=== PATIENT | female | born 1945 | race Two or more races ===

== ENCOUNTER 2018-12-01 10:40 | Inpatient (IN) | payer MEDICARE, OTHER ==
[~2018-12-01] VITALS: Ht 165.1 cm; Wt 47.2 kg
[2018-12-01] MEDS ORDERED: PIPER-TAZO 3.375 GM IV (PMX) 100 ML IVPB STA (14:43)
[2018-12-01] MEDS ORDERED: VANCOMYCIN 1 GM (PMX) 250 ML IVPB STA (14:43)
--- NOTE | 2018-12-01 14:54 | ERD ---
ER Documentation Chief Complaint Chief Complaint pt is sent by PMD for admission and bilat amputation of 2nd digit HPI This is a 73-year-old female with a past medical history of hypertension, rheumatoid arthritis, failure to thrive with cachexia, GERD, dysphagia status post G-tube placement, foot ulcers who is presenting from the podiatry clinic to be admitted for likely amputation. She was seen by Dr. Vázquez. There are concerns of bilateral toe ulcers and possible gangrene. Her ulcers began in August and have been progressively worsening. She does not endorse any alleviating or exacerbating factors. The patient denies feeling sick recently. The patient denies fever or chills. The patient has had no headache or vision changes. The patient does not endorse neck or back pain. The patient denies lightheadedness or dizziness. The patient has had no chest pain or trouble breathing. The patient denies nausea or vomiting. The patient denies abdominal pain. The patient denies changes to bowel movements or urination. The patient has had no focal deficits. The patient has had no weakness or numbness or tingling to the face or extremities. ROS All systems reviewed and are negative except as per history of present illness. Medications Home Meds Reported Medications Zinc Sulfate* (Zinc Sulfate*) 220 Mg Tablet, 220 MG GTB DAILY, TAB STOP TAKING 12/09/18 12/01/18 Ascorbic Acid (Vitamin C) 500 Mg Tab, 500 MG PO DAILY, TAB 12/01/18 Cyanocobalamin (Vitamin B12) 100 Mcg Tab, 100 MCG GTB DAILY, TAB 12/01/18 valAcyclovir Hcl* (valACYclovir Hcl*) 500 Mg Tablet, 500 MG GTB DAILY, TAB 12/01/18 Tramadol HCl (Tramadol HCl) 50 Mg Tablet, 50 MG GTB Q8H PRN for PAIN, #120 TAB 12/01/18 Propylene Glycol (SYSTANE BALANCE) 10 Ml Drops, 1 DRP BOTH EYES TID, #1 BOTTLE 12/01/18 Sennosides* (Senna Lax*) 8.6 Mg Tablet, 2 TAB GTB BID, TAB 12/01/18 Mirtazapine* (Remeron*) 15 Mg Tablet, 15 MG GTB HS, TAB 12/01/18 Amino Acids/Protein Hydrolys (PRO-STAT LIQUID) 30 Ml Liquid.pkt, 30 ML GTB BID SUGAR FREE 12/01/18 Hydroxychloroquine Sulfate* (Plaquenil*) 200 Mg Tab, 400 MG GTB DAILY, TAB 12/01/18 Oxybutynin Chloride* (Ditropan*) 5 Mg Tablet, 5 MG GTB TID, TAB 12/01/18 Multivitamin with Minerals (Multivitamins with Minerals) 1 Each Tablet, 1 EACH GTB DAILY, TAB 12/01/18 Polyethylene Glycol* (Miralax*) 17 Gm Powd.pack, 17 GM GTB DAILY, #30 PACKET 12/01/18 Prednisolone* (Prednisolone*) 5 Mg Tablet, 5 MG GTB DAILY, TAB 12/01/18 Megestrol Acetate* (Megace ES*) 625 Mg/5 Ml Oral.susp, 1000 MG GTB DAILY, ML STOP DATE 12/19/18 12/01/18 Atorvastatin* (Atorvastatin*) 40 Mg Tablet, 40 MG GTB QHS, #30 TAB 12/01/18 Fluticasone Propionate* (Fluticasone Propionate* Nasal) 50 Mcg/[place]raymer - 16 Gm Braymer.susp, 2 SPRAYS NASAL DAILY, #1 BOTTLE TO EACH NOSTRIL 12/01/18 Roundup-3 Fatty Acids/Fish Oil (Fish Oil 1,000 mg Capsule) 1 Each Capsule, 1 EACH GTB DAILY, CAP 12/01/18 Ferrous Sulfate* (Ferrous Sulfate*) 220 Mg/5 Ml Solution, 7.5 ML GTB TID, ML 12/01/18 Bisacodyl* (Bisacodyl*) 10 Mg Supp, [address] Q24H for CONSTIPATION, SUPP 12/01/18 Docusate Sodium* (Colace*) 100 Mg Capsule, 100 MG GTB BID, #60 CAP 12/01/18 Cholecalciferol* (Vitamin D*) 400 Unit Tablet, 400 UNIT GTB DAILY, TAB 12/01/18 Mycophenolate Mofetil* (Cellcept*) 500 Mg Tablet, 1000 MG GTB DAILY, #120 TAB 12/01/18 Calcium Acetate* (Calcium Acetate*) 667 Mg Capsule, 667 MG GTB WITH MEALS BID, #30 CAP 12/01/18 Atenolol* (Atenolol*) 25 Mg Tablet, 25 MG GTB DAILY, #30 TAB HOLD FOR SBP<[address]<60 12/01/18 Allopurinol* (Allopurinol*) 100 Mg Tablet, 200 MG GTB DAILY, TAB 12/01/18 Acetaminophen* (Acetaminophen*) 500 MG Extra Strength Tablet, 1000 MG GTB Q6H PRN for MILD PAIN LEVEL 1-3, TAB AND TEMP>100F 12/01/18 Allergies Allergies: Coded Allergies: No Known Allergy (Unverified , 12/01/18) PMhx/Soc History of Surgery: Yes (G-tube placement) Anesthesia Reaction: No Hx Neurological Disorder: No Hx Respiratory Disorders: No Hx Cardiac Disorders: Yes (Hypertension) Hx Psychiatric Problems: No Hx Miscellaneous Medical Probl: Yes (Rheumatoid arthritis, dysphagia status post G-tube, failure to thrive, foot ulcers) Hx Alcohol Use: No Hx Substance Use: No Hx Tobacco Use: No FmHx Family History: No diabetes Physical Exam Vitals Vital Signs Date Temp Pulse Resp B/P (MAP) Pulse Ox O2 O2 Flow FiO2 Time Delivery Rate 12/01/18 80 20 146/95 99 Room Air 14:50 (112) 12/01/18 98.3 86 18 130/76 100 10:56 (94) Physical Exam Const: No apparent distress, well-developed. Cachexia. Head: Normocephalic, Atraumatic Eyes: Normal Conjunctiva. Extraocular movements intact. Pupils equal, round and reactive to light ENT: Normal External Ears, Nose. Dry mucous membranes. Neck: Full range of motion. No meningismus. Resp: Clear to auscultation bilaterally, No wheezes, rales or rhonchi Cardio: Regular rate and rhythm. No murmurs, rubs or gallops Abd: Soft, non tender, non distended. Normal bowel sounds. G-tube in place. Skin: No petechiae or rashes Back: No midline tenderness. No CVA tenderness Ext: No cyanosis. Extremity atrophy with contracturing. Bilateral pedal edema with ulcerations and gangrenous color changes. Neur: Awake and alert, oriented 4. Cranial nerves intact. No facial droop. Normal strength, sensation and coordination. Psych: Normal Mood and Affect Result Diagram: 12/01/18 1503 12/01/18 1503 Results 24 hrs Laboratory Tests Test 12/01/18 15:03 White Blood Count 9.5 10^3/ul Red Blood Count 3.65 10^6/ul Hemoglobin 11.2 g/dl Hematocrit 36.5 % Mean Corpuscular Volume 100.0 fl Mean Corpuscular Hemoglobin 30.7 pg Mean Corpuscular Hemoglobin Concent 30.7 g/dl Red Cell Distribution Width 15.7 % Platelet Count 165 10^3/UL Mean Platelet Volume 12.1 fl Immature Granulocytes % 3.200 % Neutrophils % 71.5 % Lymphocytes % 15.8 % Monocytes % 8.6 % Eosinophils % 0.6 % Basophils % 0.3 % Nucleated Red Blood Cells % 0.0 /100WBC Immature Granulocytes # 0.300 10^3/ul Neutrophils # 6.8 10^3/ul Lymphocytes # 1.5 10^3/ul Monocytes # 0.8 10^3/ul Eosinophils # 0.1 10^3/ul Basophils # 0.0 10^3/ul Nucleated Red Blood Cells # 0.0 10^3/ul Erythrocyte Sedimentation Rate 55 mm/Hr Prothrombin Time 12.0 Sec Prothrombin Time Ratio 0.9 INR International Normalized Ratio 0.88 Sodium Level 143 mmol/L Potassium Level 4.3 mmol/L Chloride Level 112 mmol/L Carbon Dioxide Level 23 mmol/L Anion Gap 8 Blood Urea Nitrogen 33 mg/dl Creatinine 1.04 mg/dl Est Glomerular Filtrat Rate mL/min mL/min Glucose Level 84 mg/dl Calcium Level 10.3 mg/dl C-Reactive Protein < 0.5 mg/dl Current Medications Medications Dose Sig/Lyla Start Time Status Last (Trade) Ordered Route PRN Stop Time Admin Dose Reason Admin Vancomycin 250 ml @ ONCE STAT 12/01/18 DC HCl 125 mls/hr IVPB 14:43 12/01/18 16:42 Piperacillin 100 ml @ ONCE STAT 12/01/18 DC 12/01/18 Sod/ 200 mls/hr IVPB 14:43 16:26 Tazobactam 12/01/18 15:12 Sod Ondansetron 4 mg BRIDGE ORDER 12/01/18 HCl (Zofran PRN IV 15:30 Inj) NAUSEA/VOMITI 12/02/18 15:29 NG 650 mg ER BRIDGE 12/01/18 Acetaminophen PRN PO 15:30 (Tylenol .MILD PAIN 12/02/18 15:29 Tab) 1-3 OR TEMP IV Flush 3 ml PER 12/01/18 (NS 3 ml) PROTOCOL IV 15:30 Ondansetron 4 mg Q6H PRN 12/01/18 HCl (Zofran IV 15:30 Inj) NAUSEA/VOMITI NG 650 mg Q6H PRN 12/01/18 Acetaminophen PO .PAIN 1-3 15:30 (Tylenol OR TEMP Tab) 1 tab Q6H PRN 12/01/18 Acetaminophen PO .PAIN 4-6 15:30 / Hydrocodone Bitart (Galien (5/325)) Morphine 2 mg Q4H PRN 12/01/18 Sulfate IV .PAIN 15:30 (morphine) 7-10 Vancomycin VANCOMYCIN PER 12/01/18 UNV HCl (Vanco PER PHARMACY PROTOCOL XX 15:30 Iv Per Pharmacy) Piperacillin 100 ml @ Q6 IVPB 12/01/18 UNV Sod/ 200 mls/hr 15:30 Tazobactam Sod Discontinue ONCE ONCE 12/01/18 DC Miscellaneous current oral XX 15:30 sulfonylur... 12/01/18 15:51 Information (* Miscellaneous Pharmacy Order) Diagnostic 1 ea 02 XX 12/02/18 DC Test (Pha) 02:00 (Accu-Chek) 12/02/18 02:00 ONCE ONCE 12/01/18 DC Miscellaneous HYPOGLYCEMIA XX 15:30 PROTOCOL 12/01/18 15:51 Information w... (* Miscellaneous Pharmacy Order) Insulin NOVOLOG WITH MEALS 12/01/18 DC Aspart *MILD* BEDTIME SC 18:00 (Novolog ALGORITHM 12/01/18 18:00 Insulin Pen) Discontinue ONCE ONCE 12/01/18 DC Miscellaneous all previ... XX 15:30 12/01/18 15:51 Information (* Miscellaneous Pharmacy Order) Allopurinol 200 mg DAILY PEG 12/01/18 UNV (Zyloprim) 15:30 Atenolol 25 mg DAILY PEG 12/01/18 UNV (Tenormin) 15:30 Calcium 667 mg BID PEG 12/01/18 UNV Acetate 21:00 (Phoslo) Docusate 100 mg BID PEG 12/01/18 UNV Sodium 21:00 (Colace Liquid Cup) Ferrous 300 mg DAILY PEG 12/02/18 UNV Sulfate 09:00 (Feosol Liquid Cup) Fish Oil 1,000 mg DAILY PO 12/01/18 UNV (Fish Oil) 15:30 40 mg HS PEG 12/01/18 UNV Atorvastatin 21:00 Calcium (Lipitor) Prednisone 5 mg DAILY PEG 12/01/18 UNV (Prednisone) 15:30 Oxybutynin 5 mg TID PEG 12/01/18 UNV Chloride 21:00 (Ditropan) 1,000 mg DAILY ONCE 12/01/18 UNV Mycophenolate PO 15:30 Mofetil 12/01/18 15:31 (Cellcept) 400 mg DAILY PO 12/01/18 UNV Hydroxychloro 15:30 quine Sulfate (Plaquenil) Mirtazapine 15 mg HS PO 12/01/18 UNV (Remeron) 21:00 Valacyclovir 500 mg DAILY ONCE 12/01/18 UNV HCl PO 15:30 (Valtrex) 12/01/18 15:31 100 mcg DAILY NGT 12/02/18 UNV Cyanocobalami 09:00 n (Vitamin B12) Ascorbic 500 mg DAILY GTB 12/02/18 UNV Acid 09:00 (Vitamin C) Zinc 220 mg DAILY PO 12/02/18 UNV Sulfate 09:00 (Zinc Sulfate) 40 mg DAILY@06 12/02/18 UNV Pantoprazole IV 06:00 (Protonix Iv) Valacyclovir 500 mg DAILY PO 12/02/18 UNV HCl 09:00 (Valtrex) 1,000 mg DAILY PO 12/02/18 UNV Mycophenolate 09:00 Mofetil (Cellcept) 12.5 mg DAILY PRN 12/01/18 UNV Diphenhydrami PEG itching 16:30 ne HCl (Benadryl Liquid Cup) Procedures/MDM MDM The patient's presentation warrants further investigation. Previous medical records, if available, were reviewed. LABS The patient's laboratory testing was obtained and reviewed. No emergent treatment was required unless described below. CBC: No E/o systemic infection or thrombocytopenia. Macrocytic anemia, nonemergent. Chemistry: No E/o severe acidosis or alkalosis or renal failure or diabetic ketoacidosis. Elevated BUN, concerning for dehydration. PT/INR: No E/o significant coagulopathy ESR: Elevated CRP: Negative EKG EKG read by me: Rate/Rhythm: Regular rate and rhythm at a rate of 73 bpm Intervals: Normal Cecil: Normal Impression: No evidence of acute ischemia or arrhythmia IMAGING Imaging and Radiology interpretation reviewed. CXR FINDINGS: Heart size is at the upper limits of normal. Aorta is tortuous. There is no pneumothorax or pleural effusion. There is no focal pulmonic consolidation. Degenerative changes of bilateral shoulder joints are partially seen. IMPRESSION: No acute pulmonary abnormality. Electronically viewed and signed by Physician Rosalinda on 12/01/2018 15:59 XR R Foot FINDINGS: There is no acute fracture or dislocation. There is suggestion of healing nondisplaced fracture of the second proximal phalanx with overlying soft tissue swelling. A minimally displaced, oblique fracture of fourth proximal phalanx is likely non-acute. There is hallux valgus deformity. There is flexion deformity of the second - fifth toes. There are mild osteoarthritic changes of the first metatarsophalangeal and intertarsal joints. There are moderate osteoarthritic changes of the tarsometatarsal joints. There is a small plantar calcaneal spur. There are diffuse vascular calcifications. There is moderate dorsal forefoot soft tissue swelling. No soft tissue gas is noted. IMPRESSION: 1. Suspect a nondisplaced second proximal phalangeal fracture with overlying soft tissue swelling. 2. Minimally displaced, oblique, fourth proximal phalangeal fracture, probably subacute or chronic. Recommend correlation with point tenderness and history of recent trauma. 3. Hallux valgus deformity. 4. Osteoarthritis, most notable at the tarsometatarsal joints. 5. Plantar calcaneal spur. 6. Atherosclerosis. 7. Moderate dorsal forefoot soft tissue swelling. Electronically viewed and signed by Physician Rosalinda on 12/01/2018 16:04 XR L Foot FINDINGS: There is no acute fracture or dislocation. Osseous structures are intact. There are moderate osteoarthritic changes of the second metatarsophalangeal and second proximal interphalangeal joints. There are mild degenerative changes of intertarsal and tarsometatarsal joints. There is an old nonunited second metatarsal base fracture. There is chronic deformity of distal third metatarsal and fourth proximal phalanx. There is flexion deformity of second - fifth toes. Vascular calcifications are seen in the foot. There is moderate dorsal forefoot soft tissue swelling. No soft tissue gas is seen. IMPRESSION: 1. No acute osseous abnormality. 2. Osteoarthritis. 3. Old nonunited second metatarsal base fracture. 4. Flexion deformity of the second - fifth toes. 5. Atherosclerosis. 6. Moderate dorsal forefoot soft tissue swelling. Electronically viewed and signed by Gaby Villa, Physician on 12/01/2018 16:07 TREATMENT/DISPOSITION The patient presents with concerns of bilateral pedal gangrene. The patient was evaluated in the podiatry office and referred to the emergency department for admission and preoperative testing. I spoke with the on-call bird trapper, Dr. Sunshine, who requested initiation of vancomycin and Zosyn in the emergency depar tment. The patient is not septic and does not require a full septic workup. Preoperative testing was completed. ADMISSION At this time, I feel that the patient requires admission for further evaluation and management. The patient will be admitted to panel in accordance with the patient's insurance. The patient was accepted by Dr. Jacobsen at 2:58 PM on December 01, [address] [facility]. Vázquez evaluated the patient in the ER. Disclaimer: Inadvertent spelling and grammatical errors are likely due to EHR/dictation software use and do not reflect on the overall quality of patient care. Note that the electronic time recorded on this note does not necessarily reflect the actual time of the patient encounter. Departure Diagnosis: Primary Impression: Gangrene of both feet Additional Impressions: Diabetic ulcer of both feet Macrocytic anemia Elevated BUN Condition: Serious SALVADOR BOYLE MD Dec 01, 2018 14:54
--- NOTE | 2018-12-01 15:19 | CONS ---
Assessment/Plan Assessment/Plan Assessment/Plan (Daily) Chronic osteomyelitis b/l feet 2nd digits Bilateral minimally displaced foot fracture - chronic in nature PAD - s/p angioplasty Arterial ulcers bilateral foot Hammertoe deformity Lupus Osteoarthritis Chronic HSV Patient Patient had discussion with daughter previously for bilateral 2nd digit amputation. Patient will need medical and cardiac clearance. Patient will be p lanned for OR procedure this week. Recommend betadine and dry sterile dressings to bilateral 2nd digits. Offload bilateral heels with pillows. Patient had previous vascular intervention for lower extremity. Consultation Date/Type/Reason Admit Date/Time Date/Time of Note DATE: 12/01/18 TIME: 15:19 Hx of Present Illness 73 y/o F patient presented to the wound care clinic with bilateral 2nd digit ulcerations with bone exposed. Patient states the wounds have been present for long period of time. She was seen previously and was recommended to be admitted for further management of digit ulceration sites and to be scheduled for bilateral 2nd digit amputation. ROS negative except for HPI Past Medical History lupus, rheumatoid arthritis, gout, iron deficiency anemia, constipation, chronic HSV, hypertension Home Meds Reported Medications Zinc Sulfate* (Zinc Sulfate*) 220 Mg Tablet, 220 MG GTB DAILY, TAB STOP TAKING 12/09/18 12/01/18 Ascorbic Acid (Vitamin C) 500 Mg Tab, 500 MG PO DAILY, TAB 12/01/18 Cyanocobalamin (Vitamin B12) 100 Mcg Tab, 100 MCG GTB DAILY, TAB 12/01/18 valAcyclovir Hcl* (valACYclovir Hcl*) 500 Mg Tablet, 500 MG GTB DAILY, TAB 12/01/18 Tramadol HCl (Tramadol HCl) 50 Mg Tablet, 50 MG GTB Q8H PRN for PAIN, #120 TAB 12/01/18 Propylene Glycol (SYSTANE BALANCE) 10 Ml Drops, 1 DRP BOTH EYES TID, #1 BOTTLE 12/01/18 Sennosides* (Senna Lax*) 8.6 Mg Tablet, 2 TAB GTB BID, TAB 12/01/18 Mirtazapine* (Remeron*) 15 Mg Tablet, 15 MG GTB HS, TAB 12/01/18 Amino Acids/Protein Hydrolys (PRO-STAT LIQUID) 30 Ml Liquid.pkt, 30 ML GTB BID SUGAR FREE 12/01/18 Hydroxychloroquine Sulfate* (Plaquenil*) 200 Mg Tab, 400 MG GTB DAILY, TAB 12/01/18 Oxybutynin Chloride* (Ditropan*) 5 Mg Tablet, 5 MG GTB TID, TAB 12/01/18 Multivitamin with Minerals (Multivitamins with Minerals) 1 Each Tablet, 1 EACH GTB DAILY, TAB 12/01/18 Polyethylene Glycol* (Miralax*) 17 Gm Powd.pack, 17 GM GTB DAILY, #30 PACKET 12/01/18 Prednisolone* (Prednisolone*) 5 Mg Tablet, 5 MG GTB DAILY, TAB 12/01/18 Megestrol Acetate* (Megace ES*) 625 Mg/5 Ml Oral.susp, 1000 MG GTB DAILY, ML STOP DATE 12/19/18 12/01/18 Atorvastatin* (Atorvastatin*) 40 Mg Tablet, 40 MG GTB QHS, #30 TAB 12/01/18 Fluticasone Propionate* (Fluticasone Propionate* Nasal) 50 Mcg/[place] - 16 Gm [place].susp, 2 SPRAYS NASAL DAILY, #1 BOTTLE TO EACH NOSTRIL 12/01/18 Wilson-3 Fatty Acids/Fish Oil (Fish Oil 1,000 mg Capsule) 1 Each Capsule, 1 EACH GTB DAILY, CAP 12/01/18 Ferrous Sulfate* (Ferrous Sulfate*) 220 Mg/5 Ml Solution, 7.5 ML GTB TID, ML 12/01/18 Bisacodyl* (Bisacodyl*) 10 Mg Supp, 10 MG RI Q24H for CONSTIPATION, SUPP 12/01/18 Docusate Sodium* (Colace*) 100 Mg Capsule, 100 MG GTB BID, #60 CAP 12/01/18 Cholecalciferol* (Vitamin D*) 400 Unit Tablet, 400 UNIT GTB DAILY, TAB 12/01/18 Mycophenolate Mofetil* (Cellcept*) 500 Mg Tablet, 1000 MG GTB DAILY, #120 TAB 12/01/18 Calcium Acetate* (Calcium Acetate*) 667 Mg Capsule, 667 MG GTB WITH MEALS BID, #30 CAP 12/01/18 Atenolol* (Atenolol*) 25 Mg Tablet, 25 MG GTB DAILY, #30 TAB HOLD FOR SBP<110 OR RI<60 12/01/18 Allopurinol* (Allopurinol*) 100 Mg Tablet, 200 MG GTB DAILY, TAB 12/01/18 Acetaminophen* (Acetaminophen*) 500 MG Extra Strength Tablet, 1000 MG GTB Q6H PRN for MILD PAIN LEVEL 1-3, TAB AND TEMP>100F 12/01/18 Medications Current Medications Vancomycin HCl 250 ml @ 125 mls/hr ONCE STAT IVPB ; Start 12/01/18 at 14:43; Stop 12/01/18 at 16:42 Ondansetron HCl (Zofran Inj) 4 mg BRIDGE ORDER PRN IV NAUSEA/VOMITING; Start 12/01/18 at 15:30; Stop 12/02/18 at 15:29 Acetaminophen (Tylenol Tab) 650 mg ER BRIDGE PRN PO .MILD PAIN 1-3 OR TEMP; Start 12/01/18 at 15:30; Stop 12/02/18 at 15:29 Allergies: Coded Allergies: No Known Allergy (Unverified , 12/01/18) Past Surgical History g-tube placement Social History Smoking Status: Never smoker Exam/Review of Systems Exam Vitals Vital Signs Date Temp Pulse Resp B/P (MAP) Pulse Ox O2 O2 Flow FiO2 Time Delivery Rate 12/01/18 80 20 146/95 99 Room Air 14:50 (112) 12/01/18 98.3 10:56 Exam weakly palpable pedal pulses CFT less than 3 seconds to the digits Bilateral 2nd digit ulcerations at the dorsal PIPJ with bone exposed. No purulence, edema noted to bilateral 2nd digits. No proximal streaking. Pain on with palpation to bilateral 2nd digits. Left foot X-ray IMPRESSION: 1. No acute osseous abnormality. 2. Osteoarthritis. 3. Old nonunited second metatarsal base fracture. 4. Flexion deformity of the second - fifth toes. 5. Atherosclerosis. 6. Moderate dorsal forefoot soft tissue swelling. Right foot X-ray IMPRESSION: 1. Suspect a nondisplaced second proximal phalangeal fracture with overlying soft tissue swelling. 2. Minimally displaced, oblique, fourth proximal phalangeal fracture, probably subacute or chronic. Recommend correlation with point tenderness and history of recent trauma. 3. Hallux valgus deformity. 4. Osteoarthritis, most notable at the tarsometatarsal joints. 5. Plantar calcaneal spur. 6. Atherosclerosis. 7. Moderate dorsal forefoot soft tissue swelling. Results Result Diagram: 12/01/18 1503 Results 24hrs Laboratory Tests Test 12/01/18 15:03 White Blood Count 9.5 Red Blood Count 3.65 L Hemoglobin 11.2 L Hematocrit 36.5 L Mean Corpuscular Volume 100.0 Mean Corpuscular Hemoglobin 30.7 Mean Corpuscular Hemoglobin Concent 30.7 L Red Cell Distribution Width 15.7 H Platelet Count 165 Mean Platelet Volume 12.1 H Immature Granulocytes % 3.200 H Neutrophils % 71.5 Lymphocytes % 15.8 Monocytes % 8.6 Eosinophils % 0.6 Basophils % 0.3 Nucleated Red Blood Cells % 0.0 Immature Granulocytes # 0.300 H Neutrophils # 6.8 Lymphocytes # 1.5 Monocytes # 0.8 Eosinophils # 0.1 Basophils # 0.0 Nucleated Red Blood Cells # 0.0 Medications Medication Current Medications Vancomycin HCl 250 ml @ 125 mls/hr ONCE STAT IVPB ; Start 12/01/18 at 14:43; Stop 12/01/18 at 16:42 Ondansetron HCl (Zofran Inj) 4 mg BRIDGE ORDER PRN IV NAUSEA/VOMITING; Start 12/01/18 at 15:30; Stop 12/02/18 at 15:29 Acetaminophen (Tylenol Tab) 650 mg ER BRIDGE PRN PO .MILD PAIN 1-3 OR TEMP; Start 12/01/18 at 15:30; Stop 12/02/18 at 15:29 WENDI BELL DPM Dec 01, 2018 15:19
[2018-12-01] MEDS ORDERED: VANCOMYCIN IV PER PHARMACY XX SCH (15:30)
[2018-12-01] MEDS ORDERED: ONDANSETRON 4 MG INJ IV PRN (15:30)
[2018-12-01] MEDS ORDERED: ACETAMINOPHEN 325 MG TAB PO PRN (15:30)
[2018-12-01] MEDS ORDERED: NACL 0.9% 3 ML SYG IV SCH (15:30)
--- NOTE | 2018-12-01 16:01 | HP ---
Date/Time of Note Date/Time of Note DATE: 12/01/18 TIME: 16:01 Assessment/Plan VTE Prophylaxis Pharmacological prophylaxis: other Assessment/Plan Hospital Course Patient is a -Marshallese female the past medical history significant for lupus, rheumatoid arthritis, gout, iron deficiency anemia, constipation, chronic HSV, hypertension who presents to [facility] for her chronic foot ulcers. Patient is wheelchair-bound due to weakness and also has a PEG tube due to poor p.o. intake. Patient states that she cannot swallow it is just difficult and she has very severe acid reflux. Patient was sent after she went to her public interviewer appointment for her chronic foot ulcers. Patient feels well otherwise and does have some pain in her feet and her body but nothing out of the ordinary. Patient denies chest pain, shortness of breath, abdominal pain, nausea, vomiting, headache. Objective Physical exam General: Patient is laying in bed and answers questions appropriately Mentation: Patient is alert and oriented 4, Head: Normocephalic atraumatic Eyes: EOMI, pupils reactive to light Neck: Supple, nontender, midline Respiratory: Clear to auscultation bilaterally Cardiovascular: regular rate, no obvious murmurs Gastrointestinal: non-tender to palpation, bowel sounds heard. Neurological: Moves all extremities spontaneously Skin: Foot ulcers bilaterally Assessment and plan Bilateral foot ulcers -Broad-spectrum IV antibiotic -Podiatry on board -Cardiology on board to risk assess for surgery planned sometime next week Hypertension -Continue home meds Lupus and rheumatoid arthritis -Continue home meds Chronic HSV -On Valtrex suppression therapy Gout -Allopurinol Dyslipidemia -Atorvastatin Nutritional deficiency -On tube feeds -See speech therapy -Dietary consult Inability to tolerate significant p.o. -Patient able to swallow however however her [facility] does feed her she just does not like the food.she states that due to excessive reflux she does not like to eat food -Continue tube feeds but also let patient drink water diet clears Iron deficiency anemia -Continue iron Disposition -IV antibiotics, cardiology consulted for cardiac clearance, surgery sometime next week Result Diagram: 12/01/18 1503 Results 24hrs Laboratory Tests Test 12/01/18 15:03 White Blood Count 9.5 Red Blood Count 3.65 L Hemoglobin 11.2 L Hematocrit 36.5 L Mean Corpuscular Volume 100.0 Mean Corpuscular Hemoglobin 30.7 Mean Corpuscular Hemoglobin Concent 30.7 L Red Cell Distribution Width 15.7 H Platelet Count 165 Mean Platelet Volume 12.1 H Immature Granulocytes % 3.200 H Neutrophils % 71.5 Lymphocytes % 15.8 Monocytes % 8.6 Eosinophils % 0.6 Basophils % 0.3 Nucleated Red Blood Cells % 0.0 Immature Granulocytes # 0.300 H Neutrophils # 6.8 Lymphocytes # 1.5 Monocytes # 0.8 Eosinophils # 0.1 Basophils # 0.0 Nucleated Red Blood Cells # 0.0 Prothrombin Time 12.0 Prothrombin Time Ratio 0.9 INR International Normalized Ratio 0.88 Sodium Level 143 Potassium Level 4.3 Chloride Level 112 H Carbon Dioxide Level 23 Anion Gap 8 Blood Urea Nitrogen 33 H Creatinine 1.04 H Est Glomerular Filtrat Rate mL/min Glucose Level 84 Calcium Level 10.3 H C-Reactive Protein < 0.5 HPI/ROS Admit Date/Time Admit Date/Time PMH/Family/Social Past Medical History Medications Current Medications Vancomycin HCl 250 ml @ 125 mls/hr ONCE STAT IVPB ; Start 12/01/18 at 14:43; Stop 12/01/18 at 16:42 Ondansetron HCl (Zofran Inj) 4 mg BRIDGE ORDER PRN IV NAUSEA/VOMITING; Start 12/01/18 at 15:30; Stop 12/02/18 at 15:29 Acetaminophen (Tylenol Tab) 650 mg ER BRIDGE PRN PO .MILD PAIN 1-3 OR TEMP; Start 12/01/18 at 15:30; Stop 12/02/18 at 15:29 Coded Allergies: No Known Allergy (Unverified , 12/01/18) Social History Smoking Status: Never smoker Exam/Review of Systems Vital Signs Vitals Vital Signs Date Temp Pulse Resp B/P (MAP) Pulse Ox O2 O2 Flow FiO2 Time Delivery Rate 12/01/18 80 20 146/95 99 Room Air 14:50 (112) 12/01/18 98.3 10:56 ITZ BAY Dec 01, 2018 16:01
[2018-12-01] MEDS ORDERED: ACET-141 GTB (16:04)
[2018-12-01] MEDS ORDERED: ALLO100T GTB (16:05)
[2018-12-01] MEDS ORDERED: ATEN-51 GTB (16:06)
[2018-12-01] MEDS ORDERED: CALC667C GTB (16:07)
[2018-12-01] MEDS ORDERED: MYCO500T GTB (16:08)
[2018-12-01] MEDS ORDERED: CHOL400T10 GTB (16:09)
[2018-12-01] MEDS ORDERED: DOCU-144 GTB (16:09)
[2018-12-01] MEDS ORDERED: BISA10SU75 PR (16:10)
[2018-12-01] MEDS ORDERED: FERR220S13 GTB (16:11)
[2018-12-01] MEDS ORDERED: FLUT16SP17 NASAL (16:12)
[2018-12-01] MEDS ORDERED: OMEG-135 GTB (16:12)
[2018-12-01] MEDS ORDERED: ATOR40TA68 GTB (16:12)
[2018-12-01] MEDS ORDERED: MEGE625O GTB (16:14)
[2018-12-01] MEDS ORDERED: PRED5TAB50 GTB (16:18)
[2018-12-01] MEDS ORDERED: POLY17PO6 GTB (16:19)
[2018-12-01] MEDS ORDERED: MULT-105 GTB (16:21)
[2018-12-01] MEDS ORDERED: OXYB5TAB7 GTB (16:22)
[2018-12-01] MEDS ORDERED: HYDR200T5 GTB (16:23)
[2018-12-01] MEDS ORDERED: AMIN30LI GTB (16:24)
[2018-12-01] MEDS ORDERED: MIRT15TA GTB (16:24)
[2018-12-01] MEDS ORDERED: SENN-120 GTB (16:26)
[2018-12-01] MEDS ORDERED: PROP10DR4 BOTH EYES (16:28)
[2018-12-01] MEDS ORDERED: TRAM50TA2 GTB (16:29)
[2018-12-01] MEDS ORDERED: VALA500T GTB (16:30)
[2018-12-01] MEDS ORDERED: CYAN100T GTB (16:35)
[2018-12-01] MEDS ORDERED: ASC500 PO (16:36)
[2018-12-01] MEDS ORDERED: ZINC220T GTB (16:37)
[2018-12-01] MEDS: ONDANSETRON 4 MG INJ IV PRN (17:57)
[2018-12-01] MEDS: morphine 2 MG INJ IV PRN (17:57)
[2018-12-01] MEDS ORDERED: INSULIN ASPART [NOVOLOG] 3 ML PEN SC SCH (18:00)
[2018-12-01] MEDS ORDERED: valACYclovir 500 MG TAB PO ONE (18:30)
[2018-12-01] MEDS ORDERED: MYCOPHENOLATE 250 MG CAP PO ONE (18:30)
[2018-12-01 19:27] VITALS: BP 151/72; PULSE 75; RESP 18
[2018-12-01] MEDS: PIPER-TAZO 3.375 GM IV (PMX) 100 ML IVPB SCH ×2 (20:00→21:35)
[2018-12-01 20:25] VITALS: BP 140/73; PULSE 66; RESP 18
[2018-12-01 21:00] VITALS: Ht 165.1 cm; Wt 47.2 kg
[2018-12-01] MEDS: ATENOLOL 25 MG TAB PEG SCH (21:00)
[2018-12-01] MEDS: HYDROXYCHLOROQUINE 200 MG TAB PO SCH (21:06)
[2018-12-01] MEDS: ALLOPURINOL 100 MG TAB PEG SCH (21:06)
[2018-12-01] MEDS: OXYBUTYNIN 5 MG TAB PEG SCH (21:07)
[2018-12-01] MEDS: FISH OIL 1,000 MG CAP PO SCH (21:07)
[2018-12-01] MEDS: predniSONE 5 MG TAB PEG SCH (21:07)
[2018-12-01] MEDS: DOCUSATE SODIUM 10 MG/ML (10ML CUP) PEG SCH (21:08)
[2018-12-01] MEDS: MIRTAZAPINE 15 MG TAB PO SCH (21:08)
[2018-12-01] MEDS: ATORVASTATIN 40 MG TAB PEG SCH (21:08)
[2018-12-01] MEDS: CALCIUM ACETATE 667 MG CAP PEG SCH (21:08)
[2018-12-02] MEDS: morphine 2 MG INJ IV PRN ×6 (00:47→23:14)
[2018-12-02] MEDS ORDERED: ACCU-CHEK XX SCH (02:00)
[2018-12-02 02:21] VITALS: BP 114/66; PULSE 79; RESP 18
--- NOTE | 2018-12-02 03:56 | CONS ---
DATE OF ADMISSION: 12/01/2018 DATE OF CONSULTATION: 12/01/2018 REASON FOR CONSULTATION: Preoperative evaluation. REQUESTING PHYSICIAN: Dr. Bay from the hospitalist service. HISTORY OF PRESENT ILLNESS: Ms. Bañuelos is a very pleasant 73-year-old female with a history of lupus, rheumatoid arthritis, gout, anemia, hypertension, peripheral arterial disease who presents with worsening foot ulcers bilaterally. The patient is at baseline, does not ambulate due to generalized weakness, is wheelchair bound, has a PEG tube for poor p.o. intake. Upon arrival, temperature 98.3, blood pressure 130/76, pulse 86, respiratory rate 18, satting 100%. The patient's labs, white count 9.5, hemoglobin 0.2, platelet count of 165. ESR 55. Sodium 142, potassium 4.3, creatinine 1.0, BUN 33. Calcium 10.3. CRP of less than 5. INR 0.88. The patient underwent a chest x-ray revealing no acute cardiopulmonary abnormalities and foot x-ray that revealed a nondisplaced 2nd proximal phalangeal fracture, nondisplaced oblique 4th proximal phalangeal fracture, hallux valgus deformity, osteoarthritis, plantar calcaneal spur, atherosclerosis, moderate dorsal forefoot soft tissue swelling. The patient's electrocardiogram is not in chart for my review at this time. The patient's electrocardiogram revealed normal sinus rhythm, rate of 73, normal axis, normal intervals with biphasic T-wave abnormalities in anterior precordial leads. The patient subsequently was admitted to the floor, and since admit to floor, denies chest pain, shortness of breath, palpitations, prior myocardial infarction. PAST MEDICAL HISTORY: As above in HPI. MEDICATIONS CURRENTLY IN HOSPITAL: 1. Vancomycin. 2. Ferrous sulfate. 3. Vitamin B12. 4. Vitamin C. 5. Zinc sulfate. 6. Valtrex 500 mg daily. 7. CellCept 1000 mg. 8. Protonix 40 mg IV daily. 9. Calcium acetate. 10. Colace. 11. Lipitor 40 mg at bedtime. 12. Ditropan. 13. Remeron. 14. Zosyn. ALLERGIES: NO KNOWN DRUG ALLERGIES. SOCIAL HISTORY: No current tobacco, EtOH or illicit drug use. FAMILY HISTORY: No history of sudden cardiac or early CAD. REVIEW OF SYSTEMS: As above in HPI. CONSTITUTIONAL: No fevers, chills. PULMONARY: No current shortness of breath. CARDIOVASCULAR: No current chest pain. GASTROINTESTINAL: No vomiting but dysphagia status post G-tube. GENITOURINARY: No hematuria. MUSCULOSKELETAL: Degenerative joint disease. PSYCHIATRIC: No documented psych history. NEUROLOGIC: No documented history of CVA. ENDOCRINE: No documented history of diabetes mellitus. PHYSICAL EXAMINATION: VITAL SIGNS: Temperature 98.1, blood pressure 125/75, pulse 74, respiratory rate 17, satting 100%. GENERAL: The patient is alert, awake, complaining of mild foot pain. NECK: JVP approximately 8 to 9 cm of water. CHEST: Fair air movement throughout. HEART: Regular rate and rhythm. Normal S1 and S2, I/ systolic murmur, nondisplaced PMI. ABDOMEN: Positive bowel sounds, soft. EXTREMITIES: Somewhat wasted-appearing ulcerations on the toes bilaterally. Somewhat difficult to palpate distal pulses bilaterally, posterior tibial and dorsalis pedis. LABORATORY DATA: As above in HPI. No further labs for my review at this time. IMAGING STUDIES: As above in HPI. No further imaging studies for my review at this time. ECG: As above in HPI. No further electrocardiograms for my review at this time. IMPRESSION: 1. Preoperative evaluation prior to possible lower extremity foot surgery, debridement. 2. Abnormal electrocardiogram with biphasic anterior T-wave abnormalities, assess for acute coronary syndrome. 3. Hypertension, under reasonable control. 4. Dyslipidemia by medications. 5. Lupus. 6. Peripheral arterial disease. 7. Lower extremity ulcerations, nonhealing. RECOMMENDATIONS: 1. At this time, we would maintain patient on baseline atenolol for heart rate and blood pressure control. 2. Continue the patient's current fish oil and check a fasting lipid panel and adjust fish oil and statin as necessary. 3. Continue the patient's broad-spectrum antibiotics, follow up all culture data. 4. Check a lower extremity arterial ultrasound to assess the patient's vasculature and ability to heal lower extremity ulcerations and possible contribution to ulcerations. 5. We would additionally check a 2D echo for this patient's ejection fraction, wall motion, rule out any major abnormalities. 6. Will check serial EKGs with a repeat EKG in the morning, EKG for any complaints of chest pain or change in rhythm, and given patient's cardiac risk factors, this patient may benefit from further stratification prior to surgery with a cardiac stress test. Thank you for allowing me to take part in the care of this patient. I will continue to follow her very closely with you. Further recommendations will be made as the patient progresses through her inpatient hospital clinical course. Dictated By: CRISTA EUCEDA/NIECY Conf#: [id number] DID#: [id number] CC: ITZ BAY MD;*EndCC* MTDD
[2018-12-02] MEDS: PANTOPRAZOLE 40 MG INJ IV SCH (05:56)
[2018-12-02] MEDS: PIPER-TAZO 3.375 GM IV (PMX) 100 ML IVPB SCH ×4 (05:56→18:07)
[2018-12-02 07:35] VITALS: BP 126/63; PULSE 68; RESP 18
--- NOTE | 2018-12-02 08:51 | RADRPT ---
ROGERIO WAHL :1945 Sex:F Status: RECONFIRMED ACC:[id number] Exam DATE:2018-12-02 08:28:05 Vent Rate: 72 bpm RR Interval: 0 msec [place] Interval: 144 msec QRS Duration: 70 msec QT Interval: 354 msec QTC Interval: 387 msec P-R-T [place]: 59 - 38 - 77 degrees Normal sinus rhythm Nonspecific ST and T wave abnormality Abnormal ECG Electronically Signed By: Jin Broderick
[2018-12-02] MEDS: ZINC SULFATE 220 MG CAP PO SCH (09:20)
[2018-12-02] MEDS: MYCOPHENOLATE 250 MG CAP PO SCH (09:21)
[2018-12-02] MEDS: predniSONE 5 MG TAB PEG SCH (09:22)
[2018-12-02] MEDS: HYDROXYCHLOROQUINE 200 MG TAB PO SCH (09:22)
[2018-12-02] MEDS: ASCORBIC ACID 500 MG TAB GTB SCH (09:22)
[2018-12-02] MEDS: CYANOCOBALAMIN 100 MCG TAB NGT SCH (09:22)
[2018-12-02] MEDS: ALLOPURINOL 100 MG TAB PEG SCH (09:22)
[2018-12-02] MEDS: OXYBUTYNIN 5 MG TAB PEG SCH ×3 (09:22→22:12)
[2018-12-02] MEDS: FISH OIL 1,000 MG CAP PO SCH (09:23)
[2018-12-02] MEDS: DOCUSATE SODIUM 10 MG/ML (10ML CUP) PEG SCH ×2 (09:23→22:13)
[2018-12-02] MEDS: FERROUS SULFATE 60 MG/ML 5ML CUP PEG SCH (09:23)
[2018-12-02] MEDS: CALCIUM ACETATE 667 MG CAP PEG SCH ×2 (09:23→22:12)
[2018-12-02] MEDS: ATENOLOL 25 MG TAB PEG SCH (11:10)
[2018-12-02] MEDS: valACYclovir 500 MG TAB PO SCH (11:10)
[2018-12-02] MEDS ORDERED: REGADENOSON 0.4 MG/5 ML SYG ONE (12:22)
--- NOTE | 2018-12-02 13:51 | PN ---
Date/Time of Note Date/Time of Note DATE: 12/02/18 TIME: 13:49 Objective Vitals Vital Signs Date Temp Pulse Resp B/P (MAP) Pulse Ox O2 O2 Flow FiO2 Time Delivery Rate 12/02/18 98.1 68 18 126/63 97 Room Air 07:35 (84) Intake and Output 12/01/18 12/01/18 12/02/18 1414:59 22:59 06:59 IntakeIntake Total 100 ml 100 ml BalanceBalance 100 ml 100 ml Results Result Diagram: 12/02/18 0505 12/02/18 0505 Medications Medications Current Medications IV Flush (NS 3 ml) 3 ml PER PROTOCOL IV ; Start 12/01/18 at 15:30 Ondansetron HCl (Zofran Inj) 4 mg Q6H PRN IV NAUSEA/VOMITING Last administered on 12/01/18at 17:57; Admin Dose 4 MG; Start 12/01/18 at 15:30 Acetaminophen (Tylenol Tab) 650 mg Q6H PRN PO .PAIN 1-3 OR TEMP; Start 12/01/18 at 15:30 Acetaminophen/ Hydrocodone Bitart ([place] (5/325)) 1 tab Q6H PRN PO .PAIN 4-6; Start 12/01/18 at 15:30 Morphine Sulfate (morphine) 2 mg Q4H PRN IV .PAIN 7-10 Last administered on 12/02/18at 09:18; Admin Dose 2 MG; Start 12/01/18 at 15:30 Vancomycin HCl (Vanco Iv Per Pharmacy) VANCOMYCIN PER PHARMACY PER PROTOCOL XX ; Start 12/01/18 at 15:30 Piperacillin Sod/ Tazobactam Sod 100 ml @ 200 mls/hr Q6 IVPB Last administered on 12/02/18at 11:10; Admin Dose 200 MLS/HR; Start 12/01/18 at 15:30 Allopurinol (Zyloprim) 200 mg DAILY PEG Last administered on 12/02/18at 09:22; Admin Dose 200 MG; Start 12/01/18 at 15:30 Atenolol (Tenormin) 25 mg DAILY PEG Last administered on 12/02/18at 11:10; Admin Dose 25 MG; Start 12/01/18 at 15:30 Calcium Acetate (Phoslo) 667 mg BID PEG Last administered on 12/02/18 09:23; Admin Dose 667 MG; Start 12/01/18 at 21:00 Docusate Sodium (Colace Liquid Cup) 100 mg BID PEG Last administered on 12/02/18 09:23; Admin Dose 100 MG; Start 12/01/18 at 21:00 Ferrous Sulfate (Feosol Liquid Cup) 300 mg DAILY PEG Last administered on 12/02/18 09:23; Admin Dose 300 MG; Start 12/02/18 at 09:00 Fish Oil (Fish Oil) 1,000 mg DAILY PO Last administered on 12/02/18 09:23; Admin Dose 1,000 MG; Start 12/01/18 at 15:30 Atorvastatin Calcium (Lipitor) 40 mg HS PEG Last administered on 12/01/18 21:08; Admin Dose 40 MG; Start 12/01/18 at 21:00 Oxybutynin Chloride (Ditropan) 5 mg TID PEG Last administered on 12/02/18 09:22; Admin Dose 5 MG; Start 12/01/18 at 21:00 Hydroxychloroquine Sulfate (Plaquenil) 400 mg DAILY PO Last administered on 12/02/18 09:22; Admin Dose 400 MG; Start 12/01/18 at 15:30 Mirtazapine (Remeron) 15 mg HS PO Last administered on 12/01/18 21:08; Admin Dose 15 MG; Start 12/01/18 at 21:00 Cyanocobalamin (Vitamin B12) 100 mcg DAILY NGT Last administered on 12/02/18 09:22; Admin Dose 100 MCG; Start 12/02/18 at 09:00 Ascorbic Acid (Vitamin C) 500 mg DAILY GTB Last administered on 12/02/18 09:22; Admin Dose 500 MG; Start 12/02/18 at 09:00 Zinc Sulfate (Zinc Sulfate) 220 mg DAILY PO Last administered on 12/02/18 09:20; Admin Dose 220 MG; Start 12/02/18 at 09:00 Pantoprazole (Protonix Iv) 40 mg DAILY@06 IV Last administered on 12/02/18 05:56; Admin Dose 40 MG; Start 12/02/18 at 06:00 Valacyclovir HCl (Valtrex) 500 mg DAILY PO Last administered on 12/02/18 11:10; Admin Dose 500 MG; Start 12/02/18 at 09:00 Mycophenolate Mofetil (Cellcept) 1,000 mg DAILY PO Last administered on 12/02/18at 09:21; Admin Dose 1,000 MG; Start 12/02/18 at 09:00 Diphenhydramine HCl (Benadryl Liquid Cup) 12.5 mg DAILY PRN PEG itching; Start 12/01/18 at 16:30 Vancomycin HCl 100 ml @ 100 mls/hr Q24H IVPB ; Start 12/02/18 at 18:00 Methylprednisolone (Medrol) 5 mg DAILY PEG ; Start 12/03/18 at 09:00 VTE Prophylaxis Risk score (from [facility])>0 risk: 6 SCD applied (from [facility]): Yes Lines/Catheters IV Catheter Type: Louie in Place: No Assessment/Plan Hospital Course Subjective No acute events overnight, stress test today Objective Physical exam General: Patient is laying in bed and answers questions appropriately Mentation: Patient is alert and oriented 4, Head: Normocephalic atraumatic Eyes: EOMI, pupils reactive to light Neck: Supple, nontender, midline Respiratory: Clear to auscultation bilaterally Cardiovascular: regular rate, no obvious murmurs Gastrointestinal: non-tender to palpation, bowel sounds heard. Neurological: Moves all extremities spontaneously Skin: Foot ulcers bilaterally Assessment and plan Bilateral foot ulcers -Broad-spectrum IV antibiotic -Podiatry on board -Cardiology on board to risk assess for surgery planned sometime next week Hypertension -Continue home meds Lupus and rheumatoid arthritis -Continue home meds Chronic HSV -On Valtrex suppression therapy Gout -Allopurinol Dyslipidemia -Atorvastatin Nutritional deficiency -On tube feeds -See speech therapy -Dietary consult Inability to tolerate significant p.o. -Patient able to swallow however however her long term does feed her she just does not like the food.she states that due to excessive reflux she does not like to eat food -Continue tube feeds but also let patient drink water diet clears Iron deficiency anemia -Continue iron Disposition -IV antibiotics, cardiology consulted for cardiac clearance, surgery sometime next week -stress test today ITZ BAY Dec 02, 2018 13:51
[2018-12-02] MEDS: VANCOMYCIN 500 MG (PMX) 100 ML IVPB SCH (20:07)
[2018-12-02] MEDS: ONDANSETRON 4 MG INJ IV PRN (20:22)
[2018-12-02] MEDS: ACETAMINOPHEN 325 MG TAB PO PRN (20:22)
[2018-12-02 20:25] VITALS: BP 105/61; PULSE 88; RESP 18
[2018-12-02] MEDS: ATORVASTATIN 40 MG TAB PEG SCH (22:12)
[2018-12-02] MEDS: MIRTAZAPINE 15 MG TAB PO SCH (22:13)
[2018-12-02] MEDS: NYSTATIN 30 GM POWDER BTL TOP SCH (23:13)
[2018-12-03] MEDS: DIPHENHYDRAMINE 2.5 MG/ML 5ML CUP PEG PRN ×2 (00:26→22:09)
[2018-12-03] MEDS: PIPER-TAZO 3.375 GM IV (PMX) 100 ML IVPB SCH ×4 (00:26→18:39)
[2018-12-03 02:20] VITALS: BP 91/52; PULSE 72; RESP 18
[2018-12-03] MEDS: morphine 2 MG INJ IV PRN ×3 (03:39→20:13)
[2018-12-03] MEDS: PANTOPRAZOLE 40 MG INJ IV SCH (05:44)
[2018-12-03 08:09] VITALS: BP 125/61; PULSE 62; RESP 17
[2018-12-03] MEDS: ATENOLOL 25 MG TAB PEG SCH (09:00)
--- NOTE | 2018-12-03 10:02 | CONS ---
DATE OF ADMISSION: 12/01/2018 DATE OF CONSULTATION: 12/03/2018 TYPE OF CONSULTATION: Nephrology. REASON FOR CONSULTATION: Chronic kidney disease, acute kidney injury. REQUESTING PHYSICIAN: Dr. Bay HISTORY OF PRESENT ILLNESS: This is a 73-year-old -[place] female with a past medical histor y of chronic kidney disease stage III, unknown baseline creatinine, history of lupus, rheumatoid art hritis, gout, anemia, constipation, history of chronic HSV, hypertension who presents to [facility] for chronic foot ulcers. The patient is wheel-bound due to weakness and has a percu taneous endoscopic gastrostomy tube due to poor oral intake. The patient states that she has difficu lty swallowing and has severe gastroesophageal reflux disease. The patient went to a exchange engineer for evaluation and was subsequently brought to the emergency room for admission to the hospital for furth er evaluation of her wounds. In terms of patient's renal history, the patient states she has underlying chronic kidney disease due to lupus. The patient states that she has been on management for underlying lupus. She states that she is on CellCept and has previously been on prednisone. She denies any hemoptysis, hematemesis or hematochezia. 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 PAST MEDICAL HISTORY: Status post percutaneous endoscopic gastrostomy. FAMILY HISTORY: No family history of kidney disease. SOCIAL HISTORY: She does not drink, smoke or do drugs. MEDICATIONS: The patient's medications have been reviewed. REVIEW OF SYSTEMS: A 14-point review of systems was conducted. Pertinent positives stated in HPI, o therwise negative. PHYSICAL EXAMINATION: VITAL SIGNS: Blood pressure is 125/61, respirations 17, pulse 62, temperature 98.3. HEENT: Head is normocephalic. NECK: Supple. HEART: Regular rate. LUNGS: Show diminished breath sounds at the base. ABDOMEN: Soft, nontender to palpation without rebound or guarding. EXTREMITIES: Negative for clubbing, cyanosis, no edema. DERMATOLOGIC: No rashes. MUSCULOSKELETAL: No joint effusion. NEUROLOGIC: No change in exam. LABORATORY DATA: From 12/03/2018 was reviewed. IMAGING STUDIES: Reviewed. MICROBIOLOGY: Reviewed. ASSESSMENT AND PLAN: This is a 73-year-old female who presents with: 1. Nonoliguric acute kidney injury on top of chronic kidney disease stage III with unknown baseline creatinine. Etiology of current acute kidney injury may be secondary to hemodynamics, volume depleti on. The possibility of progression of chronic kidney disease is a consideration. Plan is for full e valuation. We will check a UA with microanalysis, check urine electrolytes. We will check a renal u ltrasound to evaluate renal parenchyma. We would otherwise continue current treatment plan, supporti ve care, renally dose all medicines. 2. Chronic kidney disease with questionable history of lupus nephritis. The patient is currently in acute kidney injury as stated above. The patient is also on CellCept, which is appropriate manageme nt for lupus nephritis. At this point, we would continue to treat acute kidney injury as stated abov e. Continue disease factor modification, and monitor closely. 3. Hypernatremia. The patient has a free water deficit of approximately 2 liters. We will increase free water flushes to 200 mL q.4h. 4. Anemia. Continue to monitor hemoglobin and hematocrit levels. 5. Mineral bone disorder, monitor calcium and phosphate levels. 6. Metabolic acidosis secondary to acute kidney injury, possible chronic kidney disease. Continue t o monitor bicarbonate levels. 7. Bilateral foot ulcers, peripheral vascular disease. Continue to monitor. Followup with podiatry . Continue antibiotic therapy. 8. Hypertension. Continue current blood pressure regimen. 9. History of HSV. Continue Valtrex. 10. Gout. Continue allopurinol. 11. Dyslipidemia. Continue statin therapy. 12. Dysphagia. Continue tube feeding. Thank you, Dr. Bay, for this interesting consult. It will be a pleasure to follow the patient with y judit throughout the hospital course. Dictated By: JANINE LOPEZ DO NR/NTS Conf#: [id number] DID#: [id number] CC: ITZ BAY MD;*EndCC*
[2018-12-03] MEDS: ASCORBIC ACID 500 MG TAB GTB SCH (10:30)
[2018-12-03] MEDS: CYANOCOBALAMIN 100 MCG TAB NGT SCH (10:30)
[2018-12-03] MEDS: DOCUSATE SODIUM 10 MG/ML (10ML CUP) PEG SCH ×2 (10:31→20:12)
[2018-12-03] MEDS: FERROUS SULFATE 60 MG/ML 5ML CUP PEG SCH (10:31)
[2018-12-03] MEDS: OXYBUTYNIN 5 MG TAB PEG SCH ×3 (10:31→20:12)
[2018-12-03] MEDS: CALCIUM ACETATE 667 MG CAP PEG SCH ×2 (10:32→20:13)
[2018-12-03] MEDS: METHYLPREDNISOLONE 4 MG TAB PEG SCH (10:32)
[2018-12-03] MEDS: ALLOPURINOL 100 MG TAB PEG SCH (10:34)
[2018-12-03] MEDS: MYCOPHENOLATE 250 MG CAP PO SCH (10:34)
[2018-12-03] MEDS: FISH OIL 1,000 MG CAP PO SCH (10:34)
[2018-12-03] MEDS: NYSTATIN 30 GM POWDER BTL TOP SCH ×2 (10:35→20:14)
[2018-12-03] MEDS: valACYclovir 500 MG TAB PO SCH (10:35)
[2018-12-03] MEDS: HYDROXYCHLOROQUINE 200 MG TAB PO SCH (10:35)
[2018-12-03] MEDS: ZINC SULFATE 220 MG CAP PO SCH (10:35)
[2018-12-03] MEDS ORDERED: traMADol 50 MG TAB PO PRN (11:00)
[2018-12-03 13:54] VITALS: BP 113/60; PULSE 79; RESP 18
--- NOTE | 2018-12-03 14:41 | CONS ---
Assessment/Plan Assessment/Plan Assessment/Plan (Daily) Gangrenous feet awaiting debridement. Abnormal electrocardiogram with biphasic anterior T-wave abnormalities Hypertension Dyslipidemia Lupus. Peripheral arterial disease. Lower extremity ulcerations, nonhealing. Cleared for surgery with low risk Continue atenolol Continue Lipitor Continue anti lupus medications Consultation Date/Type/Reason Admit Date/Time Dec 01, 2018 at 15:06 Initial Consult Date Type of Consult Cardiology Date/Time of Note DATE: 12/03/18 TIME: 14:37 Exam/Review of Systems Vital Signs Vitals Vital Signs Date Temp Pulse Resp B/P (MAP) Pulse Ox O2 O2 Flow FiO2 Time Delivery Rate 12/03/18 98.8 79 18 113/60 99 13:54 (77) 12/02/18 Room Air 07:35 Intake and Output 12/02/18 12/02/18 12/03/18 1515:00 23:00 07:00 IntakeIntake Total 100 ml 440 ml 400 ml BalanceBalance 100 ml 440 ml 400 ml Exam Constitutional: alert Head: normocephalic Respiratory: clear to auscultation Cardiovascular: regular rate and rhythm (no m/r/g) Gastrointestinal: soft, nl liver, spleen Musculoskeletal: other (b/l ganrenous toes) Labs Result Diagram: 12/03/18 0709 12/03/18 0709 Results 24hrs Laboratory Tests Test 12/02/18 15:08 12/03/18 07:09 Troponin I 0.036 White Blood Count 6.6 # Red Blood Count 3.22 L Hemoglobin 10.0 L Hematocrit 32.3 L Mean Corpuscular Volume 100.3 Mean Corpuscular Hemoglobin 31.1 Mean Corpuscular Hemoglobin Concent 31.0 L Red Cell Distribution Width 15.6 H Platelet Count 148 Mean Platelet Volume 11.8 H Immature Granulocytes % 2.400 H Neutrophils % 68.7 Lymphocytes % 17.7 Monocytes % 9.7 Eosinophils % 1.2 Basophils % 0.3 Nucleated Red Blood Cells % 0.0 Immature Granulocytes # 0.160 H Neutrophils # 4.5 Lymphocytes # 1.2 Monocytes # 0.6 Eosinophils # 0.1 Basophils # 0.0 Nucleated Red Blood Cells # 0.0 Sodium Level 145 H Potassium Level 3.9 Chloride Level 116 H Carbon Dioxide Level 20 L Anion Gap 9 Blood Urea Nitrogen 25 H Creatinine 1.27 H Est Glomerular Filtrat Rate mL/min Glucose Level 92 Calcium Level 9.2 Phosphorus Level 3.5 Magnesium Level 2.3 Medications Medications Current Medications IV Flush (NS 3 ml) 3 ml PER PROTOCOL IV ; Start 12/01/18 at 15:30 Ondansetron HCl (Zofran Inj) 4 mg Q6H PRN IV NAUSEA/VOMITING Last administered on 12/02/18 20:22; Admin Dose 4 MG; Start 12/01/18 at 15:30 Acetaminophen (Tylenol Tab) 650 mg Q6H PRN PO .PAIN 1-3 OR TEMP Last administered on 12/02/18 20:22; Admin Dose 650 MG; Start 12/01/18 at 15:30 Acetaminophen/ Hydrocodone Bitart ([place] (5/325)) 1 tab Q6H PRN PO .PAIN 4-6; Start 12/01/18 at 15:30 Morphine Sulfate (morphine) 2 mg Q4H PRN IV .PAIN 7-10 Last administered on 12/03/18 13:55; Admin Dose 2 MG; Start 12/01/18 at 15:30 Vancomycin HCl (Vanco Iv Per Pharmacy) VANCOMYCIN PER PHARMACY PER PROTOCOL XX ; Start 12/01/18 at 15:30 Piperacillin Sod/ Tazobactam Sod 100 ml @ 200 mls/hr Q6 IVPB Last administered on 12/03/18 13:45; Admin Dose 200 MLS/HR; Start 12/01/18 at 15:30 Allopurinol (Zyloprim) 200 mg DAILY PEG Last administered on 12/03/18 10:34; Admin Dose 200 MG; Start 12/01/18 at 15:30 Atenolol (Tenormin) 25 mg DAILY PEG Last administered on 12/02/18 11:10; Admin Dose 25 MG; Start 12/01/18 at 15:30 Calcium Acetate (Phoslo) 667 mg BID PEG Last administered on 12/03/18 10:32; Admin Dose 667 MG; Start 12/01/18 at 21:00 Docusate Sodium (Colace Liquid Cup) 100 mg BID PEG Last administered on 12/03/18 10:31; Admin Dose 100 MG; Start 12/01/18 at 21:00 Ferrous Sulfate (Feosol Liquid Cup) 300 mg DAILY PEG Last administered on 12/03/18 10:31; Admin Dose 300 MG; Start 12/02/18 at 09:00 Fish Oil (Fish Oil) 1,000 mg DAILY PO Last administered on 12/03/18 10:34; Admin Dose 1,000 MG; Start 12/01/18 at 15:30 Atorvastatin Calcium (Lipitor) 40 mg HS PEG Last administered on 12/02/18 22:12; Admin Dose 40 MG; Start 12/01/18 at 21:00 Oxybutynin Chloride (Ditropan) 5 mg TID PEG Last administered on 12/03/18 13:45; Admin Dose 5 MG; Start 12/01/18 at 21:00 Hydroxychloroquine Sulfate (Plaquenil) 400 mg DAILY PO Last administered on 10:35; Admin Dose 400 MG; Start 12/01/18 at 15:30 Mirtazapine (Remeron) 15 mg HS PO Last administered on 12/02/18 22:13; Admin Dose 15 MG; Start 12/01/18 at 21:00 Cyanocobalamin (Vitamin B12) 100 mcg DAILY NGT Last administered on 12/03/18 10:30; Admin Dose 100 MCG; Start 12/02/18 at 09:00 Ascorbic Acid (Vitamin C) 500 mg DAILY GTB Last administered on 12/03/18 10:30; Admin Dose 500 MG; Start 12/02/18 at 09:00 Zinc Sulfate (Zinc Sulfate) 220 mg DAILY PO Last administered on 12/03/18 10:35; Admin Dose 220 MG; Start 12/02/18 at 09:00 Pantoprazole (Protonix Iv) 40 mg DAILY@06 IV Last administered on 12/03/18 05:44; Admin Dose 40 MG; Start 12/02/18 at 06:00 Valacyclovir HCl (Valtrex) 500 mg DAILY PO Last administered on 12/03/18 10:35; Admin Dose 500 MG; Start 12/02/18 at 09:00 Mycophenolate Mofetil (Cellcept) 1,000 mg DAILY PO Last administered on 12/03/18 10:34; Admin Dose 1,000 MG; Start 12/02/18 at 09:00 Diphenhydramine HCl (Benadryl Liquid Cup) 12.5 mg DAILY PRN PEG itching Last administered on 4/14/19at 00:26; Admin Dose 12.5 MG; Start 12/01/18 at 16:30 Vancomycin HCl 100 ml @ 100 mls/hr Q24H IVPB Last administered on 12/02/18at 20:07; Admin Dose 100 MLS/HR; Start 12/02/18 at 18:00 Methylprednisolone (Medrol) 5 mg DAILY PEG Last administered on 12/03/18at 10:32; Admin Dose 5 MG; Start 12/03/18 at 09:00 Nystatin (Nystatin Powder) 1 applic BID TOP Last administered on 12/03/18at 10:35; Admin Dose 1 APPLIC; Start 12/02/18 at 21:00 Tramadol HCl (Ultram) 50 mg Q6H PRN PO MODERATE PAIN LEVEL 4-6; Start 12/03/18 at 11:00 Miscellaneous Information (*Rx Drug Level Order Reminder*) VANCO TROUGH ON @ 700 1700 ONCE XX ; Start 12/04/18 at 17:00; Stop 12/04/18 at 17:01 SHALINI CAMACHO M.D. Dec 03, 2018 14:41
--- NOTE | 2018-12-03 14:48 | PN ---
Date/Time of Note Date/Time of Note DATE: 12/03/18 TIME: 14:47 Objective Vitals Vital Signs Date Temp Pulse Resp B/P (MAP) Pulse Ox O2 O2 Flow FiO2 Time Delivery Rate 12/03/18 98.8 79 18 113/60 99 13:54 (77) 12/02/18 Room Air 07:35 Intake and Output 12/02/18 12/02/18 12/03/18 1515:00 23:00 07:00 IntakeIntake Total 100 ml 440 ml 400 ml BalanceBalance 100 ml 440 ml 400 ml Results Result Diagram: 12/03/18 0709 12/03/18 0709 Medications Medications Current Medications IV Flush (NS 3 ml) 3 ml PER PROTOCOL IV ; Start 12/01/18 at 15:30 Ondansetron HCl (Zofran Inj) 4 mg Q6H PRN IV NAUSEA/VOMITING Last administered on 12/02/18at 20:22; Admin Dose 4 MG; Start 12/01/18 at 15:30 Acetaminophen (Tylenol Tab) 650 mg Q6H PRN PO .PAIN 1-3 OR TEMP Last administered on 12/02/18at 20:22; Admin Dose 650 MG; Start 12/01/18 at 15:30 Acetaminophen/ Hydrocodone Bitart ([place] (5/325)) 1 tab Q6H PRN PO .PAIN 4-6; Start 12/01/18 at 15:30 Morphine Sulfate (morphine) 2 mg Q4H PRN IV .PAIN 7-10 Last administered on 12/03/18at 13:55; Admin Dose 2 MG; Start 12/01/18 at 15:30 Vancomycin HCl (Vanco Iv Per Pharmacy) VANCOMYCIN PER PHARMACY PER PROTOCOL XX ; Start 12/01/18 at 15:30 Piperacillin Sod/ Tazobactam Sod 100 ml @ 200 mls/hr Q6 IVPB Last administered on 12/03/18 13:45; Admin Dose 200 MLS/HR; Start 12/01/18 at 15:30 Allopurinol (Zyloprim) 200 mg DAILY PEG Last administered on 12/03/18at 10:34; Admin Dose 200 MG; Start 12/01/18 at 15:30 Atenolol (Tenormin) 25 mg DAILY PEG Last administered on 12/02/18at 11:10; Admin Dose 25 MG; Start 12/01/18 at 15:30 Calcium Acetate (Phoslo) 667 mg BID PEG Last administered on 12/03/18 10:32; Admin Dose 667 MG; Start 12/01/18 at 21:00 Docusate Sodium (Colace Liquid Cup) 100 mg BID PEG Last administered on 12/03/18 10:31; Admin Dose 100 MG; Start 12/01/18 at 21:00 Ferrous Sulfate (Feosol Liquid Cup) 300 mg DAILY PEG Last administered on 12/03/18 10:31; Admin Dose 300 MG; Start 12/02/18 at 09:00 Fish Oil (Fish Oil) 1,000 mg DAILY PO Last administered on 12/03/18 10:34; Admin Dose 1,000 MG; Start 12/01/18 at 15:30 Atorvastatin Calcium (Lipitor) 40 mg HS PEG Last administered on 12/02/18 22:12; Admin Dose 40 MG; Start 12/01/18 at 21:00 Oxybutynin Chloride (Ditropan) 5 mg TID PEG Last administered on 12/03/18 13:45; Admin Dose 5 MG; Start 12/01/18 at 21:00 Hydroxychloroquine Sulfate (Plaquenil) 400 mg DAILY PO Last administered on 12/03/18 10:35; Admin Dose 400 MG; Start 12/01/18 at 15:30 Mirtazapine (Remeron) 15 mg HS PO Last administered on 12/02/18 22:13; Admin Dose 15 MG; Start 12/01/18 at 21:00 Cyanocobalamin (Vitamin B12) 100 mcg DAILY NGT Last administered on 12/03/18 10:30; Admin Dose 100 MCG; Start 12/02/18 at 09:00 Ascorbic Acid (Vitamin C) 500 mg DAILY GTB Last administered on 12/03/18 10:30; Admin Dose 500 MG; Start 12/02/18 at 09:00 Zinc Sulfate (Zinc Sulfate) 220 mg DAILY PO Last administered on 12/03/18 10:35; Admin Dose 220 MG; Start 12/02/18 at 09:00 Pantoprazole (Protonix Iv) 40 mg DAILY@06 IV Last administered on 12/03/18 05:44; Admin Dose 40 MG; Start 12/02/18 at 06:00 Valacyclovir HCl (Valtrex) 500 mg DAILY PO Last administered on 12/03/18 10:35; Admin Dose 500 MG; Start 12/02/18 at 09:00 Mycophenolate Mofetil (Cellcept) 1,000 mg DAILY PO Last administered on 12/03/18 10:34; Admin Dose 1,000 MG; Start 12/02/18 at 09:00 Diphenhydramine HCl (Benadryl Liquid Cup) 12.5 mg DAILY PRN PEG itching Last administered on 12/03/18 00:26; Admin Dose 12.5 MG; Start 12/01/18 at 16:30 Vancomycin HCl 100 ml @ 100 mls/hr Q24H IVPB Last administered on 12/02/18 20:07; Admin Dose 100 MLS/HR; Start 12/02/18 at 18:00 Methylprednisolone (Medrol) 5 mg DAILY PEG Last administered on 12/03/18 10 :32; Admin Dose 5 MG; Start 12/03/18 at 09:00 Nystatin (Nystatin Powder) 1 applic BID TOP Last administered on 12/03/18 10:35; Admin Dose 1 APPLIC; Start 12/02/18 at 21:00 Tramadol HCl (Ultram) 50 mg Q6H PRN PO MODERATE PAIN LEVEL 4-6; Start 12/03/18 at 11:00 Miscellaneous Information (*Rx Drug Level Order Reminder*) VANCO TROUGH ON @ 700 1700 ONCE XX ; Start 12/04/18 at 17:00; Stop 12/04/18 at 17:01 VTE Prophylaxis Risk score (from Nsg)>0 risk: 4 SCD applied (from Ns): Yes Lines/Catheters IV Catheter Type: Louie in Place: No Assessment/Plan Hospital Course Subjective No acute events overnight Objective Physical exam General: Patient is laying in bed and answers questions appropriately Mentation: Patient is alert and oriented 4, Head: Normocephalic atraumatic Eyes: EOMI, pupils reactive to light Neck: Supple, nontender, midline Respiratory: Clear to auscultation bilaterally Cardiovascular: regular rate, no obvious murmurs Gastrointestinal: non-tender to palpation, bowel sounds heard. Neurological: Moves all extremities spontaneously Skin: Foot ulcers bilaterally Assessment and plan Bilateral foot ulcers -Broad-spectrum IV antibiotic -Podiatry on board -Cardiology on board to risk assess for surgery planned sometime next week Hypertension -Continue home meds Lupus and rheumatoid arthritis -Continue home meds Chronic HSV -On Valtrex suppression therapy Gout -Allopurinol Dyslipidemia -Atorvastatin Nutritional deficiency -On tube feeds, but patient also able to tolerate mech soft PO according to the patient -See speech therapy -Dietary consult Inability to tolerate significant p.o. -Patient able to swallow, her assisted does feed her, she just does not like the food or she states that due to excessive reflux, she doesn't get hungry -Continue tube feeds but also let patient eat soft diet. Iron deficiency anemia -Continue iron Disposition -IV antibiotics, cardiology consulted for cardiac clearance, surgery sometime n ext week -stress test negative ITZ BAY Dec 03, 2018 14:48
--- NOTE | 2018-12-03 15:45 | RADRPT ---
Echocardiogram Report Patient Name: ROGERIO WAHLPatient ID: [id number] : 1945 (73y )Study Date: 12/03/2018 7:47:38 AM Gender: FAccession #: [id number] Tech: [facility] [place] Location: Ref.Physician: CRISTA PANIAGUA Height(Cm): 165 BSA: 1.41Weight(Kg): 43.5 Quality: Technically Difficult StudyAccount #: Procedures: Echocardiographic Report: Transthoracic echocardiogram with complete 2D, M-Mode, and doppler examination. Indications: Pre-op. Measurements: 2D/M Mode Doppler Measurement Value Normal Range Measurement Value Normal Range LVIDd 2D 3.5 [ 3.8 - 5.2 ] cm AV Peak Valentin 1.4 [ 100.0 - 170.0 ] cm/se c LVIDs 2D 2.2 [ 2.2 - 3.5 ] cm AV Peak PG 8.0 [ 2.0 - 9.0 ] mmHg LVPWd 2D 1.1 [ 0.6 - 0.9 ] cm LVOT Peak Valentin 0.9 [ 70.0 - 110.0 ] cm/sec IVSd 2D 1.2 [ 0.6 - 0.9 ] cm LVOT Peak PG 3.0 [ 2.0 - 6.0 ] mmHg AoR Diam 2D 3.4 [ 2.3 - 3.1 ] cm MV E Peak Valentin 0.6 [ 60.0 - 130.0 ] cm/sec EDV 2D 51.2 [ 46.0 - 106.0 ] ml MV A Peak Valentin 0.7 [ 100.0 - 120.0 ] cm/se c ESV 2D 15.8 [ 14.0 - 42.0 ] ml MV E/A 0.8 [ 0.8 - 1.5 ] ratio EF 2D 69.1 [ 54.0 - 74.0 ] percent MV PHT 83.0 [ 20.0 - 100.0 ] msec LA Dimen 2D 3.0 [ 2.7 - 3.8 ] cm MV Decel Time 282 [ 104 - 258 ] msec MV Decel Karnes 2 Lat E` Valentin 0.1 [ 10.0 - 15.0 ] cm/sec Lateral E/E` 5.9 [ 1.0 - 2.0 ] ratio Med E` Valentin 0.1 cm/sec MV E/A 0.8 [ 0.8 - 1.5 ] ratio MVA PHT 2.7 [ 2.0 - 4.0 ] cm2 PV Peak Valentin 1.0 [ 40.0 - 80.0 ] cm/sec PV Peak PG 4.0 mmHg Findings: Left Ventricle: Normal left ventricular systolic function. Normal left ventricular cavity size. Mild concentric left ventricular hypertrophy. Ejection fraction is visually estimated at 50-55 %. E/E'= 11. Right Ventricle: Normal right ventricular size. Normal right ventricular systolic function. Left Atrium: The left atrium is normal in size. Right Atrium: The right atrium is normal in size. Atrial Septum: Normal atrial septum. Mitral Valve: Normal appearance and function of the mitral valve with trace physiologic regurgitation. Aortic Valve: No significant aortic stenosis or insufficiency. Aortic cusps appear mildly calcified. Trileaflet aortic valve. Tricuspid Valve: Normal appearance and function of the tricuspid valve with trace physiologic regurgitation. Unable to obtain RVSP due to minimal presence of tricuspid regurgitation. Pulmonic Valve: Normal pulmonic valve appearance. There is trace pulmonic regurgitation. Pericardium: Normal pericardium with no significant pericardial effusion. Aorta: Normal aortic root. There is mild aortic root calcification. IVC: Normal size and normal respiratory collapse consistent with normal right atrial pressure. Pulmonary Artery: Normal pulmonary artery size. Conclusions: Normal left ventricular systolic function. Normal left ventricular cavity size. Mild concentric left ventricular hypertrophy. Ejection fraction is visually estimated at 50-55 %. Normal right ventricular size. Normal right ventricular systolic function. Normal appearance and function of the mitral valve with trace physiologic regurgitation. No significant aortic stenosis or insufficiency. Aortic cusps appear mildly calcified. Trileaflet aortic valve. Normal appearance and function of the tricuspid valve with trace physiologic regurgitation. Unable to obtain RVSP due to minimal presence of tricuspid regurgitation. Normal pericardium with no significant pericardial effusion. Electronically Signed By: Derrick Naranjo 2018-12-03 15:44:58 PDT
--- NOTE | 2018-12-03 17:11 | CONS ---
DATE OF ADMISSION: 12/01/2018 DATE OF CONSULTATION: 12/03/2018 SUBJECTIVE FINDINGS: The patient is being followed for bilateral foot ulcerations with gangrenous changes. The patient had been admitted for surgical intervention and recommended medical cardiac clearance. The patient has been cleared for surgery with low risk. The patient is being followed by Nephrology for chronic kidney disease stage III, elevated creatinine and metabolic acidosis. OBJECTIVE FINDINGS: VITAL SIGNS: Temperature is 98.8, pulse is 79, respiratory is 18, blood pressure is 113/60, pulse ox is 99 on room air. GENERAL: The patient alert, oriented, fragile-appearing and f obvious deformity of the fingers. She has normal neck range of motion. Regular respirations. EXTREMITIES: The patient with hammertoe deformities and ulceration dorsal PIPJ with exposed bone and joint surfaces, cyanotic changes at periphery of the wound, gangrenous changes, dry skin, subcutaneous atrophy. LABORATORIES: WBC 6.6, hemoglobin 10, hematocrit is 32.3, platelets 148. Sed rate is 55. Sodium 145, potassium 3.9, chloride 116, CO2 20, BUN 25, creatinine 1.27. X-rays reveal osteoarthritis, nonunited second metatarsal base fracture, flexion deformity of toes, atherosclerosis, moderate forefoot swelling, left foot. On the right foot, suspected nondisplaced second proximal phalangeal fracture with soft tissue swelling, valgus, moderate dorsal forefoot swelling. Cultures negative for MRSA. ASSESSMENT: 1. Bilateral feet gangrene, recent angioplasty. 2. Chronic ulcerations with joint exposure. 3. Hammertoe deformities. 4. Abnormal EKG with biphasic anterior T-wave form abnormalities. I have cleared for surgery with low risk from cardiac standpoint. Plan: Discussed recommended procedures to include debridement with possible amputation of bilateral second toes and we will schedule for surgery Tuesday and keep the patient n.p.o. and all questions answered to her satisfaction. The patient with chronic nonhealing wound, have further risk for sepsis. Dictated By: ZACH BEST/NIECY Conf#: [id number] DID#: [id number] MTDD
[2018-12-03] MEDS: NEOMYC/POLYMYX/BACIT 30 GM OINT TOP SCH (18:39)
[2018-12-03] MEDS: VANCOMYCIN 500 MG (PMX) 100 ML IVPB SCH (20:12)
[2018-12-03] MEDS: ATORVASTATIN 40 MG TAB PEG SCH (20:13)
[2018-12-03] MEDS: MIRTAZAPINE 15 MG TAB PO SCH (20:13)
[2018-12-03] MEDS: DAKINS 0.0125%(1/40) 473 ML SOLUTION TP SCH (20:14)
[2018-12-03 20:15] VITALS: BP 109/62; PULSE 81; RESP 18
[2018-12-04] VITALS (12 sets, daily range): BP systolic 100–132; BP diastolic 63–74; PULSE 62–80; RESP 11–24
[2018-12-04] MEDS: PIPER-TAZO 3.375 GM IV (PMX) 100 ML IVPB SCH ×4 (00:56→23:03)
[2018-12-04] MEDS: morphine 2 MG INJ IV PRN ×4 (01:20→21:18)
[2018-12-04] MEDS: PANTOPRAZOLE 40 MG INJ IV SCH (05:54)
[2018-12-04] MEDS ORDERED: DEXTROSE 5%-0.45% NACL 1,000 ML IV SCH (08:30)
[2018-12-04] MEDS: FISH OIL 1,000 MG CAP PO SCH (09:00)
[2018-12-04] MEDS: CALCIUM ACETATE 667 MG CAP PEG SCH ×2 (09:00→21:14)
--- NOTE | 2018-12-04 09:50 | PN ---
DATE: 12/04/2018 SUBJECTIVE: The patient is stable, no events overnight. No fevers, chills, nausea, vomiting. OBJECTIVE: VITAL SIGNS: Blood pressure is 112/70, respirations 17, pulse 71, temperature 98.4. HEENT: Head is normocephalic. NECK: Supple. HEART: Regular rate. LUNGS: Show diminished breath sounds at the base. ABDOMEN: Soft, nontender to palpation without rebound or guarding. EXTREMITIES: Negative for clubbing, cyanosis, no edema. DERMATOLOGIC: No rashes. MUSCULOSKELETAL: Positive bilateral heel wounds. NEUROLOGIC: No change in exam. MEDICATIONS: The patient's medications have been reviewed. LABORATORY DATA: Reviewed. ASSESSMENT AND PLAN: 1. Nonoliguric acute kidney injury on top of chronic kidney disease stage III with unknown baseline creatinine. Etiology of current acute kidney injury is secondary to hemodynamics. The patient's uri nalysis was reviewed with bland sediment. Patient's renal ultrasound was reviewed, shows no evidence of obstruction, but small echogenic kidneys consistent with medical renal disease. At this point, w juditld continue current treatment plan. Continue supportive care, renally dose all meds. Please note there is low suspicion for active lupus nephritis as patient's urinalysis was bland. Showed no activ e sediment. 2. Chronic kidney disease, possible history of lupus nephritis. The patient is currently in acute k idney injury as stated above, likely due to hemodynamics. No evidence of active sediment on urinalys is. We will continue current treatment plan as stated above. We will continue CellCept. Continue d isease factor modification. 3. Hypernatremia, improved. Continue free water flushes. 4. Anemia. Monitor hemoglobin and hematocrit. 5. Mineral bone disorder. Monitor calcium and phosphorus levels. 6. History of lupus. Continue current medical management. 7. Metabolic acidosis secondary to acute kidney injury and chronic kidney disease. Continue to darrion tor. 8. Bilateral foot ulcers. Continue current antibiotic regimen. 9. Hypertension. Continue current blood pressure regimen. 10. History of HSV. Continue Valtrex. 11. History of gout. Continue allopurinol. 12. Dyslipidemia. Continue statin therapy. 13. Dysphagia. Continue tube feeding. Dictated By: JANINE JIMENEZ/NTS Conf#: [id number] DID#: [id number] CC: ITZ BAY MD;*End*
[2018-12-04] MEDS: MYCOPHENOLATE 250 MG CAP PO SCH (09:55)
[2018-12-04] MEDS: DOCUSATE SODIUM 10 MG/ML (10ML CUP) PEG SCH ×2 (09:55→21:17)
[2018-12-04] MEDS: FERROUS SULFATE 60 MG/ML 5ML CUP PEG SCH (09:55)
[2018-12-04] MEDS: valACYclovir 500 MG TAB PO SCH (09:57)
[2018-12-04] MEDS: CYANOCOBALAMIN 100 MCG TAB NGT SCH (09:57)
[2018-12-04] MEDS: ASCORBIC ACID 500 MG TAB GTB SCH (09:57)
[2018-12-04] MEDS: OXYBUTYNIN 5 MG TAB PEG SCH ×2 (09:57→12:32)
[2018-12-04] MEDS: ALLOPURINOL 100 MG TAB PEG SCH (09:57)
[2018-12-04] MEDS: ZINC SULFATE 220 MG CAP PO SCH (09:57)
[2018-12-04] MEDS: METHYLPREDNISOLONE 4 MG TAB PEG SCH (09:57)
[2018-12-04] MEDS: HYDROXYCHLOROQUINE 200 MG TAB PO SCH (09:58)
[2018-12-04] MEDS: ATENOLOL 25 MG TAB PEG SCH (09:59)
[2018-12-04] MEDS: DAKINS 0.0125%(1/40) 473 ML SOLUTION TP SCH (10:00)
[2018-12-04] MEDS: NYSTATIN 30 GM POWDER BTL TOP SCH ×2 (10:01→23:08)
[2018-12-04] MEDS: NEOMYC/POLYMYX/BACIT 30 GM OINT TOP SCH (10:01)
[2018-12-04] MEDS: ONDANSETRON 4 MG INJ IV PRN (10:45)
--- NOTE | 2018-12-04 11:51 | PN ---
Date/Time of Note Date/Time of Note DATE: 12/04/18 TIME: 11:49 Objective Vitals Vital Signs Date Temp Pulse Resp B/P (MAP) Pulse Ox O2 O2 Flow FiO2 Time Delivery Rate 12/04/18 98.4 71 17 112/70 99 08:02 (84) 12/02/18 Room Air 07:35 Intake and Output 12/03/18 12/03/18 12/04/18 1414:59 22:59 06:59 IntakeIntake Total 200 ml 1430 ml 500 ml OutputOutput Total 125 ml BalanceBalance 75 ml 1430 ml 500 ml Results Result Diagram: 12/04/18 0543 12/04/18 0543 Medications Medications Current Medications IV Flush (NS 3 ml) 3 ml PER PROTOCOL IV ; Start 12/01/18 at 15:30 Ondansetron HCl (Zofran Inj) 4 mg Q6H PRN IV NAUSEA/VOMITING Last administered on 12/04/18at 10:45; Admin Dose 4 MG; Start 12/01/18 at 15:30 Acetaminophen (Tylenol Tab) 650 mg Q6H PRN PO .PAIN 1-3 OR TEMP Last administered on 12/02/18at 20:22; Admin Dose 650 MG; Start 12/01/18 at 15:30 Acetaminophen/ Hydrocodone Bitart ([place] (5/325)) 1 tab Q6H PRN PO .PAIN 4-6; Start 12/01/18 at 15:30 Morphine Sulfate (morphine) 2 mg Q4H PRN IV .PAIN 7-10 Last administered on 12/04/18at 10:00; Admin Dose 2 MG; Start 12/01/18 at 15:30 Vancomycin HCl (Vanco Iv Per Pharmacy) VANCOMYCIN PER PHARMACY PER PROTOCOL XX ; Start 12/01/18 at 15:30 Allopurinol (Zyloprim) 200 mg DAILY PEG Last administered on 12/04/18 09:57; Admin Dose 200 MG; Start 12/01/18 at 15:30 Atenolol (Tenormin) 25 mg DAILY PEG Last administered on 12/04/18 09:59; Admin Dose 25 MG; Start 12/01/18 at 15:30 Calcium Acetate (Phoslo) 667 mg BID PEG Last administered on 12/03/18at 20:13; Admin Dose 667 MG; Start 12/01/18 at 21:00 Docusate Sodium (Colace Liquid Cup) 100 mg BID PEG Last administered on 12/04/18 09:55; Admin Dose 100 MG; Start 12/01/18 at 21:00 Ferrous Sulfate (Feosol Liquid Cup) 300 mg DAILY PEG Last administered on 12/04/18 09:55; Admin Dose 300 MG; Start 12/02/18 at 09:00 Fish Oil (Fish Oil) 1,000 mg DAILY PO Last administered on 12/03/18 10:34; Admin Dose 1,000 MG; Start 12/01/18 at 15:30 Atorvastatin Calcium (Lipitor) 40 mg HS PEG Last administered on 12/03/18 20:13; Admin Dose 40 MG; Start 12/01/18 at 21:00 Oxybutynin Chloride (Ditropan) 5 mg TID PEG Last administered on 12/04/18 09:57; Admin Dose 5 MG; Start 12/01/18 at 21:00 Hydroxychloroquine Sulfate (Plaquenil) 400 mg DAILY PO Last administered on 12/04/18 09:58; Admin Dose 400 MG; Start 12/01/18 at 15:30 Mirtazapine (Remeron) 15 mg HS PO Last administered on 12/03/18 20:13; Admin Dose 15 MG; Start 12/01/18 at 21:00 Cyanocobalamin (Vitamin B12) 100 mcg DAILY NGT Last administered on 12/04/18 09:57; Admin Dose 100 MCG; Start 12/02/18 at 09:00 Ascorbic Acid (Vitamin C) 500 mg DAILY GTB Last administered on 12/04/18 09:57; Admin Dose 500 MG; Start 12/02/18 at 09:00 Zinc Sulfate (Zinc Sulfate) 220 mg DAILY PO Last administered on 12/04/18 09:57; Admin Dose 220 MG; Start 12/02/18 at 09:00 Pantoprazole (Protonix Iv) 40 mg DAILY@06 IV Last administered on 12/04/18 05:54; Admin Dose 40 MG; Start 12/02/18 at 06:00 Valacyclovir HCl (Valtrex) 500 mg DAILY PO Last administered on 12/04/18 09:57; Admin Dose 500 MG; Start 12/02/18 at 09:00 Mycophenolate Mofetil (Cellcept) 1,000 mg DAILY PO Last administered on 12/04/18 09:55; Admin Dose 1,000 MG; Start 12/02/18 at 09:00 Diphenhydramine HCl (Benadryl Liquid Cup) 12.5 mg DAILY PRN PEG itching Last administered on 12/03/18 22:09; Admin Dose 12.5 MG; Start 12/01/18 at 16:30 Methylprednisolone (Medrol) 5 mg DAILY PEG Last administered on 12/04/18 09:57; Admin Dose 5 MG; Start 12/03/18 at 09:00 Nystatin (Nystatin Powder) 1 applic BID TOP Last administered on 12/04/18 10:01; Admin Dose 1 APPLIC; Start 12/02/18 at 21:00 Tramadol HCl (Ultram) 50 mg Q6H PRN PO MODERATE PAIN LEVEL 4-6 Last administered on 12/03/18 22:10; Admin Dose 50 MG; Start 12/03/18 at 11:00 Miscellaneous Information (*Rx Drug Level Order Reminder*) VANCO TROUGH ON @ 700 1930 ONCE XX ; Start 12/04/18 at 19:30; Stop 12/04/18 at 19:31 Neomycin/ Polymyxin/ Bacitracin (Neosporin Topical Oint) 1 applic DAILY TOP Last administered on 12/04/18 10:01; Admin Dose 1 APPLIC; Start 12/03/18 at 18:30 Sodium Hypochlorite (Dakins Diluted (1/40)) 1 applic DAILY TP Last administered on 12/04/18 10:00; Admin Dose 1 APPLIC; Start 12/03/18 at 21:00 Dextrose/Sodium Chloride 1,000 ml @ 75 mls/hr [id number] IV Last administered on 12/04/18 09:54; Admin Dose 75 MLS/HR; Start 12/04/18 at 08:30 Vancomycin HCl 100 ml @ 100 mls/hr Q24H IVPB ; Start 12/04/18 at 20:30 Piperacillin Sod/ Tazobactam Sod 100 ml @ 200 mls/hr Q8 IVPB ; Start 12/04/18 at 14:00 Gabapentin (Neurontin) 300 mg TID GTB ; Start 12/04/18 at 13:00 Eye Lubricant (Refresh Plus) 1 drop QID PRN BOTH EYES dry eyes; Start 12/04/18 at 12:30 VTE Prophylaxis Risk score (from Nsg)>0 risk: 3 SCD applied (from Nsg): Yes Lines/Catheters IV Catheter Type: Louie in Place: No Assessment/Plan Hospital Course Subjective No acute events overnight Objective Physical exam General: Patient is laying in bed and answers questions appropriately Mentation: Patient is alert and oriented 4, Head: Normocephalic atraumatic Eyes: EOMI, pupils reactive to light Neck: Supple, nontender, midline Respiratory: Clear to auscultation bilaterally Cardiovascular: regular rate, no obvious murmurs Gastrointestinal: non-tender to palpation, bowel sounds heard. Neurological: Moves all extremities spontaneously Skin: Foot ulcers bilaterally Assessment and plan Bilateral foot ulcers -Broad-spectrum IV antibiotic -Podiatry on board -Cardiology on board to risk assess for surgery planned sometime next week Hypertension -Continue home meds Lupus and rheumatoid arthritis -Continue home meds Chronic HSV -On Valtrex suppression therapy Gout -Allopurinol Dyslipidemia -Atorvastatin Nutritional deficiency -On tube feeds, but patient also able to tolerate mech soft PO according to the patient -See speech therapy -Dietary consult Inability to tolerate significant p.o. -Patient able to swallow, her [place] [facility] does feed her, she just does not like the food or she states that due to excessive reflux, she doesn't get hungry -Continue tube feeds but also let patient eat soft diet. Iron deficiency anemia -Continue iron Disposition -IV antibiotics, surgery today per podiatry - ITZ BAY Dec 04, 2018 11:51
[2018-12-04] MEDS: DIPHENHYDRAMINE 2.5 MG/ML 5ML CUP PEG PRN (12:32)
[2018-12-04] MEDS: GABAPENTIN 300 MG CAP GTB SCH ×2 (12:32→21:14)
[2018-12-04] MEDS ORDERED: PIPER-TAZO 3.375 GM IV (PMX) 100 ML ONE (12:48)
--- NOTE | 2018-12-04 13:30 | HPN ---
Date/Time of Note Date/Time of Note DATE: 12/04/18 TIME: 13:29 Interval H&P Admission Note Pt. seen H&P reviewed: No system changes WENDI BELL DPM Dec 04, 2018 13:29
[2018-12-04] MEDS: CARBOXYMETHYLCELLULOSE 0.5% 0.4 ML OPH BOTH EYES PRN (13:38)
--- NOTE | 2018-12-04 14:05 | PREAC ---
Date/Time of Note Date/Time of Note DATE: 12/04/18 TIME: 14:01 Anesthesia Eval and Record Evaluation Time Pre-Procedure Interview DATE: 12/04/18 TIME: 14:01 Age 73 Sex female NPO: 8 hrs Preoperative diagnosis Bilateral feet gangrene with chronic ulceration Planned procedure Debridement, amputation of bilateral 2nd toes Past Medical History Past Medical History: Includes (Lupus) Cardio: HTN, Dyslipidemia Endo: Other (Gout) GI: Other (Percutaneous gastrostomy tube) Heme: Anemia Infection(s): Other (Chronic HSV infection) Surgery & Anesthesia Issues No known issue Meds Anticoagulation: No Beta Rosana within 24 hr: Yes Reported Medications Zinc Sulfate* (Zinc Sulfate*) 220 Mg Tablet, 220 MG GTB DAILY, TAB STOP TAKING 12/09/18 12/01/18 Ascorbic Acid (Vitamin C) 500 Mg Tab, 500 MG PO DAILY, TAB 12/01/18 Cyanocobalamin (Vitamin B12) 100 Mcg Tab, 100 MCG GTB DAILY, TAB 12/01/18 valAcyclovir Hcl* (valACYclovir Hcl*) 500 Mg Tablet, 500 MG GTB DAILY, TAB 12/01/18 Tramadol HCl (Tramadol HCl) 50 Mg Tablet, 50 MG GTB Q8H PRN for PAIN, #120 TAB 12/01/18 Propylene Glycol (SYSTANE BALANCE) 10 Ml Drops, 1 DRP BOTH EYES TID, #1 BOTTLE 12/01/18 Sennosides* (Senna Lax*) 8.6 Mg Tablet, 2 TAB GTB BID, TAB 12/01/18 Mirtazapine* (Remeron*) 15 Mg Tablet, 15 MG GTB HS, TAB 12/01/18 Amino Acids/Protein Hydrolys (PRO-STAT LIQUID) 30 Ml Liquid.pkt, 30 ML GTB BID SUGAR FREE 12/01/18 Hydroxychloroquine Sulfate* (Plaquenil*) 200 Mg Tab, 400 MG GTB DAILY, TAB 12/01/18 Oxybutynin Chloride* (Ditropan*) 5 Mg Tablet, 5 MG GTB TID, TAB 12/01/18 Multivitamin with Minerals (Multivitamins with Minerals) 1 Each Tablet, 1 EACH GTB DAILY, TAB 12/01/18 Polyethylene Glycol* (Miralax*) 17 Gm Powd.pack, 17 GM GTB DAILY, #30 PACKET 12/01/18 Prednisolone* (Prednisolone*) 5 Mg Tablet, 5 MG GTB DAILY, TAB 12/01/18 Megestrol Acetate* (Megace ES*) 625 Mg/5 Ml Oral.susp, 1000 MG GTB DAILY, ML STOP DATE 12/19/18 12/01/18 Atorvastatin* (Atorvastatin*) 40 Mg Tablet, 40 MG GTB QHS, #30 TAB 12/01/18 Fluticasone Propionate* (Fluticasone Propionate* Nasal) 50 Mcg/[place] - 16 Gm [place].susp, 2 SPRAYS NASAL DAILY, #1 BOTTLE TO EACH NOSTRIL 12/01/18 [place]-3 Fatty Acids/Fish Oil (Fish Oil 1,000 mg Capsule) 1 Each Capsule, 1 EACH GTB DAILY, CAP 12/01/18 Ferrous Sulfate* (Ferrous Sulfate*) 220 Mg/5 Ml Solution, 7.5 ML GTB TID, ML 12/01/18 Bisacodyl* (Bisacodyl*) 10 Mg Supp, 10 MG [place] Q24H for CONSTIPATION, SUPP 12/01/18 Docusate Sodium* (Colace*) 100 Mg Capsule, 100 MG GTB BID, #60 CAP 12/01/18 Cholecalciferol* (Vitamin D*) 400 Unit Tablet, 400 UNIT GTB DAILY, TAB 12/01/18 Mycophenolate Mofetil* (Cellcept*) 500 Mg Tablet, 1000 MG GTB DAILY, #120 TAB 12/01/18 Calcium Acetate* (Calcium Acetate*) 667 Mg Capsule, 667 MG GTB WITH MEALS BID, #30 CAP 12/01/18 Atenolol* (Atenolol*) 25 Mg Tablet, 25 MG GTB DAILY, #30 TAB HOLD FOR SBP<110 OR [place]<60 12/01/18 Allopurinol* (Allopurinol*) 100 Mg Tablet, 200 MG GTB DAILY, TAB 12/01/18 Acetaminophen* (Acetaminophen*) 500 MG Extra Strength Tablet, 1000 MG GTB Q6H PRN for MILD PAIN LEVEL 1-3, TAB AND TEMP>100F 12/01/18 Current Medications IV Flush (NS 3 ml) 3 ml PER PROTOCOL IV ; Start 12/01/18 at 15:30 Ondansetron HCl (Zofran Inj) 4 mg Q6H PRN IV NAUSEA/VOMITING Last administered on 12/04/18 10:45; Admin Dose 4 MG; Start 12/01/18 at 15:30 Acetaminophen (Tylenol Tab) 650 mg Q6H PRN PO .PAIN 1-3 OR TEMP Last administered on 12/02/18 20:22; Admin Dose 650 MG; Start 12/01/18 at 15:30 Acetaminophen/ Hydrocodone Bitart ([place] (5/325)) 1 tab Q6H PRN PO .PAIN 4-6; Start 12/01/18 at 15:30 Morphine Sulfate (morphine) 2 mg Q4H PRN IV .PAIN 7-10 Last administered on 11/20 10:00; Admin Dose 2 MG; Start 12/01/18 at 15:30 Vancomycin HCl (Vanco Iv Per Pharmacy) VANCOMYCIN PER PHARMACY PER PROTOCOL XX ; Start 12/01/18 at 15:30 Allopurinol (Zyloprim) 200 mg DAILY PEG Last administered on 12/04/18 09:57; Admin Dose 200 MG; Start 12/01/18 at 15:30 Atenolol (Tenormin) 25 mg DAILY PEG Last administered on 12/04/18 09:59; Admin Dose 25 MG; Start 12/01/18 at 15:30 Calcium Acetate (Phoslo) 667 mg BID PEG Last administered on 12/03/18 20:13; Admin Dose 667 MG; Start 12/01/18 at 21:00 Docusate Sodium (Colace Liquid Cup) 100 mg BID PEG Last administered on 9at 09:55; Admin Dose 100 MG; Start 12/01/18 at 21:00 Ferrous Sulfate (Feosol Liquid Cup) 300 mg DAILY PEG Last administered on 12/04/18 09:55; Admin Dose 300 MG; Start 12/02/18 at 09:00 Fish Oil (Fish Oil) 1,000 mg DAILY PO Last administered on 12/03/18 10:34; Admin Dose 1,000 MG; Start 12/01/18 at 15:30 Atorvastatin Calcium (Lipitor) 40 mg HS PEG Last administered on 12/03/18 20:13; Admin Dose 40 MG; Start 12/01/18 at 21:00 Oxybutynin Chloride (Ditropan) 5 mg TID PEG Last administered on 12/04/18 12:32; Admin Dose 5 MG; Start 12/01/18 at 21:00 Hydroxychloroquine Sulfate (Plaquenil) 400 mg DAILY PO Last administered on 12/04/18 09:58; Admin Dose 400 MG; Start 12/01/18 at 15:30 Mirtazapine (Remeron) 15 mg HS PO Last administered on 12/03/18 20:13; Admin Dose 15 MG; Start 12/01/18 at 21:00 Cyanocobalamin (Vitamin B12) 100 mcg DAILY NGT Last administered on 12/04/18 09:57; Admin Dose 100 MCG; Start 12/02/18 at 09:00 Ascorbic Acid (Vitamin C) 500 mg DAILY GTB Last administered on 12/04/18 09:57; Admin Dose 500 MG; Start 12/02/18 at 09:00 Zinc Sulfate (Zinc Sulfate) 220 mg DAILY PO Last administered on 12/04/18 09:57; Admin Dose 220 MG; Start 12/02/18 at 09:00 Pantoprazole (Protonix Iv) 40 mg DAILY@06 IV Last administered on 12/04/18 05:54; Admin Dose 40 MG; Start 12/02/18 at 06:00 Valacyclovir HCl (Valtrex) 500 mg DAILY PO Last administered on 12/04/18 09:57; Admin Dose 500 MG; Start 12/02/18 at 09:00 Mycophenolate Mofetil (Cellcept) 1,000 mg DAILY PO Last administered on 12/04/18 09:55; Admin Dose 1,000 MG; Start 12/02/18 at 09:00 Diphenhydramine HCl (Benadryl Liquid Cup) 12.5 mg DAILY PRN PEG itching Last administered on 12/04/18 12:32; Admin Dose 12.5 MG; Start 12/01/18 at 16:30 Methylprednisolone (Medrol) 5 mg DAILY PEG Last administered on 12/04/18 09:57; Admin Dose 5 MG; Start 12/03/18 at 09:00 Nystatin (Nystatin Powder) 1 applic BID TOP Last administered on 12/04/18 10:01; Admin Dose 1 APPLIC; Start 12/02/18 at 21:00 Tramadol HCl (Ultram) 50 mg Q6H PRN PO MODERATE PAIN LEVEL 4-6 Last administered on 4/14/19at 22:10; Admin Dose 50 MG; Start 12/03/18 at 11:00 Miscellaneous Information (*Rx Drug Level Order Reminder*) VANCO TROUGH ON @ 700 1930 ONCE XX ; Start 12/04/18 at 19:30; Stop 12/04/18 at 19:31 Neomycin/ Polymyxin/ Bacitracin (Neosporin Topical Oint) 1 applic DAILY TOP Last administered on 12/04/18at 10:01; Admin Dose 1 APPLIC; Start 12/03/18 at 18:30 Sodium Hypochlorite (Dakins Diluted ()) 1 applic DAILY TP Last administered on 12/04/18at 10:00; Admin Dose 1 APPLIC; Start 12/03/18 at 21:00 Dextrose/Sodium Chloride 1,000 ml @ 75 mls/hr [id number] IV Last administered on 12/04/18at 09:54; Admin Dose 75 MLS/HR; Start 12/04/18 at 08:30 Vancomycin HCl 100 ml @ 100 mls/hr Q24H IVPB ; Start 12/04/18 at 20:30 Piperacillin Sod/ Tazobactam Sod 100 ml @ 200 mls/hr Q8 IVPB Last administered on 12/04/18at 13:38; Admin Dose 200 MLS/HR; Start 12/04/18 at 14:00 Gabapentin (Neurontin) 300 mg TID GTB Last administered on 12/04/18at 12:32; Admin Dose 300 MG; Start 12/04/18 at 13:00 Eye Lubricant (Refresh Plus) 1 drop QID PRN BOTH EYES dry eyes Last administered on 12/04/18 13:38; Admin Dose 1 DROP; Start 12/04/18 at 12:30 Meds reviewed: Yes Allergies Coded Allergies: No Known Allergy (Unverified , 12/01/18) Allergies Reviewed: Yes Labs/Studies Labs Reviewed: Reviewed by anesthesiologist Result Diagram: 12/04/1843 12/04/18 0543 Laboratory Tests 12/04/18 05:43 test: N/A Pre-procedure Exam Last vitals Vital Signs Date Temp Pulse Resp B/P (MAP) Pulse Ox O2 O2 Flow FiO2 Time Delivery Rate 12/04/18 98.4 71 17 112/70 99 08:02 (84) 12/02/18 Room Air 07:35 Airway: Adequate mouth opening Mallampati: Mallampati I Teeth: Normal Lung: Normal Heart: Normal ASA Physical Status ASA physical status: 3 Emergency: None Planned Anesthetic General/MAC: LMA Planned Pain Management Parenteral pain med Pre-operative Attestations Prior to commencing anesthesia and surgery, the patient was re-evaluated, there was verification of: *The patient's identity *The results of appropriate recent lab work and preoperative vital signs *The above evaluation not changing prior to induction *Anesthetic plan, risk benefits, alternative and complications discussed with patient/family; questions answered; patient/family understands, accepts and wishes to proceed. ADALGISA BAY MD Dec 04, 2018 14:05
[2018-12-04] MEDS ORDERED: BUPIVACAINE 0.25% (MPF) 30 ML INJ ONE (14:14)
[2018-12-04] MEDS ORDERED: LIDOCAINE 1% (MPF) 30 ML INJ ONE (14:14)
[2018-12-04] MEDS ORDERED: POLYMYXIN/BACITRACIN 1L IRRIG ONE (14:14)
[2018-12-04] MEDS ORDERED: PROPOFOL 0 ML ONE (14:47)
[2018-12-04] MEDS ORDERED: LIDOCAINE 2% (SDV) 5 ML INJ ONE (14:47)
[2018-12-04] MEDS ORDERED: HYDROCORTISONE 100 MG INJ ONE (14:48)
[2018-12-04] MEDS ORDERED: FENTAnyl 50 MCG/ML VIAL ONE (14:59)
[2018-12-04] MEDS ORDERED: MIDAZOLAM 1 MG/ML 2 ML INJ ONE (14:59)
--- NOTE | 2018-12-04 16:04 | SIPON ---
Date/Time of Note Date/Time of Note DATE: 12/04/18 TIME: 16:04 Operative Report Preoperative Diagnosis Chronic osteomyelitis b/l feet 2nd digits PAD Arterial ulcers bilateral foot Hammertoe deformity Postoperative Diagnosis Chronic osteomyelitis b/l feet 2nd digits PAD Arterial ulcers bilateral foot Hammertoe deformity Operation/Procedure Performed Bilateral 2nd digit amputation Callus paring bilateral heel Surgeon see signature line digital sales assistant none Anesthesia: MAC Estimated blood loss: 0 - 10 ml's Transfusion Required none Specimen bilateral 2nd digit pathology Wound cultures bilateral foot Grafts/Implants none Complications none WENDI BELL DPM Dec 04, 2018 16:04
--- NOTE | 2018-12-04 16:19 | OPR ---
Date/Time of Note Date/Time of Note DATE: 12/04/18 TIME: 16:19 Operative Report Preoperative Diagnosis Chronic osteomyelitis b/l feet 2nd digits PAD Arterial ulcers bilateral foot Hammertoe deformity Postoperative Diagnosis Chronic osteomyelitis b/l feet 2nd digits PAD Arterial ulcers bilateral foot Hammertoe deformity Operation/Procedure Performed Bilateral 2nd digit amputation Callus paring bilateral heel Surgeon see signature line Card Player none Anesthesia Type: MAC Estimated Blood Loss: 0 - 10 ml's Transfusion none Specimen bilateral 2nd digit pathology Wound cultures bilateral foot Grafts/Implants none Complications none Indications 73 y/o F patient with chronic arterial ulcerations to bilateral 2nd digit with joint exposure and chronic osteomyelitis. Patient had recent revascularization and has failed conservative care and is amenable to surgical amputation of bilateral 2nd digits. All of the patient's and patient's family's questions and concerns were addressed no promises or guarantees were given. Procedure Description Patient was brought into the OR and placed on the OR table in the supine position. Bilateral lower extremities were scrubbed, prepped, and draped in the usual aseptic manner. A formal time out was conducted. Local anesthesia was administered to the surgical site to bilateral feet. Attention was directed to the left foot where a linear incision was made. Clinically the PIPJ of the left 2nd digit was exposed with erosions to the bone and non-viable osseous structures appreciated. Adequate bleeding was appreciated to the surgical site and using a scalpel and scissors/pickup the 2nd digit was disarticulated from the MPJ and the digit was sent for pathology specimen. Copious antibiotic infused saline was irrigated to the surgical site and wound cultures were obtained. No purulence or foul odor was appreciated. The skin edges of the amputation site were reapproximated with 4-0 prolene under minimal tension. Left plantar heel callus was pared with scalpel and revealed no open lesion. Next, attention was directed to the right foot where a linear incision was made. The right 2nd digit also had exposed bone and it also had erosions to the bone and non-viable osseous structures appreciated with cortical disruption to the base of the right proximal 2nd digit phalanx. Adequate bleeding was appreciated to the surgical site and using a scalpel and scissors/pickup the 2nd digit was disarticulated from the MPJ and the digit was sent for pathology specimen. Copious antibiotic infused saline was irrigated to the surgical site and wound cultures were obtained. No purulence or foul odor was appreciated. The skin edges of the amputation site were reapproximated with 4-0 prolene under minimal tension. Right plantar heel callus was pared with scalpel and revealed no open lesion. Xeroform and dry sterile dressings were applied to bilateral surgical sites. Patient was transferred to the PACU with vital signs stable and neurovascular status intact. WENDI BELL DPM Dec 04, 2018 16:19
--- NOTE | 2018-12-04 17:10 | PAC ---
Date/Time of Note Date/Time of Note DATE: 12/04/18 TIME: 17:10 Post-Anesthesia Notes Post-Anesthesia Note Last documented vital signs Vital Signs Date Temp Pulse Resp B/P (MAP) Pulse Ox O2 O2 Flow FiO2 Time Delivery Rate 12/04/18 66 20 118/73 100 Room Air 16:28 (88) 12/04/18 98.4 16:14 Activity: WNL Respiratory function: WNL Cardiovascular function: WNL Mental status: Baseline Pain reasonably controlled: Yes Hydration appropriate: Yes Nausea/Vomiting absent: Yes Comments BT: 98.4 ADALGISA BAY MD Dec 04, 2018 17:10
[2018-12-04] MEDS ORDERED: VANCOMYCIN 500 MG (PMX) 100 ML IVPB SCH (20:30)
[2018-12-04] MEDS ORDERED: traMADol 50 MG TAB GTB PRN (20:30)
[2018-12-04] MEDS: DOCUSATE SODIUM 100 MG CAP PO SCH (21:00)
[2018-12-04] MEDS ORDERED: FERROUS SULFATE 220 MG/5 ML ML GTB SCH (21:00)
[2018-12-04] MEDS: ATORVASTATIN 40 MG TAB PEG SCH (21:14)
[2018-12-04] MEDS: MIRTAZAPINE 15 MG TAB GTB SCH (21:15)
[2018-12-04] MEDS: OXYBUTYNIN 5 MG TAB GTB SCH (21:15)
[2018-12-04] MEDS: FERROUS SULFATE 60 MG/ML 5ML CUP GTB SCH (21:17)
[2018-12-04] MEDS: SENNA TAB GTB SCH (21:17)
[2018-12-05] MEDS: morphine 2 MG INJ IV PRN ×3 (01:48→16:18)
[2018-12-05 03:35] VITALS: BP 130/75; PULSE 77; RESP 20
[2018-12-05] MEDS: HYDROCODONE/APAP (5/325) TAB PO PRN ×3 (05:14→21:17)
[2018-12-05] MEDS: PIPER-TAZO 3.375 GM IV (PMX) 100 ML IVPB SCH ×3 (05:14→22:08)
[2018-12-05] MEDS: LANSOPRAZOLE 30 MG CAP GTB SCH (05:15)
[2018-12-05] MEDS ORDERED: PANTOPRAZOLE (EC) 40 MG TAB PO SCH (06:00)
[2018-12-05 08:00] VITALS: BP 124/73; PULSE 96; RESP 20
[2018-12-05] MEDS: FISH OIL 1,000 MG CAP PO SCH (08:56)
[2018-12-05] MEDS: POLYETHYLENE GLYCOL 17 GM PACKET GTB SCH (08:57)
[2018-12-05] MEDS: FERROUS SULFATE 60 MG/ML 5ML CUP GTB SCH ×3 (08:57→21:16)
[2018-12-05] MEDS: ALLOPURINOL 100 MG TAB PEG SCH (08:58)
[2018-12-05] MEDS: DOCUSATE SODIUM 10 MG/ML (10ML CUP) PEG SCH ×2 (08:58→21:16)
[2018-12-05] MEDS: MYCOPHENOLATE 250 MG CAP PO SCH (08:58)
[2018-12-05] MEDS: CALCIUM ACETATE 667 MG CAP PEG SCH ×2 (08:58→21:15)
[2018-12-05] MEDS: DOCUSATE SODIUM 100 MG CAP PO SCH ×2 (08:58→21:00)
[2018-12-05] MEDS: OXYBUTYNIN 5 MG TAB GTB SCH ×3 (08:58→21:15)
[2018-12-05] MEDS: FLUTICASONE 0.05% 16 GM NAS SPRAY NASAL SCH (08:58)
[2018-12-05] MEDS: SENNA TAB GTB SCH ×2 (08:59→21:16)
[2018-12-05] MEDS: HYDROXYCHLOROQUINE 200 MG TAB GTB SCH (08:59)
[2018-12-05] MEDS: ASCORBIC ACID 500 MG TAB GTB SCH (08:59)
[2018-12-05] MEDS: GABAPENTIN 300 MG CAP GTB SCH ×3 (08:59→21:15)
[2018-12-05] MEDS: METHYLPREDNISOLONE 4 MG TAB PEG SCH (08:59)
[2018-12-05] MEDS: ZINC SULFATE 220 MG CAP GTB SCH (08:59)
[2018-12-05] MEDS: valACYclovir 500 MG TAB GTB SCH (08:59)
[2018-12-05] MEDS: CYANOCOBALAMIN 100 MCG TAB NGT SCH (08:59)
[2018-12-05] MEDS: NEOMYC/POLYMYX/BACIT 30 GM OINT TOP SCH (09:00)
[2018-12-05] MEDS: ATENOLOL 25 MG TAB PEG SCH (09:00)
[2018-12-05] MEDS: DAKINS 0.0125%(1/40) 473 ML SOLUTION TP SCH (09:00)
[2018-12-05] MEDS: ONDANSETRON 4 MG INJ IV PRN (09:25)
[2018-12-05] MEDS: NYSTATIN 30 GM POWDER BTL TOP SCH ×2 (09:26→21:00)
--- NOTE | 2018-12-05 11:25 | PN ---
Date/Time of Note Date/Time of Note DATE: 12/05/18 TIME: 11:25 Assessment/Plan VTE Prophylaxis Risk score (from Ns)>0 risk: 4 SCD applied (from Ns): No SCD contraindicated: other Pharmacological prophylaxis: NA/contraindicated Pharm contraindication: surgical contra Lines/Catheters [facility]from [facility] Saline Lock Urinary Cath still in place: No Assessment/Plan Assessment/Plan 1. Bilateral foot ulcers - Podiatry on board and appreciate consultations. Patient is s/p debridement and amputation of 2nd toe bilaterally. postop shoes in the room. Continue IV antibiotics - Broad-spectrum IV antibiotic 2. Hypertension - Continue home meds 3. Lupus and rheumatoid arthritis - Continue home meds 4. 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 Gout - continue on Allopurinol 6. Dyslipidemia - continue Lipitor 7. Nutritional deficiency - Soft diet during the day and Tube feeds from 8pm to 8am - dietary consult appreciated 8. Iron deficiency anemia - Continue iron 9. CORINNE on CKD - Nephrology on board and appreciate recommendations 10. Disposition - Continue adjusting medications for proper pain control. Once stable and cleared by Podiatry, will d/c back to [facility] Result Diagram: 12/04/18 0543 12/05/18 0551 Results 24hrs Laboratory Tests Test 12/04/18 19:34 12/05/18 05:51 Vancomycin Level Trough 7.5 L Sodium Level 143 Potassium Level 3.5 Chloride Level 115 H Carbon Dioxide Level 17 L Anion Gap 11 Blood Urea Nitrogen 25 H Creatinine 1.20 H Est Glomerular Filtrat Rate mL/min Glucose Level 107 Calcium Level 9.1 Phosphorus Level 2.9 Magnesium Level 2.1 Subjective 24 Hr Interval Summary Free Text/Dictation Patient states shes in pain and taking time to get under control. She lives at a 7/10 usually with her chronic issues but at 9 this am. Exam/Review of Systems Exam Vitals Vital Signs Date Temp Pulse Resp B/P (MAP) Pulse Ox O2 O2 Flow FiO2 Time Delivery Rate 12/05/18 98.4 96 20 124/73 98 08:00 (90) 12/04/18 Room Air 16:43 Intake and Output 12/04/18 12/04/18 12/05/18 1515:00 23:00 07:00 IntakeIntake Total 400 ml 860 ml 200 ml OutputOutput Total 5 ml BalanceBalance 400 ml 855 ml 200 ml Exam General: Patient is laying in bed and answers questions appropriately Neck: Supple Respiratory: Clear to auscultation bilaterally. no wheezing or rhonchi Cardiovascular: regular rate and rhythm, no obvious murmurs Gastrointestinal: soft, non-tender to palpation, nondistended, PEG in place, bowel sounds heard. Neurological: Moves all extremities spontaneously Skin: bandages on feet bilaterally. Results Results 24hrs Laboratory Tests Test 12/04/18 19:34 12/05/18 05:51 Vancomycin Level Trough 7.5 L Sodium Level 143 Potassium Level 3.5 Chloride Level 115 H Carbon Dioxide Level 17 L Anion Gap 11 Blood Urea Nitrogen 25 H Creatinine 1.20 H Est Glomerular Filtrat Rate mL/min Glucose Level 107 Calcium Level 9.1 Phosphorus Level 2.9 Magnesium Level 2.1 Medications Medication Current Medications Ondansetron HCl (Zofran Inj) 4 mg Q6H PRN IV NAUSEA/VOMITING Last administered on 12/05/18 09:25; Admin Dose 4 MG; Start 12/01/18 at 15:30 Acetaminophen (Tylenol Tab) 650 mg Q6H PRN PO .PAIN 1-3 OR TEMP Last admin istered on 12/02/18at 20:22; Admin Dose 650 MG; Start 12/01/18 at 15:30 Acetaminophen/ Hydrocodone Bitart ([place] (5/325)) 1 tab Q6H PRN PO .PAIN 4-6 Last administered on 12/05/18 05:14; Admin Dose 1 TAB; Start 12/01/18 at 15:30 Morphine Sulfate (morphine) 2 mg Q4H PRN IV .PAIN 7-10 Last administered on 12/05/18 09:26; Admin Dose 2 MG; Start 12/01/18 at 15:30 Vancomycin HCl (Vanco Iv Per Pharmacy) VANCOMYCIN PER PHARMACY PER PROTOCOL XX ; Start 12/01/18 at 15:30 Allopurinol (Zyloprim) 200 mg DAILY PEG Last administered on 12/05/18at 08:58; Admin Dose 200 MG; Start 12/01/18 at 15:30 Atenolol (Tenormin) 25 mg DAILY PEG Last administered on 12/05/18 09:00; Admin Dose 25 MG; Start 12/01/18 at 15:30 Calcium Acetate (Phoslo) 667 mg BID PEG Last administered on 12/05/18 08:58; Admin Dose 667 MG; Start 12/01/18 at 21:00 Docusate Sodium (Colace Liquid Cup) 100 mg BID PEG Last administered on 12/05/18 08:58; Admin Dose 100 MG; Start 12/01/18 at 21:00 Fish Oil (Fish Oil) 1,000 mg DAILY PO Last administered on 12/05/18 08:56; Admin Dose 1,000 MG; Start 12/01/18 at 15:30 Atorvastatin Calcium (Lipitor) 40 mg HS PEG Last administered on 12/04/18 21:14; Admin Dose 40 MG; Start 12/01/18 at 21:00 Cyanocobalamin (Vitamin B12) 100 mcg DAILY NGT Last administered on 12/05/18 08:59; Admin Dose 100 MCG; Start 12/02/18 at 09:00 Ascorbic Acid (Vitamin C) 500 mg DAILY GTB Last administered on 12/05/18 08:59; Admin Dose 500 MG; Start 12/02/18 at 09:00 Diphenhydramine HCl (Benadryl Liquid Cup) 12.5 mg DAILY PRN PEG itching Last administered on 12/04/18 12:32; Admin Dose 12.5 MG; Start 12/01/18 at 16:30 Methylprednisolone (Medrol) 5 mg DAILY PEG Last administered on 12/05/18 08:59 ; Admin Dose 5 MG; Start 12/03/18 at 09:00 Nystatin (Nystatin Powder) 1 applic BID TOP Last administered on 12/05/18 09:26; Admin Dose 1 APPLIC; Start 12/02/18 at 21:00 Neomycin/ Polymyxin/ Bacitracin (Neosporin Topical Oint) 1 applic DAILY TOP Last administered on 12/04/18 10:01; Admin Dose 1 APPLIC; Start 12/03/18 at 18:30 Sodium Hypochlorite (Dakins Diluted ()) 1 applic DAILY TP Last administered on 12/04/18 10:00; Admin Dose 1 APPLIC; Start 12/03/18 at 21:00 Piperacillin Sod/ Tazobactam Sod 100 ml @ 200 mls/hr Q8 IVPB Last administered on 12/05/18 05:14; Admin Dose 200 MLS/HR; Start 12/04/18 at 14:00 Gabapentin (Neurontin) 300 mg TID GTB Last administered on 12/05/18 08:59; Admin Dose 300 MG; Start 12/04/18 at 13:00 Eye Lubricant (Refresh Plus) 1 drop QID PRN BOTH EYES dry eyes Last administered on 12/04/18 13:38; Admin Dose 1 DROP; Start 12/04/18 at 12:30 Lansoprazole (Prevacid) 30 mg DAILY@06 GTB Last administered on 12/05/18 05:15; Admin Dose 30 MG; Start 12/05/18 at 06:00 Docusate Sodium (Colace) 100 mg BID PO Last administered on 12/05/18 08:58; Admin Dose 100 MG; Start 12/04/18 at 21:00 Fluticasone Propionate (Flonase 0.05% Nasal) 1 spray DAILY NASAL Last administered on 12/05/18 08:58; Admin Dose 1 SPRAY; Start 12/05/18 at 09:00 Hydroxychloroquine Sulfate (Plaquenil) 400 mg DAILY GTB Last administered on 12/05/18 08:59; Admin Dose 400 MG; Start 12/05/18 at 09:00 Mirtazapine (Remeron) 15 mg HS GTB Last administered on 12/04/18 21:15; Admin Dose 15 MG; Start 12/04/18 at 21:00 Mycophenolate Mofetil (Cellcept) 1,000 mg DAILY PO Last administered on 12/05/18 08:58; Admin Dose 1,000 MG; Start 12/05/18 at 09:00 Oxybutynin Chloride (Ditropan) 5 mg TID GTB Last administered on 12/05/18 08:58; Admin Dose 5 MG; Start 12/04/18 at 21:00 Polyethylene Glycol (Miralax) 17 gm DAILY GTB Last administered on 12/05/18 08:57; Admin Dose 17 GM; Start 12/05/18 at 09:00 Senna (Senokot) 2 tab BID GTB Last administered on 12/05/18 08:59; Admin Dose 2 TAB; Start 12/04/18 at 21:00 Tramadol HCl (Ultram) 50 mg Q8H PRN GTB PAIN Last administered on 12/04/18at 23:04; Admin Dose 50 MG; Start 12/04/18 at 20:30 Valacyclovir HCl (Valtrex) 500 mg DAILY GTB Last administered on 12/05/18 08:59; Admin Dose 500 MG; Start 12/05/18 at 09:00 Zinc Sulfate (Zinc Sulfate) 220 mg DAILY GTB Last administered on 12/05/18at 08:59; Admin Dose 220 MG; Start 12/05/18 at 09:00 Vancomycin/Sodium Chloride 250 ml @ 125 mls/hr Q24H IVPB ; Start 12/05/18 at 16:00 Ferrous Sulfate (Feosol Liquid Cup) 300 mg TID GTB Last administered on 12/05/18at 08:57; Admin Dose 300 MG; Start 12/04/18 at 21:10 Citric Acid/ Sodium Citrate (Bicitra) 30 ml BID PO ; Start 12/05/18 at 10:00 SOURAV ALVARADO MD Dec 05, 2018 11:25
[2018-12-05] MEDS: CITRIC ACID/NA CITRATE 30 ML CUP PO SCH ×2 (13:38→21:16)
[2018-12-05 14:00] VITALS: BP 132/62; PULSE 64; RESP 18
--- NOTE | 2018-12-05 14:45 | PN ---
DATE: 12/05/2018 SUBJECTIVE: The patient is stable, no events overnight. OBJECTIVE: VITAL SIGNS: Blood pressure is 124/73, pulse 96, respiration 20, temperature 98.4. HEENT: Head is normocephalic. NECK: Supple. HEART: Regular rate. LUNGS: Show diminished breath sounds at the base. ABDOMEN: Soft, nontender to palpation without rebound or guarding. EXTREMITIES: Negative for clubbing, cyanosis, no edema. DERMATOLOGIC: No rashes. MUSCULOSKELETAL: No joint effusions. The patient does have lower extremity wounds. NEUROLOGIC: No change in exam. ASSESSMENT AND PLAN: 1. Nonoliguric acute kidney injury on top of chronic kidney disease stage III with unknown baseline creatinine. Etiology of acute kidney injury is secondary to hemodynamics. Renal function is stable, slowly improving. Continue current treatment plans, supportive care, renally dose all meds. 2. 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 The patient is currently in acute condit ion stated above. Continue current treatment plan. Continue disease factor medications. Continue C ellCept. 3. Hypernatremia, improved. 4. Anemia. Monitor hemoglobin and hematocrit levels. 5. Mineral bone disorder, monitor calcium and phosphorus levels. 6. History of lupus. Continue current medical management. 7. Metabolic acidosis. Continue to monitor. Consider starting patient on Bicitra. 8. Bilateral foot ulcers. The patient is status post second digit amputation. Continue to monitor. Follow up with surgery. Follow up with podiatry. Continue wound care. 9. Hypertension. Continue current blood pressure regimen. 10. History of gout. Continue allopurinol. 11. Dyslipidemia. Continue statin therapy. 12. Dysphagia. Continue tube feeding. 13. History of HSV patient remains on Valtrex. Dictated By: JANINE LOPEZ DO NR/NTS Conf#: [id number] DID#: [id number] CC: ITZ BAY MD;*EndCC*
[2018-12-05] MEDS: VANCOMYCIN 750 MG (PMX) 250 ML IVPB SCH (16:21)
[2018-12-05 19:50] VITALS: BP 123/67; PULSE 80; RESP 17
[2018-12-05] MEDS: ATORVASTATIN 40 MG TAB PEG SCH (21:15)
[2018-12-05] MEDS: MIRTAZAPINE 15 MG TAB GTB SCH (21:16)
[2018-12-05] MEDS: DIPHENHYDRAMINE 2.5 MG/ML 5ML CUP PEG PRN (21:35)
[2018-12-06 02:08] VITALS: BP 133/70; PULSE 72; RESP 18
[2018-12-06] MEDS: PIPER-TAZO 3.375 GM IV (PMX) 100 ML IVPB SCH ×3 (05:31→22:30)
[2018-12-06] MEDS: LANSOPRAZOLE 30 MG CAP GTB SCH (05:31)
[2018-12-06 08:00] VITALS: BP 134/79; PULSE 84; RESP 20
[2018-12-06] MEDS: POLYETHYLENE GLYCOL 17 GM PACKET GTB SCH (09:00)
[2018-12-06] MEDS: SENNA TAB GTB SCH ×2 (09:00→20:52)
[2018-12-06] MEDS: DOCUSATE SODIUM 10 MG/ML (10ML CUP) PEG SCH ×2 (09:00→20:52)
[2018-12-06] MEDS: DOCUSATE SODIUM 100 MG CAP PO SCH ×2 (09:00→20:52)
[2018-12-06] MEDS: DAKINS 0.0125%(1/40) 473 ML SOLUTION TP SCH (09:00)
[2018-12-06] MEDS: NEOMYC/POLYMYX/BACIT 30 GM OINT TOP SCH (09:00)
[2018-12-06] MEDS: CALCIUM ACETATE 667 MG CAP PEG SCH ×2 (09:00→10:06)
--- NOTE | 2018-12-06 09:58 | PN ---
DATE: 12/06/2018 SUBJECTIVE: The patient is stable, no events overnight. No fevers, chills, nausea, or vomiting. OBJECTIVE: VITAL SIGNS: Blood pressure is 134/79, respirations 20, pulse 84, temperature 98.6. HEENT: Head is normocephalic. NECK: Supple. HEART: Regular rate. LUNGS: Show diminished breath sounds at the base. ABDOMEN: Soft, nontender to palpation. No rebound or guarding. EXTREMITIES: Negative for clubbing, cyanosis, no edema. DERMATOLOGIC: No rashes. MUSCULOSKELETAL: No joint effusion. NEUROLOGIC: No change in exam. MEDICATIONS: Reviewed. LABORATORY DATA: Reviewed. ASSESSMENT AND PLAN: 1. Nonoliguric acute kidney injury on top of chronic kidney disease stage III with unknown baseline creatinine. Etiology of acute kidney injury is secondary to hemodynamics. Renal function has been s table, continue to monitor. 2. Chronic kidney disease with history of lupus. The patient is currently in acute kidney injury as stated above. Continue current treatment plan. Continue disease factor modification. Continue Davina lCept. 3. Hypernatremia, improved. 4. Anemia. Monitor hemoglobin and hematocrit levels. 5. Mineral bone disorder, monitor calcium and phosphorus levels. 6. History of lupus. Continue medical management. 7. Metabolic acidosis. Continue Bicitra. 8. Bilateral foot ulcers. Continue to monitor. Follow up with surgery. 9. Hypertension. Continue current blood pressure regimen. 10. History of gout. Continue allopurinol. 11. Dyslipidemia. Continue statin therapy. 12. Dysphagia. Continue tube feeding. 13. History of HSV. Continue Valtrex. Dictated By: JANINE LOPEZ DO NR/NTS Conf#: [id number] DID#: [id number] CC: ITZ BAY MD; SOURAV ALVARADO MD;*EndCC*
[2018-12-06] MEDS: FERROUS SULFATE 60 MG/ML 5ML CUP GTB SCH ×3 (10:02→20:51)
[2018-12-06] MEDS: OXYBUTYNIN 5 MG TAB GTB SCH ×3 (10:02→20:52)
[2018-12-06] MEDS: GABAPENTIN 300 MG CAP GTB SCH ×3 (10:03→20:52)
[2018-12-06] MEDS: valACYclovir 500 MG TAB GTB SCH (10:03)
[2018-12-06] MEDS: HYDROXYCHLOROQUINE 200 MG TAB GTB SCH (10:03)
[2018-12-06] MEDS: FLUTICASONE 0.05% 16 GM NAS SPRAY NASAL SCH (10:04)
[2018-12-06] MEDS: ASCORBIC ACID 500 MG TAB GTB SCH (10:04)
[2018-12-06] MEDS: ZINC SULFATE 220 MG CAP GTB SCH (10:04)
[2018-12-06] MEDS: METHYLPREDNISOLONE 4 MG TAB PEG SCH (10:04)
[2018-12-06] MEDS: CYANOCOBALAMIN 100 MCG TAB NGT SCH (10:04)
[2018-12-06] MEDS: ATENOLOL 25 MG TAB PEG SCH (10:06)
[2018-12-06] MEDS: CITRIC ACID/NA CITRATE 30 ML CUP PO SCH ×2 (10:07→20:52)
[2018-12-06] MEDS: MYCOPHENOLATE 250 MG CAP PO SCH (10:07)
[2018-12-06] MEDS: ALLOPURINOL 100 MG TAB PEG SCH (10:07)
[2018-12-06] MEDS: FISH OIL 1,000 MG CAP PO SCH (10:08)
[2018-12-06] MEDS: NYSTATIN 30 GM POWDER BTL TOP SCH ×2 (10:10→20:53)
[2018-12-06] MEDS: CARBOXYMETHYLCELLULOSE 0.5% 0.4 ML OPH BOTH EYES PRN (10:39)
[2018-12-06] MEDS: ONDANSETRON 4 MG INJ IV PRN (10:39)
[2018-12-06 14:00] VITALS: BP 110/76; PULSE 76; RESP 18
[2018-12-06] MEDS: ACETAMINOPHEN 325 MG TAB PO PRN ×2 (14:19→20:52)
--- NOTE | 2018-12-06 15:29 | PN ---
Date/Time of Note Date/Time of Note DATE: 12/06/18 TIME: 15:25 Assessment/Plan VTE Prophylaxis Risk score (from Ns)>0 risk: 7 SCD applied (from Ns): Yes Pharmacological prophylaxis: NA/contraindicated Pharm contraindication: surgical contra Lines/Catheters IV Catheter Type (from Nrsg): Saline Lock Urinary Cath still in place: No Assessment/Plan Assessment/Plan 1. Bilateral foot ulcers s/p debridement and amputation 2nd toes bilaterally - Podiatry on board and appreciate consultations. Postop shoes in the room and will consult PT when okay per Podiatry. Continue IV antibiotics and final wound cultures still pending - Pain control 2. Hypertension- stable - Continue home meds 3. Lupus and rheumatoid arthritis - Continue home meds 4. 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 Gout - continue on Allopurinol 6. Dyslipidemia - continue Lipitor 7. Nutritional deficiency - Soft diet during the day and Tube feeds from 8pm to 8am - dietary consult appreciated 8. Iron deficiency anemia - Continue iron 9. CORINNE on CKD- resolved - Nephrology on board and appreciate recommendations 10. Disposition - Awaiting final wound cultures. Once stable and cleared by Podiatry, will d/c back to [facility] Result Diagram: 12/06/18 0815 12/06/18 0815 Results 24hrs Laboratory Tests Test 12/06/18 08:15 White Blood Count 7.2 Red Blood Count 3.10 L Hemoglobin 9.6 L Hematocrit 30.7 L Mean Corpuscular Volume 99.0 Mean Corpuscular Hemoglobin 31.0 Mean Corpuscular Hemoglobin Concent 31.3 L Red Cell Distribution Width 15.3 H Platelet Count 131 L Mean Platelet Volume 12.4 H Immature Granulocytes % 5.700 H Neutrophils % Segmented Neutrophils % (Manual) 53 Band Neutrophils % (Manual) 4 Lymphocytes % Lymphocytes % (Manual) 39 Reactive Lymphocytes % (Manual) 1 H Monocytes % Monocytes % (Manual) 2 Eosinophils % Basophils % Basophils % (Manual) 1 Nucleated Red Blood Cells % 0.0 Immature Granulocytes # 0.410 H Neutrophils # Neutrophils # (Manual) 3.8 Band Neutrophils # 0.2 Lymphocytes (Manual) 2.8 Lymphocytes # Reactive Lymphocytes # 0.0 Monocytes # Monocytes # (Manual) 0.1 L Eosinophils # Basophils # Basophils # (Manual) 0.0 Nucleated Red Blood Cells # Platelet Estimate DECREASED Polychromasia 2+ Anisocytosis 1+ Macrocytosis 1+ Sodium Level 146 H Potassium Level 3.7 Chloride Level 116 H Carbon Dioxide Level 23 Anion Gap 7 Blood Urea Nitrogen 22 H Creatinine 0.97 Est Glomerular Filtrat Rate mL/min Glucose Level 107 Calcium Level 9.3 Phosphorus Level 1.6 #L Magnesium Level 2.1 Subjective 24 Hr Interval Summary Free Text/Dictation Patient still complaining of pain and states usually Tylenol 1000mg helps. She admits to 4 episodes of diarrhea yesterday but has since resolved. No acute overnight events. Exam/Review of Systems Exam Vitals Vital Signs Date Temp Pulse Resp B/P (MAP) Pulse Ox O2 O2 Flow FiO2 Time Delivery Rate 12/06/18 98.6 84 20 134/79 98 08:00 (97) 12/04/18 Room Air 16:43 Intake and Output 12/05/18 12/05/18 12/06/18 1515:00 23:00 07:00 IntakeIntake Total 250 ml 720 ml 1210 ml BalanceBalance 250 ml 720 ml 1210 ml Exam General: Patient is laying in bed and answers questions appropriately Neck: Supple Respiratory: Clear to auscultation bilaterally. no wheezing or rhonchi Cardiovascular: regular rate and rhythm, no obvious murmurs Gastrointestinal: soft, non-tender to palpation, nondistended, PEG in place, bowel sounds heard. Neurological: Moves all extremities spontaneously Skin: bandages on feet bilaterally. CDI. no discharge or drainage Results Results 24hrs Laboratory Tests Test 12/06/18 08:15 White Blood Count 7.2 Red Blood Count 3.10 L Hemoglobin 9.6 L Hematocrit 30.7 L Mean Corpuscular Volume 99.0 Mean Corpuscular Hemoglobin 31.0 Mean Corpuscular Hemoglobin Concent 31.3 L Red Cell Distribution Width 15.3 H Platelet Count 131 L Mean Platelet Volume 12.4 H Immature Granulocytes % 5.700 H Neutrophils % Segmented Neutrophils % (Manual) 53 Band Neutrophils % (Manual) 4 Lymphocytes % Lymphocytes % (Manual) 39 Reactive Lymphocytes % (Manual) 1 H Monocytes % Monocytes % (Manual) 2 Eosinophils % Basophils % Basophils % (Manual) 1 Nucleated Red Blood Cells % 0.0 Immature Granulocytes # 0.410 H Neutrophils # Neutrophils # (Manual) 3.8 Band Neutrophils # 0.2 Lymphocytes (Manual) 2.8 Lymphocytes # Reactive Lymphocytes # 0.0 Monocytes # Monocytes # (Manual) 0.1 L Eosinophils # Basophils # Basophils # (Manual) 0.0 Nucleated Red Blood Cells # Platelet Estimate DECREASED Polychromasia 2+ Anisocytosis 1+ Macrocytosis 1+ Sodium Level 146 H Potassium Level 3.7 Chloride Level 116 H Carbon Dioxide Level 23 Anion Gap 7 Blood Urea Nitrogen 22 H Creatinine 0.97 Est Glomerular Filtrat Rate mL/min Glucose Level 107 Calcium Level 9.3 Phosphorus Level 1.6 #L Magnesium Level 2.1 Medications Medication Current Medications Ondansetron HCl (Zofran Inj) 4 mg Q6H PRN IV NAUSEA/VOMITING Last administered on 12/06/18 10:39; Admin Dose 4 MG; Start 12/01/18 at 15:30 Acetaminophen (Tylenol Tab) 650 mg Q6H PRN PO fever Last administered on 12/06/18 14:19; Admin Dose 650 MG; Start 12/01/18 at 15:30 Acetaminophen/ Hydrocodone Bitart ([place] (5/325)) 1 tab Q6H PRN PO .PAIN 4-6 Last administered on 12/05/18 21:17; Admin Dose 1 TAB; Start 12/01/18 at 15:30 Morphine Sulfate (morphine) 2 mg Q4H PRN IV .PAIN 7-10 Last administered on 12/05/18 16:18; Admin Dose 2 MG; Start 12/01/18 at 15:30 Vancomycin HCl (Vanco Iv Per Pharmacy) VANCOMYCIN PER PHARMACY PER PROTOCOL XX ; Start 12/01/18 at 15:30 Allopurinol (Zyloprim) 200 mg DAILY PEG Last administered on 12/06/18 10:07; Admin Dose 200 MG; Start 12/01/18 at 15:30 Atenolol (Tenormin) 25 mg DAILY PEG Last administered on 12/06/18 10:06; Admin Dose 25 MG; Start 12/01/18 at 15:30 Calcium Acetate (Phoslo) 667 mg BID PEG Last administered on 12/05/18 21:15; Admin Dose 667 MG; Start 12/01/18 at 21:00 Docusate Sodium (Colace Liquid Cup) 100 mg BID PEG Last administered on 12/05/18 21:16; Admin Dose 100 MG; Start 12/01/18 at 21:00 Fish Oil (Fish Oil) 1,000 mg DAILY PO Last administered on 12/06/18 10:08; Admin Dose 1,000 MG; Start 12/01/18 at 15:30 Atorvastatin Calcium (Lipitor) 40 mg HS PEG Last administered on 12/05/18 21:15; Admin Dose 40 MG; Start 12/01/18 at 21:00 Cyanocobalamin (Vitamin B12) 100 mcg DAILY NGT Last administered on 12/06/18 10:04; Admin Dose 100 MCG; Start 12/02/18 at 09:00 Ascorbic Acid (Vitamin C) 500 mg DAILY GTB Last administered on 12/06/18 10:04; Admin Dose 500 MG; Start 12/02/18 at 09:00 Diphenhydramine HCl (Benadryl Liquid Cup) 12.5 mg DAILY PRN PEG itching Last administered on 12/05/18 21:35; Admin Dose 12.5 MG; Start 12/01/18 at 16:30 Methylprednisolone (Medrol) 5 mg DAILY PEG Last administered on 12/06/18 10:04; Admin Dose 5 MG; Start 12/03/18 at 09:00 Nystatin (Nystatin Powder) 1 applic BID TOP Last administered on 12/06/18 10:10; Admin Dose 1 APPLIC; Start 12/02/18 at 21:00 Neomycin/ Polymyxin/ Bacitracin (Neosporin Topical Oint) 1 applic DAILY TOP Last administered on 12/04/18 10:01; Admin Dose 1 APPLIC; Start 12/03/18 at 18:30 Sodium Hypochlorite (Dakins Diluted (1/40)) 1 applic DAILY TP Last administered on 12/04/18 10:00; Admin Dose 1 APPLIC; Start 12/03/18 at 21:00 Piperacillin Sod/ Tazobactam Sod 100 ml @ 200 mls/hr Q8 IVPB Last administered on 12/06/18 14:18; Admin Dose 200 MLS/HR; Start 12/04/18 at 14:00 Gabapentin (Neurontin) 300 mg TID GTB Last administered on 12/06/18 14:18; A dmin Dose 300 MG; Start 12/04/18 at 13:00 Eye Lubricant (Refresh Plus) 1 drop QID PRN BOTH EYES dry eyes Last administered on 12/06/18 10:39; Admin Dose 1 DROP; Start 12/04/18 at 12:30 Lansoprazole (Prevacid) 30 mg DAILY@06 GTB Last administered on 12/06/18 05:31; Admin Dose 30 MG; Start 12/05/18 at 06:00 Docusate Sodium (Colace) 100 mg BID PO Last administered on 12/05/18 08:58; Admin Dose 100 MG; Start 12/04/18 at 21:00 Fluticasone Propionate (Flonase 0.05% Nasal) 1 spray DAILY NASAL Last administered on 12/06/18 10:04; Admin Dose 1 SPRAY; Start 12/05/18 at 09:00 Hydroxychloroquine Sulfate (Plaquenil) 400 mg DAILY GTB Last administered on 12/06/18 10:03; Admin Dose 400 MG; Start 12/05/18 at 09:00 Mirtazapine (Remeron) 15 mg HS GTB Last administered on 12/05/18 21:16; Admin Dose 15 MG; Start 12/04/18 at 21:00 Mycophenolate Mofetil (Cellcept) 1,000 mg DAILY PO Last administered on 12/06/18 10:07; Admin Dose 1,000 MG; Start 12/05/18 at 09:00 Oxybutynin Chloride (Ditropan) 5 mg TID GTB Last administered on 12/06/18 14:17; Admin Dose 5 MG; Start 12/04/18 at 21:00 Polyethylene Glycol (Miralax) 17 gm DAILY GTB Last administered on 12/05/18 08:57; Admin Dose 17 GM; Start 12/05/18 at 09:00 Senna (Senokot) 2 tab BID GTB Last administered on 12/05/18 21:16; Admin Dose 2 TAB; Start 12/04/18 at 21:00 Valacyclovir HCl (Valtrex) 500 mg DAILY GTB Last administered on 12/06/18 10:03; Admin Dose 500 MG; Start 12/05/18 at 09:00 Zinc Sulfate (Zinc Sulfate) 220 mg DAILY GTB Last administered on 12/06/18 10:04; Admin Dose 220 MG; Start 12/05/18 at 09:00 Vancomycin/Sodium Chloride 250 ml @ 125 mls/hr Q24H IVPB Last administered on 12/05/18at 16:21; Admin Dose 125 MLS/HR; Start 12/05/18 at 16:00 Ferrous Sulfate (Feosol Liquid Cup) 300 mg TID GTB Last administered on 12/06/18at 14:17; Admin Dose 300 MG; Start 12/04/18 at 21:10 Citric Acid/ Sodium Citrate (Bicitra) 30 ml BID PO Last administered on 12/06/18at 10:07; Admin Dose 30 ML; Start 12/05/18 at 10:00 Tramadol HCl (Ultram) 100 mg Q8H PRN GTB PAIN; Start 12/05/18 at 20:30 Acetaminophen (Tylenol Tab) 1,000 mg Q6H PRN PO MILD PAIN(1-3)OR ELEVATED TEMP; Start 12/06/18 at 15:30; Status UNV Lactobacillus Acidophilus/ Rhamnosus (Culturelle) 1 cap WITH MEALS PO ; Start 12/06/18 at 17:35; Status UNV SOURAV ALVARADO MD Dec 06, 2018 15:29
--- NOTE | 2018-12-06 16:23 | CONS ---
Assessment/Plan Assessment/Plan Assessment/Plan (Daily) Chronic osteomyelitis b/l feet 2nd digits - s/p b/l 2nd digit amputations. PAD Arterial ulcers bilateral foot Hammertoe deformity Plan: Dressings were changed and recommend to keep clean dry and intact. Patient was dispensed post op shoes. Discussed with patient to remain non weight bearing and to keep feet offloaded and elevated. Intra op wound cx showing staph aur eus, intra op pathology pending. No further procedures at this time. Consultation Date/Type/Reason Admit Date/Time Dec 01, 2018 at 15:06 Initial Consult Date Date/Time of Note DATE: 12/06/18 TIME: 16:23 24 HR Interval Summary Free Text/Dictation No acute events overnight. Exam/Review of Systems Exam Vitals Vital Signs Date Temp Pulse Resp B/P (MAP) Pulse Ox O2 O2 Flow FiO2 Time Delivery Rate 12/06/18 99.0 76 18 110/76 96 14:00 (87) 12/04/18 Room Air 16:43 Intake and Output 12/05/18 12/05/18 12/06/18 1515:00 23:00 07:00 IntakeIntake Total 250 ml 720 ml 1210 ml BalanceBalance 250 ml 720 ml 1210 ml Exam weakly palpable pedal pulses CFT less than 3 seconds to the digits Bilateral 2nd digit amputation sites with well approximated sutures, no sign of wound dehiscence, no purulent drainage, no proximal streaking. Pain on with palpation to bilateral 2nd digits. Left foot X-ray IMPRESSION: 1. No acute osseous abnormality. 2. Osteoarthritis. 3. Old nonunited second metatarsal base fracture. 4. Flexion deformity of the second - fifth toes. 5. Atherosclerosis. 6. Moderate dorsal forefoot soft tissue swelling. Right foot X-ray IMPRESSION: 1. Suspect a nondisplaced second proximal phalangeal fracture with overlying soft tissue swelling. 2. Minimally displaced, oblique, fourth proximal phalangeal fracture, probably subacute or chronic. Recommend correlation with point tenderness and history of recent trauma. 3. Hallux valgus deformity. 4. Osteoarthritis, most notable at the tarsometatarsal joints. 5. Plantar calcaneal spur. 6. Atherosclerosis. 7. Moderate dorsal forefoot soft tissue swelling. Results Result Diagram: 12/06/18 0815 12/06/18 0815 Results 24hrs Laboratory Tests Test 12/06/18 08:15 White Blood Count 7.2 Red Blood Count 3.10 L Hemoglobin 9.6 L Hematocrit 30.7 L Mean Corpuscular Volume 99.0 Mean Corpuscular Hemoglobin 31.0 Mean Corpuscular Hemoglobin Concent 31.3 L Red Cell Distribution Width 15.3 H Platelet Count 131 L Mean Platelet Volume 12.4 H Immature Granulocytes % 5.700 H Neutrophils % Segmented Neutrophils % (Manual) 53 Band Neutrophils % (Manual) 4 Lymphocytes % Lymphocytes % (Manual) 39 Reactive Lymphocytes % (Manual) 1 H Monocytes % Monocytes % (Manual) 2 Eosinophils % Basophils % Basophils % (Manual) 1 Nucleated Red Blood Cells % 0.0 Immature Granulocytes # 0.410 H Neutrophils # Neutrophils # (Manual) 3.8 Band Neutrophils # 0.2 Lymphocytes (Manual) 2.8 Lymphocytes # Reactive Lymphocytes # 0.0 Monocytes # Monocytes # (Manual) 0.1 L Eosinophils # Basophils # Basophils # (Manual) 0.0 Nucleated Red Blood Cells # Platelet Estimate DECREASED Polychromasia 2+ Anisocytosis 1+ Macrocytosis 1+ Sodium Level 146 H Potassium Level 3.7 Chloride Level 116 H Carbon Dioxide Level 23 Anion Gap 7 Blood Urea Nitrogen 22 H Creatinine 0.97 Est Glomerular Filtrat Rate mL/min Glucose Level 107 Calcium Level 9.3 Phosphorus Level 1.6 #L Magnesium Level 2.1 Medications Medication Current Medications Ondansetron HCl (Zofran Inj) 4 mg Q6H PRN IV NAUSEA/VOMITING Last administered on 12/06/18at 10:39; Admin Dose 4 MG; Start 12/01/18 at 15:30 Acetaminophen (Tylenol Tab) 650 mg Q6H PRN PO fever Last administered on 12/06/18at 14:19; Admin Dose 650 MG; Start 12/01/18 at 15:30 Acetaminophen/ Hydrocodone Bitart ([place] (5/325)) 1 tab Q6H PRN PO .PAIN 4-6 Last administered on 12/05/18at 21:17; Admin Dose 1 TAB; Start 12/01/18 at 15:30 Morphine Sulfate (morphine) 2 mg Q4H PRN IV .PAIN 7-10 Last administered on 12/05/18at 16:18; Admin Dose 2 MG; Start 12/01/18 at 15:30 Vancomycin HCl (Vanco Iv Per Pharmacy) VANCOMYCIN PER PHARMACY PER PROTOCOL XX ; Start 12/01/18 at 15:30 Allopurinol (Zyloprim) 200 mg DAILY PEG Last administered on 12/06/18 10:07; Admin Dose 200 MG; Start 12/01/18 at 15:30 Atenolol (Tenormin) 25 mg DAILY PEG Last administered on 12/06/18 10:06; Admin Dose 25 MG; Start 12/01/18 at 15:30 Calcium Acetate (Phoslo) 667 mg BID PEG Last administered on 12/05/18 21:15; Admin Dose 667 MG; Start 12/01/18 at 21:00 Docusate Sodium (Colace Liquid Cup) 100 mg BID PEG Last administered on 12/05/18 21:16; Admin Dose 100 MG; Start 12/01/18 at 21:00 Fish Oil (Fish Oil) 1,000 mg DAILY PO Last administered on 12/06/18 10:08; Admin Dose 1,000 MG; Start 12/01/18 at 15:30 Atorvastatin Calcium (Lipitor) 40 mg HS PEG Last administered on 12/05/18 21:15; Admin Dose 40 MG; Start 12/01/18 at 21:00 Cyanocobalamin (Vitamin B12) 100 mcg DAILY NGT Last administered on 12/06/18 10:04; Admin Dose 100 MCG; Start 12/02/18 at 09:00 Ascorbic Acid (Vitamin C) 500 mg DAILY GTB Last administered on 12/06/18 10:04; Admin Dose 500 MG; Start 12/02/18 at 09:00 Diphenhydramine HCl (Benadryl Liquid Cup) 12.5 mg DAILY PRN PEG itching Last administered on 12/05/18 21:35; Admin Dose 12.5 MG; Start 12/01/18 at 16:30 Methylprednisolone (Medrol) 5 mg DAILY PEG Last administered on 12/06/18 10:04; Admin Dose 5 MG; Start 12/03/18 at 09:00 Nystatin (Nystatin Powder) 1 applic BID TOP Last administered on 12/06/18 10:1 0; Admin Dose 1 APPLIC; Start 12/02/18 at 21:00 Neomycin/ Polymyxin/ Bacitracin (Neosporin Topical Oint) 1 applic DAILY TOP Last administered on 12/04/18 10:01; Admin Dose 1 APPLIC; Start 12/03/18 at 18:30 Sodium Hypochlorite (Dakins Diluted (40)) 1 applic DAILY TP Last administered on 12/04/18 10:00; Admin Dose 1 APPLIC; Start 12/03/18 at 21:00 Piperacillin Sod/ Tazobactam Sod 100 ml @ 200 mls/hr Q8 IVPB Last administered on 12/06/18 14:18; Admin Dose 200 MLS/HR; Start 12/04/18 at 14:00 Gabapentin (Neurontin) 300 mg TID GTB Last administered on 12/06/18 14:18; Admin Dose 300 MG; Start 12/04/18 at 13:00 Eye Lubricant (Refresh Plus) 1 drop QID PRN BOTH EYES dry eyes Last administe red on 12/06/18 10:39; Admin Dose 1 DROP; Start 12/04/18 at 12:30 Lansoprazole (Prevacid) 30 mg DAILY@06 GTB Last administered on 12/06/18 05:31; Admin Dose 30 MG; Start 12/05/18 at 06:00 Docusate Sodium (Colace) 100 mg BID PO Last administered on 12/05/18 08:58; Admin Dose 100 MG; Start 12/04/18 at 21:00 Fluticasone Propionate (Flonase 0.05% Nasal) 1 spray DAILY NASAL Last administered on 12/06/18 10:04; Admin Dose 1 SPRAY; Start 12/05/18 at 09:00 Hydroxychloroquine Sulfate (Plaquenil) 400 mg DAILY GTB Last administered on 12/06/18 10:03; Admin Dose 400 MG; Start 12/05/18 at 09:00 Mirtazapine (Remeron) 15 mg HS GTB Last administered on 12/05/18 21:16; Admin Dose 15 MG; Start 12/04/18 at 21:00 Mycophenolate Mofetil (Cellcept) 1,000 mg DAILY PO Last administered on 12/06/18 10:07; Admin Dose 1,000 MG; Start 12/05/18 at 09:00 Oxybutynin Chloride (Ditropan) 5 mg TID GTB Last administered on 12/06/18 14:17; Admin Dose 5 MG; Start 12/04/18 at 21:00 Polyethylene Glycol (Miralax) 17 gm DAILY GTB Last administered on 12/05/18at 08:57; Admin Dose 17 GM; Start 12/05/18 at 09:00 Senna (Senokot) 2 tab BID GTB Last administered on 12/05/18at 21:16; Admin Dose 2 TAB; Start 12/04/18 at 21:00 Valacyclovir HCl (Valtrex) 500 mg DAILY GTB Last administered on 12/06/18at 10:03; Admin Dose 500 MG; Start 12/05/18 at 09:00 Zinc Sulfate (Zinc Sulfate) 220 mg DAILY GTB Last administered on 12/06/18at 10:04; Admin Dose 220 MG; Start 12/05/18 at 09:00 Vancomycin/Sodium Chloride 250 ml @ 125 mls/hr Q24H IVPB Last administered on 12/05/18at 16:21; Admin Dose 125 MLS/HR; Start 12/05/18 at 16:00 Ferrous Sulfate (Feosol Liquid Cup) 300 mg TID GTB Last administered on 12/06/18at 14:17; Admin Dose 300 MG; Start 12/04/18 at 21:10 Citric Acid/ Sodium Citrate (Bicitra) 30 ml BID PO Last administered on 12/06/18at 10:07; Admin Dose 30 ML; Start 12/05/18 at 10:00 Tramadol HCl (Ultram) 100 mg Q8H PRN GTB PAIN; Start 12/05/18 at 20:30 Acetaminophen (Tylenol Tab) 1,000 mg Q6H PRN PO MILD PAIN(1-3)OR ELEVATED TEMP; Start 12/06/18 at 15:30; Status UNV Lactobacillus Acidophilus/ Rhamnosus (Culturelle) 1 cap WITH MEALS PO ; Start 12/06/18 at 17:35; Status UNV WENDI BELL DPM Dec 06, 2018 16:23
[2018-12-06] MEDS: VANCOMYCIN 750 MG (PMX) 250 ML IVPB SCH (16:46)
[2018-12-06] MEDS ORDERED: VITAMIN A & D 5 GM OINT PACKET TOP SCH (17:00)
[2018-12-06] MEDS: LACTOBACILLUS RHAMNOSUS CAP PO SCH (17:54)
[2018-12-06] MEDS: HYDROCODONE/APAP (5/325) TAB PO PRN (17:54)
[2018-12-06] MEDS ORDERED: PETROLATUM 28.35 GM JELLY TOP SCH (19:00)
[2018-12-06 19:42] VITALS: BP 112/56; PULSE 88; RESP 18
[2018-12-06] MEDS: ATORVASTATIN 40 MG TAB PEG SCH (20:52)
[2018-12-06] MEDS: MIRTAZAPINE 15 MG TAB GTB SCH (20:52)
[2018-12-06] MEDS: DIPHENHYDRAMINE 2.5 MG/ML 5ML CUP PEG PRN (20:52)
[2018-12-06] MEDS: PETROLATUM 28.35 GM JELLY TOP SCH (22:30)
[2018-12-06] MEDS: traMADol 50 MG TAB GTB PRN (22:36)
[2018-12-07] MEDS: PETROLATUM 28.35 GM JELLY TOP SCH ×12 (01:00→23:00)
[2018-12-07 02:10] VITALS: BP 116/62; PULSE 85; RESP 20
[2018-12-07] MEDS: HYDROCODONE/APAP (5/325) TAB PO PRN ×3 (04:21→19:01)
[2018-12-07] MEDS: LANSOPRAZOLE 30 MG CAP GTB SCH (05:40)
[2018-12-07] MEDS: PIPER-TAZO 3.375 GM IV (PMX) 100 ML IVPB SCH ×3 (05:40→22:25)
[2018-12-07 08:00] VITALS: BP 119/62; PULSE 64; RESP 20
[2018-12-07] MEDS: POLYETHYLENE GLYCOL 17 GM PACKET GTB SCH (09:00)
[2018-12-07] MEDS: DOCUSATE SODIUM 10 MG/ML (10ML CUP) PEG SCH ×2 (09:00→20:20)
[2018-12-07] MEDS: SENNA TAB GTB SCH ×2 (09:00→20:20)
[2018-12-07] MEDS: DAKINS 0.0125%(1/40) 473 ML SOLUTION TP SCH (09:00)
[2018-12-07] MEDS: DOCUSATE SODIUM 100 MG CAP PO SCH ×2 (09:00→20:20)
[2018-12-07] MEDS: ACETAMINOPHEN 500 MG TAB PO PRN ×2 (09:12→15:14)
[2018-12-07] MEDS: ZINC SULFATE 220 MG CAP GTB SCH (09:13)
[2018-12-07] MEDS: MYCOPHENOLATE 250 MG CAP PO SCH (09:13)
[2018-12-07] MEDS: NEUTRA-PHOS 250 MG PACKET GTB SCH ×2 (09:13→20:19)
[2018-12-07] MEDS: valACYclovir 500 MG TAB GTB SCH (09:13)
[2018-12-07] MEDS: LACTOBACILLUS RHAMNOSUS CAP PO SCH ×3 (09:14→17:51)
[2018-12-07] MEDS: CYANOCOBALAMIN 100 MCG TAB NGT SCH (09:14)
[2018-12-07] MEDS: FLUTICASONE 0.05% 16 GM NAS SPRAY NASAL SCH (09:14)
[2018-12-07] MEDS: FERROUS SULFATE 60 MG/ML 5ML CUP GTB SCH ×3 (09:14→20:19)
[2018-12-07] MEDS: ALLOPURINOL 100 MG TAB PEG SCH (09:15)
[2018-12-07] MEDS: HYDROXYCHLOROQUINE 200 MG TAB GTB SCH (09:15)
[2018-12-07] MEDS: OXYBUTYNIN 5 MG TAB GTB SCH ×3 (09:16→20:19)
[2018-12-07] MEDS: GABAPENTIN 300 MG CAP GTB SCH ×3 (09:16→20:19)
[2018-12-07] MEDS: METHYLPREDNISOLONE 4 MG TAB PEG SCH (09:16)
[2018-12-07] MEDS: FISH OIL 1,000 MG CAP PO SCH (09:16)
[2018-12-07] MEDS: ATENOLOL 25 MG TAB PEG SCH (09:16)
[2018-12-07] MEDS: ASCORBIC ACID 500 MG TAB GTB SCH (09:17)
[2018-12-07] MEDS: NEOMYC/POLYMYX/BACIT 30 GM OINT TOP SCH (09:20)
[2018-12-07] MEDS: NYSTATIN 30 GM POWDER BTL TOP SCH ×2 (09:20→20:20)
--- NOTE | 2018-12-07 09:36 | PN ---
DATE: 12/07/2018 SUBJECTIVE: The patient is stable, no events overnight. OBJECTIVE: VITAL SIGNS: Blood pressure is 116/62, respirations 20, pulse 85, temperature 98.7. HEENT: Head is normocephalic. NECK: Supple. HEART: Regular rate. LUNGS: Show diminished breath sounds at the base. ABDOMEN: Soft, nontender to palpation. No rebound or guarding. EXTREMITIES: Negative for clubbing, cyanosis, no edema. DERMATOLOGIC: No rashes. MUSCULOSKELETAL: No joint effusion. NEUROLOGIC: No change in exam. MEDICATIONS: Have been reviewed. LABORATORY DATA: Has been reviewed. ASSESSMENT AND PLAN: 1. Nonoliguric acute kidney injury on top of chronic kidney disease stage III with unknown baseline creatinine. Etiology of acute kidney injury is secondary to hemodynamics. Renal function is improvi ng. Continue to monitor. Continue current treatment plan, supportive care, renally does all meds. 2. Chronic kidney disease with history of lupus. The patient is currently in acute injury as stated above. Continue current treatment plan. Continue disease factor modification. Continue . 3. Hypernatremia, improved. 4. Anemia. Monitor hemoglobin and hematocrit levels. 5. Mineral bone disorder. Monitor calcium and phosphorus levels. Patient is hypophosphatemic. Jimy l repeat with sodium phosphate. 6. History of lupus. Continue medical management. 7. Metabolic acidosis. Continue Bicitra. 8. Bilateral foot ulcers. Continue current treatment plan. Follow up with surgery. 9. Hypertension. Continue to monitor. 10. History of gout. Continue allopurinol. 11. Dyslipidemia. Continue statin therapy. 12. Dysphagia. Continue tube feeding or edema. Dictated By: JANINE JIMENEZ/NTS Conf#: [id number] DID#: [id number] CC: ITZ BAY MD;*EndCC*
[2018-12-07] MEDS ORDERED: POTASSIUM PHOSPHATE 15 MM in SOD CHLORIDE 0.9% 250 ML IVPB ONE (10:00)
--- NOTE | 2018-12-07 11:48 | PN ---
Date/Time of Note Date/Time of Note DATE: 12/07/18 TIME: 11:45 Assessment/Plan VTE Prophylaxis Risk score (from Ns)>0 risk: 7 SCD applied (from Ns): Yes Pharmacological prophylaxis: NA/contraindicated Pharm contraindication: surgical contra Lines/Catheters IV Catheter Type (from Nrsg): Peripheral IV Urinary Cath still in place: No Assessment/Plan Assessment/Plan 1. Bilateral foot ulcers s/p debridement and amputation 2nd toes bilaterally - Podiatry on board and appreciate consultations. Patient to maintain NWB status. Continue IV antibiotics and final wound cultures growing MRSA. No further procedures at this time. - ID consulted for antibiotics duration recommendations - Pain control 2. Hypertension- stable - Continue home meds 3. Lupus and rheumatoid arthritis - Continue home meds 4. 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 Gout - continue on Allopurinol 6. Dyslipidemia - continue Lipitor 7. Nutritional deficiency - Soft diet during the day and Tube feeds from 8pm to 8am - dietary consult appreciated 8. Iron deficiency anemia - Continue iron 9. CORINNE on CKD- resolved - Nephrology on board and appreciate recommendations 10. Disposition - ID consulted for antibiotic duration recommendations. Will continue monito ring and d/c to SNF once cleared by Podiatry Result Diagram: 12/07/18 0606 12/07/18 0606 Results 24hrs Laboratory Tests Test 12/07/18 06:06 White Blood Count 7.4 Red Blood Count 2.93 L Hemoglobin 9.0 L Hematocrit 29.5 L Mean Corpuscular Volume 100.7 Mean Corpuscular Hemoglobin 30.7 Mean Corpuscular Hemoglobin Concent 30.5 L Red Cell Distribution Width 15.4 H Platelet Count 117 L Mean Platelet Volume 12.6 H Immature Granulocytes % 4.200 H Neutrophils % 65.9 Lymphocytes % 16.3 Monocytes % 11.8 H Eosinophils % 1.7 Basophils % 0.1 Nucleated Red Blood Cells % 0.0 Immature Granulocytes # 0.310 H Neutrophils # 4.9 Lymphocytes # 1.2 Monocytes # 0.9 Eosinophils # 0.1 Basophils # 0.0 Nucleated Red Blood Cells # 0.0 Sodium Level 144 Potassium Level 3.7 Chloride Level 113 H Carbon Dioxide Level 27 Anion Gap 4 L Blood Urea Nitrogen 20 Creatinine 0.95 Glucose Level 103 Calcium Level 9.3 Phosphorus Level 1.9 L Magnesium Level 2.1 Albumin 2.8 L Subjective 24 Hr Interval Summary Free Text/Dictation Patient states her pain is better controlled. Discussed MRSA in her wound. No acute overnight events. Exam/Review of Systems Exam Vitals Vital Signs Date Temp Pulse Resp B/P (MAP) Pulse Ox O2 O2 Flow FiO2 Time Delivery Rate 12/07/18 98.8 64 20 119/62 96 08:00 (81) 12/04/18 Room Air 16:43 Intake and Output 12/06/18 12/06/18 12/07/18 1515:00 23:00 07:00 IntakeIntake Total 870 ml 820 ml 100 ml BalanceBalance 870 ml 820 ml 100 ml Exam General: Patient is laying in bed and answers questions appropriately Neck: Supple Respiratory: Clear to auscultation bilaterally. no wheezing or rhonchi Cardiovascular: regular rate and rhythm, no obvious murmurs Gastrointestinal: soft, non-tender to palpation, nondistended, PEG in place, benton wel sounds heard. Neurological: Moves all extremities spontaneously Skin: bandages on feet bilaterally. CDI. no discharge or drainage Results Results 24hrs Laboratory Tests Test 12/07/18 06:06 White Blood Count 7.4 Red Blood Count 2.93 L Hemoglobin 9.0 L Hematocrit 29.5 L Mean Corpuscular Volume 100.7 Mean Corpuscular Hemoglobin 30.7 Mean Corpuscular Hemoglobin Concent 30.5 L Red Cell Distribution Width 15.4 H Platelet Count 117 L Mean Platelet Volume 12.6 H Immature Granulocytes % 4.200 H Neutrophils % 65.9 Lymphocytes % 16.3 Monocytes % 11.8 H Eosinophils % 1.7 Basophils % 0.1 Nucleated Red Blood Cells % 0.0 Immature Granulocytes # 0.310 H Neutrophils # 4.9 Lymphocytes # 1.2 Monocytes # 0.9 Eosinophils # 0.1 Basophils # 0.0 Nucleated Red Blood Cells # 0.0 Sodium Level 144 Potassium Level 3.7 Chloride Level 113 H Carbon Dioxide Level 27 Anion Gap 4 L Blood Urea Nitrogen 20 Creatinine 0.95 Glucose Level 103 Calcium Level 9.3 Phosphorus Level 1.9 L Magnesium Level 2.1 Albumin 2.8 L Medications Medication Current Medications Ondansetron HCl (Zofran Inj) 4 mg Q6H PRN IV NAUSEA/VOMITING Last administered on 12/06/18at 10:39; Admin Dose 4 MG; Start 12/01/18 at 15:30 Acetaminophen (Tylenol Tab) 650 mg Q6H PRN PO fever Last administered on 20:52; Admin Dose 650 MG; Start 12/01/18 at 15:30 Acetaminophen/ Hydrocodone Bitart ([place] (5/325)) 1 tab Q6H PRN PO .PAIN 4-6 Last administered on 12/07/18 04:21; Admin Dose 1 TAB; Start 12/01/18 at 15:30 Morphine Sulfate (morphine) 2 mg Q4H PRN IV .PAIN 7-10 Last administered on 12/05/18 16:18; Admin Dose 2 MG; Start 12/01/18 at 15:30 Vancomycin HCl (Vanco Iv Per Pharmacy) VANCOMYCIN PER PHARMACY PER PROTOCOL XX ; Start 12/01/18 at 15:30 Allopurinol (Zyloprim) 200 mg DAILY PEG Last administered on 12/07/18 09:15; Admin Dose 200 MG; Start 12/01/18 at 15:30 Atenolol (Tenormin) 25 mg DAILY PEG Last administered on 12/07/18 09:16; Admin Dose 25 MG; Start 12/01/18 at 15:30 Calcium Acetate (Phoslo) 667 mg BID PEG Last administered on 12/05/18 21:15; Admin Dose 667 MG; Start 12/01/18 at 21:00; Status Hold Docusate Sodium (Colace Liquid Cup) 100 mg BID PEG Last administered on 12/05/18 21:16; Admin Dose 100 MG; Start 12/01/18 at 21:00 Fish Oil (Fish Oil) 1,000 mg DAILY PO Last administered on 12/07/18 09:16; Admin Dose 1,000 MG; Start 12/01/18 at 15:30 Atorvastatin Calcium (Lipitor) 40 mg HS PEG Last administered on 12/06/18 20:52; Admin Dose 40 MG; Start 12/01/18 at 21:00 Cyanocobalamin (Vitamin B12) 100 mcg DAILY NGT Last administered on 12/07/18 09:14; Admin Dose 100 MCG; Start 12/02/18 at 09:00 Ascorbic Acid (Vitamin C) 500 mg DAILY GTB Last administered on 12/07/18 09:17; Admin Dose 500 MG; Start 12/02/18 at 09:00 Diphenhydramine HCl (Benadryl Liquid Cup) 12.5 mg DAILY PRN PEG itching Last administered on 12/06/18 20:52; Admin Dose 12.5 MG; Start 12/01/18 at 16:30 Methylprednisolone (Medrol) 5 mg DAILY PEG Last administered on 12/07/18 09: 16; Admin Dose 5 MG; Start 12/03/18 at 09:00 Nystatin (Nystatin Powder) 1 applic BID TOP Last administered on 12/07/18 09:20; Admin Dose 1 APPLIC; Start 12/02/18 at 21:00 Neomycin/ Polymyxin/ Bacitracin (Neosporin Topical Oint) 1 applic DAILY TOP Last administered on 12/07/18 09:20; Admin Dose 1 APPLIC; Start 12/03/18 at 18:30 Sodium Hypochlorite (Dakins Diluted ()) 1 applic DAILY TP Last administered on 12/04/18 10:00; Admin Dose 1 APPLIC; Start 12/03/18 at 21:00 Piperacillin Sod/ Tazobactam Sod 100 ml @ 200 mls/hr Q8 IVPB Last administered on 12/07/18 05:40; Admin Dose 200 MLS/HR; Start 12/04/18 at 14:00 Gabapentin (Neurontin) 300 mg TID GTB Last administered on 12/07/18 09:16; Admin Dose 300 MG; Start 12/04/18 at 13:00 Eye Lubricant (Refresh Plus) 1 drop QID PRN BOTH EYES dry eyes Last administered on 12/06/18 10:39; Admin Dose 1 DROP; Start 12/04/18 at 12:30 Lansoprazole (Prevacid) 30 mg DAILY@06 GTB Last administered on 12/07/18 05:40; Admin Dose 30 MG; Start 12/05/18 at 06:00 Docusate Sodium (Colace) 100 mg BID PO Last administered on 12/05/18 08:58; Admin Dose 100 MG; Start 12/04/18 at 21:00 Fluticasone Propionate (Flonase 0.05% Nasal) 1 spray DAILY NASAL Last administered on 12/07/18 09:14; Admin Dose 1 SPRAY; Start 12/05/18 at 09:00 Hydroxychloroquine Sulfate (Plaquenil) 400 mg DAILY GTB Last administered on 12/07/18 09:15; Admin Dose 400 MG; Start 12/05/18 at 09:00 Mirtazapine (Remeron) 15 mg HS GTB Last administered on 12/06/18 20:52; Admin Dose 15 MG; Start 12/04/18 at 21:00 Mycophenolate Mofetil (Cellcept) 1,000 mg DAILY PO Last administered on 12/07/18 09:13; Admin Dose 1,000 MG; Start 12/05/18 at 09:00 Oxybutynin Chloride (Ditropan) 5 mg TID GTB Last administered on 12/07/18 09:16; Admin Dose 5 MG; Start 12/04/18 at 21:00 Polyethylene Glycol (Miralax) 17 gm DAILY GTB Last administered on 12/05/18 08:57; Admin Dose 17 GM; Start 12/05/18 at 09:00 Senna (Senokot) 2 tab BID GTB Last administered on 12/05/18 21:16; Admin Dose 2 TAB; Start 12/04/18 at 21:00 Valacyclovir HCl (Valtrex) 500 mg DAILY GTB Last administered on 12/07/18 09:13; Admin Dose 500 MG; Start 12/05/18 at 09:00 Zinc Sulfate (Zinc Sulfate) 220 mg DAILY GTB Last administered on 12/07/18 09:13; Admin Dose 220 MG; Start 12/05/18 at 09:00 Vancomycin/Sodium Chloride 250 ml @ 125 mls/hr Q24H IVPB Last administered on 12/06/18 16:46; Admin Dose 125 MLS/HR; Start 12/05/18 at 16:00 Ferrous Sulfate (Feosol Liquid Cup) 300 mg TID GTB Last administered on 12/07/18 09:14; Admin Dose 300 MG; Start 12/04/18 at 21:10 Tramadol HCl (Ultram) 100 mg Q8H PRN GTB PAIN Last administered on 12/06/18 22:36; Admin Dose 100 MG; Start 12/05/18 at 20:30 Acetaminophen (Tylenol Tab) 1,000 mg Q6H PRN PO MILD PAIN(1-3)OR ELEVATED TEMP Last administered on 12/07/18 09:12; Admin Dose 1,000 MG; Start 12/06/18 at 15:30 Lactobacillus Acidophilus/ Rhamnosus (Culturelle) 1 cap WITH MEALS PO Last administered on 12/07/18 09:14; Admin Dose 1 CAP; Start 12/06/18 at 17:35 Petrolatum (Vaseline) 1 applic Q2 TOP Last administered on 12/07/18 09:12; Admin Dose 1 APPLIC; Start 12/06/18 at 22:00 Sodium Phosphate (Neutra-Phos) 250 mg BID GTB Last administered on 12/07/18 09:13; Admin Dose 250 MG; Start 12/07/18 at 09:00 Potassium Phosphate 15 mm/ Sodium Chloride 255 ml @ 63.75 mls/ hr ONCE ONCE IVPB Last administered on 12/07/18at 10:33; Admin Dose 63.75 MLS/HR; Start 12/07/18 at 10:00; Stop 12/07/18 at 13:59 SOURAV ALVARADO MD Dec 07, 2018 11:48
[2018-12-07] MEDS: CARBOXYMETHYLCELLULOSE 0.5% 0.4 ML OPH BOTH EYES PRN (12:59)
[2018-12-07 14:00] VITALS: BP 101/78; PULSE 84; RESP 20
--- NOTE | 2018-12-07 15:16 | CONS ---
DATE OF ADMISSION: 12/01/2018 DATE OF CONSULTATION: 12/07/2018 TYPE OF CONSULTATION: Infectious disease. REASON FOR CONSULTATION: Antibiotic management. HISTORY OF PRESENT ILLNESS: Carmina Bañuelos is a 73-year-old female who was admitted on 12/01/2018 with a history of bilateral amputation of 2nd digit. She is a 73-year-old female with history of: 1. Hypertension. 2. Rheumatoid arthritis. 3. Cachexia with failure to thrive. 4. GERD. 5. Dysphagia. 6. Status post G-tube placement. 7. History of foot ulcers. She presents from the podiatric clinic admitted for likely amputation. She was seen by Dr. Vázquez for concerns for bilateral toe ulcers and possible gangrene. Her ulcers began in 08/2018 and has be en progressively worsening. Her past problems include status post G-tube placement, hypertension, rh eumatoid arthritis, dysphagia and foot ulcers. FAMILY HISTORY: Noncontributory. SOCIAL HISTORY: She does not smoke, drink or abuse drugs. ALLERGIES: NONE TO PENICILLIN, SULFA OR FOODS. MEDICATIONS: Per chart. REVIEW OF SYSTEMS: As per HPI. HOSPITAL COURSE: On admission, her white count was 9.5, H and H of 11.2 and 36.5, platelet count 165 ,000. BUN and creatinine is 33/1.04. She had 72% neutrophils on admission. She was started on vanc omycin and Zosyn. Chest x-ray shows no acute pulmonary abnormality, no acute fracture or dislocation , suspect nondisplaced 2nd proximal phalangeal fracture with overlying soft tissue swelling, minimall y displaced oblique 4th proximal phalangeal fracture, probably subacute or chronic. I recommend jodi elation with point tenderness, , hallux valgus deformity, osteoarthritis, plantar calcaneal spur , moderate dorsal forefoot soft tissue swelling. X-ray of the left foot showed no acute osseous abno rmalities, moderate dorsal forefoot soft tissue swelling. The patient presented with bilateral feet gangrene. Dr. Sunshine requested her to be on vancomycin and Zosyn. The patient was seen by Dr. Bill whitfield who mentioned chronic osteomyelitis of bilateral 2nd digits of the feet, bilateral minimally di splaced fractures, chronic in nature, peripheral artery disease and status post angioplasty, arterial ulcers of bilateral foot, hammertoe deformity, lupus, osteoarthritis, chronic HSV. I recommend Beta dine and dry sterile dressings to bilateral 2nd digit, offload bilateral heel with pillows. The lupe ent presented to the wound clinic with bilateral 2nd digital ulcerations with bone exposed. The armani juan has been present for a long period of time. She was noted to have bilateral foot gangrene, recent angioplasty, chronic ulcerations. She had surgery with amputation of toe and debridement, bilateral foot debridement and amputation of bilateral 2nd toes on 12/05/2018. She was seen in consultation by Dr. Whitlock. PHYSICAL EXAMINATION: GENERAL: She is a well-developed, well-nourished female. VITAL SIGNS: Stable. SKIN: Without generalized rash. HEENT: Within normal limits. NECK: Supple. LYMPH NODES: None palpable. CHEST: Decreased breath sounds at the bases. HEART: Without murmur or gallop. ABDOMEN: Soft, nontender, without organosplenomegaly or masses. EXTREMITIES: She has wrappings on both lower extremities, status post debridement and amputation of the 2nd toes bilaterally. Her left foot and right foot grew out methicillin-resistant Staphylococcus aureus. She is currently on vancomycin and Zosyn. I believe we can discontinue the Zosyn and depending on the extent of the a mputation if there is still evidence of osteomyelitis, she will need 6 weeks of therapy. If the wall of the bone has been taken, then we can stop the antibiotics within 24 hours. Her BUN and creatinin e are 20/0.95. I will dictate my findings to the hospitalist and to Dr. Sunshine, Dr. Vázquez and Renea Whitlock. As noted if all of the osteomyelitis has been removed, we can stop the antibiotics withi n 24 hours. Dictated By: HANNAH PAYTON MD, JD/NTS Conf#: [id number] DID#: [id number] CC: ITZ BAY MD; SOURAV ALVARADO MD;*End*
[2018-12-07] MEDS: VANCOMYCIN 750 MG (PMX) 250 ML IVPB SCH (16:25)
[2018-12-07] MEDS: ATORVASTATIN 40 MG TAB PEG SCH (20:19)
[2018-12-07] MEDS: MIRTAZAPINE 15 MG TAB GTB SCH (20:19)
[2018-12-07 20:47] VITALS: BP 104/55; PULSE 84; RESP 18
[2018-12-07] MEDS: ACETAMINOPHEN 325 MG TAB PO PRN (22:25)
[2018-12-07] MEDS: DIPHENHYDRAMINE 2.5 MG/ML 5ML CUP PEG PRN (22:25)
[2018-12-08] MEDS: HYDROCODONE/APAP (5/325) TAB PO PRN (01:20)
[2018-12-08] MEDS: PETROLATUM 28.35 GM JELLY TOP SCH ×12 (01:21→23:00)
[2018-12-08 02:35] VITALS: BP 102/56; PULSE 84; RESP 18
[2018-12-08] MEDS: traMADol 50 MG TAB GTB PRN (04:29)
[2018-12-08] MEDS: LANSOPRAZOLE 30 MG CAP GTB SCH (05:00)
[2018-12-08] MEDS: PIPER-TAZO 3.375 GM IV (PMX) 100 ML IVPB SCH (05:01)
[2018-12-08 08:34] VITALS: BP 111/65; PULSE 91; RESP 18
[2018-12-08] MEDS: SENNA TAB GTB SCH (09:00)
[2018-12-08] MEDS: DAKINS 0.0125%(1/40) 473 ML SOLUTION TP SCH (09:00)
[2018-12-08] MEDS: DOCUSATE SODIUM 100 MG CAP PO SCH (09:00)
[2018-12-08] MEDS: DOCUSATE SODIUM 10 MG/ML (10ML CUP) PEG SCH (09:00)
[2018-12-08] MEDS: NEOMYC/POLYMYX/BACIT 30 GM OINT TOP SCH (09:00)
[2018-12-08] MEDS: POLYETHYLENE GLYCOL 17 GM PACKET GTB SCH (09:00)
[2018-12-08] MEDS: FLUTICASONE 0.05% 16 GM NAS SPRAY NASAL SCH (09:08)
[2018-12-08] MEDS: valACYclovir 500 MG TAB GTB SCH (09:09)
[2018-12-08] MEDS: CYANOCOBALAMIN 100 MCG TAB NGT SCH (09:09)
[2018-12-08] MEDS: MYCOPHENOLATE 250 MG CAP PO SCH (09:09)
[2018-12-08] MEDS: FISH OIL 1,000 MG CAP PO SCH (09:09)
[2018-12-08] MEDS: HYDROXYCHLOROQUINE 200 MG TAB GTB SCH (09:09)
[2018-12-08] MEDS: GABAPENTIN 300 MG CAP GTB SCH ×3 (09:09→20:22)
[2018-12-08] MEDS: ALLOPURINOL 100 MG TAB PEG SCH (09:09)
[2018-12-08] MEDS: FERROUS SULFATE 60 MG/ML 5ML CUP GTB SCH ×3 (09:10→20:22)
[2018-12-08] MEDS: METHYLPREDNISOLONE 4 MG TAB PEG SCH (09:10)
[2018-12-08] MEDS: ATENOLOL 25 MG TAB PEG SCH (09:10)
[2018-12-08] MEDS: NEUTRA-PHOS 250 MG PACKET GTB SCH ×2 (09:10→20:22)
[2018-12-08] MEDS: CARBOXYMETHYLCELLULOSE 0.5% 0.4 ML OPH BOTH EYES PRN (09:10)
[2018-12-08] MEDS: ZINC SULFATE 220 MG CAP GTB SCH (09:10)
[2018-12-08] MEDS: LACTOBACILLUS RHAMNOSUS CAP PO SCH ×3 (09:10→17:40)
[2018-12-08] MEDS: ASCORBIC ACID 500 MG TAB GTB SCH (09:10)
[2018-12-08] MEDS: NYSTATIN 30 GM POWDER BTL TOP SCH ×2 (09:11→20:23)
[2018-12-08] MEDS: OXYBUTYNIN 5 MG TAB GTB SCH ×3 (09:13→20:22)
--- NOTE | 2018-12-08 09:31 | PN ---
DATE: 12/08/2018 SUBJECTIVE: The patient is stable. No events overnight. OBJECTIVE: VITAL SIGNS: Blood pressure is 111/65, pulse 91, respirations 18, temperature 98.9. HEENT: Head is normocephalic. NECK: Supple. HEART: Regular rate. LUNGS: Show diminished breath sounds at the base. ABDOMEN: Soft, nontender to palpation without rebound or guarding. EXTREMITIES: Negative for clubbing, cyanosis, no edema, positive wounds. NEUROLOGIC: No change in exam. MEDICATIONS: Reviewed. LABORATORY DATA: Reviewed. ASSESSMENT AND PLAN: 1. Nonoliguric acute kidney injury on top of chronic kidney disease stage III with unknown baseline creatinine. Etiology of acute kidney injury is secondary to hemodynamics. Renal function is improve d. Continue to monitor. Continue current treatment plan, supportive care, renally dose all medicati ons. 2. Chronic kidney disease with history of lupus. The patient is in acute kidney injury as stated ab ove. Continue current treatment plan. Continue disease factor modification. Continue CellCept. 3. Hypernatremia, improved. 4. Anemia. Monitor hemoglobin and hematocrit levels. 5. Mineral bone disorder. Monitor calcium and phosphorus levels. Continue sodium phosphate. 6. History of lupus. Continue medical management. 7. Metabolic acidosis, resolved. The patient is status post Bicitra. 8. Bilateral foot wounds. Continue treatment plan. 9. Hypertension. Continue current medical management. 10. History of gout. Continue allopurinol. 11. Dyslipidemia. Continue statin therapy. 12. Dysphagia. Continue tube feeding. Dictated By: JANINE LOPEZ DO NR/NTS Conf#: [id number] DID#: [id number] CC: ITZ BAY MD; SOURAV ALVARADO MD;*EndCC*
--- NOTE | 2018-12-08 10:51 | PN ---
Date/Time of Note Date/Time of Note DATE: 12/08/18 TIME: 10:42 Assessment/Plan VTE Prophylaxis Risk score (from Nsg)>0 risk: 5 SCD applied (from Nsg): Yes Pharmacological prophylaxis: LMWH Lines/Catheters IV Catheter Type (from Nrsg): Peripheral IV Urinary Cath still in place: No Assessment/Plan Assessment/Plan 1. Bilateral foot ulcers s/p debridement and amputation 2nd toes bilaterally - Podiatry on board and appreciate consultations. Patient to maintain NWB status. No further procedures at this time - ID consultation appreciated and will continue current antibiotics pending d iscussion with podiatry - Pain control 2. Hypertension- stable - Continue home meds 3. Lupus and rheumatoid arthritis - Continue home meds 4. 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 Gout - continue on Allopurinol 6. Dyslipidemia - continue Lipitor 7. Nutritional deficiency - Soft diet during the day and Tube feeds from 8pm to 8am - dietary consult appreciated 8. Iron deficiency anemia - Continue iron 9. CORINNE on CKD- resolved - Nephrology on board and appreciate recommendations 10. GERD - PPI in the am and patient requesting Zofran before meals 11. Disposition - Will touch base with ID on antibiotic recommendations. SNF aware patient may need isolation room once discharged back to facility Result Diagram: 12/08/18 0457 12/08/18 0457 Results 24hrs Laboratory Tests Test 12/08/18 04:57 White Blood Count 7.5 Red Blood Count 2.80 L Hemoglobin 8.5 L Hematocrit 28.2 L Mean Corpuscular Volume 100.7 Mean Corpuscular Hemoglobin 30.4 Mean Corpuscular Hemoglobin Concent 30.1 L Red Cell Distribution Width 15.5 H Platelet Count 126 L Mean Platelet Volume 13.0 H Immature Granulocytes % 1.600 H Neutrophils % 67.1 Lymphocytes % 16.4 Monocytes % 12.5 H Eosinophils % 2.3 Basophils % 0.1 Nucleated Red Blood Cells % 0.0 Immature Granulocytes # 0.120 H Neutrophils # 5.1 Lymphocytes # 1.2 Monocytes # 0.9 Eosinophils # 0.2 Basophils # 0.0 Nucleated Red Blood Cells # 0.0 Sodium Level 144 Potassium Level 3.9 Chloride Level 112 H Carbon Dioxide Level 26 Anion Gap 6 Blood Urea Nitrogen 22 H Creatinine 0.94 Glucose Level 84 Calcium Level 8.9 Phosphorus Level 2.3 L Magnesium Level 2.0 Albumin 3.0 L Subjective 24 Hr Interval Summary Free Text/Dictation Patient states shes feeling better but complaining of reflux symptoms and sour taste in her mouth. Still gaseous but states medications do help. Exam/Review of Systems Exam Vitals Vital Signs Date Temp Pulse Resp B/P (MAP) Pulse Ox O2 O2 Flow FiO2 Time Delivery Rate 12/08/18 98.9 91 18 111/65 98 Room Air 08:34 (80) Intake and Output 12/07/18 12/07/18 12/08/18 1515:00 23:00 07:00 IntakeIntake Total 605 ml 1900 ml 620 ml BalanceBalance 605 ml 1900 ml 620 ml Exam General: Patient is laying in bed and answers questions appropriately Neck: Supple Respiratory: Clear to auscultation bilaterally. no wheezing or rhonchi Cardiovascular: regular rate and rhythm, no obvious murmurs Gastrointestinal: soft, non-tender to palpation, nondistended, PEG in place, bowel sounds heard. Neurological: Moves all extremities spontaneously Skin: bandages on feet bilaterally. CDI Results Results 24hrs Laboratory Tests Test 12/08/18 04:57 White Blood Count 7.5 Red Blood Count 2.80 L Hemoglobin 8.5 L Hematocrit 28.2 L Mean Corpuscular Volume 100.7 Mean Corpuscular Hemoglobin 30.4 Mean Corpuscular Hemoglobin Concent 30.1 L Red Cell Distribution Width 15.5 H Platelet Count 126 L Mean Platelet Volume 13.0 H Immature Granulocytes % 1.600 H Neutrophils % 67.1 Lymphocytes % 16.4 Monocytes % 12.5 H Eosinophils % 2.3 Basophils % 0.1 Nucleated Red Blood Cells % 0.0 Immature Granulocytes # 0.120 H Neutrophils # 5.1 Lymphocytes # 1.2 Monocytes # 0.9 Eosinophils # 0.2 Basophils # 0.0 Nucleated Red Blood Cells # 0.0 Sodium Level 144 Potassium Level 3.9 Chloride Level 112 H Carbon Dioxide Level 26 Anion Gap 6 Blood Urea Nitrogen 22 H Creatinine 0.94 Glucose Level 84 Calcium Level 8.9 Phosphorus Level 2.3 L Magnesium Level 2.0 Albumin 3.0 L Medications Medication Current Medications Ondansetron HCl (Zofran Inj) 4 mg Q6H PRN IV NAUSEA/VOMITING Last administered on 12/06/18at 10:39; Admin Dose 4 MG; Start 12/01/18 at 15:30 Acetaminophen (Tylenol Tab) 650 mg Q6H PRN PO fever Last administered on 12/07/18 22:25; Admin Dose 650 MG; Start 12/01/18 at 15:30 Acetaminophen/ Hydrocodone Bitart ([place] (5/325)) 1 tab Q6H PRN PO .PAIN 4-6 Last administered on 12/08/18 01:20; Admin Dose 1 TAB; Start 12/01/18 at 15:30 Morphine Sulfate (morphine) 2 mg Q4H PRN IV .PAIN 7-10 Last administered on 12/05/18 16:18; Admin Dose 2 MG; Start 12/01/18 at 15:30 Vancomycin HCl (Vanco Iv Per Pharmacy) VANCOMYCIN PER PHARMACY PER PROTOCOL XX ; Start 12/01/18 at 15:30 Allopurinol (Zyloprim) 200 mg DAILY PEG Last administered on 12/08/18 09:09; Admin Dose 200 MG; Start 12/01/18 at 15:30 Atenolol (Tenormin) 25 mg DAILY PEG Last administered on 12/08/18 09:10; Admin Dose 25 MG; Start 12/01/18 at 15:30 Calcium Acetate (Phoslo) 667 mg BID PEG Last administered on 12/05/18 21:15; Admin Dose 667 MG; Start 12/01/18 at 21:00; Status Hold Docusate Sodium (Colace Liquid Cup) 100 mg BID PEG Last administered on 12/05/18 21:16; Admin Dose 100 MG; Start 12/01/18 at 21:00 Fish Oil (Fish Oil) 1,000 mg DAILY PO Last administered on 12/08/18 09:09; Admin Dose 1,000 MG; Start 12/01/18 at 15:30 Atorvastatin Calcium (Lipitor) 40 mg HS PEG Last administered on 12/07/18 20:19; Admin Dose 40 MG; Start 12/01/18 at 21:00 Cyanocobalamin (Vitamin B12) 100 mcg DAILY NGT Last administered on 12/08/18 09:09; Admin Dose 100 MCG; Start 12/02/18 at 09:00 Ascorbic Acid (Vitamin C) 500 mg DAILY GTB Last administered on 12/08/18 09:10 ; Admin Dose 500 MG; Start 12/02/18 at 09:00 Diphenhydramine HCl (Benadryl Liquid Cup) 12.5 mg DAILY PRN PEG itching Last administered on 12/07/18 22:25; Admin Dose 12.5 MG; Start 12/01/18 at 16:30 Methylprednisolone (Medrol) 5 mg DAILY PEG Last administered on 12/08/18 09:10; Admin Dose 5 MG; Start 12/03/18 at 09:00 Nystatin (Nystatin Powder) 1 applic BID TOP Last administered on 12/08/18 0 9:11; Admin Dose 1 APPLIC; Start 12/02/18 at 21:00 Neomycin/ Polymyxin/ Bacitracin (Neosporin Topical Oint) 1 applic DAILY TOP Last administered on 12/07/18 09:20; Admin Dose 1 APPLIC; Start 12/03/18 at 18:30 Sodium Hypochlorite (Dakins Diluted (40)) 1 applic DAILY TP Last administered on 12/04/18 10:00; Admin Dose 1 APPLIC; Start 12/03/18 at 21:00 Piperacillin Sod/ Tazobactam Sod 100 ml @ 200 mls/hr Q8 IVPB Last administered on 12/08/18 05:01; Admin Dose 200 MLS/HR; Start 12/04/18 at 14:00 Gabapentin (Neurontin) 300 mg TID GTB Last administered on 12/08/18 09:09; Admin Dose 300 MG; Start 12/04/18 at 13:00 Eye Lubricant (Refresh Plus) 1 drop QID PRN BOTH EYES dry eyes Last admini stered on 12/08/18 09:10; Admin Dose 1 DROP; Start 12/04/18 at 12:30 Lansoprazole (Prevacid) 30 mg DAILY@06 GTB Last administered on 12/08/18 05:00; Admin Dose 30 MG; Start 12/05/18 at 06:00 Docusate Sodium (Colace) 100 mg BID PO Last administered on 12/05/18 08:58; Admin Dose 100 MG; Start 12/04/18 at 21:00 Fluticasone Propionate (Flonase 0.05% Nasal) 1 spray DAILY NASAL Last administered on 12/08/18 09:08; Admin Dose 1 SPRAY; Start 12/05/18 at 09:00 Hydroxychloroquine Sulfate (Plaquenil) 400 mg DAILY GTB Last administered on 12/08/18 09:09; Admin Dose 400 MG; Start 12/05/18 at 09:00 Mirtazapine (Remeron) 15 mg HS GTB Last administered on 12/07/18 20:19; Admin Dose 15 MG; Start 12/04/18 at 21:00 Mycophenolate Mofetil (Cellcept) 1,000 mg DAILY PO Last administered on 12/08/18 09:09; Admin Dose 1,000 MG; Start 12/05/18 at 09:00 Oxybutynin Chloride (Ditropan) 5 mg TID GTB Last administered on 12/08/18 09:13; Admin Dose 5 MG; Start 12/04/18 at 21:00 Polyethylene Glycol (Miralax) 17 gm DAILY GTB Last administered on 12/05/18 08:57; Admin Dose 17 GM; Start 12/05/18 at 09:00 Senna (Senokot) 2 tab BID GTB Last administered on 12/05/18 21:16; Admin Dose 2 TAB; Start 12/04/18 at 21:00 Valacyclovir HCl (Valtrex) 500 mg DAILY GTB Last administered on 12/08/18 09:09; Admin Dose 500 MG; Start 12/05/18 at 09:00 Zinc Sulfate (Zinc Sulfate) 220 mg DAILY GTB Last administered on 12/08/18 09:10; Admin Dose 220 MG; Start 12/05/18 at 09:00 Vancomycin/Sodium Chloride 250 ml @ 125 mls/hr Q24H IVPB Last administered on 12/07/18 16:25; Admin Dose 125 MLS/HR; Start 12/05/18 at 16:00 Ferrous Sulfate (Feosol Liquid Cup) 300 mg TID GTB Last administered on 12/08/18 09:10; Admin Dose 300 MG; Start 12/04/18 at 21:10 Tramadol HCl (Ultram) 100 mg Q8H PRN GTB PAIN Last administered on 12/08/18 04:29; Admin Dose 100 MG; Start 12/05/18 at 20:30 Acetaminophen (Tylenol Tab) 1,000 mg Q6H PRN PO MILD PAIN(1-3)OR ELEVATED TEMP Last administered on 4/18/19at 15:14; Admin Dose 1,000 MG; Start 12/06/18 at 15:30 Lactobacillus Acidophilus/ Rhamnosus (Culturelle) 1 cap WITH MEALS PO Last administered on 12/08/18 09:10; Admin Dose 1 CAP; Start 12/06/18 at 17:35 Petrolatum (Vaseline) 1 applic Q2 TOP Last administered on 12/08/18 09:11; Admin Dose 1 APPLIC; Start 12/06/18 at 22:00 Sodium Phosphate (Neutra-Phos) 250 mg BID GTB Last administered on 12/08/18 09:10; Admin Dose 250 MG; Start 12/07/18 at 09:00 Simethicone (Mylicon) 80 mg Q6H PRN PO DISTENSION/GAS/BLOATING Last administered on 12/07/18at 14:47; Admin Dose 80 MG; Start 12/07/18 at 12:00 SOURAV ALVARADO MD Dec 08, 2018 10:51
[2018-12-08] MEDS ORDERED: DOCUSATE SODIUM 10 MG/ML (10ML CUP) PEG PRN (11:00)
[2018-12-08] MEDS ORDERED: SENNA TAB GTB PRN (11:00)
[2018-12-08] MEDS ORDERED: CALCIUM CARBONATE 500 MG CHEW TAB PO PRN (11:30)
[2018-12-08] MEDS: CHOLECALCIFEROL 400 UNITS TAB GTB SCH (11:36)
[2018-12-08] MEDS: ONDANSETRON 4 MG INJ IV SCH ×2 (11:36→17:40)
[2018-12-08] MEDS: ACETAMINOPHEN 500 MG TAB PO PRN ×2 (12:28→20:24)
--- NOTE | 2018-12-08 13:09 | CONS ---
Assessment/Plan Assessment/Plan Hospital Course (Demo Recall) Patient is alert eating lunch denies pain no fevers overnight WBC today 7.5 no shift no bands BUN 22 creatinine 0.94 Wound cultures growing MRSA Antimicrobials: Vancomycin Zosyn Physical examination: Well-developed fragile elderly -[place] woman who is awake in no distress head atraumatic normocephalic neck is supple chest rise symmetrical breath sounds clear heart S1-S2 abdomen soft bowel sounds present extremities with bilateral feet dressing clean dry and intact Assessment: 1. 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 Diabetes 3. Peripheral arterial disease 4. Acute renal failure, improved 5. Anemia Plan: Patient remains stable were going to discontinue antibiotics and monitor her. Discussed with Dr. Vázquez Consultation Date/Type/Reason Admit Date/Time Dec 01, 2018 at 15:06 Initial Consult Date Type of Consult id Date/Time of Note DATE: 12/08/18 TIME: 13:08 Exam/Review of Systems Exam Vitals Vital Signs Date Temp Pulse Resp B/P (MAP) Pulse Ox O2 O2 Flow FiO2 Time Delivery Rate 12/08/18 98.9 91 18 111/65 98 Room Air 08:34 (80) Intake and Output 12/07/18 12/07/18 12/08/18 1515:00 23:00 07:00 IntakeIntake Total 605 ml 1900 ml 620 ml BalanceBalance 605 ml 1900 ml 620 ml Results Result Diagram: 12/08/18 0457 12/08/18 0457 Results 24hrs Laboratory Tests Test 12/08/18 04:57 White Blood Count 7.5 Red Blood Count 2.80 L Hemoglobin 8.5 L Hematocrit 28.2 L Mean Corpuscular Volume 100.7 Mean Corpuscular Hemoglobin 30.4 Mean Corpuscular Hemoglobin Concent 30.1 L Red Cell Distribution Width 15.5 H Platelet Count 126 L Mean Platelet Volume 13.0 H Immature Granulocytes % 1.600 H Neutrophils % 67.1 Lymphocytes % 16.4 Monocytes % 12.5 H Eosinophils % 2.3 Basophils % 0.1 Nucleated Red Blood Cells % 0.0 Immature Granulocytes # 0.120 H Neutrophils # 5.1 Lymphocytes # 1.2 Monocytes # 0.9 Eosinophils # 0.2 Basophils # 0.0 Nucleated Red Blood Cells # 0.0 Sodium Level 144 Potassium Level 3.9 Chloride Level 112 H Carbon Dioxide Level 26 Anion Gap 6 Blood Urea Nitrogen 22 H Creatinine 0.94 Glucose Level 84 Calcium Level 8.9 Phosphorus Level 2.3 L Magnesium Level 2.0 Albumin 3.0 L Medications Medication Current Medications Ondansetron HCl (Zofran Inj) 4 mg Q6H PRN IV NAUSEA/VOMITING Last administered on 12/06/18 10:39; Admin Dose 4 MG; Start 12/01/18 at 15:30 Acetaminophen (Tylenol Tab) 650 mg Q6H PRN PO fever Last administered on 12/07/18 22:25; Admin Dose 650 MG; Start 12/01/18 at 15:30 Acetaminophen/ Hydrocodone Bitart ([place] (5/325)) 1 tab Q6H PRN PO .PAIN 4-6 Last administered on 12/08/18 01:20; Admin Dose 1 TAB; Start 12/01/18 at 15:30 Morphine Sulfate (morphine) 2 mg Q4H PRN IV .PAIN 7-10 Last administered on 12/05/18 16:18; Admin Dose 2 MG; Start 12/01/18 at 15:30 Vancomycin HCl (Vanco Iv Per Pharmacy) VANCOMYCIN PER PHARMACY PER PROTOCOL XX ; Start 12/01/18 at 15:30 Allopurinol (Zyloprim) 200 mg DAILY PEG Last administered on 12/08/18 09:09; Admin Dose 200 MG; Start 12/01/18 at 15:30 Atenolol (Tenormin) 25 mg DAILY PEG Last administered on 12/08/18 09:10; Admin Dose 25 MG; Start 12/01/18 at 15:30 Calcium Acetate (Phoslo) 667 mg BID PEG Last administered on 12/05/18 21:15; Admin Dose 667 MG; Start 12/01/18 at 21:00; Status Hold Fish Oil (Fish Oil) 1,000 mg DAILY PO Last administered on 12/08/18 09:09; Admin Dose 1,000 MG; Start 12/01/18 at 15:30 Atorvastatin Calcium (Lipitor) 40 mg HS PEG Last administered on 12/07/18 20:19; Admin Dose 40 MG; Start 12/01/18 at 21:00 Cyanocobalamin (Vitamin B12) 100 mcg DAILY NGT Last administered on 12/08/18 09:09; Admin Dose 100 MCG; Start 12/02/18 at 09:00 Ascorbic Acid (Vitamin C) 500 mg DAILY GTB Last administered on 12/08/18 09:10; Admin Dose 500 MG; Start 12/02/18 at 09:00 Diphenhydramine HCl (Benadryl Liquid Cup) 12.5 mg DAILY PRN PEG itching Last administered on 12/07/18 22:25; Admin Dose 12.5 MG; Start 12/01/18 at 16:30 Methylprednisolone (Medrol) 5 mg DAILY PEG Last administered on 12/08/18 09:10; Admin Dose 5 MG; Start 12/03/18 at 09:00 Nystatin (Nystatin Powder) 1 applic BID TOP Last administered on 12/08/18 09:11; Admin Dose 1 APPLIC; Start 12/02/18 at 21:00 Neomycin/ Polymyxin/ Bacitracin (Neosporin Topical Oint) 1 applic DAILY TOP Last administered on 12/07/18 09:20; Admin Dose 1 APPLIC; Start 12/03/18 at 18:30 Sodium Hypochlorite (Dakins Diluted (1/40)) 1 applic DAILY TP Last administered on 12/04/18 10:00; Admin Dose 1 APPLIC; Start 12/03/18 at 21:00 Piperacillin Sod/ Tazobactam Sod 100 ml @ 200 mls/hr Q8 IVPB Last administered on 12/08/18 05:01; Admin Dose 200 MLS/HR; Start 12/04/18 at 14:00 Gabapentin (Neurontin) 300 mg TID GTB Last administered on 12/08/18 12:28; Admin Dose 300 MG; Start 12/04/18 at 13:00 Eye Lubricant (Refresh Plus) 1 drop QID PRN BOTH EYES dry eyes Last administere d on 12/08/18 09:10; Admin Dose 1 DROP; Start 12/04/18 at 12:30 Lansoprazole (Prevacid) 30 mg DAILY@06 GTB Last administered on 12/08/18 05:00; Admin Dose 30 MG; Start 12/05/18 at 06:00 Fluticasone Propionate (Flonase 0.05% Nasal) 1 spray DAILY NASAL Last administered on 12/08/18 09:08; Admin Dose 1 SPRAY; Start 12/05/18 at 09:00 Hydroxychloroquine Sulfate (Plaquenil) 400 mg DAILY GTB Last administered on 12/08/18 09:09; Admin Dose 400 MG; Start 12/05/18 at 09:00 Mirtazapine (Remeron) 15 mg HS GTB Last administered on 12/07/18 20:19; Admin Dose 15 MG; Start 12/04/18 at 21:00 Mycophenolate Mofetil (Cellcept) 1,000 mg DAILY PO Last administered on 12/08/18 09:09; Admin Dose 1,000 MG; Start 12/05/18 at 09:00 Oxybutynin Chloride (Ditropan) 5 mg TID GTB Last administered on 12/08/18 12:28; Admin Dose 5 MG; Start 12/04/18 at 21:00 Polyethylene Glycol (Miralax) 17 gm DAILY GTB Last administered on 12/05/18 08:57; Admin Dose 17 GM; Start 12/05/18 at 09:00 Valacyclovir HCl (Valtrex) 500 mg DAILY GTB Last administered on 12/08/18 09:09; Admin Dose 500 MG; Start 12/05/18 at 09:00 Zinc Sulfate (Zinc Sulfate) 220 mg DAILY GTB Last administered on 12/08/18 09:10; Admin Dose 220 MG; Start 12/05/18 at 09:00 Vancomycin/Sodium Chloride 250 ml @ 125 mls/hr Q24H IVPB Last administered on 12/07/18 16:25; Admin Dose 125 MLS/HR; Start 12/05/18 at 16:00 Ferrous Sulfate (Feosol Liquid Cup) 300 mg TID GTB Last administered on 12/08/18 12:28; Admin Dose 300 MG; Start 12/04/18 at 21:10 Tramadol HCl (Ultram) 100 mg Q8H PRN GTB PAIN Last administered on 12/08/18 04:29; Admin Dose 100 MG; Start 12/05/18 at 20:30 Acetaminophen (Tylenol Tab) 1,000 mg Q6H PRN PO MILD PAIN(1-3)OR ELEVATED TEMP Last administered on 12/08/18 12:28; Admin Dose 1,000 MG; Start 12/06/18 at 15:30 Lactobacillus Acidophilus/ Rhamnosus (Culturelle) 1 cap WITH MEALS PO Last administered on 12/08/18 11:36; Admin Dose 1 CAP; Start 12/06/18 at 17:35 Petrolatum (Vaseline) 1 applic Q2 TOP Last administered on 12/08/18 11:37; Admin Dose 1 APPLIC; Start 12/06/18 at 22:00 Sodium Phosphate (Neutra-Phos) 250 mg BID GTB Last administered on 12/08/18 09:10; Admin Dose 250 MG; Start 12/07/18 at 09:00 Simethicone (Mylicon) 80 mg Q6H PRN PO DISTENSION/GAS/BLOATING Last administered on 12/07/18at 14:47; Admin Dose 80 MG; Start 12/07/18 at 12:00 Enoxaparin Sodium (Lovenox) 30 mg DAILY SC ; Start 12/09/18 at 09:00 Ondansetron HCl (Zofran Inj) 4 mg BEFORE MEALS IV Last administered on 12/08/18 11:36; Admin Dose 4 MG; Start 12/08/18 at 11:30 Docusate Sodium (Colace Liquid Cup) 100 mg BID PRN PEG constipation; Start 12/08/18 at 11:00 Senna (Senokot) 2 tab BID PRN GTB constipation; Start 12/08/18 at 11:00 Cholecalciferol (Vitamin D) 400 units DAILY GTB Last administered on 12/08/18 11:36; Admin Dose 400 UNITS; Start 12/08/18 at 11:00 Calcium Carbonate (Tums) 500 mg Q4H PRN PO reflux; Start 12/08/18 at 11:30 KAMI AMADOR NP Dec 08, 2018 13:09
[2018-12-08 14:00] VITALS: BP 105/57; PULSE 93; RESP 17
[2018-12-08] MEDS: ATORVASTATIN 40 MG TAB PEG SCH (20:22)
[2018-12-08] MEDS: MIRTAZAPINE 15 MG TAB GTB SCH (20:22)
[2018-12-08 21:50] VITALS: BP 107/58; PULSE 99; RESP 17
[2018-12-09] MEDS: PETROLATUM 28.35 GM JELLY TOP SCH ×13 (01:22→23:00)
[2018-12-09] MEDS: traMADol 50 MG TAB GTB PRN ×3 (01:29→21:14)
[2018-12-09 02:00] VITALS: BP 123/60; PULSE 79; RESP 18
[2018-12-09] MEDS: LANSOPRAZOLE 30 MG CAP GTB SCH (05:54)
[2018-12-09] MEDS: LACTOBACILLUS RHAMNOSUS CAP PO SCH ×3 (08:05→17:40)
[2018-12-09] MEDS: ONDANSETRON 4 MG INJ IV SCH ×3 (08:05→17:40)
[2018-12-09 08:14] VITALS: BP 110/60; PULSE 85; RESP 16
[2018-12-09] MEDS: NEOMYC/POLYMYX/BACIT 30 GM OINT TOP SCH (09:00)
[2018-12-09] MEDS: DAKINS 0.0125%(1/40) 473 ML SOLUTION TP SCH (09:00)
[2018-12-09] MEDS: POLYETHYLENE GLYCOL 17 GM PACKET GTB SCH (09:00)
[2018-12-09] MEDS: valACYclovir 500 MG TAB GTB SCH (09:09)
[2018-12-09] MEDS: ZINC SULFATE 220 MG CAP GTB SCH (09:10)
[2018-12-09] MEDS: CHOLECALCIFEROL 400 UNITS TAB GTB SCH (09:10)
[2018-12-09] MEDS: ASCORBIC ACID 500 MG TAB GTB SCH (09:10)
[2018-12-09] MEDS: ALLOPURINOL 100 MG TAB PEG SCH (09:10)
[2018-12-09] MEDS: FERROUS SULFATE 60 MG/ML 5ML CUP GTB SCH ×3 (09:11→20:28)
[2018-12-09] MEDS: ATENOLOL 25 MG TAB PEG SCH (09:11)
[2018-12-09] MEDS: GABAPENTIN 300 MG CAP GTB SCH ×3 (09:11→20:28)
[2018-12-09] MEDS: OXYBUTYNIN 5 MG TAB GTB SCH ×3 (09:11→20:28)
[2018-12-09] MEDS: HYDROXYCHLOROQUINE 200 MG TAB GTB SCH (09:11)
[2018-12-09] MEDS: FISH OIL 1,000 MG CAP PO SCH (09:12)
[2018-12-09] MEDS: NEUTRA-PHOS 250 MG PACKET GTB SCH ×2 (09:12→20:28)
[2018-12-09] MEDS: METHYLPREDNISOLONE 4 MG TAB PEG SCH (09:12)
[2018-12-09] MEDS: MYCOPHENOLATE 250 MG CAP PO SCH (09:12)
[2018-12-09] MEDS: CYANOCOBALAMIN 100 MCG TAB NGT SCH (09:13)
[2018-12-09] MEDS: FLUTICASONE 0.05% 16 GM NAS SPRAY NASAL SCH (09:13)
[2018-12-09] MEDS: ENOXAPARIN 30 MG/0.3 ML SYG SC SCH (09:15)
[2018-12-09] MEDS: NYSTATIN 30 GM POWDER BTL TOP SCH ×2 (09:38→20:29)
--- NOTE | 2018-12-09 12:53 | CONS ---
Assessment/Plan Assessment/Plan Assessment/Plan (Daily) 1. Nonoliguric acute kidney injury on top of chronic kidney disease stage III with unknown baseline creatinine. Etiology of acute kidney injury is secondary to hemodynamics. Renal function is improved. Continue to monitor. Continue current treatment plan, supportive care, renally dose all medications. 2. Chronic kidney disease with history of lupus. The patient is in acute kidney injury as stated above. Continue current treatment plan. Continue disease factor modification. Continue CellCept. 3. Hypernatremia, improved. 4. Anemia. Monitor hemoglobin and hematocrit levels. 5. Mineral bone disorder. Monitor calcium and phosphorus levels. Continue sodium phosphate. 6. History of lupus. Continue medical management. 7. Metabolic acidosis, resolved. The patient is status post Bicitra. 8. Bilateral foot wounds. Continue treatment plan. 9. Hypertension. Continue current medical management. 10. History of gout. Continue allopurinol. 11. Dyslipidemia. Continue statin therapy. 12. Dysphagia. Continue tube feeding. Consultation Date/Type/Reason Admit Date/Time Dec 01, 2018 at 15:06 Initial Consult Date Date/Time of Note DATE: 12/09/18 TIME: 12:52 24 HR Interval Summary Free Text/Dictation denies shortness of breath, n/v d/w rn gen nad cv rrr pulm ctab abd soft, nd ,nt +bs ext: no edema Exam/Review of Systems Exam Vitals Vital Signs Date Temp Pulse Resp B/P (MAP) Pulse Ox O2 O2 Flow FiO2 Time Delivery Rate 12/09/18 98.8 85 16 110/60 99 Room Air 08:14 (77) Intake and Output 12/08/18 12/08/18 12/09/18 1515:00 23:00 07:00 IntakeIntake Total 740 ml 300 ml 1800 ml OutputOutput Total 1100 ml 800 ml BalanceBalance -360 ml -500 ml 1800 ml Results Result Diagram: 12/09/18 0549 12/09/18 0549 Results 24hrs Laboratory Tests Test 12/09/18 05:49 White Blood Count 6.4 Red Blood Count 2.80 L Hemoglobin 8.7 L Hematocrit 28.3 L Mean Corpuscular Volume 101.1 H Mean Corpuscular Hemoglobin 31.1 Mean Corpuscular Hemoglobin Concent 30.7 L Red Cell Distribution Width 15.1 H Platelet Count 119 L Mean Platelet Volume 12.9 H Immature Granulocytes % 1.200 H Neutrophils % 63.1 Lymphocytes % 22.9 Monocytes % 9.7 Eosinophils % 2.8 Basophils % 0.3 Nucleated Red Blood Cells % 0.0 Immature Granulocytes # 0.080 H Neutrophils # 4.1 Lymphocytes # 1.5 Monocytes # 0.6 Eosinophils # 0.2 Basophils # 0.0 Nucleated Red Blood Cells # 0.0 Sodium Level 144 Potassium Level 4.1 Chloride Level 113 H Carbon Dioxide Level 25 Anion Gap 6 Blood Urea Nitrogen 23 H Creatinine 0.93 Glucose Level 103 Calcium Level 9.3 Phosphorus Level 2.7 Magnesium Level 2.2 Albumin 2.8 L Medications Medication Current Medications Ondansetron HCl (Zofran Inj) 4 mg Q6H PRN IV NAUSEA/VOMITING Last administered on 12/06/18 10:39; Admin Dose 4 MG; Start 12/01/18 at 15:30 Acetaminophen (Tylenol Tab) 650 mg Q6H PRN PO fever Last administered on 22:25; Admin Dose 650 MG; Start 12/01/18 at 15:30 Acetaminophen/ Hydrocodone Bitart ([place] (5/325)) 1 tab Q6H PRN PO .PAIN 4-6 Last administered on 12/08/18 01:20; Admin Dose 1 TAB; Start 12/01/18 at 15:30 Morphine Sulfate (morphine) 2 mg Q4H PRN IV .PAIN 7-10 Last administered on 12/05/18 16:18; Admin Dose 2 MG; Start 12/01/18 at 15:30 Allopurinol (Zyloprim) 200 mg DAILY PEG Last administered on 12/09/18 09:10; Admin Dose 200 MG; Start 12/01/18 at 15:30 Atenolol (Tenormin) 25 mg DAILY PEG Last administered on 12/09/18 09:11; Admin Dose 25 MG; Start 12/01/18 at 15:30 Calcium Acetate (Phoslo) 667 mg BID PEG Last administered on 12/05/18 21:15; Admin Dose 667 MG; Start 12/01/18 at 21:00; Status Hold Fish Oil (Fish Oil) 1,000 mg DAILY PO Last administered on 12/09/18 09:12; Admin Dose 1,000 MG; Start 12/01/18 at 15:30 Atorvastatin Calcium (Lipitor) 40 mg HS PEG Last administered on 12/08/18 20:22; Admin Dose 40 MG; Start 12/01/18 at 21:00 Cyanocobalamin (Vitamin B12) 100 mcg DAILY NGT Last administered on 12/09/18 09:13; Admin Dose 100 MCG; Start 12/02/18 at 09:00 Ascorbic Acid (Vitamin C) 500 mg DAILY GTB Last administered on 12/09/18 09:10; Admin Dose 500 MG; Start 12/02/18 at 09:00 Diphenhydramine HCl (Benadryl Liquid Cup) 12.5 mg DAILY PRN PEG itching Last administered on 12/07/18 22:25; Admin Dose 12.5 MG; Start 12/01/18 at 16:30 Methylprednisolone (Medrol) 5 mg DAILY PEG Last administered on 12/09/18 09:12; Admin Dose 5 MG; Start 12/03/18 at 09:00 Nystatin (Nystatin Powder) 1 applic BID TOP Last administered on 12/09/18 09:38; Admin Dose 1 APPLIC; Start 12/02/18 at 21:00 Neomycin/ Polymyxin/ Bacitracin (Neosporin Topical Oint) 1 applic DAILY TOP Last administered on 12/07/18 09:20; Admin Dose 1 APPLIC; Start 12/03/18 at 18:30 Sodium Hypochlorite (Dakins Diluted (1/40)) 1 applic DAILY TP Last administered on 12/04/18 10:00; Admin Dose 1 APPLIC; Start 12/03/18 at 21:00 Gabapentin (Neurontin) 300 mg TID GTB Last administered on 12/09/18 09:11; Admin Dose 300 MG; Start 12/04/18 at 13:00 Eye Lubricant (Refresh Plus) 1 drop QID PRN BOTH EYES dry eyes Last administered on 12/08/18 09:10; Admin Dose 1 DROP; Start 12/04/18 at 12:30 Lansoprazole (Prevacid) 30 mg DAILY@06 GTB Last administered on 12/09/18 05:54; Admin Dose 30 MG; Start 12/05/18 at 06:00 Fluticasone Propionate (Flonase 0.05% Nasal) 1 spray DAILY NASAL Last administered on 12/09/18 09:13; Admin Dose 1 SPRAY; Start 12/05/18 at 09:00 Hydroxychloroquine Sulfate (Plaquenil) 400 mg DAILY GTB Last administered on 12/09/18 09:11; Admin Dose 400 MG; Start 12/05/18 at 09:00 Mirtazapine (Remeron) 15 mg HS GTB Last administered on 12/08/18 20:22; Admin Dose 15 MG; Start 12/04/18 at 21:00 Mycophenolate Mofetil (Cellcept) 1,000 mg DAILY PO Last administered on 12/09/18 09:12; Admin Dose 1,000 MG; Start 12/05/18 at 09:00 Oxybutynin Chloride (Ditropan) 5 mg TID GTB Last administered on 12/09/18 09:11; Admin Dose 5 MG; Start 12/04/18 at 21:00 Polyethylene Glycol (Miralax) 17 gm DAILY GTB Last administered on 12/05/18 08:57; Admin Dose 17 GM; Start 12/05/18 at 09:00 Valacyclovir HCl (Valtrex) 500 mg DAILY GTB Last administered on 12/09/18 09:09; Admin Dose 500 MG; Start 12/05/18 at 09:00 Zinc Sulfate (Zinc Sulfate) 220 mg DAILY GTB Last administered on 12/09/18 09:10; Admin Dose 220 MG; Start 12/05/18 at 09:00 Ferrous Sulfate (Feosol Liquid Cup) 300 mg TID GTB Last administered on 12/09/18 09:11; Admin Dose 300 MG; Start 12/04/18 at 21:10 Tramadol HCl (Ultram) 100 mg Q8H PRN GTB PAIN Last administered on 12/09/18 01:29; Admin Dose 100 MG; Start 12/05/18 at 20:30 Acetaminophen (Tylenol Tab) 1,000 mg Q6H PRN PO MILD PAIN(1-3)OR ELEVATED TEMP Last administered on 12/08/18 20:24; Admin Dose 1,000 MG; Start 12/06/18 at 15:30 Lactobacillus Acidophilus/ Rhamnosus (Culturelle) 1 cap WITH MEALS PO Last administered on 12/09/18 11:40; Admin Dose 1 CAP; Start 12/06/18 at 17:35 Petrolatum (Vaseline) 1 applic Q2 TOP Last administered on 12/09/18 11:40; Admin Dose 1 APPLIC; Start 12/06/18 at 22:00 Sodium Phosphate (Neutra-Phos) 250 mg BID GTB Last administered on 12/09/18 09:12; Admin Dose 250 MG; Start 12/07/18 at 09:00 Simethicone (Mylicon) 80 mg Q6H PRN PO DISTENSION/GAS/BLOATING Last administered on 12/07/18 14:47; Admin Dose 80 MG; Start 12/07/18 at 12:00 Enoxaparin Sodium (Lovenox) 30 mg DAILY SC Last administered on 12/09/18 09:15; Admin Dose 30 MG; Start 12/09/18 at 09:00 Ondansetron HCl (Zofran Inj) 4 mg BEFORE MEALS IV Last administered on 12/09/18 11:40; Admin Dose 4 MG; Start 12/08/18 at 11:30 Docusate Sodium (Colace Liquid Cup) 100 mg BID PRN PEG constipation; Start 12/08/18 at 11:00 Senna (Senokot) 2 tab BID PRN GTB constipation; Start 12/08/18 at 11:00 Cholecalciferol (Vitamin D) 400 units DAILY GTB Last administered on 12/09/18 09:10; Admin Dose 400 UNITS; Start 12/08/18 at 11:00 Calcium Carbonate (Tums) 500 mg Q4H PRN PO reflux; Start 12/08/18 at 11:30 MARIN BAY MD Dec 09, 2018 12:53
--- NOTE | 2018-12-09 13:28 | PN ---
Date/Time of Note Date/Time of Note DATE: 12/09/18 TIME: 13:26 Assessment/Plan VTE Prophylaxis Risk score (from Ns)>0 risk: 7 SCD applied (from Ns): Yes Pharmacological prophylaxis: LMWH Lines/Catheters IV Catheter Type (from Nrsg): Saline Lock Urinary Cath still in place: No Assessment/Plan Assessment/Plan 1. 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 Patient to maintain NWB status. No further procedures at this time - ID consultation appreciated and will monitor off antibiotics - Pain control 2. Hypertension- stable - Continue home meds 3. Lupus and rheumatoid arthritis - Continue home meds 4. 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 Gout - continue on Allopurinol 6. Dyslipidemia - continue Lipitor 7. Nutritional deficiency - Soft diet during the day and Tube feeds from 8pm to 8am - dietary consult appreciated 8. Iron deficiency anemia - Continue iron 9. CORINNE on CKD- resolved - Nephrology on board and appreciate recommendations 10. GERD - stable - continue PPI and Tums PRN 11. Disposition - Will monitor off antibiotics for another 24 hours and if no issues, d/c back to [facility] Result Diagram: 12/09/18 0549 12/09/18 0549 Results 24hrs Laboratory Tests Test 12/09/18 05:49 White Blood Count 6.4 Red Blood Count 2.80 L Hemoglobin 8.7 L Hematocrit 28.3 L Mean Corpuscular Volume 101.1 H Mean Corpuscular Hemoglobin 31.1 Mean Corpuscular Hemoglobin Concent 30.7 L Red Cell Distribution Width 15.1 H Platelet Count 119 L Mean Platelet Volume 12.9 H Immature Granulocytes % 1.200 H Neutrophils % 63.1 Lymphocytes % 22.9 Monocytes % 9.7 Eosinophils % 2.8 Basophils % 0.3 Nucleated Red Blood Cells % 0.0 Immature Granulocytes # 0.080 H Neutrophils # 4.1 Lymphocytes # 1.5 Monocytes # 0.6 Eosinophils # 0.2 Basophils # 0.0 Nucleated Red Blood Cells # 0.0 Sodium Level 144 Potassium Level 4.1 Chloride Level 113 H Carbon Dioxide Level 25 Anion Gap 6 Blood Urea Nitrogen 23 H Creatinine 0.93 Glucose Level 103 Calcium Level 9.3 Phosphorus Level 2.7 Magnesium Level 2.2 Albumin 2.8 L Subjective 24 Hr Interval Summary Free Text/Dictation Patients doing well and tolerating more PO intake. Discussed holding an tibiotics and monitoring off treatment. No acute overnight events. Exam/Review of Systems Exam Vitals Vital Signs Date Temp Pulse Resp B/P (MAP) Pulse Ox O2 O2 Flow FiO2 Time Delivery Rate 12/09/18 98.8 85 16 110/60 99 Room Air 08:14 (77) Intake and Output 12/08/18 12/08/18 12/09/18 1515:00 23:00 07:00 IntakeIntake Total 740 ml 300 ml 1800 ml OutputOutput Total 1100 ml 800 ml BalanceBalance -360 ml -500 ml 1800 ml Exam General: Patient is laying in bed and answers questions appropriately. no acute distress Neck: Supple Respiratory: Clear to auscultation bilaterally. no wheezing or rhonchi Cardiovascular: regular rate and rhythm, no obvious murmurs Gastrointestinal: soft, non-tender to palpation, nondistended, PEG in place, bowel sounds heard. Neurological: Moves all extremities spontaneously Skin: bandages on feet bilaterally. CDI Results Results 24hrs Laboratory Tests Test 12/09/18 05:49 White Blood Count 6.4 Red Blood Count 2.80 L Hemoglobin 8.7 L Hematocrit 28.3 L Mean Corpuscular Volume 101.1 H Mean Corpuscular Hemoglobin 31.1 Mean Corpuscular Hemoglobin Concent 30.7 L Red Cell Distribution Width 15.1 H Platelet Count 119 L Mean Platelet Volume 12.9 H Immature Granulocytes % 1.200 H Neutrophils % 63.1 Lymphocytes % 22.9 Monocytes % 9.7 Eosinophils % 2.8 Basophils % 0.3 Nucleated Red Blood Cells % 0.0 Immature Granulocytes # 0.080 H Neutrophils # 4.1 Lymphocytes # 1.5 Monocytes # 0.6 Eosinophils # 0.2 Basophils # 0.0 Nucleated Red Blood Cells # 0.0 Sodium Level 144 Potassium Level 4.1 Chloride Level 113 H Carbon Dioxide Level 25 Anion Gap 6 Blood Urea Nitrogen 23 H Creatinine 0.93 Glucose Level 103 Calcium Level 9.3 Phosphorus Level 2.7 Magnesium Level 2.2 Albumin 2.8 L Medications Medication Current Medications Ondansetron HCl (Zofran Inj) 4 mg Q6H PRN IV NAUSEA/VOMITING Last administered on 12/06/18at 10:39; Admin Dose 4 MG; Start 12/01/18 at 15:30 Acetaminophen (Tylenol Tab) 650 mg Q6H PRN PO fever Last administered on 12/07/18 22:25; Admin Dose 650 MG; Start 12/01/18 at 15:30 Acetaminophen/ Hydrocodone Bitart ([place] (5/325)) 1 tab Q6H PRN PO .PAIN 4-6 Last administered on 12/08/18 01:20; Admin Dose 1 TAB; Start 12/01/18 at 15:30 Morphine Sulfate (morphine) 2 mg Q4H PRN IV .PAIN 7-10 Last administered on 12/05/18 16:18; Admin Dose 2 MG; Start 12/01/18 at 15:30 Allopurinol (Zyloprim) 200 mg DAILY PEG Last administered on 12/09/18 09:10; Admin Dose 200 MG; Start 12/01/18 at 15:30 Atenolol (Tenormin) 25 mg DAILY PEG Last administered on 12/09/18 09:11; Admin Dose 25 MG; Start 12/01/18 at 15:30 Calcium Acetate (Phoslo) 667 mg BID PEG Last administered on 12/05/18 21:15; Admin Dose 667 MG; Start 12/01/18 at 21:00; Status Hold Fish Oil (Fish Oil) 1,000 mg DAILY PO Last administered on 12/09/18 09:12; Admin Dose 1,000 MG; Start 12/01/18 at 15:30 Atorvastatin Calcium (Lipitor) 40 mg HS PEG Last administered on 12/08/18 20:22; Admin Dose 40 MG; Start 12/01/18 at 21:00 Cyanocobalamin (Vitamin B12) 100 mcg DAILY NGT Last administered on 12/09/18 09:13; Admin Dose 100 MCG; Start 12/02/18 at 09:00 Ascorbic Acid (Vitamin C) 500 mg DAILY GTB Last administered on 12/09/18 09:10; Admin Dose 500 MG; Start 12/02/18 at 09:00 Diphenhydramine HCl (Benadryl Liquid Cup) 12.5 mg DAILY PRN PEG itching Last administered on 12/07/18 22:25; Admin Dose 12.5 MG; Start 12/01/18 at 16:30 Methylprednisolone (Medrol) 5 mg DAILY PEG Last administered on 12/09/18 09:12; Admin Dose 5 MG; Start 12/03/18 at 09:00 Nystatin (Nystatin Powder) 1 applic BID TOP Last administered on 12/09/18 09:38; Admin Dose 1 APPLIC; Start 12/02/18 at 21:00 Neomycin/ Polymyxin/ Bacitracin (Neosporin Topical Oint) 1 applic DAILY TOP Last administered on 12/07/18 09:20; Admin Dose 1 APPLIC; Start 12/03/18 at 18:30 Sodium Hypochlorite (Dakins Diluted (40)) 1 applic DAILY TP Last administered on 12/04/18 10:00; Admin Dose 1 APPLIC; Start 12/03/18 at 21:00 Gabapentin (Neurontin) 300 mg TID GTB Last administered on 12/09/18 12:55; Admin Dose 300 MG; Start 12/04/18 at 13:00 Eye Lubricant (Refresh Plus) 1 drop QID PRN BOTH EYES dry eyes Last administered on 12/08/18 09:10; Admin Dose 1 DROP; Start 12/04/18 at 12:30 Lansoprazole (Prevacid) 30 mg DAILY@06 GTB Last administered on 12/09/18 05:54; Admin Dose 30 MG; Start 12/05/18 at 06:00 Fluticasone Propionate (Flonase 0.05% Nasal) 1 spray DAILY NASAL Last administered on 12/09/18 09:13; Admin Dose 1 SPRAY; Start 12/05/18 at 09:00 Hydroxychloroquine Sulfate (Plaquenil) 400 mg DAILY GTB Last administered on 12/09/18 09:11; Admin Dose 400 MG; Start 12/05/18 at 09:00 Mirtazapine (Remeron) 15 mg HS GTB Last administered on 12/08/18 20:22; Admin Dose 15 MG; Start 12/04/18 at 21:00 Mycophenolate Mofetil (Cellcept) 1,000 mg DAILY PO Last administered on 12/09/18 09:12; Admin Dose 1,000 MG; Start 12/05/18 at 09:00 Oxybutynin Chloride (Ditropan) 5 mg TID GTB Last administered on 12/09/18 12:56; Admin Dose 5 MG; Start 12/04/18 at 21:00 Polyethylene Glycol (Miralax) 17 gm DAILY GTB Last administered on 12/05/18 0 8:57; Admin Dose 17 GM; Start 12/05/18 at 09:00 Valacyclovir HCl (Valtrex) 500 mg DAILY GTB Last administered on 12/09/18 09:09; Admin Dose 500 MG; Start 12/05/18 at 09:00 Zinc Sulfate (Zinc Sulfate) 220 mg DAILY GTB Last administered on 12/09/18 09:10; Admin Dose 220 MG; Start 12/05/18 at 09:00 Ferrous Sulfate (Feosol Liquid Cup) 300 mg TID GTB Last administered on 12/09/18 12:56; Admin Dose 300 MG; Start 12/04/18 at 21:10 Tramadol HCl (Ultram) 100 mg Q8H PRN GTB PAIN Last administered on 12/09/18 13:04; Admin Dose 100 MG; Start 12/05/18 at 20:30 Acetaminophen (Tylenol Tab) 1,000 mg Q6H PRN PO MILD PAIN(1-3)OR ELEVATED TEMP Last administered on 12/08/18 20:24; Admin Dose 1,000 MG; Start 12/06/18 at 15:30 Lactobacillus Acidophilus/ Rhamnosus (Culturelle) 1 cap WITH MEALS PO Last administered on 12/09/18 11:40; Admin Dose 1 CAP; Start 12/06/18 at 17:35 Petrolatum (Vaseline) 1 applic Q2 TOP Last administered on 12/09/18 11:40; Admin Dose 1 APPLIC; Start 12/06/18 at 22:00 Sodium Phosphate (Neutra-Phos) 250 mg BID GTB Last administered on 12/09/18 09:12; Admin Dose 250 MG; Start 12/07/18 at 09:00 Simethicone (Mylicon) 80 mg Q6H PRN PO DISTENSION/GAS/BLOATING Last admi nistered on 12/07/18 14:47; Admin Dose 80 MG; Start 12/07/18 at 12:00 Enoxaparin Sodium (Lovenox) 30 mg DAILY SC Last administered on 12/09/18 09:15; Admin Dose 30 MG; Start 12/09/18 at 09:00 Ondansetron HCl (Zofran Inj) 4 mg BEFORE MEALS IV Last administered on 12/09/18at 11:40; Admin Dose 4 MG; Start 12/08/18 at 11:30 Docusate Sodium (Colace Liquid Cup) 100 mg BID PRN PEG constipation; Start 12/08/18 at 11:00 Senna (Senokot) 2 tab BID PRN GTB constipation; Start 12/08/18 at 11:00 Cholecalciferol (Vitamin D) 400 units DAILY GTB Last administered on 12/09/18at 09:10; Admin Dose 400 UNITS; Start 12/08/18 at 11:00 Calcium Carbonate (Tums) 500 mg Q4H PRN PO reflux; Start 12/08/18 at 11:30 SOURAV ALVARADO MD Dec 09, 2018 13:28
[2018-12-09 14:00] VITALS: BP 106/62; PULSE 101; RESP 18
--- NOTE | 2018-12-09 17:49 | CONS ---
Consultation Date/Type/Reason Admit Date/Time Dec 01, 2018 at 15:06 Initial Consult Date SUBJECTIVE: Patient is awake,alert, afebrile. Pt had a low- grade fever last night 100.9 VS: stable T: 99.3 LABS: Reviewed. WBC- 6.4 Wound cultures growing MRSA Antimicrobials: S/P= Vancomycin and Zosyn. Now off of antbx. Physical examination: GEN: Well-developed fragile elderly -[place] woman, who is awake ,in no distress HENT: head atraumatic normocephalic, neck is supple PULM: chest rise symmetrical, breath sounds clear Heart: S1-S2 Abdomen: soft, bowel sounds present Extremities: bilateral feet dressing clean dry and intact Assessment: 1. 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 Diabetes 3. Peripheral arterial disease 4. Acute renal failure, improved 5. Anemia Plan: Patient remains stable. Continue to monitor pt off of antbx. Date/Time of Note DATE: 12/09/18 TIME: 17:46 Exam/Review of Systems Exam Vitals Vital Signs Date Temp Pulse Resp B/P (MAP) Pulse Ox O2 O2 Flow FiO2 Time Delivery Rate 12/09/18 99.3 101 18 106/62 100 Room Air 14:00 (77) Intake and Output 12/08/18 12/08/18 12/09/18 1515:00 23:00 07:00 IntakeIntake Total 740 ml 300 ml 1800 ml OutputOutput Total 1100 ml 800 ml BalanceBalance -360 ml -500 ml 1800 ml Results Result Diagram: 12/09/18 0549 12/09/18 0549 Results 24hrs Laboratory Tests Test 12/09/18 05:49 White Blood Count 6.4 Red Blood Count 2.80 L Hemoglobin 8.7 L Hematocrit 28.3 L Mean Corpuscular Volume 101.1 H Mean Corpuscular Hemoglobin 31.1 Mean Corpuscular Hemoglobin Concent 30.7 L Red Cell Distribution Width 15.1 H Platelet Count 119 L Mean Platelet Volume 12.9 H Immature Granulocytes % 1.200 H Neutrophils % 63.1 Lymphocytes % 22.9 Monocytes % 9.7 Eosinophils % 2.8 Basophils % 0.3 Nucleated Red Blood Cells % 0.0 Immature Granulocytes # 0.080 H Neutrophils # 4.1 Lymphocytes # 1.5 Monocytes # 0.6 Eosinophils # 0.2 Basophils # 0.0 Nucleated Red Blood Cells # 0.0 Sodium Level 144 Potassium Level 4.1 Chloride Level 113 H Carbon Dioxide Level 25 Anion Gap 6 Blood Urea Nitrogen 23 H Creatinine 0.93 Glucose Level 103 Calcium Level 9.3 Phosphorus Level 2.7 Magnesium Level 2.2 Albumin 2.8 L Medications Medication Current Medications Ondansetron HCl (Zofran Inj) 4 mg Q6H PRN IV NAUSEA/VOMITING Last administered on 12/06/18 10:39; Admin Dose 4 MG; Start 12/01/18 at 15:30 Acetaminophen (Tylenol Tab) 650 mg Q6H PRN PO fever Last administered on 12/07/18 22:25; Admin Dose 650 MG; Start 12/01/18 at 15:30 Acetaminophen/ Hydrocodone Bitart ([place] (5/325)) 1 tab Q6H PRN PO .PAIN 4-6 Last administered on 12/08/18 01:20; Admin Dose 1 TAB; Start 12/01/18 at 15:30 Morphine Sulfate (morphine) 2 mg Q4H PRN IV .PAIN 7-10 Last administered on 12/05/18 16:18; Admin Dose 2 MG; Start 12/01/18 at 15:30 Allopurinol (Zyloprim) 200 mg DAILY PEG Last administered on 12/09/18 09:10; Admin Dose 200 MG; Start 12/01/18 at 15:30 Atenolol (Tenormin) 25 mg DAILY PEG Last administered on 12/09/18 09:11; Admin Dose 25 MG; Start 12/01/18 at 15:30 Calcium Acetate (Phoslo) 667 mg BID PEG Last administered on 12/05/18 21:15; Admin Dose 667 MG; Start 12/01/18 at 21:00; Status Hold Fish Oil (Fish Oil) 1,000 mg DAILY PO Last administered on 12/09/18 09:12; Admin Dose 1,000 MG; Start 12/01/18 at 15:30 Atorvastatin Calcium (Lipitor) 40 mg HS PEG Last administered on 12/08/18 20:22; Admin Dose 40 MG; Start 12/01/18 at 21:00 Cyanocobalamin (Vitamin B12) 100 mcg DAILY NGT Last administered on 12/09/18 09:13; Admin Dose 100 MCG; Start 12/02/18 at 09:00 Ascorbic Acid (Vitamin C) 500 mg DAILY GTB Last administered on 12/09/18 09:1 0; Admin Dose 500 MG; Start 12/02/18 at 09:00 Diphenhydramine HCl (Benadryl Liquid Cup) 12.5 mg DAILY PRN PEG itching Last administered on 12/07/18 22:25; Admin Dose 12.5 MG; Start 12/01/18 at 16:30 Methylprednisolone (Medrol) 5 mg DAILY PEG Last administered on 12/09/18 09:12; Admin Dose 5 MG; Start 12/03/18 at 09:00 Nystatin (Nystatin Powder) 1 applic BID TOP Last administered on 12/09/18 09:38; Admin Dose 1 APPLIC; Start 12/02/18 at 21:00 Neomycin/ Polymyxin/ Bacitracin (Neosporin Topical Oint) 1 applic DAILY TOP Last administered on 12/07/18 09:20; Admin Dose 1 APPLIC; Start 12/03/18 at 18:30 Sodium Hypochlorite (Dakins Diluted (/40)) 1 applic DAILY TP Last administered on 12/04/18 10:00; Admin Dose 1 APPLIC; Start 12/03/18 at 21:00 Gabapentin (Neurontin) 300 mg TID GTB Last administered on 12/09/18 12:55; Admin Dose 300 MG; Start 12/04/18 at 13:00 Eye Lubricant (Refresh Plus) 1 drop QID PRN BOTH EYES dry eyes Last administered on 12/08/18 09:10; Admin Dose 1 DROP; Start 12/04/18 at 12:30 Lansoprazole (Prevacid) 30 mg DAILY@06 GTB Last administered on 12/09/18 05 :54; Admin Dose 30 MG; Start 12/05/18 at 06:00 Fluticasone Propionate (Flonase 0.05% Nasal) 1 spray DAILY NASAL Last administered on 12/09/18 09:13; Admin Dose 1 SPRAY; Start 12/05/18 at 09:00 Hydroxychloroquine Sulfate (Plaquenil) 400 mg DAILY GTB Last administered on 12/09/18 09:11; Admin Dose 400 MG; Start 12/05/18 at 09:00 Mirtazapine (Remeron) 15 mg HS GTB Last administered on 12/08/18 20:22; Admin Dose 15 MG; Start 12/04/18 at 21:00 Mycophenolate Mofetil (Cellcept) 1,000 mg DAILY PO Last administered on 12/09/18 09:12; Admin Dose 1,000 MG; Start 12/05/18 at 09:00 Oxybutynin Chloride (Ditropan) 5 mg TID GTB Last administered on 12/09/18 12:56; Admin Dose 5 MG; Start 12/04/18 at 21:00 Polyethylene Glycol (Miralax) 17 gm DAILY GTB Last administered on 12/05/18 08:57; Admin Dose 17 GM; Start 12/05/18 at 09:00 Valacyclovir HCl (Valtrex) 500 mg DAILY GTB Last administered on 12/09/18 09:09; Admin Dose 500 MG; Start 12/05/18 at 09:00 Zinc Sulfate (Zinc Sulfate) 220 mg DAILY GTB Last administered on 12/09/18 09:10; Admin Dose 220 MG; Start 12/05/18 at 09:00 Ferrous Sulfate (Feosol Liquid Cup) 300 mg TID GTB Last administered on 12/09/18 12:56; Admin Dose 300 MG; Start 12/04/18 at 21:10 Tramadol HCl (Ultram) 100 mg Q8H PRN GTB PAIN Last administered on 12/09/18 1 3:04; Admin Dose 100 MG; Start 12/05/18 at 20:30 Acetaminophen (Tylenol Tab) 1,000 mg Q6H PRN PO MILD PAIN(1-3)OR ELEVATED TEMP Last administered on 12/08/18 20:24; Admin Dose 1,000 MG; Start 12/06/18 at 15:30 Lactobacillus Acidophilus/ Rhamnosus (Culturelle) 1 cap WITH MEALS PO Last administered on 12/09/18 17:40; Admin Dose 1 CAP; Start 12/06/18 at 17:35 Petrolatum (Vaseline) 1 applic Q2 TOP Last administered on 12/09/18 17:41; Admin Dose 1 APPLIC; Start 12/06/18 at 22:00 Sodium Phosphate (Neutra-Phos) 250 mg BID GTB Last administered on 12/09/18 09:12; Admin Dose 250 MG; Start 12/07/18 at 09:00 Simethicone (Mylicon) 80 mg Q6H PRN PO DISTENSION/GAS/BLOATING Last administered on 12/07/18 14:47; Admin Dose 80 MG; Start 12/07/18 at 12:00 Enoxaparin Sodium (Lovenox) 30 mg DAILY SC Last administered on 12/09/18 09:15; Admin Dose 30 MG; Start 12/09/18 at 09:00 Ondansetron HCl (Zofran Inj) 4 mg BEFORE MEALS IV Last administered on 12/09/18 17:40; Admin Dose 4 MG; Start 12/08/18 at 11:30 Docusate Sodium (Colace Liquid Cup) 100 mg BID PRN PEG constipation; Start 12/08/18 at 11:00 Senna (Senokot) 2 tab BID PRN GTB constipation; Start 12/08/18 at 11:00 Cholecalciferol (Vitamin D) 400 units DAILY GTB Last administered on 12/09/18 09:10; Admin Dose 400 UNITS; Start 12/08/18 at 11:00 Calcium Carbonate (Tums) 500 mg Q4H PRN PO reflux; Start 12/08/18 at 11:30 REDD DANIELSON Dec 09, 2018 17:49
[2018-12-09 20:00] VITALS: BP 126/71; PULSE 90; RESP 18
[2018-12-09] MEDS: ATORVASTATIN 40 MG TAB PEG SCH (20:28)
[2018-12-09] MEDS: MIRTAZAPINE 15 MG TAB GTB SCH (20:28)
[2018-12-09] MEDS: DIPHENHYDRAMINE 2.5 MG/ML 5ML CUP PEG PRN (21:13)
[2018-12-10] MEDS: ACETAMINOPHEN 500 MG TAB PO PRN (00:43)
[2018-12-10] MEDS: PETROLATUM 28.35 GM JELLY TOP SCH ×12 (00:43→23:08)
[2018-12-10 02:00] VITALS: BP 109/60; PULSE 63; RESP 19
[2018-12-10] MEDS: HYDROCODONE/APAP (5/325) TAB PO PRN ×3 (03:47→16:42)
[2018-12-10] MEDS: LANSOPRAZOLE 30 MG CAP GTB SCH (06:33)
[2018-12-10] MEDS: ONDANSETRON 4 MG INJ IV SCH ×3 (08:32→16:42)
[2018-12-10] MEDS: POLYETHYLENE GLYCOL 17 GM PACKET GTB SCH (08:32)
[2018-12-10] MEDS: OXYBUTYNIN 5 MG TAB GTB SCH ×3 (08:32→20:48)
[2018-12-10] MEDS: FERROUS SULFATE 60 MG/ML 5ML CUP GTB SCH ×3 (08:32→20:48)
[2018-12-10] MEDS: NEUTRA-PHOS 250 MG PACKET GTB SCH ×2 (08:33→20:49)
[2018-12-10] MEDS: GABAPENTIN 300 MG CAP GTB SCH ×3 (08:33→20:48)
[2018-12-10] MEDS: HYDROXYCHLOROQUINE 200 MG TAB GTB SCH (08:34)
[2018-12-10] MEDS: CHOLECALCIFEROL 400 UNITS TAB GTB SCH (08:35)
[2018-12-10] MEDS: FLUTICASONE 0.05% 16 GM NAS SPRAY NASAL SCH (08:35)
[2018-12-10] MEDS: CYANOCOBALAMIN 100 MCG TAB NGT SCH (08:35)
[2018-12-10] MEDS: ASCORBIC ACID 500 MG TAB GTB SCH (08:35)
[2018-12-10] MEDS: ALLOPURINOL 100 MG TAB PEG SCH (08:36)
[2018-12-10] MEDS: MYCOPHENOLATE 250 MG CAP PO SCH (08:37)
[2018-12-10] MEDS: FISH OIL 1,000 MG CAP PO SCH (08:37)
[2018-12-10] MEDS: ENOXAPARIN 30 MG/0.3 ML SYG SC SCH (08:38)
[2018-12-10 08:39] VITALS: BP 116/69; PULSE 90; RESP 18
[2018-12-10] MEDS: METHYLPREDNISOLONE 4 MG TAB PEG SCH (08:42)
[2018-12-10] MEDS: ATENOLOL 25 MG TAB PEG SCH (08:43)
[2018-12-10] MEDS: ZINC SULFATE 220 MG CAP GTB SCH (08:44)
[2018-12-10] MEDS: valACYclovir 500 MG TAB GTB SCH (08:45)
[2018-12-10] MEDS: DAKINS 0.0125%(1/40) 473 ML SOLUTION TP SCH (09:00)
[2018-12-10] MEDS: NEOMYC/POLYMYX/BACIT 30 GM OINT TOP SCH (09:00)
[2018-12-10] MEDS: CARBOXYMETHYLCELLULOSE 0.5% 0.4 ML OPH BOTH EYES PRN (10:12)
[2018-12-10] MEDS: LACTOBACILLUS RHAMNOSUS CAP PO SCH ×3 (10:13→18:18)
[2018-12-10] MEDS: NYSTATIN 30 GM POWDER BTL TOP SCH ×2 (10:49→20:50)
--- NOTE | 2018-12-10 11:59 | PN ---
Date/Time of Note Date/Time of Note DATE: 12/10/18 TIME: 11:53 Assessment/Plan VTE Prophylaxis Risk score (from Nsg)>0 risk: 6 SCD applied (from Nsg): Yes Pharmacological prophylaxis: LMWH Lines/Catheters IV Catheter Type (from Nrsg): Saline Lock Urinary Cath still in place: No Assessment/Plan Assessment/Plan 1. Bilateral foot ulcers s/p debridement and amputation 2nd toes bilaterally - Podiatry on board and appreciate consultations. Patient to maintain NWB status. No further procedures at this time - ID consultation appreciated and will monitor off antibiotics - Pain control 2. Elevated temp - ID ordered CXR to assess for pneumonia in setting of elevated temp - no cough or shortness of breath noted 3. Hypertension- stable - Continue home meds 4. Lupus and rheumatoid arthritis - Continue home meds 5. 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 Gout - continue on Allopurinol 7. Dyslipidemia - continue Lipitor 8. Nutritional deficiency - Soft diet during the day and Tube feeds from 8pm to 8am - dietary consult appreciated 9. Iron deficiency anemia - Continue iron 10. CORINNE on CKD- resolved - Nephrology on board and appreciate recommendations 11. GERD - stable - continue PPI and Tums PRN 12. Disposition - Slightly elevated temp and awaiting CXR results. Currently off antibiotics and will need to remain afebrile for at least 24 hours prior to discharge back to Result Diagram: 12/09/18 0549 12/09/18 0549 Subjective 24 Hr Interval Summary Free Text/Dictation Patient states shes feeling slightly warm and requesting for her temperature to be taken. Denies any new cough, shortness of breath, abdominal pain, or worsening pain in feet. Exam/Review of Systems Exam Vitals Vital Signs Date Temp Pulse Resp B/P (MAP) Pulse Ox O2 O2 Flow FiO2 Time Delivery Rate 12/10/18 98.0 90 18 116/69 97 Room Air 08:39 (85) Intake and Output 12/09/18 12/09/18 12/10/18 1515:00 23:00 07:00 IntakeIntake Total 800 ml 960 ml 240 ml OutputOutput Total 700 ml 800 ml 1800 ml BalanceBalance 100 ml 160 ml -1560 ml Exam General: Patient is laying in bed and answers questions appropriately. no acute distress Neck: Supple Respiratory: Clear to auscultation bilaterally. no wheezing or rhonchi Cardiovascular: regular rate and rhythm, no obvious murmurs Gastrointestinal: soft, non-tender to palpation, nondistended, PEG in place, bowel sounds heard. Neurological: Moves all extremities spontaneously Skin: bandages on feet bilaterally. CDI Medications Medication Current Medications Ondansetron HCl (Zofran Inj) 4 mg Q6H PRN IV NAUSEA/VOMITING Last administered on 12/06/18 10:39; Admin Dose 4 MG; Start 12/01/18 at 15:30 Acetaminophen (Tylenol Tab) 650 mg Q6H PRN PO fever Last administered on 12/07/18 22:25; Admin Dose 650 MG; Start 12/01/18 at 15:30 Acetaminophen/ Hydrocodone Bitart ([place] (5/325)) 1 tab Q6H PRN PO .PAIN 4-6 Last administered on 12/10/18 10:12; Admin Dose 1 TAB; Start 12/01/18 at 15:30 Morphine Sulfate (morphine) 2 mg Q4H PRN IV .PAIN 7-10 Last administered on 12/05/18 16:18; Admin Dose 2 MG; Start 12/01/18 at 15:30 Allopurinol (Zyloprim) 200 mg DAILY PEG Last administered on 12/10/18 08:36; Admin Dose 200 MG; Start 12/01/18 at 15:30 Atenolol (Tenormin) 25 mg DAILY PEG Last administered on 12/10/18 08:43; Admin Dose 25 MG; Start 12/01/18 at 15:30 Calcium Acetate (Phoslo) 667 mg BID PEG Last administered on 12/05/18 21:15; Admin Dose 667 MG; Start 12/01/18 at 21:00; Status Hold Fish Oil (Fish Oil) 1,000 mg DAILY PO Last administered on 12/10/18 08:37; Admin Dose 1,000 MG; Start 12/01/18 at 15:30 Atorvastatin Calcium (Lipitor) 40 mg HS PEG Last administered on 12/09/18 20:28; Admin Dose 40 MG; Start 12/01/18 at 21:00 Cyanocobalamin (Vitamin B12) 100 mcg DAILY NGT Last administered on 12/10/18 08:35; Admin Dose 100 MCG; Start 12/02/18 at 09:00 Ascorbic Acid (Vitamin C) 500 mg DAILY GTB Last administered on 12/10/18 08:35; Admin Dose 500 MG; Start 12/02/18 at 09:00 Diphenhydramine HCl (Benadryl Liquid Cup) 12.5 mg DAILY PRN PEG itching Last administered on 12/09/18 21:13; Admin Dose 12.5 MG; Start 12/01/18 at 16:30 Methylprednisolone (Medrol) 5 mg DAILY PEG Last administered on 12/10/18 08:42; Admin Dose 5 MG; Start 12/03/18 at 09:00 Nystatin (Nystatin Powder) 1 applic BID TOP Last administered on 12/10/18 10:49; Admin Dose 1 APPLIC; Start 12/02/18 at 21:00 Neomycin/ Polymyxin/ Bacitracin (Neosporin Topical Oint) 1 applic DAILY TOP Last administered on 12/07/18 09:20; Admin Dose 1 APPLIC; Start 12/03/18 at 18:30 Sodium Hypochlorite (Dakins Diluted (/40)) 1 applic DAILY TP Last administered on 12/04/18 10:00; Admin Dose 1 APPLIC; Start 12/03/18 at 21:00 Gabapentin (Neurontin) 300 mg TID GTB Last administered on 12/10/18 08:33; Ad min Dose 300 MG; Start 12/04/18 at 13:00 Eye Lubricant (Refresh Plus) 1 drop QID PRN BOTH EYES dry eyes Last administered on 12/10/18 10:12; Admin Dose 1 DROP; Start 12/04/18 at 12:30 Lansoprazole (Prevacid) 30 mg DAILY@06 GTB Last administered on 12/10/18 06:33; Admin Dose 30 MG; Start 12/05/18 at 06:00 Fluticasone Propionate (Flonase 0.05% Nasal) 1 spray DAILY NASAL Last administered on 12/10/18 08:35; Admin Dose 1 SPRAY; Start 12/05/18 at 09:00 Hydroxychloroquine Sulfate (Plaquenil) 400 mg DAILY GTB Last administered on 12/10/18 08:34; Admin Dose 400 MG; Start 12/05/18 at 09:00 Mirtazapine (Remeron) 15 mg HS GTB Last administered on 12/09/18 20:28; Admin Dose 15 MG; Start 12/04/18 at 21:00 Mycophenolate Mofetil (Cellcept) 1,000 mg DAILY PO Last administered on 12/10/18 08:37; Admin Dose 1,000 MG; Start 12/05/18 at 09:00 Oxybutynin Chloride (Ditropan) 5 mg TID GTB Last administered on 12/10/18 08:32; Admin Dose 5 MG; Start 12/04/18 at 21:00 Polyethylene Glycol (Miralax) 17 gm DAILY GTB Last administered on 12/05/18 08:57; Admin Dose 17 GM; Start 12/05/18 at 09:00 Valacyclovir HCl (Valtrex) 500 mg DAILY GTB Last administered on 12/10/18 08:45; Admin Dose 500 MG; Start 12/05/18 at 09:00 Zinc Sulfate (Zinc Sulfate) 220 mg DAILY GTB Last administered on 12/10/18 08:44; Admin Dose 220 MG; Start 12/05/18 at 09:00 Ferrous Sulfate (Feosol Liquid Cup) 300 mg TID GTB Last administered on 12/10/18 08:32; Admin Dose 300 MG; Start 12/04/18 at 21:10 Tramadol HCl (Ultram) 100 mg Q8H PRN GTB PAIN Last administered on 12/09/18 21:14; Admin Dose 100 MG; Start 12/05/18 at 20:30 Acetaminophen (Tylenol Tab) 1,000 mg Q6H PRN PO MILD PAIN(1-3)OR ELEVATED TEMP Last administered on 12/10/18 00:43; Admin Dose 1,000 MG; Start 12/06/18 at 15:30 Lactobacillus Acidophilus/ Rhamnosus (Culturelle) 1 cap WITH MEALS PO Last administered on 12/10/18 10:13; Admin Dose 1 CAP; Start 12/06/18 at 17:35 Petrolatum (Vaseline) 1 applic Q2 TOP Last administered on 12/10/18 09:07; Admin Dose 1 APPLIC; Start 12/06/18 at 22:00 Sodium Phosphate (Neutra-Phos) 250 mg BID GTB Last administered on 12/10/18 08:33; Admin Dose 250 MG; Start 12/07/18 at 09:00 Simethicone (Mylicon) 80 mg Q6H PRN PO DISTENSION/GAS/BLOATING Last administered on 12/07/18at 14:47; Admin Dose 80 MG; Start 12/07/18 at 12:00 Enoxaparin Sodium (Lovenox) 30 mg DAILY SC Last administered on 12/10/18 08:3 8; Admin Dose 30 MG; Start 12/09/18 at 09:00 Ondansetron HCl (Zofran Inj) 4 mg BEFORE MEALS IV Last administered on 12/10/18 08:32; Admin Dose 4 MG; Start 12/08/18 at 11:30 Docusate Sodium (Colace Liquid Cup) 100 mg BID PRN PEG constipation; Start 12/08/18 at 11:00 Senna (Senokot) 2 tab BID PRN GTB constipation; Start 12/08/18 at 11:00 Cholecalciferol (Vitamin D) 400 units DAILY GTB Last administered on 12/10/18at 08:35; Admin Dose 400 UNITS; Start 12/08/18 at 11:00 Calcium Carbonate (Tums) 500 mg Q4H PRN PO reflux Last administered on 12/10/18at 10:48; Admin Dose 500 MG; Start 12/08/18 at 11:30 SOURAV ALVARADO MD Dec 10, 2018 11:58
--- NOTE | 2018-12-10 14:31 | CONS ---
Assessment/Plan Assessment/Plan Assessment/Plan (Daily) 1. Nonoliguric acute kidney injury on top of chronic kidney disease stage III with unknown baseline creatinine. Etiology of acute kidney injury is secondary to hemodynamics. Renal function is improved. Continue to monitor. Continue current treatment plan, supportive care, renally dose all medications. 2. Chronic kidney disease with history of lupus. The patient is in acute kidney injury as stated above. Continue current treatment plan. Continue disease factor modification. Continue CellCept. 3. Hypernatremia, improved. 4. Anemia. Monitor hemoglobin and hematocrit levels. 5. Mineral bone disorder. Monitor calcium and phosphorus levels. Continue sodium phosphate. 6. History of lupus. Continue medical management. 7. Metabolic acidosis, resolved. The patient is status post Bicitra. 8. Bilateral foot wounds. Continue treatment plan. 9. Hypertension. Continue current medical management. 10. History of gout. Continue allopurinol. 11. Dyslipidemia. Continue statin therapy. 12. Dysphagia. Continue tube feeding. Consultation Date/Type/Reason Admit Date/Time Dec 01, 2018 at 15:06 Initial Consult Date Date/Time of Note DATE: 12/10/18 TIME: 14:30 24 HR Interval Summary Free Text/Dictation denies shortness of breath or n/v no urinary issues d/w rn gen nad cv rrr pulm ctab abd soft, nd, nt +bs ext: no edema Exam/Review of Systems Exam Vitals Vital Signs Date Temp Pulse Resp B/P (MAP) Pulse Ox O2 O2 Flow FiO2 Time Delivery Rate 12/10/18 99.7 12:10 12/10/18 90 18 116/69 97 Room Air 08:39 (85) Intake and Output 12/09/18 12/09/18 12/10/18 1515:00 23:00 07:00 IntakeIntake Total 800 ml 960 ml 240 ml OutputOutput Total 700 ml 800 ml 1800 ml BalanceBalance 100 ml 160 ml -1560 ml Results Result Diagram: 12/09/18 0549 12/09/18 0549 Medications Medication Current Medications Ondansetron HCl (Zofran Inj) 4 mg Q6H PRN IV NAUSEA/VOMITING Last administered on 12/06/18at 10:39; Admin Dose 4 MG; Start 12/01/18 at 15:30 Acetaminophen (Tylenol Tab) 650 mg Q6H PRN PO fever Last administered on 12/07/18 22:25; Admin Dose 650 MG; Start 12/01/18 at 15:30 Acetaminophen/ Hydrocodone Bitart ([place] (5/325)) 1 tab Q6H PRN PO .PAIN 4-6 Last administered on 12/10/18 10:12; Admin Dose 1 TAB; Start 12/01/18 at 15:30 Morphine Sulfate (morphine) 2 mg Q4H PRN IV .PAIN 7-10 Last administered on 12/05/18 16:18; Admin Dose 2 MG; Start 12/01/18 at 15:30 Allopurinol (Zyloprim) 200 mg DAILY PEG Last administered on 12/10/18 08:36; Admin Dose 200 MG; Start 12/01/18 at 15:30 Atenolol (Tenormin) 25 mg DAILY PEG Last administered on 12/10/18 08:43; Admin Dose 25 MG; Start 12/01/18 at 15:30 Calcium Acetate (Phoslo) 667 mg BID PEG Last administered on 12/05/18 21:15; Admin Dose 667 MG; Start 12/01/18 at 21:00; Status Hold Fish Oil (Fish Oil) 1,000 mg DAILY PO Last administered on 12/10/18 08:37; Admin Dose 1,000 MG; Start 12/01/18 at 15:30 Atorvastatin Calcium (Lipitor) 40 mg HS PEG Last administered on 12/09/18 20:28; Admin Dose 40 MG; Start 12/01/18 at 21:00 Cyanocobalamin (Vitamin B12) 100 mcg DAILY NGT Last administered on 12/10/18 08:35; Admin Dose 100 MCG; Start 12/02/18 at 09:00 Ascorbic Acid (Vitamin C) 500 mg DAILY GTB Last administered on 12/10/18 08:3 5; Admin Dose 500 MG; Start 12/02/18 at 09:00 Diphenhydramine HCl (Benadryl Liquid Cup) 12.5 mg DAILY PRN PEG itching Last administered on 12/09/18 21:13; Admin Dose 12.5 MG; Start 12/01/18 at 16:30 Methylprednisolone (Medrol) 5 mg DAILY PEG Last administered on 12/10/18 08:42; Admin Dose 5 MG; Start 12/03/18 at 09:00 Nystatin (Nystatin Powder) 1 applic BID TOP Last administered on 12/10/18 10:49; Admin Dose 1 APPLIC; Start 12/02/18 at 21:00 Neomycin/ Polymyxin/ Bacitracin (Neosporin Topical Oint) 1 applic DAILY TOP Last administered on 12/07/18 09:20; Admin Dose 1 APPLIC; Start 12/03/18 at 18:30 Sodium Hypochlorite (Dakins Diluted (40)) 1 applic DAILY TP Last administered on 12/04/18 10:00; Admin Dose 1 APPLIC; Start 12/03/18 at 21:00 Gabapentin (Neurontin) 300 mg TID GTB Last administered on 12/10/18 14:00; Admin Dose 300 MG; Start 12/04/18 at 13:00 Eye Lubricant (Refresh Plus) 1 drop QID PRN BOTH EYES dry eyes Last administered on 12/10/18 10:12; Admin Dose 1 DROP; Start 12/04/18 at 12:30 Lansoprazole (Prevacid) 30 mg DAILY@06 GTB Last administered on 12/10/18 06 :33; Admin Dose 30 MG; Start 12/05/18 at 06:00 Fluticasone Propionate (Flonase 0.05% Nasal) 1 spray DAILY NASAL Last administered on 12/10/18 08:35; Admin Dose 1 SPRAY; Start 12/05/18 at 09:00 Hydroxychloroquine Sulfate (Plaquenil) 400 mg DAILY GTB Last administered on 12/10/18 08:34; Admin Dose 400 MG; Start 12/05/18 at 09:00 Mirtazapine (Remeron) 15 mg HS GTB Last administered on 12/09/18 20:28; Admin Dose 15 MG; Start 12/04/18 at 21:00 Mycophenolate Mofetil (Cellcept) 1,000 mg DAILY PO Last administered on 12/10/18 08:37; Admin Dose 1,000 MG; Start 12/05/18 at 09:00 Oxybutynin Chloride (Ditropan) 5 mg TID GTB Last administered on 12/10/18 14:00; Admin Dose 5 MG; Start 12/04/18 at 21:00 Polyethylene Glycol (Miralax) 17 gm DAILY GTB Last administered on 12/05/18 08:57; Admin Dose 17 GM; Start 12/05/18 at 09:00 Valacyclovir HCl (Valtrex) 500 mg DAILY GTB Last administered on 12/10/18 08:45; Admin Dose 500 MG; Start 12/05/18 at 09:00 Zinc Sulfate (Zinc Sulfate) 220 mg DAILY GTB Last administered on 12/10/18 08:44; Admin Dose 220 MG; Start 12/05/18 at 09:00 Ferrous Sulfate (Feosol Liquid Cup) 300 mg TID GTB Last administered on 12/10/18 13:59; Admin Dose 300 MG; Start 12/04/18 at 21:10 Tramadol HCl (Ultram) 100 mg Q8H PRN GTB PAIN Last administered on 12/09/18 2 1:14; Admin Dose 100 MG; Start 12/05/18 at 20:30 Acetaminophen (Tylenol Tab) 1,000 mg Q6H PRN PO MILD PAIN(1-3)OR ELEVATED TEMP Last administered on 12/10/18 00:43; Admin Dose 1,000 MG; Start 12/06/18 at 15:30 Lactobacillus Acidophilus/ Rhamnosus (Culturelle) 1 cap WITH MEALS PO Last administered on 12/10/18 14:00; Admin Dose 1 CAP; Start 12/06/18 at 17:35 Petrolatum (Vaseline) 1 applic Q2 TOP Last administered on 12/10/18 14:00; Admin Dose 1 APPLIC; Start 12/06/18 at 22:00 Sodium Phosphate (Neutra-Phos) 250 mg BID GTB Last administered on 12/10/18 08:33; Admin Dose 250 MG; Start 12/07/18 at 09:00 Simethicone (Mylicon) 80 mg Q6H PRN PO DISTENSION/GAS/BLOATING Last administered on 12/07/18 14:47; Admin Dose 80 MG; Start 12/07/18 at 12:00 Enoxaparin Sodium (Lovenox) 30 mg DAILY SC Last administered on 12/10/18 08:38; Admin Dose 30 MG; Start 12/09/18 at 09:00 Ondansetron HCl (Zofran Inj) 4 mg BEFORE MEALS IV Last administered on 4/21/19at 12:15; Admin Dose 4 MG; Start 12/08/18 at 11:30 Docusate Sodium (Colace Liquid Cup) 100 mg BID PRN PEG constipation; Start 12/08/18 at 11:00 Senna (Senokot) 2 tab BID PRN GTB constipation; Start 12/08/18 at 11:00 Cholecalciferol (Vitamin D) 400 units DAILY GTB Last administered on 12/10/18at 08:35; Admin Dose 400 UNITS; Start 12/08/18 at 11:00 Calcium Carbonate (Tums) 500 mg Q4H PRN PO reflux Last administered on 12/10/18at 10:48; Admin Dose 500 MG; Start 12/08/18 at 11:30 MARIN BAY MD Dec 10, 2018 14:31
[2018-12-10 15:05] VITALS: BP 123/68; PULSE 95; RESP 18
--- NOTE | 2018-12-10 17:09 | CONS ---
Consultation Date/Type/Reason Admit Date/Time Dec 01, 2018 at 15:06 Initial Consult Date SUBJECTIVE: Patient is awake,alert, looks comfortable. Pt had a low- grade fever last night VS: stable T: 99.6 LABS: Reviewed. CXR today: IMPRESSION: No significant change. Mild cardiomegaly with aortic calcifications. No evidence for acute cardiopulmonary disease. Further findings as detailed above. Wound cultures growing MRSA Antimicrobials: S/P= Vancomycin and Zosyn. Now off of antbx. Physical examination: GEN: Well-developed fragile elderly -[place] woman, who is awake ,in no distress HENT: head atraumatic normocephalic, neck is supple PULM: chest rise symmetrical, breath sounds clear Heart: S1-S2 Abdomen: soft, bowel sounds present Extremities: bilateral feet dressing clean dry and intact Assessment: 1. 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 Diabetes 3. Peripheral arterial disease 4. Acute renal failure, improved 5. Anemia Plan: Patient remains stable. CXR today noted and negative. Continue pt off of antbx. and will order UA cx. Date/Time of Note DATE: 12/10/18 TIME: 17:07 Exam/Review of Systems Exam Vitals Vital Signs Date Temp Pulse Resp B/P (MAP) Pulse Ox O2 O2 Flow FiO2 Time Delivery Rate 12/10/18 99.6 95 18 123/68 97 Room Air 15:05 (86) Intake and Output 12/09/18 12/09/18 12/10/18 1515:00 23:00 07:00 IntakeIntake Total 800 ml 960 ml 240 ml OutputOutput Total 700 ml 800 ml 1800 ml BalanceBalance 100 ml 160 ml -1560 ml Results Result Diagram: 12/09/18 0549 12/09/18 0549 Medications Medication Current Medications Ondansetron HCl (Zofran Inj) 4 mg Q6H PRN IV NAUSEA/VOMITING Last administered on 12/06/18at 10:39; Admin Dose 4 MG; Start 12/01/18 at 15:30 Acetaminophen (Tylenol Tab) 650 mg Q6H PRN PO fever Last administered on 12/07/18at 22:25; Admin Dose 650 MG; Start 12/01/18 at 15:30 Acetaminophen/ Hydrocodone Bitart ([place] (5/325)) 1 tab Q6H PRN PO .PAIN 4-6 Last administered on 12/10/18 16:42; Admin Dose 1 TAB; Start 12/01/18 at 15:30 Morphine Sulfate (morphine) 2 mg Q4H PRN IV .PAIN 7-10 Last administered on 12/05/18 16:18; Admin Dose 2 MG; Start 12/01/18 at 15:30 Allopurinol (Zyloprim) 200 mg DAILY PEG Last administered on 12/10/18 08:36; Admin Dose 200 MG; Start 12/01/18 at 15:30 Atenolol (Tenormin) 25 mg DAILY PEG Last administered on 12/10/18 08:43; Admin Dose 25 MG; Start 12/01/18 at 15:30 Calcium Acetate (Phoslo) 667 mg BID PEG Last administered on 12/05/18 21:15; Admin Dose 667 MG; Start 12/01/18 at 21:00; Status Hold Fish Oil (Fish Oil) 1,000 mg DAILY PO Last administered on 12/10/18 08:37; Admin Dose 1,000 MG; Start 12/01/18 at 15:30 Atorvastatin Calcium (Lipitor) 40 mg HS PEG Last administered on 12/09/18 20:28; Admin Dose 40 MG; Start 12/01/18 at 21:00 Cyanocobalamin (Vitamin B12) 100 mcg DAILY NGT Last administered on 12/10/18 08:35; Admin Dose 100 MCG; Start 12/02/18 at 09:00 Ascorbic Acid (Vitamin C) 500 mg DAILY GTB Last administered on 12/10/18 08:35; Admin Dose 500 MG; Start 12/02/18 at 09:00 Diphenhydramine HCl (Benadryl Liquid Cup) 12.5 mg DAILY PRN PEG itching Last administered on 12/09/18 21:13; Admin Dose 12.5 MG; Start 12/01/18 at 16:30 Methylprednisolone (Medrol) 5 mg DAILY PEG Last administered on 12/10/18 08:42 ; Admin Dose 5 MG; Start 12/03/18 at 09:00 Nystatin (Nystatin Powder) 1 applic BID TOP Last administered on 12/10/18 10:49; Admin Dose 1 APPLIC; Start 12/02/18 at 21:00 Neomycin/ Polymyxin/ Bacitracin (Neosporin Topical Oint) 1 applic DAILY TOP Last administered on 12/07/18 09:20; Admin Dose 1 APPLIC; Start 12/03/18 at 18:30 Sodium Hypochlorite (Dakins Diluted (1/40)) 1 applic DAILY TP Last administered on 12/04/18 10:00; Admin Dose 1 APPLIC; Start 12/03/18 at 21:00 Gabapentin (Neurontin) 300 mg TID GTB Last administered on 12/10/18 14:00; Admin Dose 300 MG; Start 12/04/18 at 13:00 Eye Lubricant (Refresh Plus) 1 drop QID PRN BOTH EYES dry eyes Last administered on 12/10/18 10:12; Admin Dose 1 DROP; Start 12/04/18 at 12:30 Lansoprazole (Prevacid) 30 mg DAILY@06 GTB Last administered on 12/10/18 06:33; Admin Dose 30 MG; Start 12/05/18 at 06:00 Fluticasone Propionate (Flonase 0.05% Nasal) 1 spray DAILY NASAL Last administered on 12/10/18 08:35; Admin Dose 1 SPRAY; Start 12/05/18 at 09:00 Hydroxychloroquine Sulfate (Plaquenil) 400 mg DAILY GTB Last administered on 12/10/18 08:34; Admin Dose 400 MG; Start 12/05/18 at 09:00 Mirtazapine (Remeron) 15 mg HS GTB Last administered on 12/09/18 20:28; Admin Dose 15 MG; Start 12/04/18 at 21:00 Mycophenolate Mofetil (Cellcept) 1,000 mg DAILY PO Last administered on 12/10/18 08:37; Admin Dose 1,000 MG; Start 12/05/18 at 09:00 Oxybutynin Chloride (Ditropan) 5 mg TID GTB Last administered on 12/10/18 14:00; Admin Dose 5 MG; Start 12/04/18 at 21:00 Polyethylene Glycol (Miralax) 17 gm DAILY GTB Last administered on 12/05/18 08:57; Admin Dose 17 GM; Start 12/05/18 at 09:00 Valacyclovir HCl (Valtrex) 500 mg DAILY GTB Last administered on 12/10/18 08:45; Admin Dose 500 MG; Start 12/05/18 at 09:00 Zinc Sulfate (Zinc Sulfate) 220 mg DAILY GTB Last administered on 12/10/18 08:44; Admin Dose 220 MG; Start 12/05/18 at 09:00 Ferrous Sulfate (Feosol Liquid Cup) 300 mg TID GTB Last administered on 12/10/18 13:59; Admin Dose 300 MG; Start 12/04/18 at 21:10 Tramadol HCl (Ultram) 100 mg Q8H PRN GTB PAIN Last administered on 12/09/18 21:14; Admin Dose 100 MG; Start 12/05/18 at 20:30 Acetaminophen (Tylenol Tab) 1,000 mg Q6H PRN PO MILD PAIN(1-3)OR ELEVATED TEMP Last administered on 12/10/18 00:43; Admin Dose 1,000 MG; Start 12/06/18 at 15:30 Lactobacillus Acidophilus/ Rhamnosus (Culturelle) 1 cap WITH MEALS PO Last administered on 12/10/18 14:00; Admin Dose 1 CAP; Start 12/06/18 at 17:35 Petrolatum (Vaseline) 1 applic Q2 TOP Last administered on 12/10/18 16:43; Admin Dose 1 APPLIC; Start 12/06/18 at 22:00 Sodium Phosphate (Neutra-Phos) 250 mg BID GTB Last administered on 12/10/18 08:33; Admin Dose 250 MG; Start 12/07/18 at 09:00 Simethicone (Mylicon) 80 mg Q6H PRN PO DISTENSION/GAS/BLOATING Last administered on 12/07/18 14:47; Admin Dose 80 MG; Start 12/07/18 at 12:00 Enoxaparin Sodium (Lovenox) 30 mg DAILY SC Last administered on 12/10/18 08:38; Admin Dose 30 MG; Start 12/09/18 at 09:00 Ondansetron HCl (Zofran Inj) 4 mg BEFORE MEALS IV Last administered on 12/10/18 16:42; Admin Dose 4 MG; Start 12/08/18 at 11:30 Docusate Sodium (Colace Liquid Cup) 100 mg BID PRN PEG constipation; Start 12/08/18 at 11:00 Senna (Senokot) 2 tab BID PRN GTB constipation; Start 12/08/18 at 11:00 Cholecalciferol (Vitamin D) 400 units DAILY GTB Last administered on 12/10/18at 08:35; Admin Dose 400 UNITS; Start 12/08/18 at 11:00 Calcium Carbonate (Tums) 500 mg Q4H PRN PO reflux Last administered on 12/10/18at 10:48; Admin Dose 500 MG; Start 12/08/18 at 11:30 REDD DANIELSON Dec 10, 2018 17:09
[2018-12-10 20:00] VITALS: BP 110/63; PULSE 99; RESP 18
[2018-12-10] MEDS: MIRTAZAPINE 15 MG TAB GTB SCH (20:48)
[2018-12-10] MEDS: ATORVASTATIN 40 MG TAB PEG SCH (20:48)
[2018-12-10] MEDS: traMADol 50 MG TAB GTB PRN (20:57)
[2018-12-11] MEDS: PETROLATUM 28.35 GM JELLY TOP SCH ×12 (01:00→23:00)
[2018-12-11 02:00] VITALS: BP 109/61; PULSE 88; RESP 18
[2018-12-11] MEDS: HYDROCODONE/APAP (5/325) TAB PO PRN ×3 (04:17→17:39)
[2018-12-11] MEDS: LANSOPRAZOLE 30 MG CAP GTB SCH (06:19)
[2018-12-11] MEDS: traMADol 50 MG TAB GTB PRN ×2 (06:20→14:53)
[2018-12-11] MEDS: ONDANSETRON 4 MG INJ IV SCH ×3 (07:30→17:38)
[2018-12-11 08:50] VITALS: BP 113/64; PULSE 92; RESP 17
[2018-12-11] MEDS: NEOMYC/POLYMYX/BACIT 30 GM OINT TOP SCH (09:00)
[2018-12-11] MEDS: DAKINS 0.0125%(1/40) 473 ML SOLUTION TP SCH (09:00)
[2018-12-11] MEDS: POLYETHYLENE GLYCOL 17 GM PACKET GTB SCH (09:00)
--- NOTE | 2018-12-11 09:25 | PN ---
DATE: 12/11/2018 SUBJECTIVE: The patient is stable, no events overnight. OBJECTIVE: VITAL SIGNS: Blood pressure is 109/61, respirations 18, pulse 88, temperature 98.6. HEENT: Head is normocephalic. NECK: Supple. HEART: Regular rate. LUNGS: Show diminished breath sounds at the base. ABDOMEN: Soft, nontender to palpation without rebound or guarding. EXTREMITIES: Negative for clubbing, cyanosis. Positive wounds. DERMATOLOGIC: No rashes. MUSCULOSKELETAL: No joint effusion. NEUROLOGIC: No change in exam. MEDICATIONS: Reviewed. LABORATORY DATA: Reviewed. ASSESSMENT AND PLAN: 1. Nonoliguric acute kidney injury on top of chronic kidney disease stage III with a previously unkn own baseline creatinine. Etiology of acute kidney injury is secondary to hemodynamics. Renal functi on has been fluctuating, but overall improving. Continue current treatment plans, supportive care, r enally dose all medicines. 2. Chronic kidney disease with history of lupus. The patient is currently in acute kidney injury as stated above. Continue current treatment plan. Continue disease factor modification. Continue Davina lCept. 3. Hypernatremia, improved. 4. Anemia. Monitor hemoglobin and hematocrit levels. 5. Mineral bone disorder. Monitor calcium and phosphorus levels. 6. History of lupus. Continue medical management. 7. Metabolic acidosis, resolved. 8. Bilateral foot wounds. Continue treatment plan. 9. Hypertension. Continue current blood pressure regimen. 10. History of gout. Continue allopurinol. 11. Dyslipidemia. Continue statin therapy. 12. Dysphagia. Continue tube feeding. Dictated By: JANINE LOPEZ DO NR/NTS Conf#: [id number] DID#: [id number] CC: ITZ BAY MD;*EndCC*
[2018-12-11] MEDS: ENOXAPARIN 30 MG/0.3 ML SYG SC SCH (09:32)
[2018-12-11] MEDS: FLUTICASONE 0.05% 16 GM NAS SPRAY NASAL SCH (09:33)
[2018-12-11] MEDS: CHOLECALCIFEROL 400 UNITS TAB GTB SCH (09:34)
[2018-12-11] MEDS: ALLOPURINOL 100 MG TAB PEG SCH (09:34)
[2018-12-11] MEDS: FISH OIL 1,000 MG CAP PO SCH (09:34)
[2018-12-11] MEDS: ATENOLOL 25 MG TAB PEG SCH (09:34)
[2018-12-11] MEDS: NEUTRA-PHOS 250 MG PACKET GTB SCH ×2 (09:34→20:15)
[2018-12-11] MEDS: METHYLPREDNISOLONE 4 MG TAB PEG SCH (09:35)
[2018-12-11] MEDS: MYCOPHENOLATE 250 MG CAP PO SCH (09:35)
[2018-12-11] MEDS: CYANOCOBALAMIN 100 MCG TAB NGT SCH (09:36)
[2018-12-11] MEDS: HYDROXYCHLOROQUINE 200 MG TAB GTB SCH (09:36)
[2018-12-11] MEDS: FERROUS SULFATE 60 MG/ML 5ML CUP GTB SCH ×3 (09:36→20:15)
[2018-12-11] MEDS: LACTOBACILLUS RHAMNOSUS CAP PO SCH ×3 (09:36→17:38)
[2018-12-11] MEDS: OXYBUTYNIN 5 MG TAB GTB SCH ×3 (09:36→20:15)
[2018-12-11] MEDS: GABAPENTIN 300 MG CAP GTB SCH ×3 (09:37→20:15)
[2018-12-11] MEDS: ASCORBIC ACID 500 MG TAB GTB SCH (09:37)
[2018-12-11] MEDS: valACYclovir 500 MG TAB GTB SCH (09:41)
[2018-12-11] MEDS: ZINC SULFATE 220 MG CAP GTB SCH (09:41)
[2018-12-11] MEDS: NYSTATIN 30 GM POWDER BTL TOP SCH ×2 (09:44→20:16)
[2018-12-11] MEDS: CARBOXYMETHYLCELLULOSE 0.5% 0.4 ML OPH BOTH EYES PRN (11:15)
--- NOTE | 2018-12-11 13:23 | PN ---
Date/Time of Note Date/Time of Note DATE: 12/11/18 TIME: 13:21 Objective Vitals Vital Signs Date Temp Pulse Resp B/P (MAP) Pulse Ox O2 O2 Flow FiO2 Time Delivery Rate 12/11/18 99.8 92 17 113/64 98 08:50 (80) 12/10/18 Room Air 15:05 Intake and Output 12/10/18 12/10/18 12/11/18 1515:00 23:00 07:00 IntakeIntake Total 900 ml 240 ml 1900 ml OutputOutput Total 900 ml 600 ml BalanceBalance 0 ml -360 ml 1900 ml Results Result Diagram: 12/11/18 0535 12/11/18 0535 Medications Medications Current Medications Ondansetron HCl (Zofran Inj) 4 mg Q6H PRN IV NAUSEA/VOMITING Last administered on 12/06/18 10:39; Admin Dose 4 MG; Start 12/01/18 at 15:30 Acetaminophen (Tylenol Tab) 650 mg Q6H PRN PO fever Last administered on 12/07/18 22:25; Admin Dose 650 MG; Start 12/01/18 at 15:30 Acetaminophen/ Hydrocodone Bitart ([place] (5/325)) 1 tab Q6H PRN PO .PAIN 4-6 Last administered on 12/11/18 11:15; Admin Dose 1 TAB; Start 12/01/18 at 15:30 Morphine Sulfate (morphine) 2 mg Q4H PRN IV .PAIN 7-10 Last administered on 12/05/18 16:18; Admin Dose 2 MG; Start 12/01/18 at 15:30 Allopurinol (Zyloprim) 200 mg DAILY PEG Last administered on 12/11/18 09:34; Admin Dose 200 MG; Start 12/01/18 at 15:30 Atenolol (Tenormin) 25 mg DAILY PEG Last administered on 12/11/18 09:34; Admin Dose 25 MG; Start 12/01/18 at 15:30 Calcium Acetate (Phoslo) 667 mg BID PEG Last administered on 12/05/18 21:15; Admin Dose 667 MG; Start 12/01/18 at 21:00; Status Hold Fish Oil (Fish Oil) 1,000 mg DAILY PO Last administered on 12/11/18 09:34; Admin Dose 1,000 MG; Start 12/01/18 at 15:30 Atorvastatin Calcium (Lipitor) 40 mg HS PEG Last administered on 12/10/18 20:48; Admin Dose 40 MG; Start 12/01/18 at 21:00 Cyanocobalamin (Vitamin B12) 100 mcg DAILY NGT Last administered on 12/11/18 09:36; Admin Dose 100 MCG; Start 12/02/18 at 09:00 Ascorbic Acid (Vitamin C) 500 mg DAILY GTB Last administered on 12/11/18 0 9:37; Admin Dose 500 MG; Start 12/02/18 at 09:00 Diphenhydramine HCl (Benadryl Liquid Cup) 12.5 mg DAILY PRN PEG itching Last administered on 12/09/18 21:13; Admin Dose 12.5 MG; Start 12/01/18 at 16:30 Methylprednisolone (Medrol) 5 mg DAILY PEG Last administered on 12/11/18 09:35; Admin Dose 5 MG; Start 12/03/18 at 09:00 Nystatin (Nystatin Powder) 1 applic BID TOP Last administered on 12/11/18 09:44; Admin Dose 1 APPLIC; Start 12/02/18 at 21:00 Neomycin/ Polymyxin/ Bacitracin (Neosporin Topical Oint) 1 applic DAILY TOP Last administered on 12/07/18 09:20; Admin Dose 1 APPLIC; Start 12/03/18 at 18:30 Sodium Hypochlorite (Dakins Diluted (1/40)) 1 applic DAILY TP Last administered on 12/04/18 10:00; Admin Dose 1 APPLIC; Start 12/03/18 at 21:00 Gabapentin (Neurontin) 300 mg TID GTB Last administered on 12/11/18 12:27; Admin Dose 300 MG; Start 12/04/18 at 13:00 Eye Lubricant (Refresh Plus) 1 drop QID PRN BOTH EYES dry eyes Last administered on 12/11/18 11:15; Admin Dose 1 DROP; Start 12/04/18 at 12:30 Lansoprazole (Prevacid) 30 mg DAILY@06 GTB Last administered on 12/11/18 06:19; Admin Dose 30 MG; Start 12/05/18 at 06:00 Fluticasone Propionate (Flonase 0.05% Nasal) 1 spray DAILY NASAL Last administered on 12/11/18 09:33; Admin Dose 1 SPRAY; Start 12/05/18 at 09:00 Hydroxychloroquine Sulfate (Plaquenil) 400 mg DAILY GTB Last administered on 12/11/18 09:36; Admin Dose 400 MG; Start 12/05/18 at 09:00 Mirtazapine (Remeron) 15 mg HS GTB Last administered on 12/10/18 20:48; Admin Dose 15 MG; Start 12/04/18 at 21:00 Mycophenolate Mofetil (Cellcept) 1,000 mg DAILY PO Last administered on 12/11/18 09:35; Admin Dose 1,000 MG; Start 12/05/18 at 09:00 Oxybutynin Chloride (Ditropan) 5 mg TID GTB Last administered on 12/11/18 12:27; Admin Dose 5 MG; Start 12/04/18 at 21:00 Polyethylene Glycol (Miralax) 17 gm DAILY GTB Last administered on 12/05/18 08:57; Admin Dose 17 GM; Start 12/05/18 at 09:00 Valacyclovir HCl (Valtrex) 500 mg DAILY GTB Last administered on 12/11/18 09:41; Admin Dose 500 MG; Start 12/05/18 at 09:00 Zinc Sulfate (Zinc Sulfate) 220 mg DAILY GTB Last administered on 12/11/18 09:41; Admin Dose 220 MG; Start 12/05/18 at 09:00 Ferrous Sulfate (Feosol Liquid Cup) 300 mg TID GTB Last administered on 12/11/18 12:27; Admin Dose 300 MG; Start 12/04/18 at 21:10 Tramadol HCl (Ultram) 100 mg Q8H PRN GTB PAIN Last administered on 12/11/18 06:20; Admin Dose 100 MG; Start 12/05/18 at 20:30 Acetaminophen (Tylenol Tab) 1,000 mg Q6H PRN PO MILD PAIN(1-3)OR ELEVATED TEMP Last administered on 12/10/18 00:43; Admin Dose 1,000 MG; Start 12/06/18 at 15:30 Lactobacillus Acidophilus/ Rhamnosus (Culturelle) 1 cap WITH MEALS PO Last administered on 12/11/18 12:27; Admin Dose 1 CAP; Start 12/06/18 at 17:35 Petrolatum (Vaseline) 1 applic Q2 TOP Last administered on 12/11/18 12:28; Admin Dose 1 APPLIC; Start 12/06/18 at 22:00 Sodium Phosphate (Neutra-Phos) 250 mg BID GTB Last administered on 12/11/18 09:34; Admin Dose 250 MG; Start 12/07/18 at 09:00 Simethicone (Mylicon) 80 mg Q6H PRN PO DISTENSION/GAS/BLOATING Last administered on 12/07/18 14:47; Admin Dose 80 MG; Start 12/07/18 at 12:00 Enoxaparin Sodium (Lovenox) 30 mg DAILY SC Last administered on 12/11/18 09:32; Admin Dose 30 MG; Start 12/09/18 at 09:00 Ondansetron HCl (Zofran Inj) 4 mg BEFORE MEALS IV Last administered on 12/11/18 12:27; Admin Dose 4 MG; Start 12/08/18 at 11:30 Docusate Sodium (Colace Liquid Cup) 100 mg BID PRN PEG constipation; Start 12/08/18 at 11:00 Senna (Senokot) 2 tab BID PRN GTB constipation; Start 12/08/18 at 11:00 Cholecalciferol (Vitamin D) 400 units DAILY GTB Last administered on 12/11/18 09:34; Admin Dose 400 UNITS; Start 12/08/18 at 11:00 Calcium Carbonate (Tums) 500 mg Q4H PRN PO reflux Last administered on 12/10/18 10:48; Admin Dose 500 MG; Start 12/08/18 at 11:30 VTE Prophylaxis Risk score (from Nsg)>0 risk: 6 SCD applied (from Ns): Yes Lines/Catheters IV Catheter Type: Louie in Place: No Assessment/Plan Hospital Course Subjective still with mild fever, but relatively asymptomatic Objective Physical exam General: Patient is laying in bed and answers questions appropriately Mentation: Patient is alert and oriented 4, Head: Normocephalic atraumatic Eyes: EOMI, pupils reactive to light Neck: Supple, nontender, midline Respiratory: Clear to auscultation bilaterally Cardiovascular: regular rate, no obvious murmurs Gastrointestinal: non-tender to palpation, bowel sounds heard. Neurological: Moves all extremities spontaneously Skin: Foot ulcers bilaterally Assessment/Plan 1. 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 Patient to maintain NWB status. No further procedures at this time - ID consultation appreciated and will monitor off antibiotics - Pain control fevers -Very mild, -UA negative -Chest x-ray negative -Blood cultures repeat pending -Ultrasound venous to rule out DVT pending -We will need 24-48 hours of being afebrile before safe discharge, patient is immunocompromised due to chronic prednisone and CellCept use. 2. Hypertension- stable - Continue home meds 3. Lupus and rheumatoid arthritis - Continue home meds 4. 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 Gout - continue on Allopurinol 6. Dyslipidemia - continue Lipitor 7. Nutritional deficiency - Soft diet during the day and Tube feeds from 8pm to 8am - dietary consult appreciated 8. Iron deficiency anemia - Continue iron 9. CORINNE on CKD- resolved - Nephrology on board and appreciate recommendations 10. GERD - stable - continue PPI and Tums PRN 11. Disposition - monitor fevers, d/c back to [facility] when fevers gone for 24-48 hrs - ITZ BAY Dec 11, 2018 13:23
[2018-12-11 14:36] VITALS: BP 99/58; PULSE 94; RESP 19
--- NOTE | 2018-12-11 14:41 | CONS ---
Assessment/Plan Assessment/Plan Hospital Course (Demo Recall) Low grade temps, awake, weak, looks comfortable Wound cultures grew MRSA Physical examination: Well-developed fragile elderly -[place] woman who is awake in no distress head atraumatic normocephalic neck is supple chest rise symmetrical breath sounds clear heart S1-S2 abdomen soft bowel sounds present extremities with bilateral feet dressing clean dry and intact Assessment: 1. 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 Diabetes 3. Peripheral arterial disease 4. Acute renal failure, improved 5. Anemia Plan: Patient remains, cxr neg, urine cx neg, continue observing off antibiotics, repeat bld cx for T101 Discuss[address] Dr[address] Vázquez Consultation Date/Type/Reason Admit Date/Time Dec 01, 2018 at 15:06 Initial Consult Date Type of Consult id Date/Time of Note DATE: 12/11/18 TIME: 14:39 Exam/Review of Systems Exam Vitals Vital Signs Date Temp Pulse Resp B/P (MAP) Pulse Ox O2 O2 Flow FiO2 Time Delivery Rate 12/11/18 99.0 94 19 99/58 (72) 96 14:36 12/10/18 Room Air 15:05 Intake and Output 12/10/18 12/10/18 12/11/18 1515:00 23:00 07:00 IntakeIntake Total 900 ml 240 ml 1900 ml OutputOutput Total 900 ml 600 ml BalanceBalance 0 ml -360 ml 1900 ml Results Result Diagram: 12/11/18 0535 12/11/18 0535 Results 24hrs Laboratory Tests Test 12/10/18 18:50 12/11/18 05:35 Urine Color STRAW Urine Clarity CLEAR Urine pH 8.0 Urine Specific [place] 1.005 Urine Ketones NEGATIVE Urine Nitrite NEGATIVE Urine Bilirubin NEGATIVE Urine Urobilinogen NEGATIVE Urine Leukocyte Esterase NEGATIVE Urine Hemoglobin NEGATIVE Urine Glucose NEGATIVE Urine Total Protein NEGATIVE White Blood Count 7.2 Red Blood Count 2.81 L Hemoglobin 8.5 L Hematocrit 27.7 L Mean Corpuscular Volume 98.6 Mean Corpuscular Hemoglobin 30.2 Mean Corpuscular Hemoglobin Concent 30.7 L Red Cell Distribution Width 15.0 H Platelet Count 123 L Mean Platelet Volume 12.9 H Immature Granulocytes % 1.400 H Neutrophils % 67.0 Lymphocytes % 14.8 L Monocytes % 14.6 H Eosinophils % 2.1 Basophils % 0.1 Nucleated Red Blood Cells % 0.0 Immature Granulocytes # 0.100 H Neutrophils # 4.9 Lymphocytes # 1.1 Monocytes # 1.1 H Eosinophils # 0.2 Basophils # 0.0 Nucleated Red Blood Cells # 0.0 Sodium Level 143 Potassium Level 4.2 Chloride Level 110 Carbon Dioxide Level 27 Anion Gap 6 Blood Urea Nitrogen 30 H Creatinine 1.03 H Glucose Level 106 Calcium Level 9.4 Phosphorus Level 3.7 Magnesium Level 2.1 Albumin 3.0 L Medications Medication Current Medications Ondansetron HCl (Zofran Inj) 4 mg Q6H PRN IV NAUSEA/VOMITING Last administered on 12/06/18 10:39; Admin Dose 4 MG; Start 12/01/18 at 15:30 Acetaminophen (Tylenol Tab) 650 mg Q6H PRN PO fever Last administered on 12/07/18 22:25; Admin Dose 650 MG; Start 12/01/18 at 15:30 Acetaminophen/ Hydrocodone Bitart ([place] (5/325)) 1 tab Q6H PRN PO .PAIN 4-6 Last administered on 12/11/18 11:15; Admin Dose 1 TAB; Start 12/01/18 at 15:30 Morphine Sulfate (morphine) 2 mg Q4H PRN IV .PAIN 7-10 Last administered on 12/05/18 16:18; Admin Dose 2 MG; Start 12/01/18 at 15:30 Allopurinol (Zyloprim) 200 mg DAILY PEG Last administered on 12/11/18 09:34; Admin Dose 200 MG; Start 12/01/18 at 15:30 Atenolol (Tenormin) 25 mg DAILY PEG Last administered on 12/11/18 09:34; Admin Dose 25 MG; Start 12/01/18 at 15:30 Calcium Acetate (Phoslo) 667 mg BID PEG Last administered on 12/05/18 21:15; Admin Dose 667 MG; Start 12/01/18 at 21:00; Status Hold Fish Oil (Fish Oil) 1,000 mg DAILY PO Last administered on 12/11/18 09:34; Admin Dose 1,000 MG; Start 12/01/18 at 15:30 Atorvastatin Calcium (Lipitor) 40 mg HS PEG Last administered on 12/10/18 20:48; Admin Dose 40 MG; Start 12/01/18 at 21:00 Cyanocobalamin (Vitamin B12) 100 mcg DAILY NGT Last administered on 12/11/18 09:36; Admin Dose 100 MCG; Start 12/02/18 at 09:00 Ascorbic Acid (Vitamin C) 500 mg DAILY GTB Last administered on 12/11/18 09:37; Admin Dose 500 MG; Start 12/02/18 at 09:00 Diphenhydramine HCl (Benadryl Liquid Cup) 12.5 mg DAILY PRN PEG itching Last administered on 12/09/18 21:13; Admin Dose 12.5 MG; Start 12/01/18 at 16:30 Methylprednisolone (Medrol) 5 mg DAILY PEG Last administered on 12/11/18 09:35; Admin Dose 5 MG; Start 12/03/18 at 09:00 Nystatin (Nystatin Powder) 1 applic BID TOP Last administered on 12/11/18 09:44; Admin Dose 1 APPLIC; Start 12/02/18 at 21:00 Neomycin/ Polymyxin/ Bacitracin (Neosporin Topical Oint) 1 applic DAILY TOP Last administered on 12/07/18 09:20; Admin Dose 1 APPLIC; Start 12/03/18 at 18:30 Sodium Hypochlorite (Dakins Diluted (1/40)) 1 applic DAILY TP Last administered on 12/04/18 10:00; Admin Dose 1 APPLIC; Start 12/03/18 at 21:00 Gabapentin (Neurontin) 300 mg TID GTB Last administered on 12/11/18 12:27; Admin Dose 300 MG; Start 12/04/18 at 13:00 Eye Lubricant (Refresh Plus) 1 drop QID PRN BOTH EYES dry eyes Last administered on 12/11/18 11:15; Admin Dose 1 DROP; Start 12/04/18 at 12:30 Lansoprazole (Prevacid) 30 mg DAILY@06 GTB Last administered on 12/11/18 06:19; Admin Dose 30 MG; Start 12/05/18 at 06:00 Fluticasone Propionate (Flonase 0.05% Nasal) 1 spray DAILY NASAL Last administered on 12/11/18 09:33; Admin Dose 1 SPRAY; Start 12/05/18 at 09:00 Hydroxychloroquine Sulfate (Plaquenil) 400 mg DAILY GTB Last administered on 12/11/18 09:36; Admin Dose 400 MG; Start 12/05/18 at 09:00 Mirtazapine (Remeron) 15 mg HS GTB Last administered on 12/10/18 20:48; Admin Dose 15 MG; Start 12/04/18 at 21:00 Mycophenolate Mofetil (Cellcept) 1,000 mg DAILY PO Last administered on 12/11/18 09:35; Admin Dose 1,000 MG; Start 12/05/18 at 09:00 Oxybutynin Chloride (Ditropan) 5 mg TID GTB Last administered on 12/11/18 12:27; Admin Dose 5 MG; Start 12/04/18 at 21:00 Polyethylene Glycol (Miralax) 17 gm DAILY GTB Last administered on 12/05/18 08:57; Admin Dose 17 GM; Start 12/05/18 at 09:00 Valacyclovir HCl (Valtrex) 500 mg DAILY GTB Last administered on 12/11/18 09:41; Admin Dose 500 MG; Start 12/05/18 at 09:00 Zinc Sulfate (Zinc Sulfate) 220 mg DAILY GTB Last administered on 12/11/18 09: 41; Admin Dose 220 MG; Start 12/05/18 at 09:00 Ferrous Sulfate (Feosol Liquid Cup) 300 mg TID GTB Last administered on 12/11/18 12:27; Admin Dose 300 MG; Start 12/04/18 at 21:10 Tramadol HCl (Ultram) 100 mg Q8H PRN GTB PAIN Last administered on 12/11/18 06:20; Admin Dose 100 MG; Start 12/05/18 at 20:30 Acetaminophen (Tylenol Tab) 1,000 mg Q6H PRN PO MILD PAIN(1-3)OR ELEVATED TEMP Last administered on 12/10/18 00:43; Admin Dose 1,000 MG; Start 12/06/18 at 15:30 Lactobacillus Acidophilus/ Rhamnosus (Culturelle) 1 cap WITH MEALS PO Last administered on 12/11/18 12:27; Admin Dose 1 CAP; Start 12/06/18 at 17:35 Petrolatum (Vaseline) 1 applic Q2 TOP Last administered on 12/11/18 12:28; Admin Dose 1 APPLIC; Start 12/06/18 at 22:00 Sodium Phosphate (Neutra-Phos) 250 mg BID GTB Last administered on 12/11/18 09:34; Admin Dose 250 MG; Start 12/07/18 at 09:00 Simethicone (Mylicon) 80 mg Q6H PRN PO DISTENSION/GAS/BLOATING Last administered on 12/07/18 14:47; Admin Dose 80 MG; Start 12/07/18 at 12:00 Enoxaparin Sodium (Lovenox) 30 mg DAILY SC Last administered on 12/11/18 09:32; Admin Dose 30 MG; Start 12/09/18 at 09:00 Ondansetron HCl (Zofran Inj) 4 mg BEFORE MEALS IV Last administered on 12/11/18 12:27; Admin Dose 4 MG; Start 12/08/18 at 11:30 Docusate Sodium (Colace Liquid Cup) 100 mg BID PRN PEG constipation; Start 12/08/18 at 11:00 Senna (Senokot) 2 tab BID PRN GTB constipation; Start 12/08/18 at 11:00 Cholecalciferol (Vitamin D) 400 units DAILY GTB Last administered on 12/11/18 09:34; Admin Dose 400 UNITS; Start 12/08/18 at 11:00 Calcium Carbonate (Tums) 500 mg Q4H PRN PO reflux Last administered on 12/10/18 10:48; Admin Dose 500 MG; Start 12/08/18 at 11:30 KAMI AMADOR NP Dec 11, 2018 14:41
[2018-12-11 19:40] VITALS: BP 105/60; PULSE 91; RESP 18
[2018-12-11] MEDS: ATORVASTATIN 40 MG TAB PEG SCH (20:15)
[2018-12-11] MEDS: MIRTAZAPINE 15 MG TAB GTB SCH (20:15)
[2018-12-11] MEDS: ACETAMINOPHEN 500 MG TAB PO PRN (21:03)
[2018-12-12] MEDS: PETROLATUM 28.35 GM JELLY TOP SCH ×12 (01:00→23:00)
[2018-12-12 01:07] VITALS: BP 110/60; PULSE 87; RESP 18
[2018-12-12] MEDS: LANSOPRAZOLE 30 MG CAP GTB SCH (05:34)
[2018-12-12 07:55] VITALS: BP 111/61; PULSE 93; RESP 16
--- NOTE | 2018-12-12 08:52 | PN ---
DATE: 12/12/2018 SUBJECTIVE: The patient is stable, no events overnight. No fevers, chills, nausea, or vomiting. OBJECTIVE: VITAL SIGNS: Blood pressure is 111/61, pulse 93, respirations 16, temperature 98.3. HEENT: Head is normocephalic. NECK: Supple. HEART: Regular rate. LUNGS: Show diminished breath sounds at the base. ABDOMEN: Soft, nontender to palpation without rebound or guarding. EXTREMITIES: Negative for clubbing, cyanosis. Positive wounds. DERMATOLOGIC: No rashes. MUSCULOSKELETAL: No joint effusion. NEUROLOGIC: No change in exam. MEDICATIONS: The patient's medications have been reviewed. LABORATORY DATA: From 12/11/2018 was reviewed. Laboratory data from 12/12/18 is pending. ASSESSMENT AND PLAN: 1. Nonoliguric acute kidney injury on top of chronic kidney disease stage III with a previously unkn own baseline creatinine. Etiology of acute kidney injury is secondary to hemodynamics. Renal functi on is fluctuating, but overall improved. Continue current treatment plan, supportive care, renally d ose all medicines. 2. Chronic kidney disease with history of lupus. The patient does not have evidence of active flare . Urinalysis showed no active sediment. Continue current treatment plan as stated above. Continue disease factor modification. Continue treatment of underlying lupus. 3. Hypernatremia, improved. 4. Anemia. Monitor hemoglobin and hematocrit levels. 5. Mineral bone disorder, monitor calcium and phosphorus levels. 6. Metabolic acidosis, resolved. 7. Bilateral foot wounds. Continue current treatment plan. 8. Hypertension. Continue current blood pressure regimen. 9. History of gout. Continue allopurinol. 10. Dyslipidemia. Continue statin therapy. 11. Dysphagia. Continue tube feeding. Dictated By: JANINE LOPEZ DO NR/NTS Conf#: [id number] DID#: [id number] CC: ITZ BAY MD;*EndCC*
[2018-12-12] MEDS: NEOMYC/POLYMYX/BACIT 30 GM OINT TOP SCH (09:00)
[2018-12-12] MEDS: DAKINS 0.0125%(1/40) 473 ML SOLUTION TP SCH (09:00)
[2018-12-12] MEDS: LACTOBACILLUS RHAMNOSUS CAP PO SCH ×3 (09:59→19:05)
[2018-12-12] MEDS: ONDANSETRON 4 MG INJ IV SCH ×3 (09:59→19:05)
[2018-12-12] MEDS: OXYBUTYNIN 5 MG TAB GTB SCH ×3 (10:00→21:30)
[2018-12-12] MEDS: GABAPENTIN 300 MG CAP GTB SCH ×3 (10:00→21:30)
[2018-12-12] MEDS: FERROUS SULFATE 60 MG/ML 5ML CUP GTB SCH ×3 (10:00→21:30)
[2018-12-12] MEDS: POLYETHYLENE GLYCOL 17 GM PACKET GTB SCH (10:00)
[2018-12-12] MEDS: CHOLECALCIFEROL 400 UNITS TAB GTB SCH (10:01)
[2018-12-12] MEDS: ASCORBIC ACID 500 MG TAB GTB SCH (10:01)
[2018-12-12] MEDS: ZINC SULFATE 220 MG CAP GTB SCH (10:01)
[2018-12-12] MEDS: HYDROXYCHLOROQUINE 200 MG TAB GTB SCH (10:01)
[2018-12-12] MEDS: FLUTICASONE 0.05% 16 GM NAS SPRAY NASAL SCH (10:02)
[2018-12-12] MEDS: ENOXAPARIN 30 MG/0.3 ML SYG SC SCH (10:03)
[2018-12-12] MEDS: ALLOPURINOL 100 MG TAB PEG SCH (10:05)
[2018-12-12] MEDS: FISH OIL 1,000 MG CAP PO SCH (10:05)
[2018-12-12] MEDS: MYCOPHENOLATE 250 MG CAP PO SCH (10:05)
[2018-12-12] MEDS: METHYLPREDNISOLONE 4 MG TAB PEG SCH (10:06)
[2018-12-12] MEDS: ATENOLOL 25 MG TAB PEG SCH (10:07)
[2018-12-12] MEDS: NYSTATIN 30 GM POWDER BTL TOP SCH ×2 (10:10→21:30)
[2018-12-12] MEDS ORDERED: valACYclovir 500 MG TAB PO ONE ×5 (10:30→21:00)
[2018-12-12] MEDS: CYANOCOBALAMIN 100 MCG TAB NGT SCH (10:45)
--- NOTE | 2018-12-12 11:02 | PN ---
Date/Time of Note Date/Time of Note DATE: 12/12/18 TIME: 11:01 Objective Vitals Vital Signs Date Temp Pulse Resp B/P (MAP) Pulse Ox O2 O2 Flow FiO2 Time Delivery Rate 12/12/18 98.3 93 16 111/61 99 07:55 (78) 12/10/18 Room Air 15:05 Intake and Output 12/11/18 12/11/18 12/12/18 1515:00 23:00 07:00 IntakeIntake Total 480 ml 240 ml 1300 ml OutputOutput Total 400 ml 400 ml BalanceBalance 80 ml -160 ml 1300 ml Results Result Diagram: 12/11/18 0535 12/11/18 0535 Medications Medications Current Medications Ondansetron HCl (Zofran Inj) 4 mg Q6H PRN IV NAUSEA/VOMITING Last administered on 12/06/18 10:39; Admin Dose 4 MG; Start 12/01/18 at 15:30 Acetaminophen (Tylenol Tab) 650 mg Q6H PRN PO fever Last administered on 12/07/18 22:25; Admin Dose 650 MG; Start 12/01/18 at 15:30 Acetaminophen/ Hydrocodone Bitart ([place] (5/325)) 1 tab Q6H PRN PO .PAIN 4-6 Last administered on 12/11/18 17:39; Admin Dose 1 TAB; Start 12/01/18 at 15:30 Morphine Sulfate (morphine) 2 mg Q4H PRN IV .PAIN 7-10 Last administered on 12/05/18 16:18; Admin Dose 2 MG; Start 12/01/18 at 15:30 Allopurinol (Zyloprim) 200 mg DAILY PEG Last administered on 12/12/18 10:05; Admin Dose 200 MG; Start 12/01/18 at 15:30 Atenolol (Tenormin) 25 mg DAILY PEG Last administered on 12/12/18 10:07; Admin Dose 25 MG; Start 12/01/18 at 15:30 Fish Oil (Fish Oil) 1,000 mg DAILY PO Last administered on 12/12/18 10:05; Admin Dose 1,000 MG; Start 12/01/18 at 15:30 Atorvastatin Calcium (Lipitor) 40 mg HS PEG Last administered on 12/11/18at 20:15; Admin Dose 40 MG; Start 12/01/18 at 21:00 Cyanocobalamin (Vitamin B12) 100 mcg DAILY NGT Last administered on 12/12/18 10:45; Admin Dose 100 MCG; Start 12/02/18 at 09:00 Ascorbic Acid (Vitamin C) 500 mg DAILY GTB Last administered on 12/12/18 10:01; Admin Dose 500 MG; Start 12/02/18 at 09:00 Diphenhydramine HCl (Benadryl Liquid Cup) 12.5 mg DAILY PRN PEG itching Last administered on 12/09/18 21:13; Admin Dose 12.5 MG; Start 12/01/18 at 16:30 Methylprednisolone (Medrol) 5 mg DAILY PEG Last administered on 12/12/18 10:06; Admin Dose 5 MG; Start 12/03/18 at 09:00 Nystatin (Nystatin Powder) 1 applic BID TOP Last administered on 12/12/18 10:10; Admin Dose 1 APPLIC; Start 12/02/18 at 21:00 Neomycin/ Polymyxin/ Bacitracin (Neosporin Topical Oint) 1 applic DAILY TOP Las t administered on 12/07/18 09:20; Admin Dose 1 APPLIC; Start 12/03/18 at 18:30 Sodium Hypochlorite (Dakins Diluted (1/40)) 1 applic DAILY TP Last administered on 12/04/18 10:00; Admin Dose 1 APPLIC; Start 12/03/18 at 21:00 Gabapentin (Neurontin) 300 mg TID GTB Last administered on 12/12/18 10:00; Admin Dose 300 MG; Start 12/04/18 at 13:00 Eye Lubricant (Refresh Plus) 1 drop QID PRN BOTH EYES dry eyes Last administered on 12/11/18 11:15; Admin Dose 1 DROP; Start 12/04/18 at 12:30 Lansoprazole (Prevacid) 30 mg DAILY@06 GTB Last administered on 12/12/18 05:34; Admin Dose 30 MG; Start 12/05/18 at 06:00 Fluticasone Propionate (Flonase 0.05% Nasal) 1 spray DAILY NASAL Last administered on 12/12/18 10:02; Admin Dose 1 SPRAY; Start 12/05/18 at 09:00 Hydroxychloroquine Sulfate (Plaquenil) 400 mg DAILY GTB Last administered on 12/12/18 10:01; Admin Dose 400 MG; Start 12/05/18 at 09:00 Mirtazapine (Remeron) 15 mg HS GTB Last administered on 12/11/18 20:15; Admin Dose 15 MG; Start 12/04/18 at 21:00 Mycophenolate Mofetil (Cellcept) 1,000 mg DAILY PO Last administered on 12/12/18 10:05; Admin Dose 1,000 MG; Start 12/05/18 at 09:00 Oxybutynin Chloride (Ditropan) 5 mg TID GTB Last administered on 12/12/18 10:00; Admin Dose 5 MG; Start 12/04/18 at 21:00 Polyethylene Glycol (Miralax) 17 gm DAILY GTB Last administered on 12/12/18 10:00; Admin Dose 17 GM; Start 12/05/18 at 09:00 Zinc Sulfate (Zinc Sulfate) 220 mg DAILY GTB Last administered on 12/12/18 10:01; Admin Dose 220 MG; Start 12/05/18 at 09:00 Ferrous Sulfate (Feosol Liquid Cup) 300 mg TID GTB Last administered on 12/12/18 10:00; Admin Dose 300 MG; Start 12/04/18 at 21:10 Tramadol HCl (Ultram) 100 mg Q8H PRN GTB PAIN Last administered on 12/11/18 14:53; Admin Dose 100 MG; Start 12/05/18 at 20:30 Acetaminophen (Tylenol Tab) 1,000 mg Q6H PRN PO MILD PAIN(1-3)OR ELEVATED TEMP Last administered on 12/11/18 21:03; Admin Dose 1,000 MG; Start 12/06/18 at 15:30 Lactobacillus Acidophilus/ Rhamnosus (Culturelle) 1 cap WITH MEALS PO Last administered on 12/12/18 09:59; Admin Dose 1 CAP; Start 12/06/18 at 17:35 Petrolatum (Vaseline) 1 applic Q2 TOP Last administered on 12/12/18 10:10; Admin Dose 1 APPLIC; Start 12/06/18 at 22:00 Simethicone (Mylicon) 80 mg Q6H PRN PO DISTENSION/GAS/BLOATING Last adm inistered on 12/07/18 14:47; Admin Dose 80 MG; Start 12/07/18 at 12:00 Enoxaparin Sodium (Lovenox) 30 mg DAILY SC Last administered on 12/12/18 10:03; Admin Dose 30 MG; Start 12/09/18 at 09:00 Ondansetron HCl (Zofran Inj) 4 mg BEFORE MEALS IV Last administered on 12/12/18 09:59; Admin Dose 4 MG; Start 12/08/18 at 11:30 Docusate Sodium (Colace Liquid Cup) 100 mg BID PRN PEG constipation; Start 12/08/18 at 11:00 Senna (Senokot) 2 tab BID PRN GTB constipation; Start 12/08/18 at 11:00 Cholecalciferol (Vitamin D) 400 units DAILY GTB Last administered on 12/12/18 10:01; Admin Dose 400 UNITS; Start 12/08/18 at 11:00 Calcium Carbonate (Tums) 500 mg Q4H PRN PO reflux Last administered on 10:48; Admin Dose 500 MG; Start 12/08/18 at 11:30 Valacyclovir HCl (Valtrex) 1,000 mg DAILY GTB ; Start 12/13/18 at 09:00; Status UNV Valacyclovir HCl (Valtrex) 500 mg DAILY GTB ; Start 12/13/18 at 09:00; Status UNV Valacyclovir HCl (Valtrex) 2,000 mg ONCE ONCE PO ; Start 12/12/18 at 21:00; Stop 12/12/18 at 21:01 VTE Prophylaxis Risk score (from Ns)>0 risk: 7 SCD applied (from [facility] [place]): Yes Lines/Catheters IV Catheter Type: Louie in Place: No Assessment/Plan Hospital Course Subjective still with mild fever, but now stating that she feels like a cold sore flare is acting up for the past day or so Objective Physical exam General: Patient is laying in bed and answers questions appropriately Mentation: Patient is alert and oriented 4, Head: Normocephalic atraumatic Eyes: EOMI, pupils reactive to light Neck: Supple, nontender, midline Respiratory: Clear to auscultation bilaterally Cardiovascular: regular rate, no obvious murmurs Gastrointestinal: non-tender to palpation, bowel sounds heard. Neurological: Moves all extremities spontaneously Skin: Foot ulcers bilaterally Assessment/Plan 1. 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 Patient to maintain NWB status. No further procedures at this time - ID consultation appreciated and will monitor off antibiotics - Pain control fevers -Very mild, -UA negative -Chest x-ray negative -Blood cultures repeat pending -Ultrasound venous negative for DVT -May be due secondary to patient's possible cold sore flare, will give valacyclovir dose for recurrent episode and then resume suppressive dose after -G-tube site examined, no erythema, however will consult GI to take a look. -We will need 24-48 hours of being afebrile before safe discharge, patient is immunocompromised due to chronic prednisone and CellCept use. 2. Hypertension- stable - Continue home meds 3. 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 5. Gout - continue on Allopurinol 6. Dyslipidemia - continue Lipitor 7. Nutritional deficiency - Soft diet during the day and Tube feeds from 8pm to 8am - dietary consult appreciated 8. Iron deficiency anemia - Continue iron 9. CORINNE on CKD- resolved - Nephrology on board and appreciate recommendations 10. GERD - stable - continue PPI and Tums PRN 11. Disposition - monitor fevers, d/c back to [facility] when fevers gone for 24-48 hrs - ITZ BAY Dec 12, 2018 11:02
[2018-12-12] MEDS: traMADol 50 MG TAB GTB PRN (11:42)
[2018-12-12] MEDS: HYDROCODONE/APAP (5/325) TAB PO PRN ×2 (13:02→19:05)
[2018-12-12] MEDS: CARBOXYMETHYLCELLULOSE 0.5% 0.4 ML OPH BOTH EYES PRN (13:12)
--- NOTE | 2018-12-12 14:09 | CONS ---
Assessment/Plan Assessment/Plan Hospital Course (Demo Recall) Patient is alert eating lunch, family at bedside, she states that she feels like she is developing cold sores in the mouth and was started on Valtrex Wound cultures grew MRSA, s/p toe amputation, s/p abx Physical examination: Well-developed fragile elderly -[place] woman who is awake in no distress head atraumatic normocephalic neck is supple chest rise symmetrical breath sounds clear heart S1-S2 abdomen soft bowel sounds present extremities with bilateral feet dressing clean dry and intact Assessment: 1. 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 Diabetes 3. Peripheral arterial disease 4. Acute renal failure, improved 5. Anemia Plan: Patient remains, continue present care, f/u bld cx Discussed with pt Consultation Date/Type/Reason Admit Date/Time Dec 01, 2018 at 15:06 Initial Consult Date Type of Consult id Date/Time of Note DATE: 12/12/18 TIME: 14:07 Exam/Review of Systems Exam Vitals Vital Signs Date Temp Pulse Resp B/P (MAP) Pulse Ox O2 O2 Flow FiO2 Time Delivery Rate 12/12/18 98.3 93 16 111/61 99 07:55 (78) 12/10/18 Room Air 15:05 Intake and Output 12/11/18 12/11/18 12/12/18 1515:00 23:00 07:00 IntakeIntake Total 480 ml 240 ml 1300 ml OutputOutput Total 400 ml 400 ml BalanceBalance 80 ml -160 ml 1300 ml Results Result Diagram: 12/11/18 0535 12/11/18 0535 Medications Medication Current Medications Ondansetron HCl (Zofran Inj) 4 mg Q6H PRN IV NAUSEA/VOMITING Last administered on 12/06/18at 10:39; Admin Dose 4 MG; Start 12/01/18 at 15:30 Acetaminophen (Tylenol Tab) 650 mg Q6H PRN PO fever Last administered on 12/07/18at 22:25; Admin Dose 650 MG; Start 12/01/18 at 15:30 Acetaminophen/ Hydrocodone Bitart ([place] (5/325)) 1 tab Q6H PRN PO .PAIN 4-6 Last administered on 12/12/18at 13:02; Admin Dose 1 TAB; Start 12/01/18 at 15:30 Morphine Sulfate (morphine) 2 mg Q4H PRN IV .PAIN 7-10 Last administered on 12/05/18 16:18; Admin Dose 2 MG; Start 12/01/18 at 15:30 Allopurinol (Zyloprim) 200 mg DAILY PEG Last administered on 12/12/18 10:05; Admin Dose 200 MG; Start 12/01/18 at 15:30 Atenolol (Tenormin) 25 mg DAILY PEG Last administered on 12/12/18 10:07; Admin Dose 25 MG; Start 12/01/18 at 15:30 Fish Oil (Fish Oil) 1,000 mg DAILY PO Last administered on 12/12/18 10:05; Admin Dose 1,000 MG; Start 12/01/18 at 15:30 Atorvastatin Calcium (Lipitor) 40 mg HS PEG Last administered on 12/11/18 20:15; Admin Dose 40 MG; Start 12/01/18 at 21:00 Cyanocobalamin (Vitamin B12) 100 mcg DAILY NGT Last administered on 12/12/18 10:45; Admin Dose 100 MCG; Start 12/02/18 at 09:00 Ascorbic Acid (Vitamin C) 500 mg DAILY GTB Last administered on 12/12/18 10:01; Admin Dose 500 MG; Start 12/02/18 at 09:00 Diphenhydramine HCl (Benadryl Liquid Cup) 12.5 mg DAILY PRN PEG itching Last administered on 12/09/18 21:13; Admin Dose 12.5 MG; Start 12/01/18 at 16:30 Methylprednisolone (Medrol) 5 mg DAILY PEG Last administered on 12/12/18 10:06; Admin Dose 5 MG; Start 12/03/18 at 09:00 Nystatin (Nystatin Powder) 1 applic BID TOP Last administered on 12/12/18 10:10; Admin Dose 1 APPLIC; Start 12/02/18 at 21:00 Neomycin/ Polymyxin/ Bacitracin (Neosporin Topical Oint) 1 applic DAILY TOP Last administered on 12/07/18 09:20; Admin Dose 1 APPLIC; Start 12/03/18 at 18:30 Sodium Hypochlorite (Dakins Diluted (1/40)) 1 applic DAILY TP Last administered on 12/04/18 10:00; Admin Dose 1 APPLIC; Start 12/03/18 at 21:00 Gabapentin (Neurontin) 300 mg TID GTB Last administered on 12/12/18 13:02; A dmin Dose 300 MG; Start 12/04/18 at 13:00 Eye Lubricant (Refresh Plus) 1 drop QID PRN BOTH EYES dry eyes Last administered on 12/12/18 13:12; Admin Dose 1 DROP; Start 12/04/18 at 12:30 Lansoprazole (Prevacid) 30 mg DAILY@06 GTB Last administered on 12/12/18 05:34; Admin Dose 30 MG; Start 12/05/18 at 06:00 Fluticasone Propionate (Flonase 0.05% Nasal) 1 spray DAILY NASAL Last administered on 12/12/18 10:02; Admin Dose 1 SPRAY; Start 12/05/18 at 09:00 Hydroxychloroquine Sulfate (Plaquenil) 400 mg DAILY GTB Last administered on 12/12/18 10:01; Admin Dose 400 MG; Start 12/05/18 at 09:00 Mirtazapine (Remeron) 15 mg HS GTB Last administered on 12/11/18 20:15; Admin Dose 15 MG; Start 12/04/18 at 21:00 Mycophenolate Mofetil (Cellcept) 1,000 mg DAILY PO Last administered on 12/12/18 10:05; Admin Dose 1,000 MG; Start 12/05/18 at 09:00 Oxybutynin Chloride (Ditropan) 5 mg TID GTB Last administered on 12/12/18 13:02; Admin Dose 5 MG; Start 12/04/18 at 21:00 Polyethylene Glycol (Miralax) 17 gm DAILY GTB Last administered on 12/12/18 10:00; Admin Dose 17 GM; Start 12/05/18 at 09:00 Zinc Sulfate (Zinc Sulfate) 220 mg DAILY GTB Last administered on 12/12/18 10:01; Admin Dose 220 MG; Start 12/05/18 at 09:00 Ferrous Sulfate (Feosol Liquid Cup) 300 mg TID GTB Last administered on 13:02; Admin Dose 300 MG; Start 12/04/18 at 21:10 Tramadol HCl (Ultram) 100 mg Q8H PRN GTB PAIN Last administered on 12/12/18 11:42; Admin Dose 100 MG; Start 12/05/18 at 20:30 Acetaminophen (Tylenol Tab) 1,000 mg Q6H PRN PO MILD PAIN(1-3)OR ELEVATED TEMP Last administered on 12/11/18 21:03; Admin Dose 1,000 MG; Start 12/06/18 at 15:30 Lactobacillus Acidophilus/ Rhamnosus (Culturelle) 1 cap WITH MEALS PO Last administered on 12/12/18 11:42; Admin Dose 1 CAP; Start 12/06/18 at 17:35 Petrolatum (Vaseline) 1 applic Q2 TOP Last administered on 12/12/18 13:03; Admin Dose 1 APPLIC; Start 12/06/18 at 22:00 Simethicone (Mylicon) 80 mg Q6H PRN PO DISTENSION/GAS/BLOATING Last adminis tered on 12/07/18 14:47; Admin Dose 80 MG; Start 12/07/18 at 12:00 Enoxaparin Sodium (Lovenox) 30 mg DAILY SC Last administered on 12/12/18 10:03; Admin Dose 30 MG; Start 12/09/18 at 09:00 Ondansetron HCl (Zofran Inj) 4 mg BEFORE MEALS IV Last administered on 12/12/18 09:59; Admin Dose 4 MG; Start 12/08/18 at 11:30 Docusate Sodium (Colace Liquid Cup) 100 mg BID PRN PEG constipation; Start 12/08/18 at 11:00 Senna (Senokot) 2 tab BID PRN GTB constipation; Start 12/08/18 at 11:00 Cholecalciferol (Vitamin D) 400 units DAILY GTB Last administered on 12/12/18 10:01; Admin Dose 400 UNITS; Start 12/08/18 at 11:00 Calcium Carbonate (Tums) 500 mg Q4H PRN PO reflux Last administered on 10:48; Admin Dose 500 MG; Start 12/08/18 at 11:30 Valacyclovir HCl (Valtrex) 500 mg DAILY GTB ; Start 12/13/18 at 09:00 Valacyclovir HCl (Valtrex) 2,000 mg ONCE ONCE PO ; Start 12/12/18 at 21:00; Stop 12/12/18 at 21:01 KAMI AMADOR NP Dec 12, 2018 14:09
[2018-12-12 14:41] VITALS: BP 109/60; PULSE 102; RESP 16
--- NOTE | 2018-12-12 14:49 | CONS ---
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 Iron deficiency anemia CKD History of dysphagia-improved Gastrostomy tube in place Dyslipidemia next gout Plan: Ct abd/pelvis- r/o abscess PEG care BID and PRN Patient seen in collaboration with CC: KAROLYN ORTIZ MD ; Consultation Date/Type/Reason Admit Date/Time Dec 01, 2018 at 15:06 Date of Consultation: Dec 12, 2018 Type of Consult GI Reason for Consultation Fevers- R/o G-tube as source Date/Time of Note DATE: 12/12/18 TIME: 14:45 Hx of Present Illness This is a 73 year old female with multiple comorbidities.Including lupus, rheumatoid arthritis, gout, iron deficiency anemia, chronic HSV, hypertension who was admitted for chronic foot ulcers and is status post bilateral foot debridement and amputation of bilateral second toes 12/04/18. Hospital stay patient developed fevers noted to be mild with workup thus far been negative including negative UA, chest x-ray, negative bilateral primary DVTs, blood cultures have been ordered and currently pending. She has been consulted to rule out G-tube as source of infection and underlying cause of fever. At time o f evaluation G-tube site without erythema, foul smell, or purulent drainage. No difficultly noted while flushing g-tube, or during aspiration. Review of Systems: A 12 system, review was conducted and is negative except as noted in the HPI or here. Past Medical History Home Meds Reported Medications Zinc Sulfate* (Zinc Sulfate*) 220 Mg Tablet, 220 MG GTB DAILY, TAB STOP TAKING 12/09/18 12/01/18 Ascorbic Acid (Vitamin C) 500 Mg Tab, 500 MG PO DAILY, TAB 12/01/18 Cyanocobalamin (Vitamin B12) 100 Mcg Tab, 100 MCG GTB DAILY, TAB 12/01/18 valAcyclovir Hcl* (valACYclovir Hcl*) 500 Mg Tablet, 500 MG GTB DAILY, TAB 12/01/18 Tramadol HCl (Tramadol HCl) 50 Mg Tablet, 50 MG GTB Q8H PRN for PAIN, #120 TAB 12/01/18 Propylene Glycol (SYSTANE BALANCE) 10 Ml Drops, 1 DRP BOTH EYES TID, #1 BOTTLE 12/01/18 Sennosides* (Senna Lax*) 8.6 Mg Tablet, 2 TAB GTB BID, TAB 12/01/18 Mirtazapine* (Remeron*) 15 Mg Tablet, 15 MG GTB HS, TAB 12/01/18 Amino Acids/Protein Hydrolys (PRO-STAT LIQUID) 30 Ml Liquid.pkt, 30 ML GTB BID SUGAR FREE 12/01/18 Hydroxychloroquine Sulfate* (Plaquenil*) 200 Mg Tab, 400 MG GTB DAILY, TAB 12/01/18 Oxybutynin Chloride* (Ditropan*) 5 Mg Tablet, 5 MG GTB TID, TAB 12/01/18 Multivitamin with Minerals (Multivitamins with Minerals) 1 Each Tablet, 1 EACH GTB DAILY, TAB 12/01/18 Polyethylene Glycol* (Miralax*) 17 Gm Powd.pack, 17 GM GTB DAILY, #30 PACKET 12/01/18 Prednisolone* (Prednisolone*) 5 Mg Tablet, 5 MG GTB DAILY, TAB 12/01/18 Megestrol Acetate* (Megace ES*) 625 Mg/5 Ml Oral.susp, 1000 MG GTB DAILY, ML STOP DATE 12/19/18 12/01/18 Atorvastatin* (Atorvastatin*) 40 Mg Tablet, 40 MG GTB QHS, #30 TAB 12/01/18 Fluticasone Propionate* (Fluticasone Propionate* Nasal) 50 Mcg/[place] - 16 Gm [place].susp, 2 SPRAYS NASAL DAILY, #1 BOTTLE TO EACH NOSTRIL 12/01/18 [place]-3 Fatty Acids/Fish Oil (Fish Oil 1,000 mg Capsule) 1 Each Capsule, 1 EACH GTB DAILY, CAP 12/01/18 Ferrous Sulfate* (Ferrous Sulfate*) 220 Mg/5 Ml Solution, 7.5 ML GTB TID, ML 12/01/18 Bisacodyl* (Bisacodyl*) 10 Mg Supp, 10 MG NC Q24H for CONSTIPATION, SUPP 12/01/18 Docusate Sodium* (Colace*) 100 Mg Capsule, 100 MG GTB BID, #60 CAP 12/01/18 Cholecalciferol* (Vitamin D*) 400 Unit Tablet, 400 UNIT GTB DAILY, TAB 12/01/18 Mycophenolate Mofetil* (Cellcept*) 500 Mg Tablet, 1000 MG GTB DAILY, #120 TAB 12/01/18 Calcium Acetate* (Calcium Acetate*) 667 Mg Capsule, 667 MG GTB WITH MEALS BID, #30 CAP 12/01/18 Atenolol* (Atenolol*) 25 Mg Tablet, 25 MG GTB DAILY, #30 TAB HOLD FOR SBP<110 OR NC<60 12/01/18 Allopurinol* (Allopurinol*) 100 Mg Tablet, 200 MG GTB DAILY, TAB 12/01/18 Acetaminophen* (Acetaminophen*) 500 MG Extra Strength Tablet, 1000 MG GTB Q6H PRN for MILD PAIN LEVEL 1-3, TAB AND TEMP>100F 12/01/18 Medications Current Medications Ondansetron HCl (Zofran Inj) 4 mg Q6H PRN IV NAUSEA/VOMITING Last administered on 12/06/18 10:39; Admin Dose 4 MG; Start 12/01/18 at 15:30 Acetaminophen (Tylenol Tab) 650 mg Q6H PRN PO fever Last administered on 12/07/18 22:25; Admin Dose 650 MG; Start 12/01/18 at 15:30 Acetaminophen/ Hydrocodone Bitart ([place] (5/325)) 1 tab Q6H PRN PO .PAIN 4-6 Last administered on 12/12/18 13:02; Admin Dose 1 TAB; Start 12/01/18 at 15:30 Morphine Sulfate (morphine) 2 mg Q4H PRN IV .PAIN 7-10 Last administered on 12/05/18 16:18; Admin Dose 2 MG; Start 12/01/18 at 15:30 Allopurinol (Zyloprim) 200 mg DAILY PEG Last administered on 12/12/18 10:05; Admin Dose 200 MG; Start 12/01/18 at 15:30 Atenolol (Tenormin) 25 mg DAILY PEG Last administered on 12/12/18 10:07; Admin Dose 25 MG; Start 12/01/18 at 15:30 Fish Oil (Fish Oil) 1,000 mg DAILY PO Last administered on 12/12/18 10:05; Admin Dose 1,000 MG; Start 12/01/18 at 15:30 Atorvastatin Calcium (Lipitor) 40 mg HS PEG Last administered on 12/11/18 20:15; Admin Dose 40 MG; Start 12/01/18 at 21:00 Cyanocobalamin (Vitamin B12) 100 mcg DAILY NGT Last administered on 12/12/18 10:45; Admin Dose 100 MCG; Start 12/02/18 at 09:00 Ascorbic Acid (Vitamin C) 500 mg DAILY GTB Last administered on 12/12/18 10:01; Admin Dose 500 MG; Start 12/02/18 at 09:00 Diphenhydramine HCl (Benadryl Liquid Cup) 12.5 mg DAILY PRN PEG itching Last administered on 12/09/18 21:13; Admin Dose 12.5 MG; Start 12/01/18 at 16:30 Methylprednisolone (Medrol) 5 mg DAILY PEG Last administered on 12/12/18 10:06; Admin Dose 5 MG; Start 12/03/18 at 09:00 Nystatin (Nystatin Powder) 1 applic BID TOP Last administered on 12/12/18 10:10; Admin Dose 1 APPLIC; Start 12/02/18 at 21:00 Neomycin/ Polymyxin/ Bacitracin (Neosporin Topical Oint) 1 applic DAILY TOP Last administered on 12/07/18 09:20; Admin Dose 1 APPLIC; Start 12/03/18 at 18:30 Sodium Hypochlorite (Dakins Diluted (40)) 1 applic DAILY TP Last administered on 12/04/18 10:00; Admin Dose 1 APPLIC; Start 12/03/18 at 21:00 Gabapentin (Neurontin) 300 mg TID GTB Last administered on 12/12/18 13:02; Admin Dose 300 MG; Start 12/04/18 at 13:00 Eye Lubricant (Refresh Plus) 1 drop QID PRN BOTH EYES dry eyes Last administered on 12/12/18 13:12; Admin Dose 1 DROP; Start 12/04/18 at 12:30 Lansoprazole (Prevacid) 30 mg DAILY@06 GTB Last administered on 12/12/18 05:34; Admin Dose 30 MG; Start 12/05/18 at 06:00 Fluticasone Propionate (Flonase 0.05% Nasal) 1 spray DAILY NASAL Last administered on 12/12/18 10:02; Admin Dose 1 SPRAY; Start 12/05/18 at 09:00 Hydroxychloroquine Sulfate (Plaquenil) 400 mg DAILY GTB Last administered on 12/12/18 10:01; Admin Dose 400 MG; Start 12/05/18 at 09:00 Mirtazapine (Remeron) 15 mg HS GTB Last administered on 12/11/18 20:15; Admin Dose 15 MG; Start 12/04/18 at 21:00 Mycophenolate Mofetil (Cellcept) 1,000 mg DAILY PO Last administered on 12/12/18 10:05; Admin Dose 1,000 MG; Start 12/05/18 at 09:00 Oxybutynin Chloride (Ditropan) 5 mg TID GTB Last administered on 12/12/18 13:02; Admin Dose 5 MG; Start 12/04/18 at 21:00 Polyethylene Glycol (Miralax) 17 gm DAILY GTB Last administered on 12/12/18 10:00; Admin Dose 17 GM; Start 12/05/18 at 09:00 Zinc Sulfate (Zinc Sulfate) 220 mg DAILY GTB Last administered on 12/12/18 10:01; Admin Dose 220 MG; Start 12/05/18 at 09:00 Ferrous Sulfate (Feosol Liquid Cup) 300 mg TID GTB Last administered on 12/12/18 13:02; Admin Dose 300 MG; Start 12/04/18 at 21:10 Tramadol HCl (Ultram) 100 mg Q8H PRN GTB PAIN Last administered on 12/12/18 11:42; Admin Dose 100 MG; Start 12/05/18 at 20:30 Acetaminophen (Tylenol Tab) 1,000 mg Q6H PRN PO MILD PAIN(1-3)OR ELEVATED TEMP Last administered on 12/11/18 21:03; Admin Dose 1,000 MG; Start 12/06/18 at 15:30 Lactobacillus Acidophilus/ Rhamnosus (Culturelle) 1 cap WITH MEALS PO Last administered on 12/12/18 11:42; Admin Dose 1 CAP; Start 12/06/18 at 17:35 Petrolatum (Vaseline) 1 applic Q2 TOP Last administered on 12/12/18 13:03; Admin Dose 1 APPLIC; Start 12/06/18 at 22:00 Simethicone (Mylicon) 80 mg Q6H PRN PO DISTENSION/GAS/BLOATING Last administered on 12/07/18at 14:47; Admin Dose 80 MG; Start 12/07/18 at 12:00 Enoxaparin Sodium (Lovenox) 30 mg DAILY SC Last administered on 12/12/18at 10:03; Admin Dose 30 MG; Start 12/09/18 at 09:00 Ondansetron HCl (Zofran Inj) 4 mg BEFORE MEALS IV Last administered on 12/12/18at 09:59; Admin Dose 4 MG; Start 12/08/18 at 11:30 Docusate Sodium (Colace Liquid Cup) 100 mg BID PRN PEG constipation; Start 12/08/18 at 11:00 Senna (Senokot) 2 tab BID PRN GTB constipation; Start 12/08/18 at 11:00 Cholecalciferol (Vitamin D) 400 units DAILY GTB Last administered on 12/12/18at 10:01; Admin Dose 400 UNITS; Start 12/08/18 at 11:00 Calcium Carbonate (Tums) 500 mg Q4H PRN PO reflux Last administered on 12/10/18at 10:48; Admin Dose 500 MG; Start 12/08/18 at 11:30 Valacyclovir HCl (Valtrex) 500 mg DAILY GTB ; Start 12/13/18 at 09:00 Valacyclovir HCl (Valtrex) 2,000 mg ONCE ONCE PO ; Start 12/12/18 at 21:00; Stop 12/12/18 at 21:01 Allergies: Coded Allergies: No Known Allergy (Unverified , 12/01/18) Social History Smoking Status: Never smoker Exam/Review of Systems Exam Vitals Vital Signs Date Temp Pulse Resp B/P (MAP) Pulse Ox O2 O2 Flow FiO2 Time Delivery Rate 12/12/18 100.7 102 16 109/60 97 14:41 (76) 12/10/18 Room Air 15:05 Intake and Output 12/11/18 12/11/18 12/12/18 1515:00 23:00 07:00 IntakeIntake Total 480 ml 240 ml 1300 ml OutputOutput Total 400 ml 400 ml BalanceBalance 80 ml -160 ml 1300 ml Exam PHYSICAL EXAMINATION: GENERAL: Alert & oriented x 3, in no acute distress SKIN: No lesions EYES: Pupils equal reactive to light, no discharge. EARS/NOSE AND THROAT: Ears normal, nose normal. NECK: Supple, no masses. CHEST: Inspection within normal limits. CARDIOVASCULAR: Heart: Regular rate and rhythm RESPIRATORY: Lungs clear to auscultation GASTROINTESTINAL AND LIVER: Abdomen: Soft, non tenderness, non-distended, no hernias, no masses, no organomegaly, no ascites, no guarding, no rebound tenderness, normoactive bowel sounds. Rectal: Deferred. GENITOURINARY: Female genitalia within normal limits. EXTREMITIES: No cyanosis, clubbing or edema. Results Result Diagram: 12/11/1853412/11/18534 Medications Medication Current Medications Ondansetron HCl (Zofran Inj) 4 mg Q6H PRN IV NAUSEA/VOMITING Last administered on 12/06/18 10:39; Admin Dose 4 MG; Start 12/01/18 at 15:30 Acetaminophen (Tylenol Tab) 650 mg Q6H PRN PO fever Last administered on 12/07/18 22:25; Admin Dose 650 MG; Start 12/01/18 at 15:30 Acetaminophen/ Hydrocodone Bitart ([place] (5/325)) 1 tab Q6H PRN PO .PAIN 4-6 Last administered on 12/12/18 13:02; Admin Dose 1 TAB; Start 12/01/18 at 15:30 Morphine Sulfate (morphine) 2 mg Q4H PRN IV .PAIN 7-10 Last administered on 12/05/18 16:18; Admin Dose 2 MG; Start 12/01/18 at 15:30 Allopurinol (Zyloprim) 200 mg DAILY PEG Last administered on 12/12/18 10:05; Admin Dose 200 MG; Start 12/01/18 at 15:30 Atenolol (Tenormin) 25 mg DAILY PEG Last administered on 12/12/18 10:07; Admin Dose 25 MG; Start 12/01/18 at 15:30 Fish Oil (Fish Oil) 1,000 mg DAILY PO Last administered on 12/12/18 10:05; Admin Dose 1,000 MG; Start 12/01/18 at 15:30 Atorvastatin Calcium (Lipitor) 40 mg HS PEG Last administered on 12/11/18 20:15; Admin Dose 40 MG; Start 12/01/18 at 21:00 Cyanocobalamin (Vitamin B12) 100 mcg DAILY NGT Last administered on 12/12/18 10:45; Admin Dose 100 MCG; Start 12/02/18 at 09:00 Ascorbic Acid (Vitamin C) 500 mg DAILY GTB Last administered on 12/12/18 10:01; Admin Dose 500 MG; Start 12/02/18 at 09:00 Diphenhydramine HCl (Benadryl Liquid Cup) 12.5 mg DAILY PRN PEG itching Last administered on 12/09/18 21:13; Admin Dose 12.5 MG; Start 12/01/18 at 16:30 Methylprednisolone (Medrol) 5 mg DAILY PEG Last administered on 12/12/18 10:06; Admin Dose 5 MG; Start 12/03/18 at 09:00 Nystatin (Nystatin Powder) 1 applic BID TOP Last administered on 12/12/18 10:10; Admin Dose 1 APPLIC; Start 12/02/18 at 21:00 Neomycin/ Polymyxin/ Bacitracin (Neosporin Topical Oint) 1 applic DAILY TOP Last administered on 12/07/18 09:20; Admin Dose 1 APPLIC; Start 12/03/18 at 18:30 Sodium Hypochlorite (Dakins Diluted (1/40)) 1 applic DAILY TP Last administered on 12/04/18 10:00; Admin Dose 1 APPLIC; Start 12/03/18 at 21:00 Gabapentin (Neurontin) 300 mg TID GTB Last administered on 12/12/18 13:02; Admin Dose 300 MG; Start 12/04/18 at 13:00 Eye Lubricant (Refresh Plus) 1 drop QID PRN BOTH EYES dry eyes Last administered on 12/12/18 13:12; Admin Dose 1 DROP; Start 12/04/18 at 12:30 Lansoprazole (Prevacid) 30 mg DAILY@06 GTB Last administered on 12/12/18 05:34; Admin Dose 30 MG; Start 12/05/18 at 06:00 Fluticasone Propionate (Flonase 0.05% Nasal) 1 spray DAILY NASAL Last administered on 12/12/18 10:02; Admin Dose 1 SPRAY; Start 12/05/18 at 09:00 Hydroxychloroquine Sulfate (Plaquenil) 400 mg DAILY GTB Last administered on 12/12/18 10:01; Admin Dose 400 MG; Start 12/05/18 at 09:00 Mirtazapine (Remeron) 15 mg HS GTB Last administered on 12/11/18 20:15; Admin Dose 15 MG; Start 12/04/18 at 21:00 Mycophenolate Mofetil (Cellcept) 1,000 mg DAILY PO Last administered on 12/12/18 10:05; Admin Dose 1,000 MG; Start 12/05/18 at 09:00 Oxybutynin Chloride (Ditropan) 5 mg TID GTB Last administered on 12/12/18 13:02; Admin Dose 5 MG; Start 12/04/18 at 21:00 Polyethylene Glycol (Miralax) 17 gm DAILY GTB Last administered on 12/12/18 10:00; Admin Dose 17 GM; Start 12/05/18 at 09:00 Zinc Sulfate (Zinc Sulfate) 220 mg DAILY GTB Last administered on 12/12/18 10:01; Admin Dose 220 MG; Start 12/05/18 at 09:00 Ferrous Sulfate (Feosol Liquid Cup) 300 mg TID GTB Last administered on 12/12/18 13:02; Admin Dose 300 MG; Start 12/04/18 at 21:10 Tramadol HCl (Ultram) 100 mg Q8H PRN GTB PAIN Last administered on 12/12/18 11:42; Admin Dose 100 MG; Start 12/05/18 at 20:30 Acetaminophen (Tylenol Tab) 1,000 mg Q6H PRN PO MILD PAIN(1-3)OR ELEVATED TEMP Last administered on 12/11/18 21:03; Admin Dose 1,000 MG; Start 12/06/18 at 15:30 Lactobacillus Acidophilus/ Rhamnosus (Culturelle) 1 cap WITH MEALS PO Last administered on 12/12/18 11:42; Admin Dose 1 CAP; Start 12/06/18 at 17:35 Petrolatum (Vaseline) 1 applic Q2 TOP Last administered on 12/12/18 13:03; Admin Dose 1 APPLIC; Start 12/06/18 at 22:00 Simethicone (Mylicon) 80 mg Q6H PRN PO DISTENSION/GAS/BLOATING Last administered on 12/07/18 14:47; Admin Dose 80 MG; Start 12/07/18 at 12:00 Enoxaparin Sodium (Lovenox) 30 mg DAILY SC Last administered on 12/12/18 10:03; Admin Dose 30 MG; Start 12/09/18 at 09:00 Ondansetron HCl (Zofran Inj) 4 mg BEFORE MEALS IV Last administered on 12/12/18 09:59; Admin Dose 4 MG; Start 12/08/18 at 11:30 Docusate Sodium (Colace Liquid Cup) 100 mg BID PRN PEG constipation; Start 12/08/18 at 11:00 Senna (Senokot) 2 tab BID PRN GTB constipation; Start 12/08/18 at 11:00 Cholecalciferol (Vitamin D) 400 units DAILY GTB Last administered on 12/12/18at 10:01; Admin Dose 400 UNITS; Start 12/08/18 at 11:00 Calcium Carbonate (Tums) 500 mg Q4H PRN PO reflux Last administered on 12/10/18at 10:48; Admin Dose 500 MG; Start 12/08/18 at 11:30 Valacyclovir HCl (Valtrex) 500 mg DAILY GTB ; Start 12/13/18 at 09:00 Valacyclovir HCl (Valtrex) 2,000 mg ONCE ONCE PO ; Start 12/12/18 at 21:00; Stop 12/12/18 at 21:01 EVIN QUIROGA Dec 12, 2018 14:49
[2018-12-12] MEDS ORDERED: SOD CHLORIDE 0.9% 1,000 ML IV SCH (17:00)
[2018-12-12] MEDS ORDERED: BARIUM SULF 2% 450 ML BTL (BERRY SMOOTHIE) PO ONE (17:30)
[2018-12-12 19:35] VITALS: BP 121/60; PULSE 98; RESP 18
[2018-12-12] MEDS ORDERED: valACYclovir 500 MG TAB GTB SCH (21:00)
[2018-12-12] MEDS: MIRTAZAPINE 15 MG TAB GTB SCH (21:30)
[2018-12-12] MEDS: ATORVASTATIN 40 MG TAB PEG SCH (21:30)
[2018-12-13] MEDS ORDERED: SOD CHLORIDE 0.9% 100 ML ONE (00:19)
[2018-12-13] MEDS ORDERED: IOHEXOL 300MG/ML 150 ML BTL ONE (00:19)
[2018-12-13] MEDS: PETROLATUM 28.35 GM JELLY TOP SCH ×12 (00:55→23:00)
[2018-12-13 02:00] VITALS: BP 105/61; PULSE 83; RESP 17
[2018-12-13] MEDS: LANSOPRAZOLE 30 MG CAP GTB SCH (06:04)
[2018-12-13 08:00] VITALS: BP 107/63; PULSE 100; RESP 17
[2018-12-13] MEDS: valACYclovir 500 MG TAB GTB SCH (08:12)
[2018-12-13] MEDS: ONDANSETRON 4 MG INJ IV SCH ×3 (08:12→18:05)
[2018-12-13] MEDS: FLUTICASONE 0.05% 16 GM NAS SPRAY NASAL SCH (08:13)
[2018-12-13] MEDS: FERROUS SULFATE 60 MG/ML 5ML CUP GTB SCH ×3 (08:14→21:10)
[2018-12-13] MEDS: MYCOPHENOLATE 250 MG CAP PO SCH (08:15)
[2018-12-13] MEDS: ALLOPURINOL 100 MG TAB PEG SCH (08:15)
[2018-12-13] MEDS: FISH OIL 1,000 MG CAP PO SCH (08:15)
[2018-12-13] MEDS: HYDROXYCHLOROQUINE 200 MG TAB GTB SCH (08:17)
[2018-12-13] MEDS: ZINC SULFATE 220 MG CAP GTB SCH (08:17)
[2018-12-13] MEDS: CHOLECALCIFEROL 400 UNITS TAB GTB SCH (08:18)
[2018-12-13] MEDS: GABAPENTIN 300 MG CAP GTB SCH ×3 (08:18→21:09)
[2018-12-13] MEDS: CYANOCOBALAMIN 100 MCG TAB NGT SCH (08:18)
[2018-12-13] MEDS: LACTOBACILLUS RHAMNOSUS CAP PO SCH ×3 (08:18→18:05)
[2018-12-13] MEDS: ASCORBIC ACID 500 MG TAB GTB SCH (08:18)
[2018-12-13] MEDS: METHYLPREDNISOLONE 4 MG TAB PEG SCH (08:25)
[2018-12-13] MEDS: ATENOLOL 25 MG TAB PEG SCH (08:25)
[2018-12-13] MEDS: ENOXAPARIN 30 MG/0.3 ML SYG SC SCH (08:28)
[2018-12-13] MEDS: HYDROCODONE/APAP (5/325) TAB PO PRN (08:42)
[2018-12-13] MEDS: DAKINS 0.0125%(1/40) 473 ML SOLUTION TP SCH (08:53)
[2018-12-13] MEDS: NYSTATIN 30 GM POWDER BTL TOP SCH ×2 (08:54→21:11)
[2018-12-13] MEDS: NEOMYC/POLYMYX/BACIT 30 GM OINT TOP SCH (08:54)
[2018-12-13] MEDS: POLYETHYLENE GLYCOL 17 GM PACKET GTB SCH (08:55)
[2018-12-13] MEDS ORDERED: valACYclovir 500 MG TAB GTB SCH (09:00)
[2018-12-13] MEDS: OXYBUTYNIN 5 MG TAB GTB SCH ×3 (09:08→21:10)
[2018-12-13] MEDS: DOCUSATE SODIUM 10 MG/ML (10ML CUP) GTB SCH ×3 (10:00→21:10)
[2018-12-13] MEDS ORDERED: POLYETHYLENE GLYCOL 17 GM PACKET NGT ONE (10:00)
--- NOTE | 2018-12-13 10:26 | PN ---
Date/Time of Note Date/Time of Note DATE: 12/13/18 TIME: 10:24 Objective Vitals Vital Signs Date Temp Pulse Resp B/P (MAP) Pulse Ox O2 O2 Flow FiO2 Time Delivery Rate 12/13/18 99.5 100 17 107/63 99 Room Air 08:00 (78) Intake and Output 12/12/18 12/12/18 12/13/18 1515:00 23:00 07:00 IntakeIntake Total 1485 ml 1700 ml BalanceBalance 1485 ml 1700 ml Results Result Diagram: 12/11/18 0535 12/11/18 0535 Medications Medications Current Medications Ondansetron HCl (Zofran Inj) 4 mg Q6H PRN IV NAUSEA/VOMITING Last administered on 12/06/18 10:39; Admin Dose 4 MG; Start 12/01/18 at 15:30 Acetaminophen (Tylenol Tab) 650 mg Q6H PRN PO fever Last administered on 12/07/18 22:25; Admin Dose 650 MG; Start 12/01/18 at 15:30 Acetaminophen/ Hydrocodone Bitart ([place] (5/325)) 1 tab Q6H PRN PO .PAIN 4-6 Last administered on 12/13/18 08:42; Admin Dose 1 TAB; Start 12/01/18 at 15:30 Morphine Sulfate (morphine) 2 mg Q4H PRN IV .PAIN 7-10 Last administered on 12/05/18 16:18; Admin Dose 2 MG; Start 12/01/18 at 15:30 Allopurinol (Zyloprim) 200 mg DAILY PEG Last administered on 12/13/18 08:15; Admin Dose 200 MG; Start 12/01/18 at 15:30 Atenolol (Tenormin) 25 mg DAILY PEG Last administered on 12/12/18 10:07; Admin Dose 25 MG; Start 12/01/18 at 15:30 Fish Oil (Fish Oil) 1,000 mg DAILY PO Last administered on 12/13/18 08:15; Admin Dose 1,000 MG; Start 12/01/18 at 15:30 Atorvastatin Calcium (Lipitor) 40 mg HS PEG Last administered on 12/12/18 21:30; Admin Dose 40 MG; Start 12/01/18 at 21:00 Cyanocobalamin (Vitamin B12) 100 mcg DAILY NGT Last administered on 12/13/18 08:18; Admin Dose 100 MCG; Start 12/02/18 at 09:00 Ascorbic Acid (Vitamin C) 500 mg DAILY GTB Last administered on 12/13/18 08:18; Admin Dose 500 MG; Start 12/02/18 at 09:00 Diphenhydramine HCl (Benadryl Liquid Cup) 12.5 mg DAILY PRN PEG itching Last administered on 12/09/18 21:13; Admin Dose 12.5 MG; Start 12/01/18 at 16:30 Methylprednisolone (Medrol) 5 mg DAILY PEG Last administered on 12/13/18 08:25; Admin Dose 5 MG; Start 12/03/18 at 09:00 Nystatin (Nystatin Powder) 1 applic BID TOP Last administered on 12/13/18 08:54; Admin Dose 1 APPLIC; Start 12/02/18 at 21:00 Neomycin/ Polymyxin/ Bacitracin (Neosporin Topical Oint) 1 applic DAILY TOP Last administered on 12/13/18 08:54; Admin Dose 1 APPLIC; Start 12/03/18 at 18:30 Sodium Hypochlorite (Dakins Diluted (1/40)) 1 applic DAILY TP Last administered on 12/13/18 08:53; Admin Dose 1 APPLIC; Start 12/03/18 at 21:00 Gabapentin (Neurontin) 300 mg TID GTB Last administered on 12/13/18 08:18; Admin Dose 300 MG; Start 12/04/18 at 13:00 Eye Lubricant (Refresh Plus) 1 drop QID PRN BOTH EYES dry eyes Last administered on 12/12/18 13:12; Admin Dose 1 DROP; Start 12/04/18 at 12:30 Lansoprazole (Prevacid) 30 mg DAILY@06 GTB Last administered on 12/13/18 06:04; Admin Dose 30 MG; Start 12/05/18 at 06:00 Fluticasone Propionate (Flonase 0.05% Nasal) 1 spray DAILY NASAL Last administered on 12/13/18 08:13; Admin Dose 1 SPRAY; Start 12/05/18 at 09:00 Hydroxychloroquine Sulfate (Plaquenil) 400 mg DAILY GTB Last administered on 12/13/18 08:17; Admin Dose 400 MG; Start 12/05/18 at 09:00 Mirtazapine (Remeron) 15 mg HS GTB Last administered on 12/12/18 21:30; Admin Dose 15 MG; Start 12/04/18 at 21:00 Mycophenolate Mofetil (Cellcept) 1,000 mg DAILY PO Last administered on 12/13/18 08:15; Admin Dose 1,000 MG; Start 12/05/18 at 09:00 Oxybutynin Chloride (Ditropan) 5 mg TID GTB Last administered on 12/13/18 09:08; Admin Dose 5 MG; Start 12/04/18 at 21:00 Polyethylene Glycol (Miralax) 17 gm DAILY GTB Last administered on 12/12/18 10:00; Admin Dose 17 GM; Start 12/05/18 at 09:00 Zinc Sulfate (Zinc Sulfate) 220 mg DAILY GTB Last administered on 12/13/18 08:17; Admin Dose 220 MG; Start 12/05/18 at 09:00 Ferrous Sulfate (Feosol Liquid Cup) 300 mg TID GTB Last administered on 12/13/18 08:14; Admin Dose 300 MG; Start 12/04/18 at 21:10 Tramadol HCl (Ultram) 100 mg Q8H PRN GTB PAIN Last administered on 12/12/18 11:42; Admin Dose 100 MG; Start 12/05/18 at 20:30 Acetaminophen (Tylenol Tab) 1,000 mg Q6H PRN PO MILD PAIN(1-3)OR ELEVATED TEMP Last administered on 12/11/18 21:03; Admin Dose 1,000 MG; Start 12/06/18 at 15:30 Lactobacillus Acidophilus/ Rhamnosus (Culturelle) 1 cap WITH MEALS PO Last administered on 12/13/18 08:18; Admin Dose 1 CAP; Start 12/06/18 at 17:35 Petrolatum (Vaseline) 1 applic Q2 TOP Last administered on 12/13/18 08:54; Admin Dose 1 APPLIC; Start 12/06/18 at 22:00 Simethicone (Mylicon) 80 mg Q6H PRN PO DISTENSION/GAS/BLOATING Last administered on 12/07/18 14:47; Admin Dose 80 MG; Start 12/07/18 at 12:00 Enoxaparin Sodium (Lovenox) 30 mg DAILY SC Last administered on 12/13/18 08:28; Admin Dose 30 MG; Start 12/09/18 at 09:00 Ondansetron HCl (Zofran Inj) 4 mg BEFORE MEALS IV Last administered on 12/13/18 08:12; Admin Dose 4 MG; Start 12/08/18 at 11:30 Senna (Senokot) 2 tab BID PRN GTB constipation; Start 12/08/18 at 11:00 Cholecalciferol (Vitamin D) 400 units DAILY GTB Last administered on 12/13/18 08:18; Admin Dose 400 UNITS; Start 12/08/18 at 11:00 Calcium Carbonate (Tums) 500 mg Q4H PRN PO reflux Last administered on 12/10/18 10:48; Admin Dose 500 MG; Start 12/08/18 at 11:30 Valacyclovir HCl (Valtrex) 500 mg DAILY GTB Last administered on 12/13/18 08:12; Admin Dose 500 MG; Start 12/13/18 at 09:00 Sodium Chloride 1,000 ml @ 50 mls/hr Q20H IV Last administered on 12/12/18 19:04; Admin Dose 50 MLS/HR; Start 12/12/18 at 17:00; Stop 12/13/18 at 12:59 Docusate Sodium (Colace Liquid Cup) 100 mg BID GTB ; Start 12/13/18 at 10:00; Status UNV Polyethylene Glycol (Miralax) 17 gm ONCE ONCE NGT ; Start 12/13/18 at 10:00; Stop 12/13/18 at 10:01; Status UNV VTE Prophylaxis Risk score (from Nsg)>0 risk: 7 SCD applied (from Ns): Yes Lines/Catheters IV Catheter Type: Louie in Place: No Assessment/Plan Hospital Course Subjective still with mild fever, some dizziness Objective Physical exam General: Patient is laying in bed and answers questions appropriately Mentation: Patient is alert and oriented 4, Head: Normocephalic atraumatic Eyes: EOMI, pupils reactive to light Neck: Supple, nontender, midline Respiratory: Clear to auscultation bilaterally Cardiovascular: regular rate, no obvious murmurs Gastrointestinal: non-tender to palpation, bowel sounds heard. Neurological: Moves all extremities spontaneously Skin: surgical site bandaged, CDI Assessment/Plan 1. 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 Patient to maintain NWB status. No further procedures at this time - ID consultation appreciated and will monitor off antibiotics - Pain control fevers - mild, -UA negative -Chest x-ray negative -Blood cultures repeat pending -Ultrasound venous negative for DVT -G-tube site examined, no erythema, GI also does not believe it is infected, CT abdomen pelvis was done, slight thickening of the skin around the G-tube with no discrete signs of infection, GI recommendations appreciated -We will need to discuss with infectious disease for other possible etiologies of this fever -Colace and MiraLAX x1 for obstipation -We will need 24-48 hours of being afebrile before safe discharge, patient is immunocompromised due to chronic prednisone and CellCept use. 2. Hypertension- stable - Continue home meds 3. 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 5. Gout - continue on Allopurinol 6. Dyslipidemia - continue Lipitor 7. Nutritional deficiency - Soft diet during the day and Tube feeds from 8pm to 8am - dietary consult appreciated 8. Iron deficiency anemia - Continue iron 9. CORINNE on CKD- resolved - Nephrology on board and appreciate recommendations 10. GERD - stable - continue PPI and Tums PRN 11. Disposition - monitor fevers, d/c back to [facility] when fevers gone for 24-48 hrs - IT[facility] Dec 13, 2018 10:26
--- NOTE | 2018-12-13 10:34 | PN ---
DATE: 12/13/2018 SUBJECTIVE: The patient is stable, no events overnight. No fevers, chills, nausea, or vomiting. OBJECTIVE: VITAL SIGNS: Blood pressure is 107/63, respirations 17, pulse 100, temperature 99.5. HEENT: Head is normocephalic. NECK: Supple. HEART: Regular rate. LUNGS: Show diminished breath sounds at the base. ABDOMEN: Soft, nontender to palpation without rebound or guarding. EXTREMITIES: Negative for clubbing, cyanosis. No edema. DERMATOLOGIC: No rashes. MUSCULOSKELETAL: No joint effusion. NEUROLOGIC: No change in exam. MEDICATIONS: Reviewed. LABORATORY DATA: Reviewed. ASSESSMENT AND PLAN: 1. Nonoliguric acute kidney injury on chronic kidney disease stage III with previously unknown basel ine creatinine. Etiology of acute kidney injury is secondary to hemodynamics. Renal function is imp roving. Continue current treatment plans, supportive care, renally dose all medicines. 2. Coronary artery disease with history of lupus. The patient has no evidence of lupus flare. Cont inue to monitor. 3. Hypernatremia, improved. 4. Anemia. Monitor hemoglobin and hematocrit levels. 5. Mineral bone disorder, monitor calcium and phosphorus levels. 6. Metabolic acidosis, resolved. 7. Bilateral foot wounds. Continue wound care. Patient is status post amputation. Continue to [facility]. 8. Hypertension. Continue current blood pressure regimen. 9. History of gout. Continue allopurinol. 10. Dyslipidemia. Continue statin therapy. 11. Dysphagia. Continue tube feeding. Dictated By: JANINE JIMENEZ/NIECY Conf#: [id number] DID#: [id number] CC: ITZ BAY MD;*EndCC*
[2018-12-13] MEDS: CARBOXYMETHYLCELLULOSE 0.5% 0.4 ML OPH BOTH EYES PRN (12:16)
[2018-12-13] MEDS: traMADol 50 MG TAB GTB PRN (12:39)
[2018-12-13] MEDS ORDERED: VANCOMYCIN IV PER PHARMACY XX SCH (13:30)
--- NOTE | 2018-12-13 13:37 | PN ---
Date/Time of Note Date/Time of Note DATE: 12/13/18 TIME: 13:29 Assessment/Plan VTE Prophylaxis Risk score (from Ns)>0 risk: 7 SCD applied (from Ns): Yes Pharmacological prophylaxis: other (scds) Lines/Catheters IV Catheter Type (from Rust): Urinary Cath still in place: No Assessment/Plan Hospital Course Summary Assessment and Plan: Assessment: Fevers- unknown origin Bilateral foot ulcers -s/p debridement and amputation 2nd toes bilaterally Hypertension Lupus Rheumatoid arthritis -On immunosuppressant medication Chronic HSV - On Valtrex Iron deficiency anemia CKD History of dysphagia-improved Gastrostomy tube in place- Ct abd/pelvis- Slight skin thickening is seen at the gastrostomy tube site but no focal drainable fluid collection is seen. Dyslipidemia next gout Constipation- Plan: Pt started on Colace and MiraLAX for constipation Continue PEG care No further GI work-up GI will sign off but will be available upon reconsult as needed Patient seen in collaboration with Subjective: Course reviewed with nursing staff Patient interviewed and examined All labs, imaging and other results reviewed The patient resting in bed, no over night events Pt continues to have mild fevers, unclear etiology. PHYSICAL EXAMINATION: GENERAL: Alert & oriented x 3, in no acute distress SKIN: No lesions EYES: Pupils equal reactive to light, no discharge. EARS/NOSE AND THROAT: Ears normal, nose normal. NECK: Supple, no masses. CHEST: Inspection within normal limits. CARDIOVASCULAR: Heart: Regular rate and rhythm RESPIRATORY: Lungs clear to auscultation GASTROINTESTINAL AND LIVER: Abdomen: Soft, non tenderness, non-distended, no hernias, no masses, no organomegaly, no ascites, no guarding, no rebound tenderness, normoactive bowel sounds. Rectal: Deferred. GENITOURINARY: Female genitalia within normal limits. EXTREMITIES: No cyanosis, clubbing or edema. Result Diagram: 12/11/1835 12/11/1835 Exam/Review of Systems Exam Vitals Vital Signs Date Temp Pulse Resp B/P (MAP) Pulse Ox O2 O2 Flow FiO2 Time Delivery Rate 12/13/18 99.5 100 17 107/63 99 Room Air 08:00 (78) Intake and Output 12/12/18 12/12/18 12/13/18 1515:00 23:00 07:00 IntakeIntake Total 1485 ml 1700 ml BalanceBalance 1485 ml 1700 ml Medications Medication Current Medications Ondansetron HCl (Zofran Inj) 4 mg Q6H PRN IV NAUSEA/VOMITING Last administered on 12/06/18 10:39; Admin Dose 4 MG; Start 12/01/18 at 15:30 Acetaminophen (Tylenol Tab) 650 mg Q6H PRN PO fever Last administered on 12/07/18 22:25; Admin Dose 650 MG; Start 12/01/18 at 15:30 Acetaminophen/ Hydrocodone Bitart ([place] (5/325)) 1 tab Q6H PRN PO .PAIN 4-6 Last administered on 12/13/18 08:42; Admin Dose 1 TAB; Start 12/01/18 at 15:30 Morphine Sulfate (morphine) 2 mg Q4H PRN IV .PAIN 7-10 Last administered on 12/05/18 16:18; Admin Dose 2 MG; Start 12/01/18 at 15:30 Allopurinol (Zyloprim) 200 mg DAILY PEG Last administered on 12/13/18 08:15; Admin Dose 200 MG; Start 12/01/18 at 15:30 Atenolol (Tenormin) 25 mg DAILY PEG Last administered on 12/12/18 10:07; Admin Dose 25 MG; Start 12/01/18 at 15:30 Fish Oil (Fish Oil) 1,000 mg DAILY PO Last administered on 12/13/18 08:15; Admin Dose 1,000 MG; Start 12/01/18 at 15:30 Atorvastatin Calcium (Lipitor) 40 mg HS PEG Last administered on 12/12/18 21:30; Admin Dose 40 MG; Start 12/01/18 at 21:00 Cyanocobalamin (Vitamin B12) 100 mcg DAILY NGT Last administered on 12/13/18 08:18; Admin Dose 100 MCG; Start 12/02/18 at 09:00 Ascorbic Acid (Vitamin C) 500 mg DAILY GTB Last administered on 12/13/18 08:18; Admin Dose 500 MG; Start 12/02/18 at 09:00 Diphenhydramine HCl (Benadryl Liquid Cup) 12.5 mg DAILY PRN PEG itching Last administered on 12/09/18 21:13; Admin Dose 12.5 MG; Start 12/01/18 at 16:30 Methylprednisolone (Medrol) 5 mg DAILY PEG Last administered on 12/13/18 08:25; Admin Dose 5 MG; Start 12/03/18 at 09:00 Nystatin (Nystatin Powder) 1 applic BID TOP Last administered on 12/13/18 08:54; Admin Dose 1 APPLIC; Start 12/02/18 at 21:00 Neomycin/ Polymyxin/ Bacitracin (Neosporin Topical Oint) 1 applic DAILY TOP Last administered on 12/13/18 08:54; Admin Dose 1 APPLIC; Start 12/03/18 at 18:30 Sodium Hypochlorite (Dakins Diluted (40)) 1 applic DAILY TP Last administered on 12/13/18 08:53; Admin Dose 1 APPLIC; Start 12/03/18 at 21:00 Gabapentin (Neurontin) 300 mg TID GTB Last administered on 12/13/18 12:42; Admin Dose 300 MG; Start 12/04/18 at 13:00 Eye Lubricant (Refresh Plus) 1 drop QID PRN BOTH EYES dry eyes Last administered on 12/13/18 12:16; Admin Dose 1 DROP; Start 12/04/18 at 12:30 Lansoprazole (Prevacid) 30 mg DAILY@06 GTB Last administered on 12/13/18 06:04; Admin Dose 30 MG; Start 12/05/18 at 06:00 Fluticasone Propionate (Flonase 0.05% Nasal) 1 spray DAILY NASAL Last administered on 12/13/18 08:13; Admin Dose 1 SPRAY; Start 12/05/18 at 09:00 Hydroxychloroquine Sulfate (Plaquenil) 400 mg DAILY GTB Last administered on 12/13/18 08:17; Admin Dose 400 MG; Start 12/05/18 at 09:00 Mirtazapine (Remeron) 15 mg HS GTB Last administered on 12/12/18 21:30; Admin Dose 15 MG; Start 12/04/18 at 21:00 Mycophenolate Mofetil (Cellcept) 1,000 mg DAILY PO Last administered on 12/13/18 08:15; Admin Dose 1,000 MG; Start 12/05/18 at 09:00 Oxybutynin Chloride (Ditropan) 5 mg TID GTB Last administered on 12/13/18 12:15; Admin Dose 5 MG; Start 12/04/18 at 21:00 Polyethylene Glycol (Miralax) 17 gm DAILY GTB Last administered on 12/12/18 10:00; Admin Dose 17 GM; Start 12/05/18 at 09:00 Zinc Sulfate (Zinc Sulfate) 220 mg DAILY GTB Last administered on 12/13/18 08:17; Admin Dose 220 MG; Start 12/05/18 at 09:00 Ferrous Sulfate (Feosol Liquid Cup) 300 mg TID GTB Last administered on 12/13/18 12:16; Admin Dose 300 MG; Start 12/04/18 at 21:10 Tramadol HCl (Ultram) 100 mg Q8H PRN GTB PAIN Last administered on 12/13/18 12:39; Admin Dose 100 MG; Start 12/05/18 at 20:30 Acetaminophen (Tylenol Tab) 1,000 mg Q6H PRN PO MILD PAIN(1-3)OR ELEVATED TEMP Last administered on 12/11/18 21:03; Admin Dose 1,000 MG; Start 12/06/18 at 15:30 Lactobacillus Acidophilus/ Rhamnosus (Culturelle) 1 cap WITH MEALS PO Last administered on 12/13/18 12:39; Admin Dose 1 CAP; Start 12/06/18 at 17:35 Petrolatum (Vaseline) 1 applic Q2 TOP Last administered on 12/13/18 12:42; Admin Dose 1 APPLIC; Start 12/06/18 at 22:00 Simethicone (Mylicon) 80 mg Q6H PRN PO DISTENSION/GAS/BLOATING Last administered on 12/07/18 14:47; Admin Dose 80 MG; Start 12/07/18 at 12:00 Enoxaparin Sodium (Lovenox) 30 mg DAILY SC Last administered on 12/13/18 08:28; Admin Dose 30 MG; Start 12/09/18 at 09:00 Ondansetron HCl (Zofran Inj) 4 mg BEFORE MEALS IV Last administered on 12/13 12:15; Admin Dose 4 MG; Start 12/08/18 at 11:30 Senna (Senokot) 2 tab BID PRN GTB constipation; Start 12/08/18 at 11:00 Cholecalciferol (Vitamin D) 400 units DAILY GTB Last administered on 12/13/18at 08:18; Admin Dose 400 UNITS; Start 12/08/18 at 11:00 Calcium Carbonate (Tums) 500 mg Q4H PRN PO reflux Last administered on 12/10/18at 10:48; Admin Dose 500 MG; Start 12/08/18 at 11:30 Valacyclovir HCl (Valtrex) 500 mg DAILY GTB Last administered on 12/13/18at 08:12; Admin Dose 500 MG; Start 12/13/18 at 09:00 Docusate Sodium (Colace Liquid Cup) 100 mg BID GTB Last administered on 12/13/18at 12:41; Admin Dose 100 MG; Start 12/13/18 at 10:00 Vancomycin HCl (Vanco Iv Per Pharmacy) VANCOMYCIN PER PHARMACY PER PROTOCOL XX ; Start 12/13/18 at 13:30; Status UNV EVIN QUIROGA Dec 13, 2018 13:37
[2018-12-13 14:00] VITALS: BP 118/65; PULSE 100; RESP 17
[2018-12-13] MEDS ORDERED: VANCOMYCIN 1 GM 250 ML IVPB ONE (14:00)
--- NOTE | 2018-12-13 16:19 | CONS ---
Assessment/Plan Assessment/Plan Hospital Course (Demo Recall) Alert, feels good, low grade temps 100.7 Wound cultures grew MRSA, s/p toe amputation, s/p abx Physical examination: Well-developed fragile elderly -[place] woman who is awake in no distress head atraumatic normocephalic neck is supple chest rise symmetrical breath sounds clear heart S1-S2 abdomen soft bowel sounds present extremities with bilateral feet dressing clean dry and intact Assessment: 1. 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 Diabetes 3. Peripheral arterial disease 4. Acute renal failure, improved 5. Anemia Plan: Patient remains stable, will add Vanco given ongoing fevers Discussed with staff Consultation Date/Type/Reason Admit Date/Time Dec 01, 2018 at 15:06 Initial Consult Date Type of Consult id Date/Time of Note DATE: 12/13/18 TIME: 16:17 Exam/Review of Systems Exam Vitals Vital Signs Date Temp Pulse Resp B/P (MAP) Pulse Ox O2 O2 Flow FiO2 Time Delivery Rate 12/13/18 98.4 100 17 118/65 98 Room Air 14:00 (82) Intake and Output 12/12/18 12/12/18 12/13/18 1515:00 23:00 07:00 IntakeIntake Total 1485 ml 1700 ml BalanceBalance 1485 ml 1700 ml Results Result Diagram: 12/13/18 1457 12/13/18 1457 Results 24hrs Laboratory Tests Test 12/13/18 14:57 White Blood Count 7.0 Red Blood Count 2.76 L Hemoglobin 8.5 L Hematocrit 27.7 L Mean Corpuscular Volume 100.4 Mean Corpuscular Hemoglobin 30.8 Mean Corpuscular Hemoglobin Concent 30.7 L Red Cell Distribution Width 14.7 H Platelet Count 133 L Mean Platelet Volume 13.5 H Immature Granulocytes % 1.100 H Neutrophils % 78.4 H Lymphocytes % 9.4 L Monocytes % 10.6 Eosinophils % 0.4 Basophils % 0.1 Nucleated Red Blood Cells % 0.0 Immature Granulocytes # 0.080 H Neutrophils # 5.5 Lymphocytes # 0.7 L Monocytes # 0.7 Eosinophils # 0.0 Basophils # 0.0 Nucleated Red Blood Cells # 0.0 Sodium Level 141 Potassium Level 4.5 Chloride Level 112 H Carbon Dioxide Level 21 Anion Gap 8 Blood Urea Nitrogen 28 H Creatinine 1.04 H Est Glomerular Filtrat Rate mL/min Glucose Level 142 Calcium Level 9.3 Phosphorus Level 2.8 Magnesium Level 2.1 Medications Medication Current Medications Ondansetron HCl (Zofran Inj) 4 mg Q6H PRN IV NAUSEA/VOMITING Last administered on 12/06/18 10:39; Admin Dose 4 MG; Start 12/01/18 at 15:30 Acetaminophen (Tylenol Tab) 650 mg Q6H PRN PO fever Last administered on 12/07/18 22:25; Admin Dose 650 MG; Start 12/01/18 at 15:30 Acetaminophen/ Hydrocodone Bitart ([place] (5/325)) 1 tab Q6H PRN PO .PAIN 4-6 Last administered on 12/13/18 08:42; Admin Dose 1 TAB; Start 12/01/18 at 15:30 Morphine Sulfate (morphine) 2 mg Q4H PRN IV .PAIN 7-10 Last administered on 12/05/18 16:18; Admin Dose 2 MG; Start 12/01/18 at 15:30 Allopurinol (Zyloprim) 200 mg DAILY PEG Last administered on 12/13/18 08:15; Admin Dose 200 MG; Start 12/01/18 at 15:30 Atenolol (Tenormin) 25 mg DAILY PEG Last administered on 12/12/18 10:07; Admin Dose 25 MG; Start 12/01/18 at 15:30 Fish Oil (Fish Oil) 1,000 mg DAILY PO Last administered on 12/13/18 08:15; Admin Dose 1,000 MG; Start 12/01/18 at 15:30 Atorvastatin Calcium (Lipitor) 40 mg HS PEG Last administered on 12/12/18 21:30; Admin Dose 40 MG; Start 12/01/18 at 21:00 Cyanocobalamin (Vitamin B12) 100 mcg DAILY NGT Last administered on 12/13/18 08:18; Admin Dose 100 MCG; Start 12/02/18 at 09:00 Ascorbic Acid (Vitamin C) 500 mg DAILY GTB Last administered on 12/13/18 08:18; Admin Dose 500 MG; Start 12/02/18 at 09:00 Diphenhydramine HCl (Benadryl Liquid Cup) 12.5 mg DAILY PRN PEG itching Last administered on 12/09/18 21:13; Admin Dose 12.5 MG; Start 12/01/18 at 16:30 Methylprednisolone (Medrol) 5 mg DAILY PEG Last administered on 12/13/18 08:25; Admin Dose 5 MG; Start 12/03/18 at 09:00 Nystatin (Nystatin Powder) 1 applic BID TOP Last administered on 12/13/18 08:54; Admin Dose 1 APPLIC; Start 12/02/18 at 21:00 Neomycin/ Polymyxin/ Bacitracin (Neosporin Topical Oint) 1 applic DAILY TOP Last administered on 12/13/18 08:54; Admin Dose 1 APPLIC; Start 12/03/18 at 18:30 Sodium Hypochlorite (Dakins Diluted ()) 1 applic DAILY TP Last administered on 12/13/18 08:53; Admin Dose 1 APPLIC; Start 12/03/18 at 21:00 Gabapentin (Neurontin) 300 mg TID GTB Last administered on 12/13/18 12:42; Admin Dose 300 MG; Start 12/04/18 at 13:00 Eye Lubricant (Refresh Plus) 1 drop QID PRN BOTH EYES dry eyes Last administered on 12/13/18 12:16; Admin Dose 1 DROP; Start 12/04/18 at 12:30 Lansoprazole (Prevacid) 30 mg DAILY@06 GTB Last administered on 12/13/18 06:04; Admin Dose 30 MG; Start 12/05/18 at 06:00 Fluticasone Propionate (Flonase 0.05% Nasal) 1 spray DAILY NASAL Last administered on 12/13/18 08:13; Admin Dose 1 SPRAY; Start 12/05/18 at 09:00 Hydroxychloroquine Sulfate (Plaquenil) 400 mg DAILY GTB Last administered on 12/13/18 08:17; Admin Dose 400 MG; Start 12/05/18 at 09:00 Mirtazapine (Remeron) 15 mg HS GTB Last administered on 12/12/18 21:30; Admin Dose 15 MG; Start 12/04/18 at 21:00 Mycophenolate Mofetil (Cellcept) 1,000 mg DAILY PO Last administered on 12/13/18 08:15; Admin Dose 1,000 MG; Start 12/05/18 at 09:00 Oxybutynin Chloride (Ditropan) 5 mg TID GTB Last administered on 12/13/18 12:15; Admin Dose 5 MG; Start 12/04/18 at 21:00 Polyethylene Glycol (Miralax) 17 gm DAILY GTB Last administered on 12/12/18 10:00; Admin Dose 17 GM; Start 12/05/18 at 09:00 Zinc Sulfate (Zinc Sulfate) 220 mg DAILY GTB Last administered on 12/13/18 08:17; Admin Dose 220 MG; Start 12/05/18 at 09:00 Ferrous Sulfate (Feosol Liquid Cup) 300 mg TID GTB Last administered on 12:16; Admin Dose 300 MG; Start 12/04/18 at 21:10 Tramadol HCl (Ultram) 100 mg Q8H PRN GTB PAIN Last administered on 12/13/18 12:39; Admin Dose 100 MG; Start 12/05/18 at 20:30 Acetaminophen (Tylenol Tab) 1,000 mg Q6H PRN PO MILD PAIN(1-3)OR ELEVATED TEMP Last administered on 12/11/18 21:03; Admin Dose 1,000 MG; Start 12/06/18 at 15:30 Lactobacillus Acidophilus/ Rhamnosus (Culturelle) 1 cap WITH MEALS PO Last administered on 12/13/18 12:39; Admin Dose 1 CAP; Start 12/06/18 at 17:35 Petrolatum (Vaseline) 1 applic Q2 TOP Last administered on 12/13/18 15:23; Admin Dose 1 APPLIC; Start 12/06/18 at 22:00 Simethicone (Mylicon) 80 mg Q6H PRN PO DISTENSION/GAS/BLOATING Last administere d on 12/07/18 14:47; Admin Dose 80 MG; Start 12/07/18 at 12:00 Enoxaparin Sodium (Lovenox) 30 mg DAILY SC Last administered on 12/13/18 08:28; Admin Dose 30 MG; Start 12/09/18 at 09:00 Ondansetron HCl (Zofran Inj) 4 mg BEFORE MEALS IV Last administered on 12/13/18 12:15; Admin Dose 4 MG; Start 12/08/18 at 11:30 Senna (Senokot) 2 tab BID PRN GTB constipation; Start 12/08/18 at 11:00 Cholecalciferol (Vitamin D) 400 units DAILY GTB Last administered on 12/13/18at 08:18; Admin Dose 400 UNITS; Start 12/08/18 at 11:00 Calcium Carbonate (Tums) 500 mg Q4H PRN PO reflux Last administered on 11/21 10:48; Admin Dose 500 MG; Start 12/08/18 at 11:30 Valacyclovir HCl (Valtrex) 500 mg DAILY GTB Last administered on 12/13/18at 08:12; Admin Dose 500 MG; Start 12/13/18 at 09:00 Docusate Sodium (Colace Liquid Cup) 100 mg BID GTB Last administered on 12/13/18at 12:41; Admin Dose 100 MG; Start 12/13/18 at 10:00 Vancomycin HCl (Vanco Iv Per Pharmacy) VANCOMYCIN PER PHARMACY PER PROTOCOL XX ; Start 12/13/18 at 13:30 KAMI AMADOR NP Dec 13, 2018 16:19
[2018-12-13 20:00] VITALS: BP 119/64; PULSE 86; RESP 18
--- NOTE | 2018-12-13 21:02 | CONS ---
Assessment/Plan Assessment/Plan Assessment/Plan (Daily) Chronic osteomyelitis b/l feet 2nd digits - s/p b/l 2nd digit amputations. PAD Arterial ulcers bilateral foot Hammertoe deformity Plan: Dressings were changed and recommend to keep clean dry and intact. Patient was dispensed post op shoes. Discussed with patient to remain non weight bearing and to keep feet offloaded and elevated. Intra op wound cx showing staph aur eus, intra op pathology showing no evidence of osteomyelitis. No further procedures at this time. Consultation Date/Type/Reason Admit Date/Time Dec 01, 2018 at 15:06 Initial Consult Date Date/Time of Note DATE: 12/13/18 TIME: 21:01 24 HR Interval Summary Free Text/Dictation No acute events overnight. Exam/Review of Systems Exam Vitals Vital Signs Date Temp Pulse Resp B/P (MAP) Pulse Ox O2 O2 Flow FiO2 Time Delivery Rate 12/13/18 98.9 86 18 119/64 100 20:00 (82) 12/13/18 Room Air 14:00 Intake and Output 12/12/18 12/12/18 12/13/18 1515:00 23:00 07:00 IntakeIntake Total 1485 ml 1700 ml BalanceBalance 1485 ml 1700 ml Exam weakly palpable pedal pulses CFT less than 3 seconds to the digits Bilateral 2nd digit amputation sites with well approximated sutures, no sign of wound dehiscence, no purulent drainage, no proximal streaking. Pain on with palpation to bilateral 2nd digits. Left foot X-ray IMPRESSION: 1. No acute osseous abnormality. 2. Osteoarthritis. 3. Old nonunited second metatarsal base fracture. 4. Flexion deformity of the second - fifth toes. 5. Atherosclerosis. 6. Moderate dorsal forefoot soft tissue swelling. Right foot X-ray IMPRESSION: 1. Suspect a nondisplaced second proximal phalangeal fracture with overlying soft tissue swelling. 2. Minimally displaced, oblique, fourth proximal phalangeal fracture, probably subacute or chronic. Recommend correlation with point tenderness and history of recent trauma. 3. Hallux valgus deformity. 4. Osteoarthritis, most notable at the tarsometatarsal joints. 5. Plantar calcaneal spur. 6. Atherosclerosis. 7. Moderate dorsal forefoot soft tissue swelling. Intra - op pathology A-Right second toe: -- Skin and subcutaneous tissue showing focal dermal acute and chronic inflammation with foreign body giant cell reaction. -- No ulceration or gangrene is identified. -- The underlying bone with overlying cartilage shows moderate degenerative changes and changes consistent with new bone formation. -- No evidence of osteomyelitis or malignancy. Continued Next Page. . . B-Left second toe: -- Skin and subcutaneous tissue showing ulceration with necrosis and scale crust formation associated with neutrophilic exudate, granulation tissue and foreign body giant cell reaction. -- The underlying bone with overlying cartilage shows moderate degenerative changes with changes consistent with new bone formation. -- No evidence of osteomyelitis or malignancy. Results Result Diagram: 12/13/18 1457 12/13/18 1457 Results 24hrs Laboratory Tests Test 12/13/18 14:57 White Blood Count 7.0 Red Blood Count 2.76 L Hemoglobin 8.5 L Hematocrit 27.7 L Mean Corpuscular Volume 100.4 Mean Corpuscular Hemoglobin 30.8 Mean Corpuscular Hemoglobin Concent 30.7 L Red Cell Distribution Width 14.7 H Platelet Count 133 L Mean Platelet Volume 13.5 H Immature Granulocytes % 1.100 H Neutrophils % 78.4 H Lymphocytes % 9.4 L Monocytes % 10.6 Eosinophils % 0.4 Basophils % 0.1 Nucleated Red Blood Cells % 0.0 Immature Granulocytes # 0.080 H Neutrophils # 5.5 Lymphocytes # 0.7 L Monocytes # 0.7 Eosinophils # 0.0 Basophils # 0.0 Nucleated Red Blood Cells # 0.0 Sodium Level 141 Potassium Level 4.5 Chloride Level 112 H Carbon Dioxide Level 21 Anion Gap 8 Blood Urea Nitrogen 28 H Creatinine 1.04 H Est Glomerular Filtrat Rate mL/min Glucose Level 142 Calcium Level 9.3 Phosphorus Level 2.8 Magnesium Level 2.1 Medications Medication Current Medications Ondansetron HCl (Zofran Inj) 4 mg Q6H PRN IV NAUSEA/VOMITING Last administered on 12/06/18at 10:39; Admin Dose 4 MG; Start 12/01/18 at 15:30 Acetaminophen (Tylenol Tab) 650 mg Q6H PRN PO fever Last administered on 12/07/18at 22:25; Admin Dose 650 MG; Start 12/01/18 at 15:30 Acetaminophen/ Hydrocodone Bitart ([place] (5/325)) 1 tab Q6H PRN PO .PAIN 4-6 Last administered on 12/13/18at 08:42; Admin Dose 1 TAB; Start 12/01/18 at 15:30 Morphine Sulfate (morphine) 2 mg Q4H PRN IV .PAIN 7-10 Last administered on 12/05/18 16:18; Admin Dose 2 MG; Start 12/01/18 at 15:30 Allopurinol (Zyloprim) 200 mg DAILY PEG Last administered on 12/13/18 08:15; Admin Dose 200 MG; Start 12/01/18 at 15:30 Atenolol (Tenormin) 25 mg DAILY PEG Last administered on 12/12/18 10:07; Admin Dose 25 MG; Start 12/01/18 at 15:30 Fish Oil (Fish Oil) 1,000 mg DAILY PO Last administered on 12/13/18 08:15; Admin Dose 1,000 MG; Start 12/01/18 at 15:30 Atorvastatin Calcium (Lipitor) 40 mg HS PEG Last administered on 12/12/18 21:30; Admin Dose 40 MG; Start 12/01/18 at 21:00 Cyanocobalamin (Vitamin B12) 100 mcg DAILY NGT Last administered on 12/13/18 08:18; Admin Dose 100 MCG; Start 12/02/18 at 09:00 Ascorbic Acid (Vitamin C) 500 mg DAILY GTB Last administered on 12/13/18 08:18; Admin Dose 500 MG; Start 12/02/18 at 09:00 Diphenhydramine HCl (Benadryl Liquid Cup) 12.5 mg DAILY PRN PEG itching Last administered on 12/09/18 21:13; Admin Dose 12.5 MG; Start 12/01/18 at 16:30 Methylprednisolone (Medrol) 5 mg DAILY PEG Last administered on 12/13/18 08:25; Admin Dose 5 MG; Start 12/03/18 at 09:00 Nystatin (Nystatin Powder) 1 applic BID TOP Last administered on 12/13/18 08:54; Admin Dose 1 APPLIC; Start 12/02/18 at 21:00 Neomycin/ Polymyxin/ Bacitracin (Neosporin Topical Oint) 1 applic DAILY TOP Last administered on 12/13/18 08:54; Admin Dose 1 APPLIC; Start 12/03/18 at 18:30 Sodium Hypochlorite (Dakins Diluted (40)) 1 applic DAILY TP Last administered on 12/13/18 08:53; Admin Dose 1 APPLIC; Start 12/03/18 at 21:00 Gabapentin (Neurontin) 300 mg TID GTB Last administered on 12/13/18 12:42; Adm in Dose 300 MG; Start 12/04/18 at 13:00 Eye Lubricant (Refresh Plus) 1 drop QID PRN BOTH EYES dry eyes Last administered on 12/13/18 12:16; Admin Dose 1 DROP; Start 12/04/18 at 12:30 Lansoprazole (Prevacid) 30 mg DAILY@06 GTB Last administered on 12/13/18 06:04; Admin Dose 30 MG; Start 12/05/18 at 06:00 Fluticasone Propionate (Flonase 0.05% Nasal) 1 spray DAILY NASAL Last administered on 12/13/18 08:13; Admin Dose 1 SPRAY; Start 12/05/18 at 09:00 Hydroxychloroquine Sulfate (Plaquenil) 400 mg DAILY GTB Last administered on 12/13/18 08:17; Admin Dose 400 MG; Start 12/05/18 at 09:00 Mirtazapine (Remeron) 15 mg HS GTB Last administered on 12/12/18 21:30; Admin Dose 15 MG; Start 12/04/18 at 21:00 Mycophenolate Mofetil (Cellcept) 1,000 mg DAILY PO Last administered on 12/13/18 08:15; Admin Dose 1,000 MG; Start 12/05/18 at 09:00 Oxybutynin Chloride (Ditropan) 5 mg TID GTB Last administered on 12/13/18 12:15; Admin Dose 5 MG; Start 12/04/18 at 21:00 Polyethylene Glycol (Miralax) 17 gm DAILY GTB Last administered on 12/12/18 10:00; Admin Dose 17 GM; Start 12/05/18 at 09:00 Zinc Sulfate (Zinc Sulfate) 220 mg DAILY GTB Last administered on 12/13/18 08:17; Admin Dose 220 MG; Start 12/05/18 at 09:00 Ferrous Sulfate (Feosol Liquid Cup) 300 mg TID GTB Last administered on 11/21 12:16; Admin Dose 300 MG; Start 12/04/18 at 21:10 Tramadol HCl (Ultram) 100 mg Q8H PRN GTB PAIN Last administered on 12/13/18 12:39; Admin Dose 100 MG; Start 12/05/18 at 20:30 Acetaminophen (Tylenol Tab) 1,000 mg Q6H PRN PO MILD PAIN(1-3)OR ELEVATED TEMP Last administered on 12/11/18 21:03; Admin Dose 1,000 MG; Start 12/06/18 at 15:30 Lactobacillus Acidophilus/ Rhamnosus (Culturelle) 1 cap WITH MEALS PO Last administered on 12/13/18 18:05; Admin Dose 1 CAP; Start 12/06/18 at 17:35 Petrolatum (Vaseline) 1 applic Q2 TOP Last administered on 12/13/18 18:06; Admin Dose 1 APPLIC; Start 12/06/18 at 22:00 Simethicone (Mylicon) 80 mg Q6H PRN PO DISTENSION/GAS/BLOATING Last administe red on 12/07/18 14:47; Admin Dose 80 MG; Start 12/07/18 at 12:00 Enoxaparin Sodium (Lovenox) 30 mg DAILY SC Last administered on 12/13/18 08:28; Admin Dose 30 MG; Start 12/09/18 at 09:00 Ondansetron HCl (Zofran Inj) 4 mg BEFORE MEALS IV Last administered on 12/13/18 18:05; Admin Dose 4 MG; Start 12/08/18 at 11:30 Senna (Senokot) 2 tab BID PRN GTB constipation; Start 12/08/18 at 11:00 Cholecalciferol (Vitamin D) 400 units DAILY GTB Last administered on 12/13/18 08:18; Admin Dose 400 UNITS; Start 12/08/18 at 11:00 Calcium Carbonate (Tums) 500 mg Q4H PRN PO reflux Last administered on 10:48; Admin Dose 500 MG; Start 12/08/18 at 11:30 Valacyclovir HCl (Valtrex) 500 mg DAILY GTB Last administered on 12/13/18 08:12; Admin Dose 500 MG; Start 12/13/18 at 09:00 Docusate Sodium (Colace Liquid Cup) 100 mg BID GTB Last administered on 12/13/18 12:41; Admin Dose 100 MG; Start 12/13/18 at 10:00 Vancomycin HCl (Vanco Iv Per Pharmacy) VANCOMYCIN PER PHARMACY PER PROTOCOL XX ; Start 12/13/18 at 13:30 WENDI BELL DPM Dec 13, 2018 21:01
[2018-12-13] MEDS: ATORVASTATIN 40 MG TAB PEG SCH (21:09)
[2018-12-13] MEDS: ACETAMINOPHEN 500 MG TAB PO PRN (21:10)
[2018-12-13] MEDS: MIRTAZAPINE 15 MG TAB GTB SCH (21:10)
[2018-12-14] MEDS: PETROLATUM 28.35 GM JELLY TOP SCH ×13 (01:00→23:00)
[2018-12-14 02:00] VITALS: BP 151/82; PULSE 86; RESP 18
[2018-12-14] MEDS: LANSOPRAZOLE 30 MG CAP GTB SCH (05:18)
[2018-12-14] MEDS: HYDROCODONE/APAP (5/325) TAB PO PRN (06:10)
[2018-12-14 07:40] VITALS: BP 116/80; PULSE 86; RESP 18
[2018-12-14] MEDS: NEOMYC/POLYMYX/BACIT 30 GM OINT TOP SCH (09:00)
[2018-12-14] MEDS: DAKINS 0.0125%(1/40) 473 ML SOLUTION TP SCH (09:00)
--- NOTE | 2018-12-14 09:32 | PN ---
DATE: 12/14/2018 SUBJECTIVE: The patient is stable, no events overnight. OBJECTIVE: VITAL SIGNS: Blood pressure is 116/80, pulse 86, respiration 18, temperature 98.3. HEENT: Head is normocephalic. NECK: Supple. HEART: Regular rate. LUNGS: Show diminished breath sounds at the base. ABDOMEN: Soft, nontender to palpation. No rebound or guarding. EXTREMITIES: Negative for clubbing, cyanosis, no edema. DERMATOLOGIC: No rashes. MUSCULOSKELETAL: No joint effusion. NEUROLOGIC: No change in exam. MEDICATIONS: The patient's medications have been reviewed. LABORATORY DATA: Has been reviewed. ASSESSMENT AND PLAN: 1. Nonoliguric acute kidney injury and chronic kidney disease stage III with a previously unknown ba seline creatinine. Etiology of CORINNE is secondary to hemodynamics. Renal function is improved. Marcellus nue current treatment plans, supportive care, renally dose all medication. 2. Chronic kidney disease. The patient is currently in acute injury as stated above. Continue medi tiera management. 3. History of lupus. Continue current medical management. 4. Hypernatremia, improved. 5. Anemia. Monitor hemoglobin and hematocrit levels. 6. Mineral bone disorder, monitor calcium and phosphorus levels. 7. Metabolic acidosis, resolved. 8. Bilateral lower extremity wounds. Continue current treatment plan. Continue wound care, antibio tic therapy. 9. Hypertension. Continue current blood pressure regimen. 10. Cellulitis. Continue antibiotic therapy. 11. History of gout. Continue allopurinol. 12. Dyslipidemia. Continue statin therapy. 13. Dysphagia. Continue tube feeding. 14. Status post amputation second digit of the toe. Continue wound care. Follow up with podiatry. Dictated By: JANINE JIMENEZ/NTS Conf#: [id number] DID#: [id number] CC: ITZ BAY MD;*EndCC*
[2018-12-14] MEDS: ONDANSETRON 4 MG INJ IV SCH ×3 (10:16→17:53)
[2018-12-14] MEDS: traMADol 50 MG TAB GTB PRN (10:16)
[2018-12-14] MEDS: LACTOBACILLUS RHAMNOSUS CAP PO SCH ×3 (10:17→17:53)
[2018-12-14] MEDS: GABAPENTIN 300 MG CAP GTB SCH ×3 (10:17→20:59)
[2018-12-14] MEDS: OXYBUTYNIN 5 MG TAB GTB SCH ×3 (10:17→20:59)
[2018-12-14] MEDS: FERROUS SULFATE 60 MG/ML 5ML CUP GTB SCH ×3 (10:17→21:00)
[2018-12-14] MEDS: DOCUSATE SODIUM 10 MG/ML (10ML CUP) GTB SCH ×2 (10:17→21:00)
[2018-12-14] MEDS: POLYETHYLENE GLYCOL 17 GM PACKET GTB SCH (10:17)
[2018-12-14] MEDS: valACYclovir 500 MG TAB GTB SCH (10:18)
[2018-12-14] MEDS: ASCORBIC ACID 500 MG TAB GTB SCH (10:18)
[2018-12-14] MEDS: CHOLECALCIFEROL 400 UNITS TAB GTB SCH (10:18)
[2018-12-14] MEDS: ZINC SULFATE 220 MG CAP GTB SCH (10:18)
[2018-12-14] MEDS: HYDROXYCHLOROQUINE 200 MG TAB GTB SCH (10:18)
[2018-12-14] MEDS: CYANOCOBALAMIN 100 MCG TAB NGT SCH (10:20)
[2018-12-14] MEDS: METHYLPREDNISOLONE 4 MG TAB PEG SCH (10:20)
[2018-12-14] MEDS: ALLOPURINOL 100 MG TAB PEG SCH (10:21)
[2018-12-14] MEDS: FISH OIL 1,000 MG CAP PO SCH (10:21)
[2018-12-14] MEDS: ATENOLOL 25 MG TAB PEG SCH (10:21)
[2018-12-14] MEDS: MYCOPHENOLATE 250 MG CAP PO SCH (10:21)
[2018-12-14] MEDS: ENOXAPARIN 30 MG/0.3 ML SYG SC SCH (10:22)
[2018-12-14] MEDS: NYSTATIN 30 GM POWDER BTL TOP SCH ×2 (10:23→21:08)
[2018-12-14] MEDS: CARBOXYMETHYLCELLULOSE 0.5% 0.4 ML OPH BOTH EYES PRN (12:43)
[2018-12-14] MEDS: FLUTICASONE 0.05% 16 GM NAS SPRAY NASAL SCH (12:43)
[2018-12-14 14:12] VITALS: BP 112/59; PULSE 106; RESP 16
--- NOTE | 2018-12-14 14:34 | CONS ---
Assessment/Plan Assessment/Plan Hospital Course (Demo Recall) Alert, feels good, afebrile Wound cultures grew MRSA, s/p toe amputation, s/p abx Abx: Vanco, Valtrex Physical examination: Well-developed fragile elderly -[place] woman who is awake in no distress head atraumatic normocephalic neck is supple chest rise symmetrical breath sounds clear heart S1-S2 abdomen soft bowel sounds present extremities with bilateral feet dressing clean dry and intact Assessment: 1. 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 Diabetes 3. Peripheral arterial disease 4. Acute renal failure, improved 5. Anemia 6. Immunocompromised host Plan: Patient remains stable, Vanco was restarted for ongoing fevers, will treat with vancomycin for 7 days Discussed with staff Consultation Date/Type/Reason Admit Date/Time Dec 01, 2018 at 15:06 Initial Consult Date Type of Consult id Date/Time of Note DATE: 12/14/18 TIME: 14:33 Exam/Review of Systems Exam Vitals Vital Signs Date Temp Pulse Resp B/P (MAP) Pulse Ox O2 O2 Flow FiO2 Time Delivery Rate 12/14/18 99.0 106 16 112/59 99 Room Air 14:12 (76) Intake and Output 12/13/18 12/13/18 12/14/18 1515:00 23:00 07:00 IntakeIntake Total 1260 ml 750 ml 1600 ml BalanceBalance 1260 ml 750 ml 1600 ml Results Result Diagram: 12/14/18 0605 12/14/18 0605 Results 24hrs Laboratory Tests Test 12/13/18 14:57 12/14/18 06:05 White Blood Count 7.0 5.8 Red Blood Count 2.76 L 2.83 L Hemoglobin 8.5 L 8.5 L Hematocrit 27.7 L 28.2 L Mean Corpuscular Volume 100.4 99.6 Mean Corpuscular Hemoglobin 30.8 30.0 Mean Corpuscular Hemoglobin Concent 30.7 L 30.1 L Red Cell Distribution Width 14.7 H 14.8 H Platelet Count 133 L 129 L Mean Platelet Volume 13.5 H 12.7 H Immature Granulocytes % 1.100 H 1.400 H Neutrophils % 78.4 H 67.4 Lymphocytes % 9.4 L 13.9 L Monocytes % 10.6 14.9 H Eosinophils % 0.4 2.2 Basophils % 0.1 0.2 Nucleated Red Blood Cells % 0.0 0.0 Immature Granulocytes # 0.080 H 0.080 H Neutrophils # 5.5 3.9 Lymphocytes # 0.7 L 0.8 Monocytes # 0.7 0.9 Eosinophils # 0.0 0.1 Basophils # 0.0 0.0 Nucleated Red Blood Cells # 0.0 0.0 Sodium Level 141 144 Potassium Level 4.5 4.0 Chloride Level 112 H 115 H Carbon Dioxide Level 21 22 Anion Gap 8 7 Blood Urea Nitrogen 28 H 25 H Creatinine 1.04 H 0.98 Est Glomerular Filtrat Rate mL/min Glucose Level 142 98 # Calcium Level 9.3 9.2 Phosphorus Level 2.8 2.8 Magnesium Level 2.1 2.1 Medications Medication Current Medications Ondansetron HCl (Zofran Inj) 4 mg Q6H PRN IV NAUSEA/VOMITING Last administered on 12/06/18 10:39; Admin Dose 4 MG; Start 12/01/18 at 15:30 Acetaminophen (Tylenol Tab) 650 mg Q6H PRN PO fever Last administered on 12/07/18 22:25; Admin Dose 650 MG; Start 12/01/18 at 15:30 Acetaminophen/ Hydrocodone Bitart ([place] (5/325)) 1 tab Q6H PRN PO .PAIN 4-6 Last administered on 12/14/18 06:10; Admin Dose 1 TAB; Start 12/01/18 at 15:30 Morphine Sulfate (morphine) 2 mg Q4H PRN IV .PAIN 7-10 Last administered on 12/05/18 16:18; Admin Dose 2 MG; Start 12/01/18 at 15:30 Allopurinol (Zyloprim) 200 mg DAILY PEG Last administered on 12/14/18 10:21; Admin Dose 200 MG; Start 12/01/18 at 15:30 Atenolol (Tenormin) 25 mg DAILY PEG Last administered on 12/14/18 10:21; Admin Dose 25 MG; Start 12/01/18 at 15:30 Fish Oil (Fish Oil) 1,000 mg DAILY PO Last administered on 12/14/18 10:21; Admin Dose 1,000 MG; Start 12/01/18 at 15:30 Atorvastatin Calcium (Lipitor) 40 mg HS PEG Last administered on 12/13/18 21:09; Admin Dose 40 MG; Start 12/01/18 at 21:00 Cyanocobalamin (Vitamin B12) 100 mcg DAILY NGT Last administered on 12/14/18 10:20; Admin Dose 100 MCG; Start 12/02/18 at 09:00 Ascorbic Acid (Vitamin C) 500 mg DAILY GTB Last administered on 12/14/18 10 :18; Admin Dose 500 MG; Start 12/02/18 at 09:00 Diphenhydramine HCl (Benadryl Liquid Cup) 12.5 mg DAILY PRN PEG itching Last administered on 12/09/18 21:13; Admin Dose 12.5 MG; Start 12/01/18 at 16:30 Methylprednisolone (Medrol) 5 mg DAILY PEG Last administered on 12/14/18 10:20; Admin Dose 5 MG; Start 12/03/18 at 09:00 Nystatin (Nystatin Powder) 1 applic BID TOP Last administered on 12/14/18 10:23; Admin Dose 1 APPLIC; Start 12/02/18 at 21:00 Neomycin/ Polymyxin/ Bacitracin (Neosporin Topical Oint) 1 applic DAILY TOP Last administered on 12/13/18 08:54; Admin Dose 1 APPLIC; Start 12/03/18 at 18:30 Sodium Hypochlorite (Dakins Diluted (/40)) 1 applic DAILY TP Last administered on 12/13/18 08:53; Admin Dose 1 APPLIC; Start 12/03/18 at 21:00 Gabapentin (Neurontin) 300 mg TID GTB Last administered on 12/14/18 12:43; Admin Dose 300 MG; Start 12/04/18 at 13:00 Eye Lubricant (Refresh Plus) 1 drop QID PRN BOTH EYES dry eyes Last administered on 12/14/18 12:43; Admin Dose 1 DROP; Start 12/04/18 at 12:30 Lansoprazole (Prevacid) 30 mg DAILY@06 GTB Last administered on 12/14/18 05:18; Admin Dose 30 MG; Start 12/05/18 at 06:00 Fluticasone Propionate (Flonase 0.05% Nasal) 1 spray DAILY NASAL Last administered on 12/14/18 12:43; Admin Dose 1 SPRAY; Start 12/05/18 at 09:00 Hydroxychloroquine Sulfate (Plaquenil) 400 mg DAILY GTB Last administered on 12/14/18 10:18; Admin Dose 400 MG; Start 12/05/18 at 09:00 Mirtazapine (Remeron) 15 mg HS GTB Last administered on 12/13/18 21:10; Admin Dose 15 MG; Start 12/04/18 at 21:00 Mycophenolate Mofetil (Cellcept) 1,000 mg DAILY PO Last administered on 12/14/18 10:21; Admin Dose 1,000 MG; Start 12/05/18 at 09:00 Oxybutynin Chloride (Ditropan) 5 mg TID GTB Last administered on 12/14/18 12:43; Admin Dose 5 MG; Start 12/04/18 at 21:00 Polyethylene Glycol (Miralax) 17 gm DAILY GTB Last administered on 12/14/18 10:17; Admin Dose 17 GM; Start 12/05/18 at 09:00 Zinc Sulfate (Zinc Sulfate) 220 mg DAILY GTB Last administered on 12/14/18 10:18; Admin Dose 220 MG; Start 12/05/18 at 09:00 Ferrous Sulfate (Feosol Liquid Cup) 300 mg TID GTB Last administered on 12/14/18 12:43; Admin Dose 300 MG; Start 12/04/18 at 21:10 Tramadol HCl (Ultram) 100 mg Q8H PRN GTB PAIN Last administered on 12/14/18 10:16; Admin Dose 100 MG; Start 12/05/18 at 20:30 Acetaminophen (Tylenol Tab) 1,000 mg Q6H PRN PO MILD PAIN(1-3)OR ELEVATED TEMP Last administered on 12/13/18 21:10; Admin Dose 1,000 MG; Start 12/06/18 at 15:30 Lactobacillus Acidophilus/ Rhamnosus (Culturelle) 1 cap WITH MEALS PO Last administered on 12/14/18 12:43; Admin Dose 1 CAP; Start 12/06/18 at 17:35 Petrolatum (Vaseline) 1 applic Q2 TOP Last administered on 12/14/18 12:44; Admin Dose 1 APPLIC; Start 12/06/18 at 22:00 Simethicone (Mylicon) 80 mg Q6H PRN PO DISTENSION/GAS/BLOATING Last administered on 12/07/18 14:47; Admin Dose 80 MG; Start 12/07/18 at 12:00 Enoxaparin Sodium (Lovenox) 30 mg DAILY SC Last administered on 12/14/18 10:22; Admin Dose 30 MG; Start 12/09/18 at 09:00 Ondansetron HCl (Zofran Inj) 4 mg BEFORE MEALS IV Last administered on 12/14/18 10:16; Admin Dose 4 MG; Start 12/08/18 at 11:30 Senna (Senokot) 2 tab BID PRN GTB constipation; Start 12/08/18 at 11:00 Cholecalciferol (Vitamin D) 400 units DAILY GTB Last administered on 12/14/18 10:18; Admin Dose 400 UNITS; Start 12/08/18 at 11:00 Calcium Carbonate (Tums) 500 mg Q4H PRN PO reflux Last administered on 12/10/18 10:48; Admin Dose 500 MG; Start 12/08/18 at 11:30 Valacyclovir HCl (Valtrex) 500 mg DAILY GTB Last administered on 12/14/18 10:18; Admin Dose 500 MG; Start 12/13/18 at 09:00 Docusate Sodium (Colace Liquid Cup) 100 mg BID GTB Last administered on 10:17; Admin Dose 100 MG; Start 12/13/18 at 10:00 Vancomycin HCl (Vanco Iv Per Pharmacy) VANCOMYCIN PER PHARMACY PER PROTOCOL XX ; Start 12/13/18 at 13:30 Vancomycin/Sodium Chloride 250 ml @ 125 mls/hr Q24H IVPB ; Start 12/14/18 at 15:00 KAMI AMADOR NP Dec 14, 2018 14:34
--- NOTE | 2018-12-14 14:35 | PN ---
Date/Time of Note Date/Time of Note DATE: 12/14/18 TIME: 14:34 Objective Vitals Vital Signs Date Temp Pulse Resp B/P (MAP) Pulse Ox O2 O2 Flow FiO2 Time Delivery Rate 12/14/18 99.0 106 16 112/59 99 Room Air 14:12 (76) Intake and Output 12/13/18 12/13/18 12/14/18 1515:00 23:00 07:00 IntakeIntake Total 1260 ml 750 ml 1600 ml BalanceBalance 1260 ml 750 ml 1600 ml Results Result Diagram: 12/14/1860412/14/18604 Medications Medications Current Medications Ondansetron HCl (Zofran Inj) 4 mg Q6H PRN IV NAUSEA/VOMITING Last administered on 12/06/18 10:39; Admin Dose 4 MG; Start 12/01/18 at 15:30 Acetaminophen (Tylenol Tab) 650 mg Q6H PRN PO fever Last administered on 12/07/18 22:25; Admin Dose 650 MG; Start 12/01/18 at 15:30 Acetaminophen/ Hydrocodone Bitart ([place] (5/325)) 1 tab Q6H PRN PO .PAIN 4-6 Last administered on 12/14/18 06:10; Admin Dose 1 TAB; Start 12/01/18 at 15:30 Morphine Sulfate (morphine) 2 mg Q4H PRN IV .PAIN 7-10 Last administered on 12/05/18 16:18; Admin Dose 2 MG; Start 12/01/18 at 15:30 Allopurinol (Zyloprim) 200 mg DAILY PEG Last administered on 12/14/18 10:21; Admin Dose 200 MG; Start 12/01/18 at 15:30 Atenolol (Tenormin) 25 mg DAILY PEG Last administered on 12/14/18 10:21; Admin Dose 25 MG; Start 12/01/18 at 15:30 Fish Oil (Fish Oil) 1,000 mg DAILY PO Last administered on 12/14/18 10:21; Admin Dose 1,000 MG; Start 12/01/18 at 15:30 Atorvastatin Calcium (Lipitor) 40 mg HS PEG Last administered on 12/13/18 21:09; Admin Dose 40 MG; Start 12/01/18 at 21:00 Cyanocobalamin (Vitamin B12) 100 mcg DAILY NGT Last administered on 12/14/18 10:20; Admin Dose 100 MCG; Start 12/02/18 at 09:00 Ascorbic Acid (Vitamin C) 500 mg DAILY GTB Last administered on 12/14/18 10:18; Admin Dose 500 MG; Start 12/02/18 at 09:00 Diphenhydramine HCl (Benadryl Liquid Cup) 12.5 mg DAILY PRN PEG itching Last administered on 12/09/18 21:13; Admin Dose 12.5 MG; Start 12/01/18 at 16:30 Methylprednisolone (Medrol) 5 mg DAILY PEG Last administered on 12/14/18 10:20; Admin Dose 5 MG; Start 12/03/18 at 09:00 Nystatin (Nystatin Powder) 1 applic BID TOP Last administered on 12/14/18 10:23; Admin Dose 1 APPLIC; Start 12/02/18 at 21:00 Neomycin/ Polymyxin/ Bacitracin (Neosporin Topical Oint) 1 applic DAILY TOP Last administered on 12/13/18 08:54; Admin Dose 1 APPLIC; Start 12/03/18 at 18:30 Sodium Hypochlorite (Dakins Diluted (1/40)) 1 applic DAILY TP Last administered on 12/13/18 08:53; Admin Dose 1 APPLIC; Start 12/03/18 at 21:00 Gabapentin (Neurontin) 300 mg TID GTB Last administered on 12/14/18 12:43; Admin Dose 300 MG; Start 12/04/18 at 13:00 Eye Lubricant (Refresh Plus) 1 drop QID PRN BOTH EYES dry eyes Last administered on 12/14/18 12:43; Admin Dose 1 DROP; Start 12/04/18 at 12:30 Lansoprazole (Prevacid) 30 mg DAILY@06 GTB Last administered on 12/14/18 05:18; Admin Dose 30 MG; Start 12/05/18 at 06:00 Fluticasone Propionate (Flonase 0.05% Nasal) 1 spray DAILY NASAL Last administered on 12/14/18 12:43; Admin Dose 1 SPRAY; Start 12/05/18 at 09:00 Hydroxychloroquine Sulfate (Plaquenil) 400 mg DAILY GTB Last administered on 12/14/18 10:18; Admin Dose 400 MG; Start 12/05/18 at 09:00 Mirtazapine (Remeron) 15 mg HS GTB Last administered on 12/13/18 21:10; Admin Dose 15 MG; Start 12/04/18 at 21:00 Mycophenolate Mofetil (Cellcept) 1,000 mg DAILY PO Last administered on 12/14/18 10:21; Admin Dose 1,000 MG; Start 12/05/18 at 09:00 Oxybutynin Chloride (Ditropan) 5 mg TID GTB Last administered on 12/14/18 12:43; Admin Dose 5 MG; Start 12/04/18 at 21:00 Polyethylene Glycol (Miralax) 17 gm DAILY GTB Last administered on 12/14/18 10:17; Admin Dose 17 GM; Start 12/05/18 at 09:00 Zinc Sulfate (Zinc Sulfate) 220 mg DAILY GTB Last administered on 12/14/18 10:18; Admin Dose 220 MG; Start 12/05/18 at 09:00 Ferrous Sulfate (Feosol Liquid Cup) 300 mg TID GTB Last administered on 12/14/18 12:43; Admin Dose 300 MG; Start 12/04/18 at 21:10 Tramadol HCl (Ultram) 100 mg Q8H PRN GTB PAIN Last administered on 12/14/18 10:16; Admin Dose 100 MG; Start 12/05/18 at 20:30 Acetaminophen (Tylenol Tab) 1,000 mg Q6H PRN PO MILD PAIN(1-3)OR ELEVATED TEMP Last administered on 12/13/18 21:10; Admin Dose 1,000 MG; Start 12/06/18 at 15: 30 Lactobacillus Acidophilus/ Rhamnosus (Culturelle) 1 cap WITH MEALS PO Last administered on 12/14/18 12:43; Admin Dose 1 CAP; Start 12/06/18 at 17:35 Petrolatum (Vaseline) 1 applic Q2 TOP Last administered on 12/14/18 12:44; Admin Dose 1 APPLIC; Start 12/06/18 at 22:00 Simethicone (Mylicon) 80 mg Q6H PRN PO DISTENSION/GAS/BLOATING Last administered on 12/07/18 14:47; Admin Dose 80 MG; Start 12/07/18 at 12:00 Enoxaparin Sodium (Lovenox) 30 mg DAILY SC Last administered on 12/14/18 10:2 2; Admin Dose 30 MG; Start 12/09/18 at 09:00 Ondansetron HCl (Zofran Inj) 4 mg BEFORE MEALS IV Last administered on 12/14/18 10:16; Admin Dose 4 MG; Start 12/08/18 at 11:30 Senna (Senokot) 2 tab BID PRN GTB constipation; Start 12/08/18 at 11:00 Cholecalciferol (Vitamin D) 400 units DAILY GTB Last administered on 12/14/18 10:18; Admin Dose 400 UNITS; Start 12/08/18 at 11:00 Calcium Carbonate (Tums) 500 mg Q4H PRN PO reflux Last administered on 12/10/18 10:48; Admin Dose 500 MG; Start 12/08/18 at 11:30 Valacyclovir HCl (Valtrex) 500 mg DAILY GTB Last administered on 12/14/18 10:18; Admin Dose 500 MG; Start 12/13/18 at 09:00 Docusate Sodium (Colace Liquid Cup) 100 mg BID GTB Last administered on 12/14/18 10:17; Admin Dose 100 MG; Start 12/13/18 at 10:00 Vancomycin HCl (Vanco Iv Per Pharmacy) VANCOMYCIN PER PHARMACY PER PROTOCOL XX ; Start 12/13/18 at 13:30 Vancomycin/Sodium Chloride 250 ml @ 125 mls/hr Q24H IVPB ; Start 12/14/18 at 15:00 VTE Prophylaxis Risk score (from Ns)>0 risk: 6 SCD applied (from [facility] [place]): Yes Lines/Catheters IV Catheter Type: Louie in Place: No Assessment/Plan Hospital Course Subjective No fevers overnight Objective Physical exam General: Patient is laying in bed and answers questions appropriately Mentation: Patient is alert and oriented 4, Head: Normocephalic atraumatic Eyes: EOMI, pupils reactive to light Neck: Supple, nontender, midline Respiratory: Clear to auscultation bilaterally Cardiovascular: regular rate, no obvious murmurs Gastrointestinal: non-tender to palpation, bowel sounds heard. Neurological: Moves all extremities spontaneously Skin: surgical site bandaged, CDI Assessment/Plan 1. 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 Patient to maintain NWB status. No further procedures at this time - ID consultation appreciated and will monitor off antibiotics - Pain control fevers - mild, no fevers for 24 hours so far -UA negative -Chest x-ray negative -Blood cultures repeat pending -Ultrasound venous negative for DVT -G-tube site examined, no erythema, GI also does not believe it is infected, CT abdomen pelvis was done, slight thickening of the skin around the G-tube with no discrete signs of infection, GI recommendations appreciated -Empiric vancomycin restarted per infectious disease -Colace and MiraLAX x1 for obstipation -We will need 24-48 hours of being afebrile before safe discharge, patient is immunocompromised due to chronic prednisone and CellCept use. 2. Hypertension- stable - Continue home meds 3. 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 5. Gout - continue on Allopurinol 6. Dyslipidemia - continue Lipitor 7. Nutritional deficiency - Soft diet during the day and Tube feeds from 8pm to 8am - dietary consult appreciated 8. Iron deficiency anemia - Continue iron 9. CORINNE on CKD- resolved - Nephrology on board and appreciate recommendations 10. GERD - stable - continue PPI and Tums PRN 11. Disposition - monitor for fever. likely need 2 weeks of IV antibiotic ITZ BAY Dec 14, 2018 14:35
[2018-12-14] MEDS: VANCOMYCIN 750 MG (PMX) 250 ML IVPB SCH (15:19)
[2018-12-14 20:00] VITALS: BP 121/73; PULSE 94; RESP 18
[2018-12-14] MEDS: ATORVASTATIN 40 MG TAB PEG SCH (20:59)
[2018-12-14] MEDS: DIPHENHYDRAMINE 2.5 MG/ML 5ML CUP PEG PRN (20:59)
[2018-12-14] MEDS: MIRTAZAPINE 15 MG TAB GTB SCH (20:59)
[2018-12-15] MEDS: PETROLATUM 28.35 GM JELLY TOP SCH ×9 (01:00→17:00)
[2018-12-15] MEDS: ACETAMINOPHEN 500 MG TAB PO PRN (01:10)
[2018-12-15 02:00] VITALS: BP 110/60; PULSE 95; RESP 18
[2018-12-15] MEDS: LANSOPRAZOLE 30 MG CAP GTB SCH (05:24)
[2018-12-15 07:25] VITALS: BP 108/61; PULSE 89; RESP 18
[2018-12-15] MEDS: ONDANSETRON 4 MG INJ IV SCH ×3 (08:00→17:30)
[2018-12-15] MEDS: NEOMYC/POLYMYX/BACIT 30 GM OINT TOP SCH (09:00)
[2018-12-15] MEDS: DAKINS 0.0125%(1/40) 473 ML SOLUTION TP SCH (09:00)
[2018-12-15] MEDS: ATENOLOL 25 MG TAB PEG SCH (09:00)
[2018-12-15] MEDS: OXYBUTYNIN 5 MG TAB GTB SCH ×2 (09:38→12:30)
[2018-12-15] MEDS: POLYETHYLENE GLYCOL 17 GM PACKET GTB SCH (09:38)
[2018-12-15] MEDS: METHYLPREDNISOLONE 4 MG TAB PEG SCH (09:38)
[2018-12-15] MEDS: valACYclovir 500 MG TAB GTB SCH (09:38)
[2018-12-15] MEDS: HYDROXYCHLOROQUINE 200 MG TAB GTB SCH (09:39)
[2018-12-15] MEDS: ASCORBIC ACID 500 MG TAB GTB SCH (09:39)
[2018-12-15] MEDS: ZINC SULFATE 220 MG CAP GTB SCH (09:39)
[2018-12-15] MEDS: FERROUS SULFATE 60 MG/ML 5ML CUP GTB SCH ×2 (09:39→12:30)
[2018-12-15] MEDS: LACTOBACILLUS RHAMNOSUS CAP PO SCH ×3 (09:39→17:35)
[2018-12-15] MEDS: CHOLECALCIFEROL 400 UNITS TAB GTB SCH (09:39)
[2018-12-15] MEDS: ALLOPURINOL 100 MG TAB PEG SCH (09:39)
[2018-12-15] MEDS: DOCUSATE SODIUM 10 MG/ML (10ML CUP) GTB SCH (09:39)
[2018-12-15] MEDS: FISH OIL 1,000 MG CAP PO SCH (09:39)
[2018-12-15] MEDS: CYANOCOBALAMIN 100 MCG TAB NGT SCH (09:40)
[2018-12-15] MEDS: GABAPENTIN 300 MG CAP GTB SCH ×2 (09:40→12:30)
[2018-12-15] MEDS: FLUTICASONE 0.05% 16 GM NAS SPRAY NASAL SCH (09:40)
[2018-12-15] MEDS: MYCOPHENOLATE 250 MG CAP PO SCH (09:41)
[2018-12-15] MEDS: ENOXAPARIN 30 MG/0.3 ML SYG SC SCH (09:50)
--- NOTE | 2018-12-15 09:55 | PN ---
DATE: 12/15/2018 SUBJECTIVE: The patient is stable, no events overnight. No fevers, chills, nausea, vomiting. OBJECTIVE: VITAL SIGNS: Blood pressure is 110/60, respiration 18, pulse 95, temperature 98.8. HEENT: Head is normocephalic. NECK: Supple. HEART: Regular rate. LUNGS: Show diminished breath sounds at the base. ABDOMEN: Soft, nontender to palpation without rebound or guarding. EXTREMITIES: Negative for clubbing, cyanosis, no edema. DERMATOLOGIC: No rashes. MUSCULOSKELETAL: Positive wounds with dressing clean, dry, intact. DERMATOLOGIC: No rashes. NEUROLOGIC: No change in exam. MEDICATIONS: Have been reviewed. LABORATORY DATA: Has been reviewed. ASSESSMENT AND PLAN: 1. Nonoliguric acute kidney injury on top of chronic kidney disease stage III with a previously unkn own baseline creatinine. Etiology of acute kidney injury is secondary to hemodynamics. Renal functi on is improved. Continue current treatment plan, supportive care, renally dose all meds. 2. Chronic kidney disease. Continue current treatment plan. Continue disease factor modification. 3. History of lupus. Continue CellCept. 4. Hypernatremia, resolved. 5. Anemia. Continue to monitor hemoglobin and hematocrit levels. 6. Mineral bone disorder, monitor calcium and phosphorus levels. 7. Metabolic acidosis, resolved. 8. Lower extremity wounds. The patient is status post debridement. Continue wound care. Continue antibiotic therapy. 9. Status post amputation of second digit of toe. Continue wound care. 10. History of gout. Continue allopurinol. 11. Dyslipidemia. Continue statin therapy. 12. Dysphagia. Continue tube feeding. Dictated By: JANINE LOPEZ DO NR/NTS Conf#: [id number] DID#: [id number] CC: ITZ BAY MD;*EndCC*
--- NOTE | 2018-12-15 10:48 | DS ---
Date/Time of Note Date/Time of Note DATE: 12/15/18 TIME: 10:48 Discharge Summary Admission/Discharge Info Admit Date/Time Dec 01, 2018 at 15:06 Discharge Date/Time Patient Condition: Stable Hospital Course Patient is a -[place] female with past medical history significant for lupus and rheumatoid arthritis on immunosuppressive therapy who presented to [facility] for infected foot ulcers. Patient was seen by infectious disease as well as podiatry and patient eventually received bilateral second toe amputations. Amputations did not result in osteomyelitis and patient was monitored without antibiotics. 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 Ultimately without a conclusive source, infectious disease restarted patient on vancomycin which quickly decreased the fever. At this point patient is recommended to continue IV vancomycin with pharmacy to dose up until December 21. Patient is to continue all other home medications at her detention facility that she was on prior to this hospitalization. The only new medication will be the short course of IV vancomycin for 1 week. Patient doing well and will need to see qa architect, Dr. Vázquez, at the amputation prevention center here [facility] within 1 week. Patient is to keep her feet nonweightbearing and offloaded until podiatry says it is okay., surgical shoe and boot will be provided. Patient has been afebrile for over 48 hours and will be discharged back to her previous detention facility. Discharge diagnosis Bilateral foot ulcers, status post debridement and amputation of second toes bilaterally Fevers, resolved Hypertension Lupus Rheumatoid arthritis Chronic HSV Gout Dyslipidemia Nutritional deficiency Iron deficiency anemia CORINNE on chronic kidney disease, resolved GERD Home Meds Reported Medications Zinc Sulfate* (Zinc Sulfate*) 220 Mg Tablet, 220 MG GTB DAILY, TAB STOP TAKING 12/09/18 12/01/18 Ascorbic Acid (Vitamin C) 500 Mg Tab, 500 MG PO DAILY, TAB 12/01/18 Cyanocobalamin (Vitamin B12) 100 Mcg Tab, 100 MCG GTB DAILY, TAB 12/01/18 valAcyclovir Hcl* (valACYclovir Hcl*) 500 Mg Tablet, 500 MG GTB DAILY, TAB 12/01/18 Tramadol HCl (Tramadol HCl) 50 Mg Tablet, 50 MG GTB Q8H PRN for PAIN, #120 TAB 12/01/18 Propylene Glycol (SYSTANE BALANCE) 10 Ml Drops, 1 DRP BOTH EYES TID, #1 BOTTLE 12/01/18 Sennosides* (Senna Lax*) 8.6 Mg Tablet, 2 TAB GTB BID, TAB 12/01/18 Mirtazapine* (Remeron*) 15 Mg Tablet, 15 MG GTB HS, TAB 12/01/18 Amino Acids/Protein Hydrolys (PRO-STAT LIQUID) 30 Ml Liquid.pkt, 30 ML GTB BID SUGAR FREE 12/01/18 Hydroxychloroquine Sulfate* (Plaquenil*) 200 Mg Tab, 400 MG GTB DAILY, TAB 12/01/18 Oxybutynin Chloride* (Ditropan*) 5 Mg Tablet, 5 MG GTB TID, TAB 12/01/18 Multivitamin with Minerals (Multivitamins with Minerals) 1 Each Tablet, 1 EACH GTB DAILY, TAB 12/01/18 Polyethylene Glycol* (Miralax*) 17 Gm Powd.pack, 17 GM GTB DAILY, #30 PACKET 12/01/18 Prednisolone* (Prednisolone*) 5 Mg Tablet, 5 MG GTB DAILY, TAB 12/01/18 Megestrol Acetate* (Megace ES*) 625 Mg/5 Ml Oral.susp, 1000 MG GTB DAILY, ML STOP DATE 12/19/18 12/01/18 Atorvastatin* (Atorvastatin*) 40 Mg Tablet, 40 MG GTB QHS, #30 TAB 12/01/18 Fluticasone Propionate* (Fluticasone Propionate* Nasal) 50 Mcg/Baxter - 16 Gm Baxter.susp, 2 SPRAYS NASAL DAILY, #1 BOTTLE TO EACH NOSTRIL 12/01/18 [place]-3 Fatty Acids/Fish Oil (Fish Oil 1,000 mg Capsule) 1 Each Capsule, 1 EACH GTB DAILY, CAP 12/01/18 Ferrous Sulfate* (Ferrous Sulfate*) 220 Mg/5 Ml Solution, 7.5 ML GTB TID, ML 12/01/18 Bisacodyl* (Bisacodyl*) 10 Mg Supp, [address] Q24H for CONSTIPATION, SUPP 12/01/18 Docusate Sodium* (Colace*) 100 Mg Capsule, 100 MG GTB BID, #60 CAP 12/01/18 Cholecalciferol* (Vitamin D*) 400 Unit Tablet, 400 UNIT GTB DAILY, TAB 12/01/18 Mycophenolate Mofetil* (Cellcept*) 500 Mg Tablet, 1000 MG GTB DAILY, #120 TAB 12/01/18 Calcium Acetate* (Calcium Acetate*) 667 Mg Capsule, 667 MG GTB WITH MEALS BID, #30 CAP 12/01/18 Atenolol* (Atenolol*) 25 Mg Tablet, 25 MG GTB DAILY, #30 TAB HOLD FOR SBP<[address]<60 12/01/18 Allopurinol* (Allopurinol*) 100 Mg Tablet, 200 MG GTB DAILY, TAB 12/01/18 Acetaminophen* (Acetaminophen*) 500 MG Extra Strength Tablet, 1000 MG GTB Q6H PRN for MILD PAIN LEVEL 1-3, TAB AND TEMP>100F 12/01/18 Primary Care Provider Not On Staff Doctor Time spent on discharge: > 30 minutes Pending Labs Laboratory Tests Test 12/15/18 05:50 12/15/18 09:31 White Blood Count 6.0 10^3/ul (4.8-10.8) Red Blood Count 2.69 10^6/ul (4.20-5.40) Hemoglobin 8.1 g/dl (12.0-16.0) 8.5 g/dl (12.0-16.0) Hematocrit 27.1 % (37.0-47.0) 28.2 % (37.0-47.0) Mean Corpuscular Volume 100.7 fl (82.0-101.0) Mean Corpuscular Hemoglobin 30.1 pg (29.0-33.0) Mean Corpuscular 29.9 g/dl (32.0-37.0) Hemoglobin Concent Red Cell Distribution Width 14.9 % (11.5-14.5) Platelet Count 139 10^3/UL (140-415) Mean Platelet Volume 12.6 fl (7.4-10.4) Immature Granulocytes % 2.800 % (0.001-0.429) Neutrophils % 58.9 % (39.0-77.0) Lymphocytes % 21.7 % (15.0-51.0) Monocytes % 14.2 % (0.0-11.0) Eosinophils % 2.2 % (0.0-7.0) Basophils % 0.2 % (0.0-2.0) Nucleated Red Blood Cells % 0.0 /100WBC (0.0-0.0) Immature Granulocytes # 0.170 10^3/ul (0.0-0.031) Neutrophils # 3.6 10^3/ul (1.6-7.5) Lymphocytes # 1.3 10^3/ul (0.8-2.9) Monocytes # 0.9 10^3/ul (0.3-0.9) Eosinophils # 0.1 10^3/ul (0.0-0.5) Basophils # 0.0 10^3/ul (0.0-0.1) Nucleated Red Blood Cells # 0.0 10^3/ul (0.0-0.0) Sodium Level 143 mmol/L (135-144) Potassium Level 3.9 mmol/L (3.5-5.1) Chloride Level 112 mmol/L (97-110) Carbon Dioxide Level 23 mmol/L (21-31) Anion Gap 8 (5-13) Blood Urea Nitrogen 27 mg/dl (7-20) Creatinine 1.05 mg/dl (0.44-1.00) Est Glomerular Filtrat mL/min (>60) Rate mL/min Glucose Level 108 mg/dl (70-220) Calcium Level 8.9 mg/dl (8.4-10.2) Phosphorus Level 2.7 mg/dl (2.5-4.9) Magnesium Level 2.0 mg/dl (1.7-2.5) ITZ BAY Dec 15, 2018 10:48
[2018-12-15] MEDS: traMADol 50 MG TAB GTB PRN (12:31)
[2018-12-15] MEDS: NYSTATIN 30 GM POWDER BTL TOP SCH (12:31)
[2018-12-15 14:03] VITALS: BP 120/58; PULSE 99; RESP 18
[2018-12-15] MEDS: VANCOMYCIN 750 MG (PMX) 250 ML IVPB SCH (14:36)
--- NOTE | 2018-12-15 14:39 | CONS ---
Assessment/Plan Assessment/Plan Hospital Course (Demo Recall) Alert, feels good, afebrile Wound cultures grew MRSA, s/p toe amputation, s/p abx Abx: Vanco, Valtrex Physical examination: Well-developed fragile elderly -[place] woman who is awake in no distress head atraumatic normocephalic neck is supple chest rise symmetrical breath sounds clear heart S1-S2 abdomen soft bowel sounds present extremities with bilateral feet dressing clean dry and intact Assessment: 1. 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 Diabetes 3. Peripheral arterial disease 4. Acute renal failure, improved 5. Anemia 6. Immunocompromised host Plan: Patient remains stable, no fevers, Vanco was restarted for ongoing fevers, will treat with vancomycin for 7 days Discussed with staff Consultation Date/Type/Reason Admit Date/Time Dec 01, 2018 at 15:06 Initial Consult Date Type of Consult id Date/Time of Note DATE: 12/15/18 TIME: 14:37 Exam/Review of Systems Exam Vitals Vital Signs Date Temp Pulse Resp B/P (MAP) Pulse Ox O2 O2 Flow FiO2 Time Delivery Rate 12/15/18 98.9 99 18 120/58 95 Room Air 14:03 (78) Intake and Output 12/14/18 12/14/18 12/15/18 1515:00 23:00 07:00 IntakeIntake Total 1100 ml 675 ml 480 ml OutputOutput Total 701 ml 600 ml BalanceBalance 399 ml 675 ml -120 ml Results Result Diagram: 12/15/18 0931 12/15/18 0550 Results 24hrs Laboratory Tests Test 12/15/18 05:50 12/15/18 09:31 White Blood Count 6.0 Red Blood Count 2.69 L Hemoglobin 8.1 L 8.5 L Hematocrit 27.1 L 28.2 L Mean Corpuscular Volume 100.7 Mean Corpuscular Hemoglobin 30.1 Mean Corpuscular Hemoglobin Concent 29.9 L Red Cell Distribution Width 14.9 H Platelet Count 139 L Mean Platelet Volume 12.6 H Immature Granulocytes % 2.800 H Neutrophils % 58.9 Lymphocytes % 21.7 Monocytes % 14.2 H Eosinophils % 2.2 Basophils % 0.2 Nucleated Red Blood Cells % 0.0 Immature Granulocytes # 0.170 H Neutrophils # 3.6 Lymphocytes # 1.3 Monocytes # 0.9 Eosinophils # 0.1 Basophils # 0.0 Nucleated Red Blood Cells # 0.0 Sodium Level 143 Potassium Level 3.9 Chloride Level 112 H Carbon Dioxide Level 23 Anion Gap 8 Blood Urea Nitrogen 27 H Creatinine 1.05 H Est Glomerular Filtrat Rate mL/min Glucose Level 108 Calcium Level 8.9 Phosphorus Level 2.7 Magnesium Level 2.0 Medications Medication Current Medications Ondansetron HCl (Zofran Inj) 4 mg Q6H PRN IV NAUSEA/VOMITING Last administered on 12/06/18 10:39; Admin Dose 4 MG; Start 12/01/18 at 15:30 Acetaminophen (Tylenol Tab) 650 mg Q6H PRN PO fever Last administered on 12/07/18 22:25; Admin Dose 650 MG; Start 12/01/18 at 15:30 Acetaminophen/ Hydrocodone Bitart ([place] (5/325)) 1 tab Q6H PRN PO .PAIN 4-6 Last administered on 12/14/18 06:10; Admin Dose 1 TAB; Start 12/01/18 at 15:30 Morphine Sulfate (morphine) 2 mg Q4H PRN IV .PAIN 7-10 Last administered on 16:18; Admin Dose 2 MG; Start 12/01/18 at 15:30 Allopurinol (Zyloprim) 200 mg DAILY PEG Last administered on 12/15/18 09:39; Admin Dose 200 MG; Start 12/01/18 at 15:30 Atenolol (Tenormin) 25 mg DAILY PEG Last administered on 12/14/18 10:21; Admin Dose 25 MG; Start 12/01/18 at 15:30 Fish Oil (Fish Oil) 1,000 mg DAILY PO Last administered on 12/15/18 09:39; Admin Dose 1,000 MG; Start 12/01/18 at 15:30 Atorvastatin Calcium (Lipitor) 40 mg HS PEG Last administered on 12/14/18 20:59; Admin Dose 40 MG; Start 12/01/18 at 21:00 Cyanocobalamin (Vitamin B12) 100 mcg DAILY NGT Last administered on 12/15/18 09:40; Admin Dose 100 MCG; Start 12/02/18 at 09:00 Ascorbic Acid (Vitamin C) 500 mg DAILY GTB Last administered on 12/15/18 09:39; Admin Dose 500 MG; Start 12/02/18 at 09:00 Diphenhydramine HCl (Benadryl Liquid Cup) 12.5 mg DAILY PRN PEG itching Last administered on 12/14/18 20:59; Admin Dose 12.5 MG; Start 12/01/18 at 16:30 Methylprednisolone (Medrol) 5 mg DAILY PEG Last administered on 12/15/18 09:38; Admin Dose 5 MG; Start 12/03/18 at 09:00 Nystatin (Nystatin Powder) 1 applic BID TOP Last administered on 12/15/18 12:31; Admin Dose 1 APPLIC; Start 12/02/18 at 21:00 Neomycin/ Polymyxin/ Bacitracin (Neosporin Topical Oint) 1 applic DAILY TOP Last administered on 12/13/18 08:54; Admin Dose 1 APPLIC; Start 12/03/18 at 18:30 Sodium Hypochlorite (Dakins Diluted (40)) 1 applic DAILY TP Last administered on 12/13/18 08:53; Admin Dose 1 APPLIC; Start 12/03/18 at 21:00 Gabapentin (Neurontin) 300 mg TID GTB Last administered on 12/15/18 12:30; Admin Dose 300 MG; Start 12/04/18 at 13:00 Eye Lubricant (Refresh Plus) 1 drop QID PRN BOTH EYES dry eyes Last ad ministered on 12/14/18 12:43; Admin Dose 1 DROP; Start 12/04/18 at 12:30 Lansoprazole (Prevacid) 30 mg DAILY@06 GTB Last administered on 12/15/18 05:24; Admin Dose 30 MG; Start 12/05/18 at 06:00 Fluticasone Propionate (Flonase 0.05% Nasal) 1 spray DAILY NASAL Last administered on 12/15/18 09:40; Admin Dose 1 SPRAY; Start 12/05/18 at 09:00 Hydroxychloroquine Sulfate (Plaquenil) 400 mg DAILY GTB Last administered on 12/15/18 09:39; Admin Dose 400 MG; Start 12/05/18 at 09:00 Mirtazapine (Remeron) 15 mg HS GTB Last administered on 12/14/18 20:59; Admin Dose 15 MG; Start 12/04/18 at 21:00 Mycophenolate Mofetil (Cellcept) 1,000 mg DAILY PO Last administered on 12/15/18 09:41; Admin Dose 1,000 MG; Start 12/05/18 at 09:00 Oxybutynin Chloride (Ditropan) 5 mg TID GTB Last administered on 12/15/18 12:30; Admin Dose 5 MG; Start 12/04/18 at 21:00 Polyethylene Glycol (Miralax) 17 gm DAILY GTB Last administered on 12/15/18 09:38; Admin Dose 17 GM; Start 12/05/18 at 09:00 Zinc Sulfate (Zinc Sulfate) 220 mg DAILY GTB Last administered on 12/15/18 09:39; Admin Dose 220 MG; Start 12/05/18 at 09:00 Ferrous Sulfate (Feosol Liquid Cup) 300 mg TID GTB Last administered on 12/15/18 12:30; Admin Dose 300 MG; Start 12/04/18 at 21:10 Tramadol HCl (Ultram) 100 mg Q8H PRN GTB PAIN Last administered on 12/15/18 12:31; Admin Dose 100 MG; Start 12/05/18 at 20:30 Acetaminophen (Tylenol Tab) 1,000 mg Q6H PRN PO MILD PAIN(1-3)OR ELEVATED TEMP Last administered on 12/15/18 01:10; Admin Dose 1,000 MG; Start 12/06/18 at 15:30 Lactobacillus Acidophilus/ Rhamnosus (Culturelle) 1 cap WITH MEALS PO Last administered on 12/15/18 12:14; Admin Dose 1 CAP; Start 12/06/18 at 17:35 Petrolatum (Vaseline) 1 applic Q2 TOP Last administered on 12/15/18 08:00; Admin Dose 1 APPLIC; Start 12/06/18 at 22:00 Simethicone (Mylicon) 80 mg Q6H PRN PO DISTENSION/GAS/BLOATING Last administered on 12/07/18 14:47; Admin Dose 80 MG; Start 12/07/18 at 12:00 Enoxaparin Sodium (Lovenox) 30 mg DAILY SC Last administered on 12/15/18 09:50; Admin Dose 30 MG; Start 12/09/18 at 09:00 Ondansetron HCl (Zofran Inj) 4 mg BEFORE MEALS IV Last administered on 12/15/18 12:14; Admin Dose 4 MG; Start 12/08/18 at 11:30 Senna (Senokot) 2 tab BID PRN GTB constipation; Start 12/08/18 at 11:00 Cholecalciferol (Vitamin D) 400 units DAILY GTB Last administered on 12/15/18 09:39; Admin Dose 400 UNITS; Start 12/08/18 at 11:00 Calcium Carbonate (Tums) 500 mg Q4H PRN PO reflux Last administered on 12/10/18 10:48; Admin Dose 500 MG; Start 12/08/18 at 11:30 Valacyclovir HCl (Valtrex) 500 mg DAILY GTB Last administered on 12/15/18 09:38; Admin Dose 500 MG; Start 12/13/18 at 09:00 Docusate Sodium (Colace Liquid Cup) 100 mg BID GTB Last administered on 12/15/18 09:39; Admin Dose 100 MG; Start 12/13/18 at 10:00 Vancomycin HCl (Vanco Iv Per Pharmacy) VANCOMYCIN PER PHARMACY PER PROTOCOL XX ; Start 12/13/18 at 13:30 Vancomycin/Sodium Chloride 250 ml @ 125 mls/hr Q24H IVPB Last administered on 12/15/18 14:36; Admin Dose 125 MLS/HR; Start 12/14/18 at 15:00 KAMI AMADOR NP Dec 15, 2018 14:39
== END 2018-12-15 17:57 | DRG 255 ==
LOC: E/R 10:40 → PP2 15:06 → SUATTDRO 15:22
PROVIDERS: ADMIT Internal Medicine; ATTEND Internal Medicine
PROC: 0Y6R0Z0 Detachment at Right 2nd Toe, Complete, Open Approach (ICD-10-PCS; 2018-12-04)
PROC: 0HBMXZZ Excision of Right Foot Skin, External Approach (ICD-10-PCS; 2018-12-04)
PROC: 0Y6S0Z0 Detachment at Left 2nd Toe, Complete, Open Approach (ICD-10-PCS; principal; 2018-12-04 13:30)
DX: I96 Gangrene, not elsewhere classified (principal); E43 Unspecified severe protein-calorie malnutrition; N17.9 Acute kidney failure, unspecified; L97.526 Non-pressure chronic ulcer of other part of left foot with bone involvement without evidence of necrosis; E87.2 Acidosis; Z68.1 Body mass index [BMI] 19.9 or less, adult; E87.0 Hyperosmolality and hypernatremia; L03.116 Cellulitis of left lower limb; L03.115 Cellulitis of right lower limb; R64 Cachexia; L97.516 Non-pressure chronic ulcer of other part of right foot with bone involvement without evidence of necrosis; I12.9 Hypertensive chronic kidney disease with stage 1 through stage 4 chronic kidney disease, or unspecified chronic kidney disease; N18.3 Chronic kidney disease, stage 3 (moderate); M06.9 Rheumatoid arthritis, unspecified; M20.40 Other hammer toe(s) (acquired), unspecified foot; M32.9 Systemic lupus erythematosus, unspecified; M10.9 Gout, unspecified; E78.5 Hyperlipidemia, unspecified; K21.9 Gastro-esophageal reflux disease without esophagitis; E63.9 Nutritional deficiency, unspecified; B00.9 Herpesviral infection, unspecified; D50.9 Iron deficiency anemia, unspecified; R13.10 Dysphagia, unspecified; B95.62 Methicillin resistant Staphylococcus aureus infection as the cause of diseases classified elsewhere; Z93.1 Gastrostomy status
CPT/HCPCS: 71045; 73630; 74177; 76775; 78452; 80048; 80053; 80061; 80069; 80202; 81003; 82043; 83036; 83735; 84100; 84155; 84300; 84443; 84484; 85014; 85018; 85025; 85610; 85651; 86140; 87070; 87075; 87081; 87086; 88305; 88311; 92610; 93005; 93017; 93306; 93970; A4310; A9500; A9505; C9113; J1650; J1720; J2250; J2270; J2405; J2543; J2785; J3010; J3370; J7030; J7042; J7050; J7509; J7512; J7517; L3260; Q9967

== ENCOUNTER 2019-04-05 11:25 | Day surgery (SDC) | payer MEDICARE, OTHER ==
[~2019-04-05] VITALS: Ht 165.1 cm; Wt 53.9 kg
[2019-04-05] VITALS (12 sets, daily range): BP systolic 106–148; BP diastolic 62–81; PULSE 80–88; RESP 12–27; Ht 165.1 cm; Wt 53.9 kg
--- NOTE | 2019-04-05 09:58 | HPN ---
Date/Time of Note Date/Time of Note DATE: 04/05/19 TIME: 09:58 Interval H&P Admission Note Pt. seen H&P reviewed: No system changes WENDI BELL DPM Apr 05, 2019 09:58
[~2019-04-05 11:25] MED LIST: ACET-141 GTB; ACET-141 PO; ALLO100T GTB; ALLO100T PO; AMIN30LI GTB; AMIN30LI5 PO; ASC500 PO; ASCO500C7 PO; ASPI81TA52 PO; ATEN-51 GTB; ATEN-51 PO; ATOR40TA68 GTB; ATOR40TA68 PO; BISA10SU55 RC; BISA10SU75 PR; CALC300T5 PO; CALC667C GTB; CALC667C PO; CEFAZOLIN 2 GM/50 ML (PMX) 50 ML IVPB ONE; CHOL400T10 GTB; CHOL400T10 PO; CYAN100T GTB; CYAN100T PO; DOCU-144 GTB; DOCU-159 PO; ENOX30DI10 SQ; FER325 PO; FERR220S13 GTB; FLUT16SP17 NASAL; GABA300C16 PO; HYDR-4011 PO; HYDR200T5 GTB; HYDR200T5 PO; LACT1CAP57 PO; MEGE625O GTB; MIRT15TA GTB; MIRT7.5T8 PO; MULT-105 GTB; MULT-275 PO; MYCO250C3 PO; MYCO500T GTB; OMEG-135 GTB; OMEG-135 PO; OMEP20CA16 PO; OXYB5TAB7 GTB; POLY17PO6 GTB; PRED5TAB PO; PRED5TAB50 GTB; PROP10DR2 BOTH EYES; PROP10DR4 BOTH EYES; SENN-120 GTB; SENN-120 PO; TRAM50TA PO; TRAM50TA2 GTB; VALA500T GTB; VALA500T PO; ZINC220T GTB
[2019-04-05] MEDS ORDERED: LIDOCAINE 1% (MPF) 30 ML INJ ONE (12:48)
[2019-04-05] MEDS ORDERED: POLYMYXIN B 500000 UNIT INJ ONE (12:48)
--- NOTE | 2019-04-05 13:06 | PREAC ---
Date/Time of Note Date/Time of Note DATE: 04/05/19 TIME: 13:03 Anesthesia Eval and Record Evaluation Time Pre-Procedure Interview DATE: 04/05/19 TIME: 13:03 Age 73 Sex female NPO: 8 hrs Preoperative diagnosis Left Hallux Osteomyelitis Planned procedure I&D Left Hallux, partial amputation left hallux Past Medical History Past Medical History: Includes Cardio: HTN Endo: Diabetes Musculoskeletal: Other (Lupus) Renal: CORINNE GI: Other (G tube) Heme: Anemia Infection(s): Other (CHronic HSV Infection) Surgery & Anesthesia Issues No known issue Meds Anticoagulation: Yes (last lovenox yesterday, asa 81 yesterday) Beta Rosana within 24 hr: Yes Reported Medications Cholecalciferol* (Vitamin D*) 400 Unit Tablet, 400 UNIT PO DAILY, TAB 04/05/19 Ascorbic Acid* (Vitamin C*) 500 Mg Capsule.sa, 500 MG PO DAILY, CAP 04/05/19 Cyanocobalamin* (Vitamin B12*) 100 Mcg Tab, 100 MCG PO DAILY, TAB 04/05/19 valAcyclovir Hcl* (valACYclovir Hcl*) 500 Mg Tablet, 500 MG PO DAILY, TAB 04/05/19 Tramadol Hcl* (Ultram*) 50 Mg Tablet, 50 MG PO Q6H PRN for PAIN LEVEL 4-6, TAB 04/05/19 Propylene Glycol/Peg 400 (SYSTANE GEL EYE DROPS) 10 Ml Drops.gel, 1 DROP BOTH EYES BID PRN for DRY EYES, #1 BOTTLE 04/05/19 Sennosides* (Senna Lax*) 8.6 Mg Tablet, 2 TAB PO BID, TAB 04/05/19 Mirtazapine* (Mirtazapine*) 7.5 Mg Tablet, 7.5 MG PO HS, TAB 04/05/19 Amino Acids/Protein Hydrolys (Pro-Stat Awc Liquid) 30 Ml Liquid, 30 ML PO BID 04/05/19 Prednisone* (Prednisone*) 5 Mg Tab, 5 MG PO DAILY, TAB 04/05/19 Hydroxychloroquine Sulfate* (Plaquenil*) 200 Mg Tab, 400 MG PO DAILY, TAB 04/05/19 Calcium Acetate* (Calcium Acetate*) 667 Mg Capsule, 667 MG PO DAILY, #30 CAP 04/05/19 Omeprazole* (Omeprazole*) 20 Mg Capsule.dr, 20 MG PO DAILY, #30 CAP 04/05/19 Hydrocodone/Acetaminophen ([place] 5-325 Tablet) 1 Each Tablet, 1 EACH PO Q6 PRN for PAIN LEVEL 7-10, TAB 04/05/19 Gabapentin* (Gabapentin*) 300 Mg Capsule, 300 MG PO TID, #90 CAP 04/05/19 Mycophenolate Mofetil* (Cellcept*) 250 Mg Capsule, 250 MG PO DAILY, CAP 04/05/19 Multivitamin with Minerals (Daily Vitamin Formula-Minerals) 1 Each Tablet, 1 EACH PO DAILY, TAB 04/05/19 Enoxaparin Sodium* (Lovenox*) 30 Mg/0.3 Ml Disp.syrin, 30 MG SQ DAILY, SYR 04/05/19 Fluticasone Propionate* (Fluticasone Propionate* Nasal) 50 Mcg/[place] - 16 Gm [place].susp, 1 SPRAY NASAL DAILY, #1 BOTTLE TO EACH NOSTRIL 04/05/19 Atorvastatin* (Atorvastatin*) 40 Mg Tablet, 40 MG PO QHS, #30 TAB 04/05/19 [place]-3 Fatty Acids/Fish Oil (Fish Oil 1,000 mg Capsule) 1 Each Capsule, 1 EACH PO DAILY, CAP 04/05/19 Ferrous Sulfate* (Ferrous Sulfate*) 325 Mg Tabec, 325 MG PO TID, TAB 04/05/19 Docusate Sodium* (Docusate Sodium*) 100 Mg Capsule, 100 MG PO BID, #60 CAP 04/05/19 Lactobacillus Rhamnosus* (Culturelle*) 1 Each Cap.sprink, 1 CAP PO TID, CAP 04/05/19 Calcium Carbonate (Tums) 300 Mg Tab.chew, 300 MG PO Q4 PRN for GASTROINTESTINAL UPSET, TAB.CHEW 04/05/19 Bisacodyl (Dulcolax) 10 Mg Supp.rect, 10 MG RC DAILY PRN for CONSTIPATION, SUPP.RECT 04/05/19 Atenolol* (Atenolol*) 25 Mg Tablet, 25 MG PO DAILY, #30 TAB 04/05/19 Aspirin (Low Dose Aspirin) 81 Mg Tablet.dr, 81 MG PO DAILY, #30 TAB 04/05/19 Allopurinol* (Allopurinol*) 100 Mg Tablet, 200 MG PO DAILY, TAB 04/05/19 Acetaminophen* (Acetaminophen*) 500 MG Extra Strength Tablet, 1000 MG PO Q6H PRN for PAIN AND OR ELEVATED TEMP, TAB AND FEVER 04/05/19 Discontinued Reported Medications Zinc Sulfate* (Zinc Sulfate*) 220 Mg Tablet, 220 MG GTB DAILY, TAB STOP TAKING 12/09/18 12/01/18 Ascorbic Acid (Vitamin C) 500 Mg Tab, 500 MG PO DAILY, TAB 12/01/18 Cyanocobalamin (Vitamin B12) 100 Mcg Tab, 100 MCG GTB DAILY, TAB 12/01/18 valAcyclovir Hcl* (valACYclovir Hcl*) 500 Mg Tablet, 500 MG GTB DAILY, TAB 12/01/18 Tramadol HCl (Tramadol HCl) 50 Mg Tablet, 50 MG GTB Q8H PRN for PAIN, #120 TAB 12/01/18 Propylene Glycol (SYSTANE BALANCE) 10 Ml Drops, 1 DRP BOTH EYES TID, #1 BOTTLE 12/01/18 Sennosides* (Senna Lax*) 8.6 Mg Tablet, 2 TAB GTB BID, TAB 12/01/18 Mirtazapine* (Remeron*) 15 Mg Tablet, 15 MG GTB HS, TAB 12/01/18 Amino Acids/Protein Hydrolys (PRO-STAT LIQUID) 30 Ml Liquid.pkt, 30 ML GTB BID SUGAR FREE 12/01/18 Hydroxychloroquine Sulfate* (Plaquenil*) 200 Mg Tab, 400 MG GTB DAILY, TAB 12/01/18 Oxybutynin Chloride* (Ditropan*) 5 Mg Tablet, 5 MG GTB TID, TAB 12/01/18 Multivitamin with Minerals (Multivitamins with Minerals) 1 Each Tablet, 1 EACH GTB DAILY, TAB 12/01/18 Polyethylene Glycol* (Miralax*) 17 Gm Powd.pack, 17 GM GTB DAILY, #30 PACKET 12/01/18 Prednisolone* (Prednisolone*) 5 Mg Tablet, 5 MG GTB DAILY, TAB 12/01/18 Megestrol Acetate* (Megace ES*) 625 Mg/5 Ml Oral.susp, 1000 MG GTB DAILY, ML STOP DATE 12/19/18 12/01/18 Atorvastatin* (Atorvastatin*) 40 Mg Tablet, 40 MG GTB QHS, #30 TAB 12/01/18 Fluticasone Propionate* (Fluticasone Propionate* Nasal) 50 Mcg/[place] - 16 Gm [place].susp, 2 SPRAYS NASAL DAILY, #1 BOTTLE TO EACH NOSTRIL 12/01/18 [place]-3 Fatty Acids/Fish Oil (Fish Oil 1,000 mg Capsule) 1 Each Capsule, 1 EACH GTB DAILY, CAP 12/01/18 Ferrous Sulfate* (Ferrous Sulfate*) 220 Mg/5 Ml Solution, 7.5 ML GTB TID, ML 12/01/18 Bisacodyl* (Bisacodyl*) 10 Mg Supp, 10 MG KS Q24H for CONSTIPATION, SUPP 12/01/18 Docusate Sodium* (Colace*) 100 Mg Capsule, 100 MG GTB BID, #60 CAP 12/01/18 Cholecalciferol* (Vitamin D*) 400 Unit Tablet, 400 UNIT GTB DAILY, TAB 12/01/18 Mycophenolate Mofetil* (Cellcept*) 500 Mg Tablet, 1000 MG GTB DAILY, #120 TAB 12/01/18 Calcium Acetate* (Calcium Acetate*) 667 Mg Capsule, 667 MG GTB WITH MEALS BID, #30 CAP 12/01/18 Atenolol* (Atenolol*) 25 Mg Tablet, 25 MG GTB DAILY, #30 TAB HOLD FOR SBP<110 OR KS<60 12/01/18 Allopurinol* (Allopurinol*) 100 Mg Tablet, 200 MG GTB DAILY, TAB 12/01/18 Acetaminophen* (Acetaminophen*) 500 MG Extra Strength Tablet, 1000 MG GTB Q6H PRN for MILD PAIN LEVEL 1-3, TAB AND TEMP>100F 12/01/18 Meds reviewed: Yes Allergies Coded Allergies: No Known Allergy (Unverified , 04/05/19) Allergies Reviewed: Yes Labs/Studies Labs Reviewed: Reviewed by anesthesiologist test: N/A Studies: ECG (12/08, nsr, nonspecific st) Pre-procedure Exam Airway: Adequate mouth opening, Adequate thyromental dist Mallampati: Mallampati II Teeth: Abnormal (Poor dentition, multiple missing) Lung: Normal Heart: Normal ASA Physical Status ASA physical status: 3 Emergency: None Planned Anesthetic General/MAC: LMA Pre-operative Attestations Prior to commencing anesthesia and surgery, the patient was re-evaluated, there was verification of: *The patient's identity *The results of appropriate recent lab work and preoperative vital signs *The above evaluation not changing prior to induction *Anesthetic plan, risk benefits, alternative and complications discussed with patient/family; questions answered; patient/family understands, accepts and wishes to proceed. MANUEL NASSAR MD Apr 05, 2019 13:06
[2019-04-05] MEDS ORDERED: POLYMYXIN/BACITRACIN 1L IRRIG ONE (13:13)
[2019-04-05] MEDS ORDERED: BUPIVACAINE 0.5% (SDV) 30 ML INJ ONE (13:13)
[2019-04-05] MEDS ORDERED: PROPOFOL 20 ML ONE (13:15)
[2019-04-05] MEDS ORDERED: MIDAZOLAM 1 MG/ML 2 ML INJ ONE (13:15)
[2019-04-05] MEDS ORDERED: FENTAnyl 50 MCG/ML VIAL ONE (13:15)
[2019-04-05] MEDS ORDERED: LIDOCAINE 2% (SDV) 5 ML INJ ONE (13:15)
[2019-04-05] MEDS ORDERED: LACTATED RINGER'S 1,000 ML IV SCH (13:30)
[2019-04-05] MEDS ORDERED: ONDANSETRON 4 MG INJ ONE (14:00)
[2019-04-05] MEDS ORDERED: DEXAMETHASONE 4 MG/ML 5 ML INJ ONE (14:00)
[2019-04-05] MEDS ORDERED: CEFAZOLIN 1 GM INJ ONE (14:00)
[2019-04-05] MEDS ORDERED: PHENYLephrine (100 MCG/ML) 10ML SYG ONE (14:12)
[2019-04-05] MEDS ORDERED: EPHEDrine 25 MG/5 ML SYG ONE (14:12)
--- NOTE | 2019-04-05 14:18 | SIPON ---
Date/Time of Note Date/Time of Note DATE: 04/05/19 TIME: 14:18 Operative Report Preoperative Diagnosis Left foot non pressure ulcer Left foot osteomyelitis [place] SLE Rheumatoid arthritis Postoperative Diagnosis Left foot non pressure ulcer Left foot osteomyelitis [place] SLE Rheumatoid arthritis Operation/Procedure Performed Left foot hallux IPJ arthrodesis Bone biopsy Surgeon see signature line assurance assistant none Anesthesia: general Estimated blood loss: 10 - 50 ml's Transfusion Required none Specimen left hallux bone pathology Left foot wound culture Grafts/Implants two k-wire pinning Complications none WENDI BELL DPM Apr 05, 2019 14:18
--- NOTE | 2019-04-05 14:26 | OPR ---
Date/Time of Note Date/Time of Note DATE: 04/05/19 TIME: 14:26 Operative Report Surgeon see signature line Transfusion none Grafts/Implants none Complications none WENDI BELL DPM Apr 05, 2019 14:26
--- NOTE | 2019-04-05 14:27 | OPR ---
Date/Time of Note Date/Time of Note DATE: 04/05/19 TIME: 14:27 Operative Report Preoperative Diagnosis Left foot non pressure ulcer Left foot osteomyelitis [place] SLE Rheumatoid arthritis Postoperative Diagnosis Left foot non pressure ulcer Left foot osteomyelitis [place] SLE Rheumatoid arthritis Operation/Procedure Performed Left foot hallux IPJ arthrodesis Bone biopsy Surgeon see signature line Fruit Culler none Anesthesia Type: general Estimated Blood Loss: 10 - 50 ml's Transfusion none Specimen left hallux bone pathology Left foot wound culture Grafts/Implants two k-wire pinning Complications none Indications 73 y/o F with 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 There is co ncern for osteomyelitis and patient had failed local wound care and required surgical intervention. Discussed with patient surgical procedure she was amenable to the procedure. Addressed all of the patient's questions and concerns no promises or guarantees were given. Procedure Description Patient was brought into the OR and placed in the supine position. The left lower extremity was scrubbed, prepped, and draped in the usual aseptic manner. A formal time out was conducted. Attention was directed to the left hallux where there was an ulceration with exposed bone. There was a noted ruptured EHL tendon as well and the toe was in flexed position. The ulceration measured 1.8 x 2.5 x 0.6cm, there was adequate bleeding noted to the ulcer and no purulence was appreciated intraoperatively. Non-viable skin edges were removed using a scalpel and scissors/pickup. Next using a sagittal saw on power the head of the proximal phalanx and base of the distal phalanx of the hallux was resected and sent for bone biopsy. Copious antibiotic infused saline was irrigated at the wound site. No tunneling or purulence was appreciated to the wound site and wound cultures were obtained. The surfaces of the bone appeared viable and no purulence or necrotic bone tissue was appreciated. Using two 0.45 crossing k-wires the joint surfaces of the left hallux IPJ were compressed and fixated in a rectus alignment with satisfactory joint apposition. Next using 4-0 nylon the skin edges were re- approximated under minimal tension. Then the crossing k-wires were cut and the ends were covered with sterile coban. Xeroform and dry sterile dressings were applied to the left foot and hallux was in satisfactory alignment. Local anesthesia was administered to the surgical site. Patient was transferred to PACU with vital signs stable and neurovascular status intact. WENDI BELL DPM Apr 05, 2019 14:27
[2019-04-05] MEDS ORDERED: ONDANSETRON 4 MG INJ IV PRN (14:30)
[2019-04-05] MEDS ORDERED: HYDROmorphONE 1 MG/5 ML IV SYRINGE IV PRN ×3 (14:30)
--- NOTE | 2019-04-05 14:40 | PDOCDIS ---
Discharge Instructions CONDITION [id number] Patient Condition: [id number] Stable HOME CARE INSTRUCTIONS: [id number] Diet Instructions: [id number] Regular ACTIVITY: [id number] Activity Restrictions: [id number] Partial Weight Bearing FOLLOW UP/APPOINTMENTS Follow-up Plan follow up [address] Sriram Bell/Dr. Pierre Sunshine/Dr. Amna Justice at [facility] wound care clinic OTHER ORDERS: Other Orders: keep dressings clean dry and intact and provide post op shoe SRIRAM BELL DPM Apr 05, 2019 14:40
--- NOTE | 2019-04-05 16:34 | PAC ---
Date/Time of Note Date/Time of Note DATE: 04/05/19 TIME: 16:34 Post-Anesthesia Notes Post-Anesthesia Note Last documented vital signs Vital Signs Date Temp Pulse Resp B/P (MAP) Pulse Ox O2 O2 Flow FiO2 Time Delivery Rate 04/05/19 82 12 113/70 96 Room Air 15:14 (84) 04/05/19 6.0 14:36 04/05/19 99.3 14:34 Activity: WNL Respiratory function: WNL Cardiovascular function: WNL Mental status: Baseline Pain reasonably controlled: Yes Hydration appropriate: Yes Nausea/Vomiting absent: Yes MANUEL NASSAR MD Apr 05, 2019 16:34
== END 2019-04-05 16:04 | disposition home or self-care (01) ==
LOC: SDS 11:25
PROVIDERS: ATTEND Podiatrist Foot & Ankle Surgery
DX: L97.529 Non-pressure chronic ulcer of other part of left foot with unspecified severity (principal); M86.8X7 Other osteomyelitis, ankle and foot; I10 Essential (primary) hypertension; E11.9 Type 2 diabetes mellitus without complications; Z79.82 Long term (current) use of aspirin
CPT/HCPCS: 28755; 87070; 87102; 88304; 88311; C1713; J0690; J1100; J2250; J2370; J2405; J3010